=== PATIENT | male | born 1960 | race Caucasian/White ===

== ENCOUNTER → 2017-12-08 09:58 | Outpatient (CLI) | payer OTHER, SELFPAY ==
[2017-08-21 11:26] VITALS: BMI 40.4
[2017-08-22 11:00] VITALS: BP 144/71
[2017-12-07 11:37] VITALS: BP 130/60; BMI 41.5
[2017-12-08 10:17] LABS: Potassium 4.8 mmol/L (3.5-5.1)
== END ==
PROVIDERS: Family Provider Internal Medicine; PCP Internal Medicine; Visit Provider Internal Medicine
DX: E87.5 Hyperkalemia (principal)
CPT/HCPCS: 84132

== ENCOUNTER → 2017-12-25 13:40 | Outpatient (CLI) | payer OTHER, SELFPAY ==
[2017-08-21 11:26] VITALS: BMI 40.4
[2017-08-22 11:00] VITALS: BP 144/71
[2017-12-07 11:37] VITALS: BP 130/60; BMI 41.5
--- NOTE | 2017-12-25 13:41 | ECHOD_ITS ---
Reason For Study: dyspnea/SOB Procedure This was a 2D Doppler, Color Flow transthoracic echocardiogram. The study was technically difficult. Due to body habitus. Exam performed in department. Left Ventricle Normal LV size. Apical false tendon noted. Left ventricular systolic function is normal. The estimated ejection fraction is 53 %. No evidence for diastolic dysfunction. No regional wall motion abnormalities noted. Right Ventricle Normal RV size. Normal systolic function. Atria Normal left atrium. Normal right atrium. Mitral Valve Normal mitral valve. Tricuspid Valve Normal tricuspid valve. Unable to estimate RV systolic pressure/pulmonary artery pressure due to technically difficult study. Aortic Valve The aortic valve is not well visualized. Pulmonic Valve Normal pulmonic valve. Great Vessels Normal aortic root. The pulmonary artery is normal size. Normal inferior vena cava. Pericardium/Pleural No pericardial effusion. MMode/2D Measurements & Calculations LVIDd: 5.3 cm IVSd: 0.93 cm Ao root diam: 2.8 cm LVIDs: 3.7 cm LVPWd: 0.87 cm LA dimension: 4.8 cm FS: 30.2 % LAV(MOD-bp): 62.5 ml LA A4 area: 17.6 cm2 RA A4 area: 14.7 cm2 LAV(MOD-bp) Indexed: 27.2 ml/m2 LAV(MOD-sp2): 63.4 ml LAV(MOD-sp4): 56.4 ml Time Measurements MV dec time: 0.12 sec Doppler Measurements & Calculations MV E max chay: 140.0 cm/sec Lat Peak E' Chay: 8.3 cm/sec Med Peak E' Chay: 7.0 cm/sec MV A max chay: 118.0 cm/sec E/E' lat: 16.9 E/E' med: 19.9 MV E/A: 1.2 Ao V2 max: 137.2 cm/sec LV V1 max: 97.6 cm/sec PA V2 max: 108.6 cm/sec Ao max P.5 mmHg LV V1 max P.8 mmHg Interpretation Summary Normal LV size. Left ventricular systolic function is normal. The estimated ejection fraction is 53 %. No evidence for diastolic dysfunction. Apical false tendon noted. Compared to prior study, there is no significant change. Ordering Physician: Sergey Nelson Referring Physician: Lisa Gates Performed By: Lizette Gómez, MODESTACS, RVT
== END ==
PROVIDERS: Family Provider Internal Medicine; PCP Internal Medicine; Visit Provider Internal Medicine Cardiovascular Disease
DX: I50.9 Heart failure, unspecified (principal)
CPT/HCPCS: 93306

== ENCOUNTER → 2018-01-18 08:02 | Outpatient (CLI) | payer OTHER, SELFPAY ==
[2017-08-21 11:26] VITALS: BMI 40.4
[2018-01-18 08:58] LABS: Hematocrit 39.2 % (40-54); Hemoglobin 12.9 g/dl (13.0-16.5); Mean Corp Hgb Conc 32.9 g/gl (32-36); Mean Corpuscular Hgb 29.9 pg (27.0-32.0); Mean Platelet Vol. 9.6 fl (6.2-12.0); Platelet Count 147 K/mm3 (150-450); RBC Distribution Width CV 14.1 % (11.6-14.6); RBC Distribution Width SD 46.4 fl (35.1-43.9); Red Blood Count 4.31 M/mm3 (4.6-6.2); White Blood Count 6.2 K/mm3 (4.4-11.0)
[2018-01-18 09:08] LABS: Scan Indicated on CBC? Y/N NO
[2018-01-18 09:24] LABS: Hemoglobin A1c 7.6 % (4.2-6.3)
[2018-01-18 09:28] LABS: Albumin, Serum 3.7 g/dL (3.2-5.0); BUN 46 mg/dL (7-18); BUN/Creat Ratio 21.7 RATIO (10-20); Calcium,Total 8.4 mg/dL (8.5-10.1); Chloride 110 mmol/L (98-107); Creatinine, Serum 2.12 mg/dL (0.70-1.30); EST Glomerular Filtration Rate 34 mL/min (>60); Est Glom Filt Rate - Afr Amer 42 mL/min (>60); Glucose 154 mg/dL (74-106); Magnesium 2.5 mg/dL (1.6-2.6); Phosphorus 4.5 mg/dL (2.5-4.9); Potassium 4.7 mmol/L (3.5-5.1); Sodium Level 143 mmol/L (136-145); Thyroid Stim Hormone (TSH) 4.26 uIU/mL (0.358-3.74)
[2018-01-19 09:42] LABS: Vitamin D,25 Hydroxy 26.1 ng/mL (29.95-100.01)
[2018-01-19 09:48] LABS: PTHIN 92.1 pg/mL (18.4-80.1)
== END ==
PROVIDERS: Internal Medicine Nephrology; Family Provider Internal Medicine; PCP Internal Medicine; Visit Provider Internal Medicine Endocrinology, Diabetes & Metabolism
DX: E11.65 Type 2 diabetes mellitus with hyperglycemia (principal); I10 Essential (primary) hypertension; E78.2 Mixed hyperlipidemia; E03.9 Hypothyroidism, unspecified; Z79.899 Other long term (current) drug therapy; N25.81 Secondary hyperparathyroidism of renal origin; N18.3 Chronic kidney disease, stage 3 (moderate); D63.1 Anemia in chronic kidney disease
CPT/HCPCS: 36415; 80069; 82043; 82306; 83036; 83735; 83970; 84443; 85027

== ENCOUNTER → 2018-04-27 07:23 | Outpatient (CLI) | payer OTHER, SELFPAY ==
[2017-08-21 11:26] VITALS: BMI 40.4
[2018-04-27 07:53] LABS: Hematocrit 37.9 % (40-54); Hemoglobin 12.9 g/dl (13.0-16.5); Mean Corpuscular Hgb 31.3 pg (27.0-32.0); Mean Platelet Vol. 9.4 fl (6.2-12.0); Platelet Count 167 K/mm3 (150-450); RBC Distribution Width CV 14.7 % (11.6-14.6); RBC Distribution Width SD 49.4 fl (35.1-43.9); Red Blood Count 4.12 M/mm3 (4.6-6.2); White Blood Count 7.8 K/mm3 (4.4-11.0)
[2018-04-27 07:55] LABS: Scan Indicated on CBC? Y/N NO
[2018-04-27 08:28] LABS: ALB/GLOB Ratio 0.9 RATIO (0.9-2.4); AST(SGOT) 21 U/L (15-37); Alanine Aminotransfer ALT/SGPT 21 U/L (16-61); Albumin, Serum 3.4 g/dL (3.2-5.0); Alkaline Phosphatase 98 U/L (45-117); Anion Gap 7 (5-15); BUN 36 mg/dL (7-18); BUN/Creat Ratio 17.5 RATIO (10-20); Calcium,Total 8.7 mg/dL (8.5-10.1); Chloride 103 mmol/L (98-107); Creatinine, Serum 2.06 mg/dL (0.70-1.30); EST Glomerular Filtration Rate 35 mL/min (>60); Est Glom Filt Rate - Afr Amer 43 mL/min (>60); Globulin 3.7 g/dL (2.2-4.2); Glucose 140 mg/dL (74-106); Magnesium 2.5 mg/dL (1.6-2.6); Potassium 4.2 mmol/L (3.5-5.1); Protein, Total 7.1 g/dL (6.4-8.2); Sodium Level 139 mmol/L (136-145); Thyroid Stim Hormone (TSH) 4.73 uIU/mL (0.358-3.74)
[2018-04-27 08:32] LABS: Hemoglobin A1c 7.4 % (4.2-6.3)
[2018-04-27 09:51] LABS: PTHIN 147.7 pg/mL (18.4-80.1)
[2018-04-27 10:03] LABS: Vitamin D,25 Hydroxy 19.1 ng/mL (29.95-100.01)
== END ==
PROVIDERS: Family Provider Internal Medicine; PCP Internal Medicine; Visit Provider Internal Medicine Nephrology
DX: I12.9 Hypertensive chronic kidney disease with stage 1 through stage 4 chronic kidney disease, or unspecified chronic kidney disease (principal); E11.22 Type 2 diabetes mellitus with diabetic chronic kidney disease; N18.3 Chronic kidney disease, stage 3 (moderate); N25.81 Secondary hyperparathyroidism of renal origin; D63.1 Anemia in chronic kidney disease; E78.2 Mixed hyperlipidemia; Z79.899 Other long term (current) drug therapy
CPT/HCPCS: 80053; 82043; 82306; 82570; 83036; 83735; 83970; 84443; 85027

== ENCOUNTER → 2018-05-04 08:33 | Outpatient (CLI) | payer OTHER, SELFPAY ==
[2017-08-21 11:26] VITALS: BMI 40.4
--- NOTE | 2018-05-04 08:36 | RAD_ITS ---
STUDY: X-RAY - LUMBAR SPINE REASON FOR EXAM: Male, 57 years old. Low back pain. TECHNIQUE: 5 view(s) of the lumbar spine were obtained including oblique views. COMPARISON: None FINDINGS: Normal lumbar lordosis. There is no substantial scoliosis. There is a normal alignment of the vertebrae. There is multilevel endplate spondylosis of the lumbar vertebrae. There is multi-level degenerative disc disease with multi-level disc space narrowing. There is atherosclerotic calcification of the abdominal aorta without a demonstrated aneurysm. Calcified phleboliths are seen in the pelvis. There is calcification of the vas deferens. RAD/L/S Spine Min 4 Views IMPRESSION: Degenerative changes of the spine, as detailed above. Electronically Signed: Oj Michael MD at 12:39 EDT Tel [phone], Service support ,
== END ==
PROVIDERS: Family Provider Internal Medicine; PCP Internal Medicine; Visit Provider Internal Medicine
DX: M54.40 Lumbago with sciatica, unspecified side (principal)
CPT/HCPCS: 72110

== ENCOUNTER 2018-06-04 08:30 | Outpatient (RCR) | payer OTHER, SELFPAY ==
[2017-08-21 11:26] VITALS: BMI 40.4
--- NOTE | 2018-05-07 07:47 | HP.PTEVAL_ITS ---
Patient's Visit Information KATHERINE NAVA is a 58 year old M referred to Physical Therapy by Lisa Gates with a diagnosis of Low Back Pain. Date of Evaluation: 05/07/18 Physical Therapist: Shaila Guajardo, PT - Visit Plan Frequency: 2x /Week Duration: 4 Weeks Plan: Therapeutic exercises and activities to target BLE, core and back strength , ROM and flexibility. Manual and Modalities to decrease pain and increase ROM. Per physician preferred modalities of ultrasound and electrical stim. Incorporate HEP to promote maintainence and independence. - Subjective Subjective: NEIL Patient presents in therapy today with low back pain that started 6 weeks ago with no known injury. States it just started. He reports that he takes prescription advil and muscle relaxor that helps decrease the pain and not alleviate it. He reports pain is consistent with activities. He reports that he does prone push ups, pelvic tilts and alternating knee lifts in supine to help decrease pain but not alleviate it. He has been using biofreeze to help with pain as well. States pain is worse after the shower. He has numbness and tingling down both legs that are secondary to neuropathy and not worsen since back pain. He has had xray showing normal age-related degeneration. Lives with his to help with activities. - Pain low back Pain Intensity (Out of 10): 4 Pain Intensity Range: 3, 8 Comment: worsen when in the shower - Objective Posture: Standing upright equal WB through BLE; slouching with increased posterior pelvic tilt while sitting. ROM: Mild limitations with lumbar extension and rotation right/left; moderate limitation with lumbar side bending and flexion (increased pain with flexion); BLE WFL. Sensation: Intact to light touch. Palpation: No tenderness or pain to palpation to low back and hip area; moderate tightness along bilateral paraspinals; Anterior rotation of L pelvis in resting compared to R resulting in higher R ASIS compared to L and slight leg length difference. Flexibility: Moderate tightness of bilateral hamstrings -25* knee extension on right and -20* on the left. Strength: BLE grossly 4/5 strength except bilateral hip flexors 4-/5, hip abduction right/left 4-/5, core strength 3+/5, low back 4-/5. Balance: Patient displays fair balance static and dynamic standing; frequent swaying and reaching for objects to maintain balance. - Goals Goal 1:: Patient will increase BLE and core strength grossly by 1 muscle grade for improved performance with functional activities Goal Time Frame: 4-6 Weeks Goal 2:: Patient will increase lumbar ROM in all planes for improved mobility Goal Time Frame: 4-6 Weeks Goal 3:: Patient will increase hamstring flexibility by 5 degrees bilaterally for improved mobility. Goal Time Frame: 4-6 Weeks Goal 4:: Patient will perform 10 minutes of therapeutic exercises and activities without increasing back pain Goal Time Frame: 4-6 Weeks Goal 5:: Patient will demonstrate increased low back strength grossly 4/5 for improved posture and performance with functional activities Goal Time Frame: 4-6 Weeks Goal 6:: Patient will demonstrate independence with HEP Goal Time Frame: 2-4 Weeks - Rehabilitation Potential Physical Therapy Diagnosis: Muscle Weakness, Limited Range of Motion Rehabilitation Potential: Good - Anticipated Interventions Patient/Client Instruction: Educate patient on: Condition, Plan of Care For the Purpose of:: To decrease pain, To increase ROM, To improve muscle performance and motor function, To improve ability to perform ADL's, To improve ability of physical actions for home/community/work/leisure, To increase flexibility/ROM, To improve endurance, To improve safety with gait Therapeutic Exercise to Include: Strength training, Endurance training, Balance training, Body mechanics, Postural training, Flexibilty training, Samuel Exercises For the Purpose of:: To increase ROM, To improve muscle performance and motor function, To improve ability to perform ADL's, To improve ability of physical actions for home/community/work/leisure Functional Training to Include: ADL Training For the Purpose of:: To improve muscle performance and motor function, To improve ability of physical actions for home/community/work/leisure Comment: massage not covered For the Purpose of:: To decrease pain, To increase ROM, To increase flexibility/ ROM Iontophoresis (with Dexamethozone, with Acetic acid): No Functional electric stimulation: Yes TENS: Yes Ultrasound (thermal/non thermal): Yes For the Purpose of:: To decrease pain, To increase ROM, To increase flexibility/ ROM Thank you for the opportunity to evaluate your patient. For Medicare and Medicare HMO plans, please review the plan of care and approve it. It will need to be FAXED BACK to us at [phone] for Medicare purposes. Please let me know if there are questions or concerns regarding this plan of care. Physician Signature: Date:
--- NOTE | 2018-06-04 12:21 | HP.PTDCSUM_ITS ---
HP - PT D/C Summary It has been my pleasure to treat KATHERINE NAVA under orders from Lisa Gates, for the diagnosis of Low Back Pain for a total of 9 visit(s). Discharge Date: Please see the following information for a summary of their discharge status. - Subjective Subjective: PATIENT REPORTS HE HASN'T HAD THE PAIN THAT HE CAME HERE FOR FOR ABOUT ONE WEEK. HE HAS HAD TWO CORTISONE SHOTS IN THE LEFT HIP BY DR. GATES. PATIENT REPORTS THE HOME EX'S SOMETIMES DECREASE THE PAIN. RIGHT NOW, PATIENT REPORTS HIS TAILBONE FEELS BRUISED AND HIS HIPS (LEFT > RIGHT) FEEL STIFF AND SORE. HE REPORTS IT HURTS TO LIE DOWN AND GET UP FROM BED. PATIENTS IS PRESENT AND HELPFUL. PATIENT REPORTS HE WOULD LIKE TO STOP PT AT THIS POINT AND TRY TO CONTINUE ON HIS OWN WITH THE HOME EX'S. PATIENTS IS AGREEABLE. - Pain low back Pain Intensity (Out of 10): 0 - Overall Improvement % Improvement: 30 - Objective Objective/Function: PATIENT, HIS AND THIS PT REALIZED DURING THE SUBJECTIVE INTERVIEW THAT PATIENT HAS BEEN DENYING PAIN BECAUSE HE ISN'T HAVING SHARP SEVERE PAIN BUT HE IS STILL HAVING PAIN IN [place] HIPS LEFT > RIGHT AND HIS LOW BACK. UPON EXAM, HE HAS VERY LIMITED BACK AND HIP ROM ALL PLANES AND TESTING RIGHT LUMBAR SIDE BEND IN STANDING PROVOKED QUITE A BIT OF PAIN BUT PATIENT RECOVERED QUICKLY. HE IS UNABLE TO SLS ON THE LEFT LE WITHOUT UE ASSIST AND ONLY ABLE TO SLS RIGHT LE FOR A FEW SECONDS WITHOUT UE ASSIST. HE HANGS ON TO HIS WALKING IN. HE REPORTS HE HAS A CANE BUT HAS NEVER BEEN SHOWN HOW TO USE IT. PATIENT IS UNSAFE GETTING ON AND OFF EX EQUIPMENT ON HIS OWN WITHOUT SUPERVISION BUT LIKES THE MACHINES. PATIENTS IS INQUIRING ABOUT MEMBERSHIP AND AGREES PATINET NEEDS SUPERVISION WELL PATIENT AGREEING. THIS PATIENT AMBULATED INTO PT WITH DECREASED CADANCE AND HOLDING ON TO HIS THE ENTIRE TIME WHILE EXTENDING HIS OTHER ARM OUT FOR BALANCE. HE AMBULATED UNSAFELY INDEP'LY IN THE TREATMENT ROOM AND EVEN WHEN HE HAD THE TREATMENT TABLE TO HOLD ON TO LOST HIS BALANCE SEVERAL TIMES. HE DID NOT FALL. HE LEARNED PROPER SEQUENCING WITH A CANE QUICKLY BUT THE CANE ALONE REALLY DOES NOT GIVE HIM ENOUGH SUPPORT. RECOMMENDED ROLLATOR. PATIENT IS ABLE TO TRANSFER FROM SIT TO STAND WITHOUT UE ASSIST NOW BUT ONCE HE GETS INTO STANDING HE IS UNSTEADY. THERE IS NO SIGNIFICANT CHANGE IN LUMBAR OSWESTRY AT THIS POINT. PATIENT IS INDEP WITH A HEP BUT IS NOT CONTINUING TO PROGRESS IN TERMS OF ROM, STRENGTH AND BALANCE. - Goals Goal 1:: Patient will increase BLE and core strength grossly by 1 muscle grade for improved performance with functional activities Goal Progress: Not Progressing Goal 2:: Patient will increase lumbar ROM in all planes for improved mobility Goal Progress: Not Progressing Goal 3:: Patient will increase hamstring flexibility by 5 degrees bilaterally for improved mobility. Goal Progress: Not Progressing Goal 4:: Patient will perform 10 minutes of therapeutic exercises and activities without increasing back pain Goal Progress: Progressing Goal 5:: Patient will demonstrate increased low back strength grossly 4/5 for improved posture and performance with functional activities Goal Progress: Not Progressing Goal 6:: Patient will demonstrate independence with HEP Goal Progress: Progressing - Plan Plan: D/C AT PATIENTS REQUEST. AGREEABLE. PATIENT PLANS TO CONTINUE WITH [facility] AT THIS TIME BUT HE AND HIS ARE GOING TO DISCUSS THE LOGISTICS OF MEMBERSHIP WITH [facility] FOR THE FUTURE. THEY ARE ALSO OPEN TO USE OF ASSISTIVE DEVICE AND ARE GOING TO LOOK INTO PURCHASING A ROLLATOR. RECOMMEND FOLLOW UP WITH DR. GATES NEEDED FOR HIS BACK PAIN IF IT DOES NOT CONTINUE TO IMPROVE BECAUSE IT HAS NOT GONE AWAY YET LIKE EPISODES IN THE PAST. - D/C Information If there are questions or concerns regarding this patient's physical therapy, please feel free to call me at [phone]. Thank you for the referral of this patient. Sincerely, Cori Rene
== END 2018-06-04 19:00 | disposition home or self-care (01) ==
LOC: PT 08:30
PROVIDERS: Family Provider Internal Medicine; PCP Internal Medicine; Visit Provider Internal Medicine
DX: M54.5 Low back pain (principal)
CPT/HCPCS: 97014; 97110; 97116; 97162; 97164; G0283

== ENCOUNTER → 2018-08-11 07:35 | Outpatient (CLI) | payer OTHER, SELFPAY ==
[2017-08-21 11:26] VITALS: BMI 40.4
[2018-08-11 08:53] LABS: BUN 37 mg/dL (7-18); Creatinine, Serum 2.04 mg/dL (0.70-1.30); Glucose 231 mg/dL (74-106)
[2018-08-11 08:54] LABS: Anion Gap 11 (5-15); BUN/Creat Ratio 18.1 RATIO (10-20); Calcium,Total 8.6 mg/dL (8.5-10.1); Chloride 104 mmol/L (98-107); EST Glomerular Filtration Rate 36 mL/min (>60); Est Glom Filt Rate - Afr Amer 43 mL/min (>60); Potassium 3.9 mmol/L (3.5-5.1); Sodium Level 142 mmol/L (136-145)
[2018-08-11 09:57] LABS: Hemoglobin A1c 7.5 % (4.2-6.3)
== END ==
PROVIDERS: Family Provider Internal Medicine; PCP Internal Medicine; Referring Provider Internal Medicine Endocrinology, Diabetes & Metabolism; Visit Provider Internal Medicine Endocrinology, Diabetes & Metabolism
DX: E11.65 Type 2 diabetes mellitus with hyperglycemia (principal); E78.2 Mixed hyperlipidemia; I10 Essential (primary) hypertension; Z79.899 Other long term (current) drug therapy
CPT/HCPCS: 36415; 80048; 83036

== ENCOUNTER → 2018-09-12 08:36 | Outpatient (CLI) | payer OTHER, SELFPAY ==
[2017-08-21 11:26] VITALS: BMI 40.4
[2018-09-12 09:52] LABS: Specific Gravity, Urine 1.015 (1.002-1.030)
[2018-09-12 09:53] LABS: Leukocyte Esterase-Dipstick Negative /ul (Negative); Nitrite-Dipstick Negative (Negative)
[2018-09-12 09:54] LABS: Glucose, Dipstick 1000 mg/dl (Normal); Ketone-Dipstick Negative (Negative); Protein-Dipstick 500 mg/dl (Negative); Urine Bilirubin Dipstick Negative (Negative); Urine Urobilinogen Normal (Normal)
[2018-09-12 09:55] LABS: Color, Urine Yellow (Yellow); Hematocrit 36.9 % (40-54); Hemoglobin 12.2 g/dl (13.0-16.5); Mean Corp Hgb Conc 33.1 g/gl (32-36); Mean Corpuscular Volume 93.9 fL (80-94); Occult Blood-Urine 250 /ul (Negative); Platelet Count 151 K/mm3 (150-450); RBC Distribution Width CV 13.9 % (11.6-14.6); RBC Distribution Width SD 47.7 fl (35.1-43.9); Red Blood Count 3.93 M/mm3 (4.6-6.2); Urine Clarity Sl Cldy (Clear)
[2018-09-12 09:58] LABS: Scan Indicated on CBC? Y/N NO
[2018-09-12 10:04] LABS: Protein:Creat Ratio 3315 mg/g CRE (0-200)
[2018-09-12 10:19] LABS: Albumin, Serum 3.4 g/dL (3.2-5.0); BUN 44 mg/dL (7-18); BUN/Creat Ratio 19.1 RATIO (10-20); Calcium,Total 8.7 mg/dL (8.5-10.1); Chloride 102 mmol/L (98-107); EST Glomerular Filtration Rate 31 mL/min (>60); Est Glom Filt Rate - Afr Amer 38 mL/min (>60); Glucose 184 mg/dL (74-106); Phosphorus 4.3 mg/dL (2.5-4.9); Potassium 3.9 mmol/L (3.5-5.1); Sodium Level 141 mmol/L (136-145)
[2018-09-12 10:27] LABS: PTHIN 172.1 pg/mL (18.4-80.1); Vitamin D,25 Hydroxy 28.7 ng/mL (29.95-100.01)
== END ==
PROVIDERS: Family Provider Internal Medicine; PCP Internal Medicine; Referring Provider Internal Medicine Nephrology; Visit Provider Internal Medicine Nephrology
DX: N18.3 Chronic kidney disease, stage 3 (moderate) (principal); N25.81 Secondary hyperparathyroidism of renal origin; D63.1 Anemia in chronic kidney disease
CPT/HCPCS: 80069; 81002; 82306; 82570; 83970; 84156; 85027

== ENCOUNTER → 2018-12-24 10:59 | Outpatient (CLI) | payer OTHER, SELFPAY ==
[2017-08-21 11:26] VITALS: BMI 40.4
[2018-12-11 10:10] VITALS: BMI 41.3
[2018-12-24 12:12] LABS: Anion Gap 9 (5-15); BUN 63 mg/dL (7-18); BUN/Creat Ratio 25.3 RATIO (10-20); Calcium,Total 8.8 mg/dL (8.5-10.1); Chloride 105 mmol/L (98-107); Creatinine, Serum 2.49 mg/dL (0.70-1.30); EST Glomerular Filtration Rate 28 mL/min (>60); Est Glom Filt Rate - Afr Amer 34 mL/min (>60); Glucose 145 mg/dL (74-106); Potassium 4.1 mmol/L (3.5-5.1); Sodium Level 138 mmol/L (136-145)
== END ==
PROVIDERS: Family Provider Internal Medicine; PCP Internal Medicine; Referring Provider Internal Medicine Nephrology; Visit Provider Internal Medicine Nephrology
DX: E11.21 Type 2 diabetes mellitus with diabetic nephropathy (principal)
CPT/HCPCS: 36415; 80048

== ENCOUNTER → 2019-01-28 07:30 | Outpatient (CLI) | payer OTHER, SELFPAY ==
[2017-08-21 11:26] VITALS: BMI 40.4
[2018-12-11 10:10] VITALS: BMI 41.3
[2019-01-28 10:07] LABS: Anion Gap 6 (5-15); BUN 50 mg/dL (7-18); BUN/Creat Ratio 21.5 RATIO (10-20); Calcium,Total 8.9 mg/dL (8.5-10.1); Chloride 104 mmol/L (98-107); Creatinine, Serum 2.33 mg/dL (0.70-1.30); EST Glomerular Filtration Rate 31 mL/min (>60); Est Glom Filt Rate - Afr Amer 37 mL/min (>60); Glucose 229 mg/dL (74-106); Potassium 4.2 mmol/L (3.5-5.1); Sodium Level 135 mmol/L (136-145); Thyroid Stim Hormone (TSH) 3.06 uIU/mL (0.358-3.74)
== END ==
PROVIDERS: Family Provider Internal Medicine; PCP Internal Medicine; Referring Provider Internal Medicine Endocrinology, Diabetes & Metabolism; Visit Provider Internal Medicine Endocrinology, Diabetes & Metabolism
DX: E03.9 Hypothyroidism, unspecified (principal); E11.65 Type 2 diabetes mellitus with hyperglycemia; I10 Essential (primary) hypertension; E78.2 Mixed hyperlipidemia; Z79.899 Other long term (current) drug therapy
CPT/HCPCS: 36415; 80048; 83036; 84443

== ENCOUNTER → 2019-04-25 07:40 | Outpatient (CLI) | payer OTHER, SELFPAY ==
[2017-08-21 11:26] VITALS: BMI 40.4
[2018-12-11 10:10] VITALS: BMI 41.3
--- NOTE | 2019-04-25 07:55 | CDU_ITS ---
Reason For Study: Dizziness Rt. Velocities/BP Lt. Velocities/BP Prox CCA 90.5/14.6 cm/sec. Prox CCA 90/15.1 cm/sec. Mid CCA 94.6/17.9 cm/sec. Mid CCA 96.1/21.2 cm/sec. Dist CCA 91.6/21.2 cm/sec. Dist CCA 80.2/17.6 cm/sec. Prox ICA 79/22.5 cm/sec. Prox ICA 164/52.6 cm/sec. Mid ICA 63/20 cm/sec. Mid ICA 75.4/20.6 cm/sec. Dist ICA 71.6/23.7 cm/sec. Dist ICA 77.3/17 cm/sec. Rt. ICA/CCA = 0.9. Lt. ICA/CCA = 1.8. Prox ECA 112.1/12.6 cm/sec. Prox ECA 227.2/17.1 cm/sec. Rt. Vert. 56.9/18.8 cm/sec. Lt. Vert. 52.2/13.5 cm/sec. Right Extracranial There is heterogeneous, irregular atherosclerotic plaque noted in the right common carotid artery. There is heterogeneous, irregular atherosclerotic plaque noted in the right internal carotid artery. There is homogeneous, smooth atherosclerotic plaque noted in the right external carotid artery. Antegrade flow is noted in the right vertebral artery. Left Extracranial There is heterogeneous, smooth atherosclerotic plaque noted in the left common carotid artery. There is heterogeneous, irregular atherosclerotic plaque noted in the left internal carotid artery. There is heterogeneous, irregular atherosclerotic plaque noted in the left external carotid artery. Antegrade flow is noted in the left vertebral artery. Procedure Carotid Duplex 02013. Exam performed in department. Interpretation Summary Mild (<50%) stenosis right extracranial internal carotid. The degree of stenosis in the left internal carotid artery appears to be 50-69% based upon velocity criteria. However, maharaj-scale imaging suggests that the degree of stenosis may exceed 70%. In this regard, clinical correlation is advised, and an alternative imaging modality may be helpful. Flow within the vertebral arteries is antegrade bilaterally. The degree of stenosis in the left external carotid artery appears to be >50%. Ordering Physician: Trinity Jacinto Referring Physician: Lisa Gates M.D. Performed By: Ann Cintron RVT
== END ==
PROVIDERS: Family Provider Internal Medicine; PCP Internal Medicine; Referring Provider Internal Medicine; Visit Provider Internal Medicine
DX: R42 Dizziness and giddiness (principal)
CPT/HCPCS: 93880

== ENCOUNTER → 2019-05-11 07:40 | Outpatient (CLI) | payer OTHER, MEDICARE, SELFPAY ==
[2017-08-21 11:26] VITALS: BMI 40.4
[2018-12-11 10:10] VITALS: BMI 41.3
[2019-05-11 08:20] LABS: Hemoglobin 12.3 g/dl (13.0-16.5); Mean Corp Hgb Conc 34.2 g/gl (32-36); Mean Corpuscular Hgb 30.5 pg (27.0-32.0); Mean Corpuscular Volume 89.3 fL (80-94); Mean Platelet Vol. 10.2 fl (6.2-12.0); Platelet Count 157 K/mm3 (150-450); RBC Distribution Width CV 14.2 % (11.6-14.6); RBC Distribution Width SD 46.6 fl (35.1-43.9); Red Blood Count 4.03 M/mm3 (4.6-6.2); Scan Indicated on CBC? Y/N NO; White Blood Count 5.9 K/mm3 (4.4-11.0)
[2019-05-11 08:44] LABS: Hemoglobin A1c 8.6 % (4.2-6.3)
[2019-05-11 08:50] LABS: AST(SGOT) 19 U/L (15-37); Alanine Aminotransfer ALT/SGPT 22 U/L (16-61); Albumin, Serum 3.8 g/dL (3.2-5.0); Alkaline Phosphatase 105 U/L (45-117); Anion Gap 6 (5-15); BUN 74 mg/dL (7-18); BUN/Creat Ratio 24.3 RATIO (10-20); Calcium,Total 8.8 mg/dL (8.5-10.1); Chloride 104 mmol/L (98-107); Creatinine, Serum 3.04 mg/dL (0.70-1.30); EST Glomerular Filtration Rate 23 mL/min (>60); Est Glom Filt Rate - Afr Amer 27 mL/min (>60); Glucose 342 mg/dL (74-106); Phosphorus 4.5 mg/dL (2.5-4.9); Potassium 4.7 mmol/L (3.5-5.1); Protein, Total 7.8 g/dL (6.4-8.2); Sodium Level 136 mmol/L (136-145)
[2019-05-11 09:37] LABS: Microalbumin:Creatinine Ratio 1560.7 mg/g CRE (<30 mg/g CRE); Protein, Urine (Random) 152.9 mg/dL (<11.9); Protein:Creat Ratio 2210 mg/g CRE (0-200)
[2019-05-11 10:46] LABS: Color, Urine Yellow (Yellow); Glucose, Dipstick 250 mg/dl (Normal); Ketone-Dipstick Negative (Negative); Leukocyte Esterase-Dipstick Negative /ul (Negative); Nitrite-Dipstick Negative (Negative); Occult Blood-Urine 10 /ul (Negative); Protein-Dipstick 100 mg/dl (Negative); Specific Gravity, Urine 1.015 (1.002-1.030); Urine Bilirubin Dipstick Negative (Negative); Urine Clarity Clear (Clear); Urine Urobilinogen Normal (Normal)
[2019-05-13 09:52] LABS: Vitamin D,25 Hydroxy 36.9 ng/mL (29.95-100.01)
== END ==
PROVIDERS: Family Provider Internal Medicine; PCP Internal Medicine; Referring Provider Internal Medicine Nephrology; Visit Provider Internal Medicine Nephrology
DX: I12.9 Hypertensive chronic kidney disease with stage 1 through stage 4 chronic kidney disease, or unspecified chronic kidney disease (principal); N18.3 Chronic kidney disease, stage 3 (moderate); E11.21 Type 2 diabetes mellitus with diabetic nephropathy; D63.1 Anemia in chronic kidney disease; N25.81 Secondary hyperparathyroidism of renal origin; E11.65 Type 2 diabetes mellitus with hyperglycemia; E78.2 Mixed hyperlipidemia; Z79.899 Other long term (current) drug therapy
CPT/HCPCS: 36415; 80053; 81002; 82043; 82306; 82570; 83036; 83970; 84100; 84156; 85027

== ENCOUNTER → 2019-05-23 07:43 | Outpatient (CLI) | payer OTHER, SELFPAY ==
[2017-08-21 11:26] VITALS: BMI 40.4
[2018-12-11 10:10] VITALS: BMI 41.3
[2019-05-23 09:00] LABS: T4 Free Direct 0.64 ng/dL (0.76-1.46); Thyroid Stim Hormone (TSH) 2.96 uIU/mL (0.358-3.74)
== END ==
PROVIDERS: Family Provider Internal Medicine; PCP Internal Medicine; Referring Provider Internal Medicine Endocrinology, Diabetes & Metabolism; Visit Provider Internal Medicine Endocrinology, Diabetes & Metabolism
DX: E03.9 Hypothyroidism, unspecified (principal); E04.2 Nontoxic multinodular goiter
CPT/HCPCS: 36415; 84439; 84443

== ENCOUNTER → 2019-05-31 13:35 | Outpatient (CLI) | payer OTHER, SELFPAY ==
[2017-08-21 11:26] VITALS: BMI 40.4
[2018-12-11 10:10] VITALS: BMI 41.3
--- NOTE | 2019-05-31 13:38 | US_ITS ---
STUDY: THYROID ULTRASOUND REASON FOR EXAM: Male, 59 years old. Enlarged thyroid on physical exam. TECHNIQUE: Ultrasound evaluation of the thyroid was performed with real-time and static maharaj-scale imaging. COMPARISON: None. FINDINGS: RIGHT LOBE: The right lobe of the thyroid gland measures 5.3 x 1.7 x 1.7 cm. There is a homogeneous echotexture. There are no demonstrated solid, cystic or complex lesions. LEFT LOBE: The left lobe of the thyroid gland measures 4.7 x 2.0 x 2.4 cm. There is a homogeneous echotexture. There are no demonstrated solid, cystic or complex lesions. ISTHMUS: The isthmus measures 0.3 cm . US/Thyroid IMPRESSION: Normal ultrasound examination of the thyroid. Electronically Signed: Romi Alonso MD at 15:50 EDT , Service support ,
== END ==
PROVIDERS: Family Provider Internal Medicine; PCP Internal Medicine; Referring Provider Internal Medicine Endocrinology, Diabetes & Metabolism; Visit Provider Internal Medicine Endocrinology, Diabetes & Metabolism
DX: E04.2 Nontoxic multinodular goiter (principal); E03.9 Hypothyroidism, unspecified
CPT/HCPCS: 76536

== ENCOUNTER → 2019-07-09 15:39 | Outpatient (CLI) | payer OTHER, SELFPAY ==
[2017-08-21 11:26] VITALS: BMI 40.4
[2018-12-11 10:10] VITALS: BMI 41.3
[2019-07-09 16:23] LABS: Color, Urine Yellow (Yellow); Glucose, Dipstick 100 mg/dl (Normal); Hematocrit 41.5 % (40-54); Ketone-Dipstick Negative (Negative); Leukocyte Esterase-Dipstick Negative /ul (Negative); Mean Corp Hgb Conc 33.7 g/dL (32-36); Mean Corpuscular Hgb 30.8 pg (27.0-32.0); Mean Corpuscular Volume 91.4 fL (80-94); Mean Platelet Vol. 10.3 fl (6.2-12.0); Nitrite-Dipstick Negative (Negative); Occult Blood-Urine 25 /ul (Negative); Platelet Count 197 K/mm3 (150-450); Protein-Dipstick 500 mg/dl (Negative); RBC Distribution Width CV 14.2 % (11.6-14.6); RBC Distribution Width SD 47.3 fl (35.1-43.9); Red Blood Count 4.54 M/mm3 (4.6-6.2); Specific Gravity, Urine 1.015 (1.002-1.030); Urine Bilirubin Dipstick Negative (Negative); Urine Clarity Clear (Clear); Urine Urobilinogen Normal (Normal); White Blood Count 8.6 K/mm3 (4.4-11.0)
[2019-07-09 16:47] LABS: Albumin, Serum 3.9 g/dL (3.2-5.0); BUN 50 mg/dL (7-18); BUN/Creat Ratio 19.6 RATIO (10-20); Calcium,Total 9.6 mg/dL (8.5-10.1); Chloride 107 mmol/L (98-107); Creatinine, Serum 2.55 mg/dL (0.70-1.30); EST Glomerular Filtration Rate 28 mL/min (>60); Est Glom Filt Rate - Afr Amer 33 mL/min (>60); Glucose 148 mg/dL (74-106); Phosphorus 3.8 mg/dL (2.5-4.9); Potassium 4.2 mmol/L (3.5-5.1); Sodium Level 139 mmol/L (136-145)
[2019-07-09 16:54] LABS: PTHIN 94.6 pg/mL (18.4-80.1); Vitamin D,25 Hydroxy 31.7 ng/mL (29.95-100.01)
[2019-07-09 17:03] LABS: Microalbumin:Creatinine Ratio 3249.3 mg/g CRE (<30 mg/g CRE); Protein, Urine (Random) 284.1 mg/dL (<11.9); Protein:Creat Ratio 3768 mg/g CRE (0-200)
== END ==
PROVIDERS: Family Provider Internal Medicine; PCP Internal Medicine; Referring Provider Internal Medicine Nephrology; Visit Provider Internal Medicine Nephrology
DX: N18.3 Chronic kidney disease, stage 3 (moderate) (principal); N25.81 Secondary hyperparathyroidism of renal origin; D63.1 Anemia in chronic kidney disease
CPT/HCPCS: 36415; 80069; 81002; 82043; 82306; 82570; 83970; 84156; 85027

== ENCOUNTER → 2019-08-05 06:11 | Outpatient (CLI) | payer OTHER, SELFPAY ==
[2017-08-21 11:26] VITALS: BMI 40.4
[2019-07-23 15:21] VITALS: BMI 40.5
--- NOTE | 2019-08-05 17:35 | STRESSREP ---
Stress Test Report Oncologic myocardial perfusion stress test. 59-year-old man with a history of coronary artery disease status post coronary artery bypass surgery. Medications: Humulin, metoprolol, Altace, furosemide, metolazone, Procardia, isosorbide. Stress protocol: Resting EKG demonstrates normal sinus rhythm with a rate of 73 bpm normal intervals are noted poor R wave progression is noted suggestive of a previous anterior infarct. Resting blood pressures 158/90 mmHg. 0.4 mg of regadenoson was infused per usual protocol followed by rapid intravenous saline flush injection. The maximum heart rate attained was 80 bpm which was 49% of maximum predicted heart rate the maximum workload was 1 metabolic equivalent. At rest there were no ST or T wave changes noted suggest ischemia at peak infusion nonspecific ST-T wave changes were noted. No clinical angina was noted. The resting blood pressures 158/90 with a final blood pressure 140/80 mmHg. Myocardial perfusion protocol. 15.0 mCi of technetium 99m sestamibi was injected at rest. 0.4 mg of regadenoson was infused per usual protocol. Peak infusion 45.0 mCi of technetium 99m sestamibi was injected stress images were obtained stress and rest images are reconstructed and compared in the short axis vertical long horizontal long axis. Gated images were also obtained Perfusion SPECT analysis: Review of the stress images demonstrate a normal cardiac silhouette size. There is a medium-sized defect noted in the lateral wall on the stress images which appears to be totally reversible on the resting images suggestive of lateral ischemia and a medium size zone. The rest of the ma appear to be fairly well perfused. Gated SPECT analysis: The gated ejection fraction is noted to be 41%. Conclusion: Abnormal pharmacologic myocardial perfusion stress test with evidence of lateral ischemia. Borderline ejection fraction.
== END ==
PROVIDERS: Family Provider Internal Medicine; PCP Internal Medicine; Referring Provider Nurse Practitioner Family; Visit Provider Nurse Practitioner Family
DX: R06.02 Shortness of breath (principal); R53.83 Other fatigue; I10 Essential (primary) hypertension; Z95.1 Presence of aortocoronary bypass graft; Z95.5 Presence of coronary angioplasty implant and graft
CPT/HCPCS: 78452; 93017; A9500; A4216; J2785

== ENCOUNTER → 2019-08-14 06:45 | Outpatient (CLI) | payer OTHER, SELFPAY ==
[2017-08-21 11:26] VITALS: BMI 40.4
[2019-07-23 15:21] VITALS: BMI 40.5
--- NOTE | 2019-08-14 07:02 | RAD_ITS ---
EXAM DESCRIPTION: PA and lateral chest CHEST CLINICAL HISTORY: 59 years Male, preop heart catheter COMPARISON: Previous chest obtained on 08/16/2017 FINDINGS: Sternotomy sutures are noted in place. The rest of the thorax is intact. The heart and mediastinum appear to be within normal limits. The lungs appear to be well areated without evidence of pneumonic consolidation or pleural effusion. RAD/Chest PA and Lateral IMPRESSION: Status post CABG otherwise the chest shows no acute pathology. Electronically Signed: Grabiel Woods, at 17:11 EDT Tel , Service support ,
[2019-08-14 08:20] LABS: Absolute Lymphocyte Count 1.61 X10^3/uL (0.83-4.51); Absolute Neutrophil Count 4.6 X10^3/uL (2.0-7.7); Basophil# 0.04 X10^3/uL; Basophil% 0.5 % (0-1); Eosinophil# 0.31 X10^3/uL; Eosinophils% 4.2 % (0-5); Hematocrit 41.4 % (40-54); Hemoglobin 13.4 g/dL (13.0-16.5); Lymphocyte # 1.61 X10^3/ul (4.0); Lymphocyte % 21.8 % (19-41); Mean Corp Hgb Conc 32.4 g/dL (32-36); Mean Corpuscular Hgb 29.9 pg (27.0-32.0); Mean Corpuscular Volume 92.4 fL (80-94); Mean Platelet Vol. 10.8 fl (6.2-12.0); Monocyte# 0.82 X10^3/uL; Monocyte% 11.1 % (0-10); NRBC Flagged by Analyzer 0 % (0-5); Neutrophil # 4.57 X10^3/uL (2.7-7.7); Neutrophil % 62.1 % (47-70); Platelet Count 199 K/mm3 (150-450); RBC Distribution Width CV 13.9 % (11.6-14.6); RBC Distribution Width SD 46.6 fl (35.1-43.9); Red Blood Count 4.48 M/mm3 (4.6-6.2); White Blood Count 7.4 K/mm3 (4.4-11.0)
[2019-08-14 08:55] LABS: Hemoglobin A1c 8.3 % (4.2-6.3)
[2019-08-14 08:58] LABS: Anion Gap 13 (5-15); BUN 68 mg/dL (7-18); BUN/Creat Ratio 18.1 RATIO (10-20); Calcium,Total 9.1 mg/dL (8.5-10.1); Chloride 98 mmol/L (98-107); Cholesterol 256 mg/dL (200); Creatinine, Serum 3.75 mg/dL (0.70-1.30); EST Glomerular Filtration Rate 18 mL/min (>60); Est Glom Filt Rate - Afr Amer 21 mL/min (>60); Glucose 305 mg/dL (74-106); High Density Lipoprotein 29 mg/dL; Potassium 4.2 mmol/L (3.5-5.1); Sodium Level 137 mmol/L (136-145); Triglycerides 357 mg/dL; Uric Acid 7.5 mg/dL (3.5-7.2); Very Low Density Lipoprotein 71 mg/dL (5-40)
[2019-08-14 09:42] LABS: Vitamin B12 1293 pg/mL (211-911)
== END ==
PROVIDERS: Family Provider Internal Medicine; PCP Internal Medicine; Referring Provider Nurse Practitioner Family; Visit Provider Nurse Practitioner Family
DX: E11.42 Type 2 diabetes mellitus with diabetic polyneuropathy (principal); E11.65 Type 2 diabetes mellitus with hyperglycemia; E78.2 Mixed hyperlipidemia; E03.9 Hypothyroidism, unspecified; I10 Essential (primary) hypertension; E79.0 Hyperuricemia without signs of inflammatory arthritis and tophaceous disease; Z79.899 Other long term (current) drug therapy
CPT/HCPCS: 36415; 71046; 80048; 80061; 82607; 83036; 84443; 84550; 85025

== ENCOUNTER → 2019-10-02 06:55 | Outpatient (CLI) | payer OTHER, SELFPAY ==
[2017-08-21 11:26] VITALS: BMI 40.4
[2019-07-23 15:21] VITALS: BMI 40.5
[2019-10-02 07:41] LABS: Hematocrit 38.3 % (40-54); Mean Corp Hgb Conc 33.9 g/dL (32-36); Mean Corpuscular Hgb 30.8 pg (27.0-32.0); Mean Corpuscular Volume 90.8 fL (80-94); Mean Platelet Vol. 10.7 fl (6.2-12.0); Platelet Count 212 K/mm3 (150-450); RBC Distribution Width CV 14.2 % (11.6-14.6); RBC Distribution Width SD 46.3 fl (35.1-43.9); Red Blood Count 4.22 M/mm3 (4.6-6.2)
[2019-10-02 07:47] LABS: Color, Urine Yellow (Yellow); Glucose, Dipstick 1000 mg/dl (Normal); Ketone-Dipstick Negative (Negative); Leukocyte Esterase-Dipstick Negative /ul (Negative); Nitrite-Dipstick Negative (Negative); Occult Blood-Urine 25 /ul (Negative); Protein-Dipstick 100 mg/dl (Negative); Specific Gravity, Urine 1.015 (1.002-1.030); Urine Bilirubin Dipstick Negative (Negative); Urine Clarity Clear (Clear); Urine Urobilinogen Normal (Normal)
[2019-10-02 07:59] LABS: Albumin, Serum 3.9 g/dL (3.2-5.0); BUN 97 mg/dL (7-18); Calcium,Total 9.5 mg/dL (8.5-10.1); Chloride 101 mmol/L (98-107); Creatinine, Serum 4.04 mg/dL (0.70-1.30); EST Glomerular Filtration Rate 16 mL/min (>60); Est Glom Filt Rate - Afr Amer 20 mL/min (>60); Glucose 258 mg/dL (74-106); Sodium Level 138 mmol/L (136-145)
[2019-10-02 10:25] LABS: Microalbumin:Creatinine Ratio 2850.5 mg/g CRE (<30 mg/g CRE); Protein:Creat Ratio 3816 mg/g CRE (0-200)
[2019-10-02 10:44] LABS: PTHIN 108.6 pg/mL (18.4-80.1)
[2019-10-02 10:46] LABS: Vitamin D,25 Hydroxy 35.1 ng/mL (29.95-100.01)
== END ==
PROVIDERS: Family Provider Internal Medicine; PCP Internal Medicine; Referring Provider Internal Medicine Nephrology; Visit Provider Internal Medicine Nephrology
DX: N18.3 Chronic kidney disease, stage 3 (moderate) (principal); D63.1 Anemia in chronic kidney disease
CPT/HCPCS: 36415; 80069; 81002; 82043; 82306; 82570; 83970; 84156; 85027

== ENCOUNTER 2019-10-20 01:57 | Emergency (ER) | payer OTHER, SELFPAY ==
[2017-08-21 11:26] VITALS: BMI 40.4
[2019-07-23 15:21] VITALS: BMI 40.5
[2019-10-20 01:58] VITALS: BP 220/103; PULSE 75; RESP 17; TEMP 37.2; O2SAT 98; BMI 41.3
--- NOTE | 2019-10-20 02:03 | EKG12_ITS ---
Test Reason : CP Blood Pressure : / mmHG Vent. Rate : 075 BPM Atrial Rate : 075 BPM P-R Int : 276 ms QRS Dur : 130 ms QT Int : 422 ms P-R-T Axes : 000 -71 145 degrees QTc Int : 471 ms Sinus rhythm with 1st degree A-V block Left axis deviation Non-specific intra-ventricular conduction block Cannot rule out Anteroseptal infarct , age undetermined T wave abnormality, consider lateral ischemia vs IVCD effect Abnormal ECG Confirmed by YESSY KATHLEEN, GIANNI ([id number]), editor sound DANNY MCCONNELL ([id number]) on 10/23/2019 1:02:04 PM Referred By: MANOJ Confirmed By:GIANNI KRISHNAMURTHY MD
--- NOTE | 2019-10-20 02:05 | RAD_ITS ---
STUDY: X-RAY CHEST REASON FOR EXAM: Male, 59 years old. Chest pain for 4 days. TECHNIQUE: Single AP portable view of the chest. COMPARISON: 08/14/2019. FINDINGS: The lungs are clear and expanded. There is no demonstrated pleural abnormality. There is mild cardiac enlargement. Midline sternotomy wires noted. Normal mediastinum and gio. There is mild fullness of the central markings, cannot exclude mild congestion. Normal visualized aortic arch and descending thoracic aorta. Normal visualized thoracic spine. Normal visualized ribs, clavicles, and shoulders. There is no demonstrated abnormality of the visualized soft tissue structures of the upper abdomen. RAD/Chest 1 View (Portable) IMPRESSION: Possible mild vascular congestion, otherwise no acute process identified. Electronically Signed: Ekaterina Fischer MD at 2:22 EST , Service support ,
[2019-10-20 02:12] VITALS: O2SAT 100
--- NOTE | 2019-10-20 02:16 | ED.DCSUM_ITS ---
- ER Visit Summary Date of Service: 10/20/19 Chief Complaint: Chest pain /chest wall pain History of Present Illness: The patient is a 59 M history of cardiac disease with prior triple bypass 10 years ago. Also history of cardiac stents, CAD, [place], diabetes and hypertension with renal insufficiency. Patient states he fell about a week or so ago. He has had several falls in the last 3 weeks. He did hit his left chest the last 4 days baseline constant pain with his left chest wall. He denies any nausea, diaphoresis or shortness of breath. Is not associated with exertion. Pain is worse with movement. It sharp in his left lateral chest. He denies any hemoptysis. Physical Examination: Middle-aged male no acute distress vital signs are stable and afebrile. Pulse ox 90% on room air no signs of hypoxia. HEENT exam normal. Neck nontender. No JVD. No lymphadenopathy. Lungs clear to auscultation bilaterally. Heart regular rate and rhythm no murmur. His left lateral chest wall has mild tenderness it is worse if he moves or rotates about his trunk. There is no ecchymosis or bruising. No crepitance or subcu air. No gross bony deformities. Abdomen is soft and nontender. Normal bowel sounds no peritoneal signs. Patient moving all 4 extremities. Calves are nontender without edema or cords. Neurologically is awake and alert with no focal motor deficits. Test Results: EKG shows sinus rhythm first-degree AV block heart rate is 75. Nonspecific interventricular conduction delay. No acute signs of [place] or ischemia. Test x-ray chronic changes prior sternotomy. No acute process. Borderline cardiomegaly. Read both by myself and the radiologist. CBC unremarkable chronic anemia hemoglobin 12. Previously 13. Electrolytes unremarkable chronic renal insufficiency his creatinine is 3 previously it was 3-4. Troponin normal. Emergency Department Course and Treatment: Patient is well known history of cardiac disease. Clinically this sounds more like chest wall pain. It is reproducible. It is made worse with movement. He will undergo a cardiac work- up. Given to [facility] for pain. On repeat exam at 02 40 8 AM. Patient is doing well. Is feeling better after the [place]. He will be discharged home. We went over all his test results. Treatment Plan: Discharged home. Limited [facility] for pain. Disposition: Discharge Impression: Acute chest pain secondary to left chest wall pain History of CAD, [place] with cardiac stents and prior bypass History of diabetes and hypertension History of renal insufficiency This note was generated with Dibsie dictation software. It may contain incorrect words, spelling, and punctuation that were not noted in review of the chart prior to signing ED Disposition - Plan for ED Patient: Referrals: Lisa Gates MD [Primary Care Provider] -
[2019-10-20 02:22] VITALS: BP 198/90; PULSE 68; RESP 19; O2SAT 98
[2019-10-20 02:22] LABS: Absolute Lymphocyte Count 1.13 X10^3/uL (0.83-4.51); Basophil# 0.04 X10^3/uL; Basophil% 0.6 % (0-1); Eosinophil# 0.24 X10^3/uL; Eosinophils% 3.3 % (0-5); Hematocrit 36.3 % (40-54); Hemoglobin 12.5 g/dL (13.0-16.5); Lymphocyte # 1.13 X10^3/ul (4.0); Lymphocyte % 15.7 % (19-41); Mean Corp Hgb Conc 34.4 g/dL (32-36); Mean Corpuscular Hgb 31.2 pg (27.0-32.0); Mean Corpuscular Volume 90.5 fL (80-94); Mean Platelet Vol. 10.5 fl (6.2-12.0); Monocyte# 0.76 X10^3/uL; Monocyte% 10.6 % (0-10); NRBC Flagged by Analyzer 0 % (0-5); Neutrophil # 4.98 X10^3/uL (2.7-7.7); Neutrophil % 69.4 % (47-70); Platelet Count 191 K/mm3 (150-450); RBC Distribution Width CV 14.2 % (11.6-14.6); RBC Distribution Width SD 46.3 fl (35.1-43.9); Red Blood Count 4.01 M/mm3 (4.6-6.2); White Blood Count 7.2 K/mm3 (4.4-11.0)
[2019-10-20] MEDS: HYDROcodone Bitartrate/Apap 5/325 Tablet PO (02:27)
[2019-10-20 02:41] LABS: Anion Gap 9 (5-15); BUN 61 mg/dL (7-18); BUN/Creat Ratio 20.3 RATIO (10-20); Calcium,Total 9.2 mg/dL (8.5-10.1); Chloride 103 mmol/L (98-107); Creatinine, Serum 3.01 mg/dL (0.70-1.30); EST Glomerular Filtration Rate 23 mL/min (>60); Est Glom Filt Rate - Afr Amer 28 mL/min (>60); Estimated Creatinine Clearance 24.71 ml/min; Glucose 291 mg/dL (74-106); Potassium 4.6 mmol/L (3.5-5.1); Sodium Level 138 mmol/L (136-145)
[2019-10-20 02:49] VITALS: BP 185/83; PULSE 68; RESP 12; O2SAT 98
--- NOTE | 2019-10-20 02:49 | DCINST.ED_ITS ---
ED Disposition - Plan for ED Patient: Disposition: Home or Assisted Living Instructions: Chest Wall Strain Prescriptions: Hydrocodone/Acetaminophen [Berwick 5-325 Tablet] 1 ea PO 4X/DAY PRN PRN 7 Days #20 tab PRN Reason: Pain Or Fever Prescription Printed Referrals: Lisa Gates MD [Primary Care Provider] - As Needed Additional Instructions: Ice to chest wall. Use a pillow to support the chest wall which will help with the discomfort. [place] for pain as needed. Follow-up with your doctor as needed.
[2019-10-20 02:57] VITALS: BP 183/90; PULSE 68; RESP 18; O2SAT 99
== END 2019-10-20 02:58 | disposition home or self-care (01) ==
PROVIDERS: Emergency Provider Emergency Medicine; Family Provider Internal Medicine; PCP Internal Medicine
DX: R07.89 Other chest pain (principal); E11.9 Type 2 diabetes mellitus without complications; I10 Essential (primary) hypertension; I25.10 Atherosclerotic heart disease of native coronary artery without angina pectoris; N28.9 Disorder of kidney and ureter, unspecified; Z95.1 Presence of aortocoronary bypass graft; Z95.5 Presence of coronary angioplasty implant and graft; I44.0 Atrioventricular block, first degree
CPT/HCPCS: 71045; 80048; 84484; 85025; 93005; 99285; A4216

== ENCOUNTER → 2019-10-25 10:44 | Outpatient (REF) | payer OTHER, SELFPAY ==
[2017-08-21 11:26] VITALS: BMI 40.4
[2019-10-22 15:23] VITALS: BMI 40.4
== END ==
LOC: CVS 10:44
PROVIDERS: PCP Internal Medicine; Visit Provider Nurse Practitioner Family
DX: I25.10 Atherosclerotic heart disease of native coronary artery without angina pectoris (principal); Z95.5 Presence of coronary angioplasty implant and graft; R55 Syncope and collapse
CPT/HCPCS: 93270

== ENCOUNTER → 2019-11-01 06:41 | Outpatient (CLI) | payer OTHER, SELFPAY ==
[2017-08-21 11:26] VITALS: BMI 40.4
[2019-10-22 15:23] VITALS: BMI 40.4
[2019-11-01 07:40] LABS: Anion Gap 6 (5-15); BUN 39 mg/dL (7-18); BUN/Creat Ratio 15.6 RATIO (10-20); Chloride 104 mmol/L (98-107); EST Glomerular Filtration Rate 28 mL/min (>60); Est Glom Filt Rate - Afr Amer 34 mL/min (>60); Glucose 214 mg/dL (74-106); Sodium Level 137 mmol/L (136-145); T4 Free Direct 0.69 ng/dL (0.76-1.46); Thyroid Stim Hormone (TSH) 2.04 uIU/mL (0.358-3.74)
== END ==
PROVIDERS: Family Provider Internal Medicine; PCP Internal Medicine; Referring Provider Internal Medicine Nephrology; Visit Provider Internal Medicine Nephrology
DX: R94.6 Abnormal results of thyroid function studies (principal); N18.3 Chronic kidney disease, stage 3 (moderate)
CPT/HCPCS: 36415; 80048; 84439; 84443; 84481

== ENCOUNTER → 2019-11-25 14:59 | Outpatient (CLI) | payer OTHER, SELFPAY ==
[2017-08-21 11:26] VITALS: BMI 40.4
[2019-11-22 08:31] VITALS: BMI 41.5
--- NOTE | 2019-11-25 15:05 | RAD_ITS ---
STUDY: X-RAY CHEST REASON FOR EXAM: Male, 59 years old. SOB TECHNIQUE: PA and lateral views of the chest. COMPARISON: 10/20/2019 FINDINGS: Status post median sternotomy. The lungs are clear and expanded. There is no demonstrated pleural abnormality. There is moderate cardiac enlargement. Normal mediastinum and gio. There is prominence of the pulmonary hilar arteries and peripheral pulmonary arteries, consistent with congestive heart failure (CHF). Normal visualized aortic arch and descending thoracic aorta. Normal visualized thoracic spine. Normal visualized ribs, clavicles, and shoulders. There is no demonstrated abnormality of the visualized soft tissue structures of the upper abdomen. RAD/Chest PA and Lateral IMPRESSION: Mild congestive heart failure. Electronically Signed: Venkatesh Uriarte MD at 15:32 EST Tel , Service support ,
[2019-11-25 15:18] LABS: Absolute Lymphocyte Count 0.81 X10^3/uL (0.83-4.51); Absolute Neutrophil Count 6.7 X10^3/uL (2.0-7.7); Basophil# 0.01 X10^3/uL; Basophil% 0.1 % (0-1); Eosinophils% 1.2 % (0-5); Hematocrit 35.2 % (40-54); Hemoglobin 11.9 g/dL (13.0-16.5); Lymphocyte # 0.81 X10^3/ul (4.0); Lymphocyte % 9.7 % (19-41); Mean Corp Hgb Conc 33.8 g/dL (32-36); Mean Corpuscular Hgb 32.3 pg (27.0-32.0); Mean Corpuscular Volume 95.7 fL (80-94); Mean Platelet Vol. 10.3 fl (6.2-12.0); Monocyte# 0.74 X10^3/uL; Monocyte% 8.9 % (0-10); NRBC Flagged by Analyzer 0 % (0-5); Neutrophil # 6.66 X10^3/uL (2.7-7.7); Neutrophil % 79.6 % (47-70); Platelet Count 198 K/mm3 (150-450); RBC Distribution Width CV 15.2 % (11.6-14.6); RBC Distribution Width SD 52.7 fl (35.1-43.9); Red Blood Count 3.68 M/mm3 (4.6-6.2); White Blood Count 8.4 K/mm3 (4.4-11.0)
[2019-11-25 15:47] LABS: ALB/GLOB Ratio 0.8 RATIO (0.9-2.4); AST(SGOT) 21 U/L (15-37); Alanine Aminotransfer ALT/SGPT 16 U/L (16-61); Albumin, Serum 3.2 g/dL (3.2-5.0); Alkaline Phosphatase 88 U/L (45-117); Anion Gap 10 (5-15); BUN 57 mg/dL (7-18); BUN/Creat Ratio 20.9 RATIO (10-20); Calcium,Total 8.9 mg/dL (8.5-10.1); Chloride 100 mmol/L (98-107); Creatinine, Serum 2.73 mg/dL (0.70-1.30); EST Glomerular Filtration Rate 26 mL/min (>60); Est Glom Filt Rate - Afr Amer 31 mL/min (>60); Globulin 4.1 g/dL (2.2-4.2); Glucose 316 mg/dL (74-106); Protein, Total 7.3 g/dL (6.4-8.2); Sodium Level 133 mmol/L (136-145)
[2019-11-25 16:15] LABS: BNP,B-Type NATRIURETIC PEPTIDE 1120.4 pg/mL (0-100)
== END ==
PROVIDERS: PCP Internal Medicine; Referring Provider Internal Medicine; Visit Provider Internal Medicine
DX: R53.83 Other fatigue (principal); R06.02 Shortness of breath; R68.89 Other general symptoms and signs
CPT/HCPCS: 71046; 80053; 82009; 83880; 84484; 85025

== ENCOUNTER 2019-11-25 16:17 | Inpatient (IN) | payer OTHER, MEDICARE, SELFPAY ==
[2017-08-21 11:26] VITALS: BMI 40.4
[2019-11-22 08:31] VITALS: BMI 41.5
[2019-11-25] VITALS (8 sets, daily range): BP systolic 129–182; BP diastolic 73–93; PULSE 82–88; RESP 16–18; TEMP 36.5–36.8; O2SAT 92–97; BMI 41.5; BMI 40.3
--- NOTE | 2019-11-25 16:59 | ED.VIS.GEN ---
History of Present Illness Chief Complaint: Chest Pain Informant: Patient, Family Onset: Days Context: Gradual Onset Timing: Waxes and wanes Narrative: Patient presents to ED with complaint of chest heaviness, cough, nausea, flulike symptoms. He states late last week he became ill with body aches and cough. Monday and Monday evenings he felt like he was being smothered with too much liquid in his lungs. Those symptoms seem to be improving. Patient states because he was feeling so ill and not eating he has not taken his medications in the last several days. Patient was scheduled to have a pacemaker placed today and has been off his Plavix for the past 5 days. He saw his PCP today because he was feeling ill. Patient declined transfer to the ED and outpatient work-up was pursued. Blood work returns with a troponin of 1.8 and patient is sent to the emergency room. BNP is also noted to be 1100. Patient does have known history of cardiac disease. He states that he had an abnormal stress test approximately 6 weeks ago but heart cath was not pursued secondary to chronic renal failure. - Past Medical History (1) Diabetes Status: Chronic (2) Atherosclerotic heart disease of [place] coronary artery without angina pectoris Status: Chronic Comment: CABG x 3 THOMAS-LAD, SCG-D1, SVG-LCx 03/05/2010; UUR-TVH-Nizv LAD 01/24/2002; PCI-PAYAL-Mid RCA 02/01/2005; PCI- PAYAL of mid/distal and proximal RCA 08/21/17 (3) CKD stage 4 due to type 2 diabetes mellitus Status: Chronic (4) Essential (primary) hypertension Status: Chronic (5) HLD (hyperlipidemia) Status: Chronic (6) H/O coronary artery bypass surgery Status: Resolved Comment: CABG x 3 THOMAS-LAD, SCG-D1, SVG-LCx 03/05/2010 (7) History of coronary artery stent placement Status: Resolved Comment: SYR-SWZ-[place] LAD 01/24/2002; PCI-PAYAL-Mid RCA 02/01/2005; PCI- PAYAL of mid/distal and proximal RCA 08/21/17 Past Medical History - Allergies and Home Meds Allergies/Adverse Reactions: Allergies ampicillin Allergy (Verified 11/22/19 08:54) Rash erythromycin base Allergy (Verified 11/22/19 08:54) Other Penicillins Allergy (Verified 11/22/19 08:54) Rash Sulfa (Sulfonamide Antibiotics) Allergy (Verified 11/22/19 08:54) Hives atorvastatin [From Lipitor] Adverse Reaction (Severe, Verified 11/22/19 08:54) Muscle aching pravastatin [From Pravachol] Adverse Reaction (Severe, Verified 11/22/19 08:54) Myalgias simvastatin [From Zocor] Adverse Reaction (Severe, Verified 11/22/19 08:54) Muscle aching amlodipine [From Norvasc] Adverse Reaction (Intermediate, Verified 11/22/19 08:54) Hand swelling ezetimibe [From Zetia] Adverse Reaction (Verified 11/22/19 08:54) MYALGIA Ozuyjhj-Eql-Zvc Reductase Inhibitor Adverse Reaction (Verified 11/22/19 08:54) Other Patient has tried Lipitor, Pravachol, Zocor, Crestor as well as fenofibrates, Zetia, and Repatha (last 3 are non-statin drugs for hyperlipidemia) Primary Care Physician: Lisa Gates MD [Primary Care Provider] - Doctors: Dr. Nelson Surgical History: adenoidectomy, angioplasty, coronary bypass surgery, tonsillectomy Lives: Spouse/ Significant Other Smoking Status: Never smoker - Family History Maternal Family History: Family History (Last Reviewed 11/15/19 @ 13:44 by ISAAC Peraza) Father CAD (coronary artery disease), Onset Age: 61 Stented coronary artery Mother COPD (chronic obstructive pulmonary disease) Sister Diabetes Hypertension Family History: Reports: COPD Paternal Family History: Family History (Last Reviewed 11/15/19 @ 13:44 by ISAAC Peraza) Father CAD (coronary artery disease), Onset Age: 61 Stented coronary artery Mother COPD (chronic obstructive pulmonary disease) Sister Diabetes Hypertension Family History: Reports: Heart Disease Review of Systems General: Reports: Fever, Subjective Eyes: Denies: Visual changes - bilaterally ENT: Denies: Bilateral ear pain Cardiovascular: Reports: Chest pain Respiratory: Reports: Dyspnea, Cough Gastrointestinal: Denies: Abdominal pain, Vomiting, Diarrhea Musculoskeletal: Reports: Myalgias Skin: Denies: Rash Neurological: Denies: Headache Allergy: Denies: Uticaria Physical Exam Vital Signs/Narrative: Vital Signs Temp Pulse Resp BP Pulse Ox 11/25/19 16:18 97.7 F L 82 16 129/73 H 92 Inital Vital Signs reviewed: Yes General: Well nourished, Well developed Head: Normocephalic ENT: Moist mucous membranes Neck: Supple Cardiovascular: Regular rate, Regular rhythm Respiratory: No distress, - - Diminished bilateral bases Abdomen: Soft, Nontender Extremities: Edema Skin: Normal color Neurological: Alert, Oriented x3 Psychological: Normal affect Diagnostic/Tx/Re-eval - EKG Initial EKG Interpretation: Sinus Rhythm - Sinus at 82 with first-degree AV block. He does have lateral ST depression that is new when compared to prior study of October 20, 2019. - Medical Decision Making I discussed with patient his test results that were obtained as an outpatient this afternoon. I spoke Dr. Tran, on-call for cardiology. He requested the patient be started on a heparin drip and admitted. Patient received aspirin and heparin drip was started. Repeat troponin is drawn at this time. ED Disposition - Plan for ED Patient: Disposition: Acute Care Hospital [facility] Diagnosis: NSTEMI (non-ST elevated myocardial infarction) Referrals: Lisa Gates MD [Primary Care Provider] -
[2019-11-25] MEDS: Aspirin 325 MG Tablet PO (17:12)
[2019-11-25] MEDS: 0.9% Normal Saline 1,000 ML 15 ML IV (17:12)
[2019-11-25] MEDS: HEPARIN/D5w 25,000 UNITS 25,000 UNITS/250 ML IV.SOLN. 0.2 UNITS IV (17:53)
[2019-11-25] MEDS: Heparin Injection (Vial) 5,000 UNIT/ML VIAL 9500 UNIT IV (17:54)
--- NOTE | 2019-11-25 18:07 | PCM.HP.STD ---
<Zamzam Tay - Last Filed: 11/25/19 18:50> Problem List (1) Diabetes Status: Chronic (2) NSTEMI (non-ST elevated myocardial infarction) Status: Acute (3) Heart block AV complete Status: Chronic Comment: intermittent CHB (4) Syncope and collapse Status: Resolved (5) Left carotid stenosis Status: Chronic (6) Essential (primary) hypertension Status: Chronic (7) H/O coronary artery bypass surgery Status: Chronic Comment: CABG x 3 THOMAS-LAD, SCG-D1, SVG-LCx 03/05/2010 (8) History of coronary artery stent placement Status: Chronic Comment: ZNH-VNC-Agms LAD 01/24/2002; PCI-PAYAL-Mid RCA 02/01/2005; PCI- PAYAL of mid/distal and proximal RCA 08/21/17 (9) 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 transplanted heart: ambler heart Qualified Code(s): I25.10 - Atherosclerotic heart disease of ambler coronary artery without angina pectoris Comment: CABG x 3 THOMAS-LAD, SCG-D1, SVG-LCx 03/05/2010; UPC-HBX-Lswn LAD 01/24/2002; PCI-PAYAL-Mid RCA 02/01/2005; PCI- PAYAL of mid/distal and proximal RCA 08/21/17 (10) CKD stage 4 due to type 2 diabetes mellitus Status: Chronic (11) HLD (hyperlipidemia) Status: Chronic Qualifiers: Hyperlipidemia type: pure hypercholesterolemia Qualified Code(s): E78.00 - Pure hypercholesterolemia, unspecified History of Present Illness Date of Admission: 11/25/19 Chief Complaint: Chest pressure. The patient is a 59 year old M who presents emergency room due to chest pressure and generalized swelling. Patient reports his was sick with upper respiratory infection recently and over the past few days he has had nasal congestion, sore throat and persistent cough. He also reports chest pressure in which he feels as if he is smothering. He reports this is worsened when he is lying flat. He denies any increase in chest pressure symptoms with exertion. He denies pain radiation, lightheadedness, diaphoresis or nausea. He does report poor oral intake and appetite over the past few days associated with upper respiratory illness. He denies fever, chills. Patient states his legs and arms feel puffy. He denies weight gain. Patient saw his primary care physician today for symptoms, an EKG was taken at that time and he was referred to the emergency room for further evaluation. Patient was scheduled for pacemaker placement today for a previous 3.6-second ventricular pause and third-degree heart block which was noted on his 30-day event monitor. He also reports he had a recent abnormal stress test 6 weeks ago and cardiac catheterization was initially planned and subsequently canceled due to his kidney function. He has a past medical history of CABG and PCI, type 2 diabetes mellitus, ABBI, obesity, chronic kidney disease stage IV, hypertension, hyperlipidemia. Past Medical History Past Medical History (Chronic Problems): Chronic Problems (Last Reviewed 11/15/19 @ 13:44 by ISAAC Peraza) Diabetes (Chronic) Heart block AV complete (Chronic) intermittent CHB Left carotid stenosis (Chronic) Essential (primary) hypertension (Chronic) H/O coronary artery bypass surgery (Chronic 03/05/10) CABG x 3 THOMAS-LAD, SCG-D1, SVG-LCx 03/05/2010 History of coronary artery stent placement (Chronic 08/21/17) SPZ-FMN-Awje LAD 01/24/2002; PCI-PAYAL-Mid RCA 02/01/2005; PCI- PAYAL of mid/distal and proximal RCA 08/21/17 Atherosclerotic heart disease of ambler coronary artery without angina pectoris (Chronic) CABG x 3 THOMAS-LAD, SCG-D1, SVG-LCx 03/05/2010; OYD-XEU-Qmhn LAD 01/24/2002; PCI-PAYAL-Mid RCA 02/01/2005; PCI- PAYAL of mid/distal and proximal RCA 08/21/17 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) HLD (hyperlipidemia) (Chronic) Medical History: Medical History (Last Reviewed 11/15/19 @ 13:44 by ISAAC Peraza) Heart block AV complete (Acute) I44.2 intermittent CHB Syncope and collapse (Acute) R55 Left carotid stenosis (Chronic) I65.22 Essential (primary) hypertension (Chronic) I10 Atherosclerotic heart disease of ambler coronary artery without angina pectoris (Chronic) I25.10 CABG x 3 THOMAS-LAD, SCG-D1, SVG-LCx 03/05/2010; ZPM-KVP-Zcso LAD 01/24/2002; PCI-PAYAL-Mid RCA 02/01/2005; PCI- PAYAL of mid/distal and proximal RCA 08/21/17 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) E11.22, N18.4 HLD (hyperlipidemia) (Chronic) E78.5 Diabetic neuropathy E11.40 Obesity (BMI 30.0-34.9) E66.9 Obstructive sleep apnea G47.33 Syncope R55 Type II diabetes mellitus, uncontrolled E11.65 Orthostatic hypotension (Resolved) I95.1 Allergies ampicillin Allergy (Verified 11/22/19 08:54) Rash erythromycin base Allergy (Verified 11/22/19 08:54) Other Penicillins Allergy (Verified 11/22/19 08:54) Rash Sulfa (Sulfonamide Antibiotics) Allergy (Verified 11/22/19 08:54) Hives atorvastatin [From Lipitor] Adverse Reaction (Severe, Verified 11/22/19 08:54) Muscle aching pravastatin [From Pravachol] Adverse Reaction (Severe, Verified 11/22/19 08:54) Myalgias simvastatin [From Zocor] Adverse Reaction (Severe, Verified 11/22/19 08:54) Muscle aching amlodipine [From Norvasc] Adverse Reaction (Intermediate, Verified 11/22/19 08:54) Hand swelling ezetimibe [From Zetia] Adverse Reaction (Verified 11/22/19 08:54) MYALGIA Qenpgsf-Ipq-Avx Reductase Inhibitor Adverse Reaction (Verified 11/22/19 08:54) Other Patient has tried Lipitor, Pravachol, Zocor, Crestor as well as fenofibrates, Zetia, and Repatha (last 3 are non-statin drugs for hyperlipidemia) Home Medications: Ambulatory Orders Medication Instructions Recorded Albuterol IH (ProAir) [Proair Hfa] 1 - 2 puff INHALATION Q6H PRN PRN 08/16/17 Aspirin [Aspir-Low] 81 mg PO DAILY 08/16/17 Cholecalciferol (Vitamin D3) 5,000 unit PO QODAY 08/16/17 [Vitamin D3] Dulera 100 Mcg/5 Mcg Inhaler 1 puff PO BID 08/16/17 Folic Acid 5 tab PO DAILY 08/16/17 Furosemide [Lasix] 40 mg PO DAILY 08/16/17 Gabapentin [Neurontin] 100 mg PO BIDCM 08/16/17 Humulin N 50 units SC QHS 08/16/17 Humulin R 24 units SC BREAKFAST 08/16/17 Humulin R 27 units SC LUNCH 08/16/17 Humulin R 48 units SC DINNER 08/16/17 Montelukast [Singulair] 10 mg PO DAILY 08/16/17 Quetiapine Fumarate [Seroquel XR] 150 mg PO QHS 08/16/17 sertraline 100 mg tablet 150 mg PO QHS 12/06/17 allopurinol 100 mg tablet 100 mg PO BID 12/11/18 diclofenac epolamine 1.3 % 1 patch TRANSDERMAL BID PRN 07/23/19 transdermal 12 hour patch levothyroxine 50 mcg tablet 75 mcg PO QDAY tab 07/23/19 nitroglycerin 0.4 mg sublingual 0.4 mg PO PRN PRN #25 tab 07/23/19 tablet Calcitriol [Rocaltrol] 1 tab PO QODAY 10/20/19 Cyanocobalamin (Vitamin B-12) 2,500 mcg PO DAILY 10/20/19 [Vitamin B-12] Ubidecarenone [Co Q-10] 200 mg PO DAILY 10/20/19 ramipril 10 mg capsule 10 mg PO BID cap 10/22/19 Brimonidine Tartrate/Timolol 1 drp RIGHT EYE BID 11/25/19 [Combigan Eye Drops] Clopidogrel Bisulfate [Clopidogrel] 75 mg PO DAILY 11/25/19 Gemfibrozil 600 mg PO DAILY 11/25/19 Isosorbide Mononitrate [Isosorbide 30 mg PO BID 11/25/19 Mononitrate ER] Metolazone 2.5 mg PO MOTH 11/25/19 Metoprolol Tartrate 50 mg PO BID 11/25/19 Surgical History: Surgical History (Last Reviewed 11/15/19 @ 13:44 by ISAAC Peraza) H/O coronary artery bypass surgery (Resolved) Onset Date: 03/05/10 Z95.1 CABG x 3 THOMAS-LAD, SCG-D1, SVG-LCx 03/05/2010 History of coronary artery stent placement (Resolved) Onset Date: 08/21/17 Z95.5 OTZ-RRJ-Wptj LAD 01/24/2002; PCI-PAYAL-Mid RCA 02/01/2005; PCI- PAYAL of mid/distal and proximal RCA 08/21/17 H/O eye surgery Z98.890 History of left heart catheterization Onset Date: 08/18/17 Z98.890 1995;01/2002; 02/02/2005; 01/2007; 01/2008; 02/2010; 12/02/2010; 08/18/17 Surgical History: adenoidectomy, angioplasty, coronary bypass surgery, tonsillectomy, - - Septoplasty Psychiatric History: Anxiety, Depression Lives: Spouse/ Significant Other Smoking Status: Never smoker Alcohol: Rare Drugs: None - *Family History Maternal Family History: Family History (Last Reviewed 11/25/19 @ 18:19 by TAVO Diaz) Father CAD (coronary artery disease), Onset Age: 61 Stented coronary artery Mother COPD (chronic obstructive pulmonary disease) Sister Diabetes Hypertension History Items: COPD, Diabetes Paternal Family History: Family History (Last Reviewed 11/25/19 @ 18:19 by TAVO Diaz) Father CAD (coronary artery disease), Onset Age: 61 Stented coronary artery Mother COPD (chronic obstructive pulmonary disease) Sister Diabetes Hypertension History Items: Heart Disease Review of Systems Constitutional: Reports: Malaise. Denies: Chills, Fever HEENT: Reports: Nasal Congestion, Sore Throat. Denies: Head Aches, Sinus Congestion, Sinus Drainage Cardiovascular: Reports: Chest Pressure, Edema. Denies: Light Headedness, Palpitations, Syncope Respiratory: Reports: Cough. Denies: Shortness of Breath, Wheezing Gastrointestinal: Denies: Abdominal Pain, Nausea, Vomiting Genitourinary: Denies: Dysuria Musculoskeletal: Denies: Joint Pain, Joint Tenderness Skin: Denies: Rash, Wounds Neurological: Denies: Numbness, Tingling, Focal weakness Psychiatric: Denies: Anxiety, Depression, Homicidal Ideations, Suicidal Ideations Hematologic/ Lymphatic: Denies: Easy Bruising, Easy Bleeding VTE Information - Inpt Only VTE Present on Admission: No VTE Mechan Device Prophylaxis: None VTE Pharm Prophylaxis ordered?: Yes Patient Problems: Active and Suspected Problems (Last Reviewed 11/15/19 @ 13:44 by ISAAC Peraza) NSTEMI (non-ST elevated myocardial infarction) (Acute) - Physical Exam Vitals/I&O's: Vital Signs Temp Pulse Resp BP Pulse Ox 97.7 F L 82 18 129/73 H 97 11/25/19 16:18 11/25/19 16:18 11/25/19 17:56 11/25/19 16:18 11/25/19 17:56 Oxygen Delivery Method Room Air Weight: 265 lb 6.985 oz Body Mass Index (BMI) 41.5 General: Alert, Oriented x3, Cooperative HEENT: Atraumatic, PERRLA, EOMI, Normocephalic Oral: Dry Mucosa Neck: Supple, No JVD, Negative Carotid Bruits Lungs: Clear to auscultation, Diminished Cardiovascular: Regular rate, Regular Rhythm, Normal S1, Normal S2, No murmurs Abdomen: Bowel Sounds Present, Soft, Non Tender, Non-Distended, Obese Extremities: No clubbing, No cyanosis, Edema - Nonpitting bilateral lower extremity edema Skin: No rashes, No breakdown Musculoskeletal: No Tenderness to Palpation of Joints or Extremities Neurological: Cranial nerves II-XII grossly intact, Neuro grossly intact Psych/Mental Status: Normal Affect, Appropriate Laboratory Results 11/25/19 16:58: Troponin I 1.680 H* Current Medications Sodium Chloride () 1,000 mls @ 75 mls/hr IV .[id number] AMANDA Heparin Sodium/Dextrose () 25,000 units in 250 mls @ 0 mls/hr IV .Q0M AMANDA; Protocol Nitroglycerin (Nitrostat) 0.4 mg SUBLINGUAL Q5M PRN PRN Reason: CARDIAC/CHEST PAIN Ondansetron HCl (Zofran) 4 mg IV Q8H PRN PRN PRN Reason: NAUSEA/VOMITING Assessment/Plan All Active Problems (Last Reviewed 11/15/19 @ 13:44 by ISAAC Peraza) NSTEMI (non-ST elevated myocardial infarction) (Acute) Acute coronary syndrome (Resolved) Angina pectoris (Resolved) Chest pain (Resolved) Orthostatic hypotension (Resolved) Syncope and collapse (Resolved) 1. NSTEMI- Trop 1.6. EKG demonstrated lateral ST depression. Cardiology consulted. Continue heparin drip, aspirin. Continue home beta-lorene and nitrate regimen. Trend enzymes. Patient's Plavix has been on hold due to previously planned pacemaker placement 11/25/2019. Stress test July 2019 with EF 41%, abnormal stress test with evidence of lateral ischemia. Further management per cardiology. 2. Acute CHF with reduced ejection fraction-chest x-ray admission with mild CHF. BNP 1120. Echocardiogram December 2017 demonstrated an EF of 53%. IV Lasix 40 mg twice daily. Continue compression stockings lower extremities. Daily weight. Strict I&O. Fluid restriction. EF per stress test July 2019 41%. 3. Intermittent third-degree heart block- noted on 30-day event monitor. Planned for pacemaker placement with Dr. Nelson, cancelled due to acute presentation. Cardiology consulted as noted above. 4. URI-symptom management. Obtain respiratory panel. 5. History of CABG/PCI-continue aspirin, beta-lorene, nitrate, JUAN inhibitor. 6. Type 2 diabetes mellitus with peripheral neuropathy-hold oral regimen. Continue home scheduled insulin regimen with sliding scale insulin. Continue gabapentin regimen. 7. Chronic kidney disease stage IV-kidney function appears at baseline. Trend BMP. 8. Hypertension-stable, continue isosorbide, metoprolol, ramipril regimen. 9. Hyperlipidemia-continue gemfibrozil regimen. Reported allergy to statins. 10. ABBI- continue home BiPAP regimen. 11. Hypothyroidism-continue home Synthroid regimen. 12. Depression-continue sertraline regimen. 13. Gout-continue allopurinol regimen. 14. Morbid obesity- encouraged diet and lifestyle modifications. DVT prophylaxis-heparin drip This patient was seen by TAVO Diaz under the supervision of Dr. Acosta. <Kyle Acosta F - Last Filed: 11/25/19 19:23> History of Present Illness The patient is a 59 year old M [] Past Medical History Medical History: Medical History (Last Reviewed 11/15/19 @ 13:44 by ISAAC Peraza) Heart block AV complete (Acute) I44.2 intermittent CHB Syncope and collapse (Acute) R55 Left carotid stenosis (Chronic) I65.22 Essential (primary) hypertension (Chronic) I10 Atherosclerotic heart disease of ambler coronary artery without angina pectoris (Chronic) I25.10 CABG x 3 THOMAS-LAD, SCG-D1, SVG-LCx 03/05/2010; PSL-DJV-Rcyd LAD 01/24/2002; PCI-PAYAL-Mid RCA 02/01/2005; PCI- PAYAL of mid/distal and proximal RCA 08/21/17 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) E11.22, N18.4 HLD (hyperlipidemia) (Chronic) E78.5 Diabetic neuropathy E11.40 Obesity (BMI 30.0-34.9) E66.9 Obstructive sleep apnea G47.33 Syncope R55 Type II diabetes mellitus, uncontrolled E11.65 Orthostatic hypotension (Resolved) I95.1 Allergies ampicillin Allergy (Verified 11/22/19 08:54) Rash erythromycin base Allergy (Verified 11/25/19 18:39) tears me up Penicillins Allergy (Verified 11/22/19 08:54) Rash Sulfa (Sulfonamide Antibiotics) Allergy (Verified 11/22/19 08:54) Hives atorvastatin [From Lipitor] Adverse Reaction (Severe, Verified 11/22/19 08:54) Muscle aching pravastatin [From Pravachol] Adverse Reaction (Severe, Verified 11/22/19 08:54) Myalgias simvastatin [From Zocor] Adverse Reaction (Severe, Verified 11/22/19 08:54) Muscle aching amlodipine [From Norvasc] Adverse Reaction (Intermediate, Verified 11/22/19 08:54) Hand swelling ezetimibe [From Zetia] Adverse Reaction (Verified 11/22/19 08:54) MYALGIA Cuehsbr-Nmn-Xsj Reductase Inhibitor Adverse Reaction (Verified 11/25/19 18:39) myalgias Patient has tried Lipitor, Pravachol, Zocor, Crestor as well as fenofibrates, Zetia, and Repatha (last 3 are non-statin drugs for hyperlipidemia) Surgical History: Surgical History (Last Reviewed 11/15/19 @ 13:44 by ISAAC Peraza) H/O coronary artery bypass surgery (Resolved) Onset Date: 03/05/10 Z95.1 CABG x 3 THOMAS-LAD, SCG-D1, SVG-LCx 03/05/2010 History of coronary artery stent placement (Resolved) Onset Date: 08/21/17 Z95.5 IWG-GQX-Azze LAD 01/24/2002; PCI-PAYAL-Mid RCA 02/01/2005; PCI- PAYAL of mid/distal and proximal RCA 08/21/17 H/O eye surgery Z98.890 History of left heart catheterization Onset Date: 08/18/17 Z98.890 1995;01/2002; 02/02/2005; 01/2007; 01/2008; 02/2010; 12/02/2010; 08/18/17 - *Family History Maternal Family History: Family History (Last Reviewed 11/25/19 @ 18:19 by TAVO Diaz) Father CAD (coronary artery disease), Onset Age: 61 Stented coronary artery Mother COPD (chronic obstructive pulmonary disease) Sister Diabetes Hypertension Paternal Family History: Family History (Last Reviewed 11/25/19 @ 18:19 by TAVO Diaz) Father CAD (coronary artery disease), Onset Age: 61 Stented coronary artery Mother COPD (chronic obstructive pulmonary disease) Sister Diabetes Hypertension - Physical Exam Vitals/I&O's: Vital Signs Temp Pulse Resp BP Pulse Ox 97.9 F 82 18 182/93 H 93 11/25/19 18:30 11/25/19 18:50 11/25/19 18:30 11/25/19 18:30 11/25/19 18:38 Oxygen Flow Rate (L/min) 2 Oxygen Delivery Method Nasal Cannula Weight: 257 lb 4.471 oz Body Mass Index (BMI) 40.3 Laboratory Results 11/25/19 16:50: APTT 35.1 11/25/19 16:58: Troponin I 1.680 H* Current Medications Albuterol Sulfate (Ventolin Aerosols) 2.5 mg INHALATION Q2H PRN PRN PRN Reason: SHORTNESS OF BREATH Allopurinol (Zyloprim) 100 mg PO BID [facility] Aspirin (Ecotrin) 81 mg PO DAILY [facility] Brimonidine Tartrate (Brimonidine 0.2% 5ml Bottle) 1 drop RIGHT EYE BID [facility] Calcitriol (Rocaltrol) 0.25 mcg PO QODAY [facility] Furosemide (Lasix) 40 mg IV BID@1000,1800 AMANDA Gabapentin (Neurontin) 100 mg PO BIDCM [facility] Gemfibrozil (Lopid) 600 mg PO DAILY [facility] Heparin Sodium/Dextrose () 25,000 units in 250 mls @ 16 mls/hr IV .[id number] [facility]; Protocol Stop: 11/26/19 08:52 Last Admin: 11/25/19 17:53 Dose: 16 units/hr, 0.2 mls/hr Documented by: Sodium Chloride () 1,000 mls @ 75 mls/hr IV .[id number] AMANDA Last Admin: 11/25/19 19:00 Dose: 75 mls/hr Documented by: Sodium Chloride () 500 mls @ 15 mls/hr IV PRN PRN PRN Reason: Blood Transfusion Sodium Chloride () 250 mls @ 15 mls/hr IV .[id number] PRN PRN Reason: Saline Flush Sodium Chloride () 250 mls @ 15 mls/hr IV .[id number] PRN PRN Reason: Additional IVPB Infusion Heparin Sodium/Dextrose () 25,000 units in 250 mls @ 16 mls/hr IV .[id number] AMANDA; Protocol Insulin Human Lispro (Humalog Kwikpen (Bkc)) 0 unit SC ACHS AMANDA; Protocol Insulin Human Lispro (Humalog Kwikpen (Bkc)) 27 unit SC LUNCH AMANDA Insulin Human Lispro (Humalog Kwikpen (Bkc)) 24 unit SC BREAKFAST AMANDA Insulin Human Lispro (Humalog Kwikpen (Bkc)) 48 unit SC DINNER AMANDA Insulin Human NPH (Humulin N (Bk)) 50 units SC QHS [facility] Isosorbide Mononitrate (Imdur) 30 mg PO BID [facility] Levothyroxine Sodium (Synthroid) 75 mcg PO DAILY@0600 [facility] Metoprolol Tartrate (Lopressor (Beta Lorene)) 50 mg PO BID [facility] Metoprolol Tartrate (Lopressor (Beta Lorene)) 50 mg PO BID [facility] Montelukast Sodium (Singulair) 10 mg PO QHS [facility] Nitroglycerin (Nitrostat) 0.4 mg SUBLINGUAL Q5M PRN PRN Reason: CARDIAC/CHEST PAIN Nutritional Formula (Lactose Free) (Glucerna Shake) 120 ml PO 4X/DAY [facility] Ondansetron HCl (Zofran) 4 mg IV Q8H PRN PRN PRN Reason: NAUSEA/VOMITING Quetiapine Fumarate (Seroquel) 75 mg PO BID [facility] Ramipril (Altace) 10 mg PO BID [facility] Sertraline HCl (Zoloft) 150 mg PO BID [facility] Sodium Chloride () 10 - 40 ml IV UD PRN PRN Reason: SALINE FLUSH Last Admin: 11/25/19 19:01 Dose: 10 ml Documented by: Timolol Maleate (Timoptic) 1 drop RIGHT EYE BID AMANDA Code Visit Addendum: Dr. Acosta I personally examined the patient and reviewed the chart. I agree with the above. 59-year-old male with previous coronary artery disease history with multiple stents with his most recent in 2017 presents with chest pressure which she also describes as a dull ache. He states that is been going on since Monday or Monday and initially they thought that it was due to an upper respiratory infection since has been going around in the family. However he was not getting any better today so they went to the PCP where he was found that he had an elevated troponin to 1.8 and he was transferred into the ER. Did have a slight depression in his lateral leads on his EKG, coupled with his elevated troponin to 1.8 which repeat was down to 1.6, indicates an NSTEMI. Cardiology was consulted and they advised to heparin drip as well as a dose of aspirin. They did not recommend any Plavix or Brilinta at this time. Plan will be for probable cardiac cath in the morning with a stent if necessary. We will continue with IV Lasix as his BNP was elevated as well as his home blood pressure medications. He was supposed to have a pacemaker today for intermittent third-degree block that was found on a 30-day event monitor. Inpatient E&M: 95100 In Hosp L3
--- NOTE | 2019-11-25 18:10 | EKG12_ITS ---
Test Reason : Blood Pressure : / mmHG Vent. Rate : 082 BPM Atrial Rate : 082 BPM P-R Int : 224 ms QRS Dur : 130 ms QT Int : 446 ms P-R-T Axes : 071 -65 151 degrees QTc Int : 521 ms Sinus rhythm with 1st degree A-V block Left axis deviation Non-specific intra-ventricular conduction block Cannot rule out Septal infarct (cited on or before 17-AUG-2017) T wave abnormality, consider inferolateral ischemia Abnormal ECG Confirmed by YESSY KATHLEEN, GIANNI ([id number]), general expeditor JOAQUINA MAYEN ([id number]) on 11/27/2019 9:58:12 AM Referred By: SAKINA Confirmed By:GIANNI KRISHNAMURTHY MD
[2019-11-25 18:35] LABS: Partial Thromboplast Time 35.1 Seconds (24.1-36.2)
[2019-11-25] MEDS: 0.9% Normal Saline 1,000 ML 75 ML IV (19:00)
[2019-11-25] MEDS: 0.9% Saline Lock 10 ML Syringe IV (19:01)
[2019-11-25] MEDS: Furosemide 40 MG/4 ML Vial IV (19:01)
[2019-11-25 21:30] LABS: Bedside Glucose 319 mg/dL (70-110)
[2019-11-25] MEDS: Ramipril 10 MG Capsule PO (21:33)
[2019-11-25] MEDS: Glucerna Shake 120 ML LIQUID PO (21:33)
[2019-11-25] MEDS: Isosorbide Mononitrate 30 MG Tablet PO (21:34)
[2019-11-25] MEDS: QUEtiapine 25 MG Tablet 75 MG PO (21:34)
[2019-11-25] MEDS: Metoprolol Tartrate 50 MG Tablet PO (21:34)
[2019-11-25] MEDS: Sertraline 100 MG Tablet 150 MG PO (21:35)
[2019-11-25] MEDS: BRIMONIDINE 0.2% 5ML BOTTLE 1 DRP RIGHT EYE (21:36)
[2019-11-25] MEDS: Timolol 0.5% 5ML OPTH.BTL 1 DRP RIGHT EYE (21:36)
[2019-11-25] MEDS: Allopurinol 100 MG Tablet PO (21:37)
[2019-11-25] MEDS: Montelukast 10 MG Tablet PO (21:38)
[2019-11-25] MEDS: Insulin Lispro 100 UNIT/ML INSULN.PEN SC (21:38)
[2019-11-25] MEDS: Insulin NPH Human 100 UNITS/ML PEN 50 UNITS SC (21:39)
[2019-11-25 23:31] LABS: Partial Thromboplast Time 122.4 Seconds (24.1-36.2)
[2019-11-26] VITALS (11 sets, daily range): BP systolic 117–178; BP diastolic 56–84; PULSE 61–82; RESP 17–18; TEMP 36.6–36.9; O2SAT 92–95
--- NOTE | 2019-11-26 05:55 | EKG12_ITS ---
Test Reason : AM EKG Blood Pressure : / mmHG Vent. Rate : 072 BPM Atrial Rate : 072 BPM P-R Int : 208 ms QRS Dur : 132 ms QT Int : 470 ms P-R-T Axes : 058 -65 168 degrees QTc Int : 514 ms Normal sinus rhythm Left axis deviation Non-specific intra-ventricular conduction block T wave abnormality, consider inferolateral ischemia Abnormal ECG When compared with ECG of 25-NOV-2019 18:11, MANUAL COMPARISON REQUIRED, DATA IS UNCONFIRMED Confirmed by MARCIN KATHLEEN, DARIUS ([id number]), pictures editor JOAQUINA MAYEN ([id number]) on 11/29/2019 2:55:18 PM Referred By: IVANA Confirmed By:TRUONG BURCH MD
[2019-11-26 06:05] LABS: Absolute Neutrophil Count 6.6 X10^3/uL (2.0-7.7); Basophil# 0.02 X10^3/uL; Basophil% 0.2 % (0-1); Eosinophil# 0.21 X10^3/uL; Eosinophils% 2.5 % (0-5); Hematocrit 35.4 % (40-54); Hemoglobin 11.8 g/dL (13.0-16.5); Lymphocyte % 9.5 % (19-41); Mean Corp Hgb Conc 33.3 g/dL (32-36); Mean Corpuscular Hgb 31.9 pg (27.0-32.0); Mean Corpuscular Volume 95.7 fL (80-94); Mean Platelet Vol. 10.5 fl (6.2-12.0); Monocyte# 0.77 X10^3/uL; Monocyte% 9.2 % (0-10); NRBC Flagged by Analyzer 0 % (0-5); Neutrophil # 6.56 X10^3/uL (2.7-7.7); Neutrophil % 78.1 % (47-70); Platelet Count 220 K/mm3 (150-450); RBC Distribution Width CV 15.2 % (11.6-14.6); RBC Distribution Width SD 52.3 fl (35.1-43.9); White Blood Count 8.4 K/mm3 (4.4-11.0)
[2019-11-26 06:13] LABS: Partial Thromboplast Time 49.8 Seconds (24.1-36.2)
[2019-11-26 06:29] LABS: BUN 64 mg/dL (7-18); Creatinine, Serum 2.61 mg/dL (0.70-1.30); Estimated Creatinine Clearance 28.49 ml/min; Glucose 293 mg/dL (74-106)
[2019-11-26 06:30] LABS: Anion Gap 8 (5-15); BUN/Creat Ratio 24.5 RATIO (10-20); Calcium,Total 8.9 mg/dL (8.5-10.1); Chloride 100 mmol/L (98-107); EST Glomerular Filtration Rate 27 mL/min (>60); Est Glom Filt Rate - Afr Amer 32 mL/min (>60); Potassium 3.7 mmol/L (3.5-5.1); Sodium Level 133 mmol/L (136-145)
[2019-11-26] MEDS: Heparin Injection (Vial) 5,000 UNIT/ML VIAL IV (06:35)
[2019-11-26] MEDS: Levothyroxine 75 MCG Tablet PO (06:37)
[2019-11-26 08:35] LABS: Bedside Glucose 276 mg/dL (70-110)
[2019-11-26] MEDS: 0.9% Normal Saline 1,000 ML 75 ML IV ×3 (09:00→22:18)
[2019-11-26] MEDS: QUEtiapine 25 MG Tablet 75 MG PO ×2 (09:52→21:34)
[2019-11-26] MEDS: Isosorbide Mononitrate 30 MG Tablet PO ×2 (09:52→21:35)
[2019-11-26] MEDS: Ramipril 10 MG Capsule PO ×2 (09:52→21:35)
[2019-11-26] MEDS: Metoprolol Tartrate 50 MG Tablet PO ×2 (09:53→21:35)
[2019-11-26] MEDS: Gemfibrozil 600 MG Tablet PO (09:55)
[2019-11-26] MEDS: Aspirin E.C. 81 MG Tablet PO (09:55)
[2019-11-26] MEDS: Insulin Lispro 100 UNIT/ML INSULN.PEN SC ×2 (09:57→11:42)
[2019-11-26] MEDS: BRIMONIDINE 0.2% 5ML BOTTLE 1 DRP RIGHT EYE ×2 (09:59→21:34)
[2019-11-26] MEDS: HEPARIN/D5w 25,000 UNITS 25,000 UNITS/250 ML IV.SOLN. 14 UNITS IV (11:01)
--- NOTE | 2019-11-26 11:13 | CASEMGMT ---
Patient was notified that his Healthcare Power of Language Pathologist and Healthcare Living Will are not on file at [facility] and he should bring in a copy when able. His Fredo is his Healthcare Power of Language Pathologist. Cinthya CHU
--- NOTE | 2019-11-26 11:35 | CASEMGMT ---
RN CM PROCESSING ASSISTANT CM to room to meet with patient for initial transition planning/care coordination assessment. RN TIEN introduced self and role at [facility]. Pt voices understanding and consents to assessment at this time. Pt sitting up in recliner chair in no distress at this time. @ bedside. Pt is A/O at this time and answers all questions appropriately. Care providers, pharmacy, and demographics verified/updated at this time. PCP: Dr Gates Specialists: Dr Nelson--cardiology, Bebeto--eye doctor, Dr Blackman--screen printing machine operator in [place], Dr Mariscal--nephrology Preferred Pharmacy: [facility] Insurance: MCR A only, UMR Prescription Benefit: [employer] Living Will/HPOA: Has both LW and HCPOA, who is his , Fredo. Made aware copies are not found on file @ [facility] of either. LNOK: Living Arrangements: Lives with his one-story condo w/basement. states he rarely goes down there. Pt mostly independent but assists with Compression socks and with dressing lower extremities. Pt helps some w/laundry and household mgmt tasks. Transportation: . Denies transportation concerns. DME: States has the following DME: Has a shower chair but does not use, grab bar in shower, hand held shower. Has a cane and walker that he uses on occasion, BIPAP, Glucose monitoring system. Pt states feels pt could use Medical alert button. Given list of local [facility] that provide these. HHC/SNF: No history of either. PT/OT evals pending. Pt wishes to return home and states has no concerns with going home at time of discharge. CM to follow for any discharge planning/needs. Pt/ voice no concerns/needs at this time. Advised them to ask for CM if any further questions/concerns/needs arise. They voice understanding. PLAN: Home PT/OT evals pending. Delphine SOUSA RN CM
[2019-11-26] MEDS: Allopurinol 100 MG Tablet PO ×2 (11:46→21:36)
[2019-11-26] MEDS: Sertraline 100 MG Tablet 150 MG PO ×2 (11:46→21:34)
[2019-11-26] MEDS: Gabapentin 100 MG Capsule PO ×2 (11:47→17:31)
[2019-11-26] MEDS: Furosemide 40 MG/4 ML Vial IV ×2 (11:48→17:32)
[2019-11-26] MEDS: Insulin Lispro 100 UNIT/ML INSULN.PEN 27 UNIT SC (11:53)
[2019-11-26 12:16] LABS: Bedside Glucose 255 mg/dL (70-110)
--- NOTE | 2019-11-26 12:34 | PCM.CONS.C ---
Problem List (1) NSTEMI (non-ST elevated myocardial infarction) Status: Acute (2) Atherosclerotic heart disease of [place] coronary artery without angina pectoris Status: Chronic Qualifiers: [place] vs. transplanted heart: [place] heart Qualified Code(s): I25.10 - Atherosclerotic heart disease of [place] coronary artery without angina pectoris Comment: CABG x 3 THOMAS-LAD, SCG-D1, SVG-LCx 03/05/2010; [id number] LAD 01/24/2002; PCI-PAYAL-Mid RCA 02/01/2005; PCI- PAYAL of mid/distal and proximal RCA 08/21/17 Reason for Consult Date of Consultation: 11/26/19 Reason for Consultation: CP, NSTEMI, CHF History of Present Illness: The patient is a 59 year old M who presents emergency room due to chest pressure and generalized swelling. Patient reports his was sick with upper respiratory infection recently and over the past few days he has had nasal congestion, sore throat and persistent cough. He also reports chest pressure in which he feels as if he is smothering. He reports this is worsened when he is lying flat. His symptoms were bad last Monday evening he felt a little better Monday during the day and his symptoms returned Monday evening. Monday he felt better and he decided to see his primary care physician on Monday. His primary care physician then sent him to the ER. In the ER patient was found to have elevated troponin and was admitted to the PCU. It was also felt that he was volume overloaded and patient has been started on IV Lasix. Patient has prior history of coronary artery disease status post CABG and stents including restenosis of his prior RCA stents. He has CKD as well. In July 2019 he was found to have lateral ischemia with moderately decreased EF. Because of his CKD he did not undergo coronary angiography. He was not having any anginal symptoms at the time. Subsequently he started having syncopal episodes and an event monitor was placed. He was found to have episodes of third-degree AV block and over 3-second pause. He was scheduled for permanent pacemaker placement yesterday. His last episode of syncope was in the end of October. He has not had any further episodes recently. He has a past medical history of CABG and PCI, type 2 diabetes mellitus, ABBI, obesity, chronic kidney disease stage IV, hypertension, hyperlipidemia. Review of systems: All systems reviewed. All else is negative except in HPI. Past Medical History Allergies/Adverse Reactions: Allergies ampicillin Allergy (Verified 11/22/19 08:54) Rash erythromycin base Allergy (Verified 11/25/19 18:39) tears me up Penicillins Allergy (Verified 11/22/19 08:54) Rash Sulfa (Sulfonamide Antibiotics) Allergy (Verified 11/22/19 08:54) Hives atorvastatin [From Lipitor] Adverse Reaction (Severe, Verified 11/22/19 08:54) Muscle aching pravastatin [From Pravachol] Adverse Reaction (Severe, Verified 11/22/19 08:54) Myalgias simvastatin [From Zocor] Adverse Reaction (Severe, Verified 11/22/19 08:54) Muscle aching amlodipine [From Norvasc] Adverse Reaction (Intermediate, Verified 11/22/19 08:54) Hand swelling ezetimibe [From Zetia] Adverse Reaction (Verified 11/22/19 08:54) MYALGIA Cnggkik-Ywq-Rtp Reductase Inhibitor Adverse Reaction (Verified 11/25/19 18:39) myalgias Patient has tried Lipitor, Pravachol, Zocor, Crestor as well as fenofibrates, Zetia, and Repatha (last 3 are non-statin drugs for hyperlipidemia) Home Medications: Ambulatory Orders Medication Instructions Recorded Albuterol IH (ProAir) [Proair Hfa] 1 - 2 puff INHALATION Q6H PRN PRN 08/16/17 Aspirin [Aspir-Low] 81 mg PO DAILY 08/16/17 Cholecalciferol (Vitamin D3) 5,000 unit PO QODAY 08/16/17 [Vitamin D3] Dulera 100 Mcg/5 Mcg Inhaler 1 puff PO BID 08/16/17 Folic Acid 5 tab PO DAILY 08/16/17 Furosemide [Lasix] 40 mg PO DAILY 08/16/17 Gabapentin [Neurontin] 100 mg PO BIDCM 08/16/17 Humulin N 50 units SC QHS 08/16/17 Humulin R 24 units SC BREAKFAST 08/16/17 Humulin R 27 units SC LUNCH 08/16/17 Humulin R 48 units SC DINNER 08/16/17 Montelukast [Singulair] 10 mg PO DAILY 08/16/17 Quetiapine Fumarate [Seroquel XR] 150 mg PO QHS 08/16/17 sertraline 100 mg tablet 150 mg PO QHS 12/06/17 allopurinol 100 mg tablet 100 mg PO BID 12/11/18 diclofenac epolamine 1.3 % 1 patch TRANSDERMAL BID PRN 07/23/19 transdermal 12 hour patch levothyroxine 50 mcg tablet 75 mcg PO QDAY tab 07/23/19 nitroglycerin 0.4 mg sublingual 0.4 mg PO PRN PRN #25 tab 07/23/19 tablet Calcitriol [Rocaltrol] 1 tab PO QODAY 10/20/19 Cyanocobalamin (Vitamin B-12) 2,500 mcg PO DAILY 10/20/19 [Vitamin B-12] Ubidecarenone [Co Q-10] 200 mg PO DAILY 10/20/19 ramipril 10 mg capsule 10 mg PO BID cap 10/22/19 Brimonidine Tartrate/Timolol 1 drp RIGHT EYE BID 11/25/19 [Combigan Eye Drops] Clopidogrel Bisulfate [Clopidogrel] 75 mg PO DAILY 11/25/19 Gemfibrozil 600 mg PO DAILY 11/25/19 Isosorbide Mononitrate [Isosorbide 30 mg PO BID 11/25/19 Mononitrate ER] Metolazone 2.5 mg PO MOTH 11/25/19 Metoprolol Tartrate 50 mg PO BID 11/25/19 Past Medical History (Chronic Problems): Chronic Problems (Last Reviewed 11/15/19 @ 13:44 by ISAAC Peraza) Diabetes (Chronic) Heart block AV complete (Chronic) intermittent CHB Left carotid stenosis (Chronic) Essential (primary) hypertension (Chronic) H/O coronary artery bypass surgery (Chronic 03/05/10) CABG x 3 THOMAS-LAD, SCG-D1, SVG-LCx 03/05/2010 History of coronary artery stent placement (Chronic 08/21/17) [id number] LAD 01/24/2002; PCI-PAYAL-Mid RCA 02/01/2005; PCI- PAYAL of mid/distal and proximal RCA 08/21/17 Atherosclerotic heart disease of [place] coronary artery without angina pectoris (Chronic) CABG x 3 THOMAS-LAD, SCG-D1, SVG-LCx 03/05/2010; [id number] LAD 01/24/2002; PCI-PAYAL-Mid RCA 02/01/2005; PCI- PAYAL of mid/distal and proximal RCA 08/21/17 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) HLD (hyperlipidemia) (Chronic) Surgical History: adenoidectomy, angioplasty, coronary bypass surgery, tonsillectomy, - - Septoplasty Psychiatric History: Anxiety, Depression - *Family History Maternal Family History: Family History (Last Reviewed 11/25/19 @ 19:20 by Kyle Acosta MD) Father CAD (coronary artery disease), Onset Age: 61 Stented coronary artery Mother COPD (chronic obstructive pulmonary disease) Sister Diabetes Hypertension History Items: COPD, Diabetes Paternal Family History: Family History (Last Reviewed 11/25/19 @ 19:20 by Kyle Acosta MD) Father CAD (coronary artery disease), Onset Age: 61 Stented coronary artery Mother COPD (chronic obstructive pulmonary disease) Sister Diabetes Hypertension History Items: Heart Disease Lives: Spouse/ Significant Other Smoking Status: Never smoker Alcohol: Rare Drugs: None Objective: Vital Signs Temp Pulse Resp BP Pulse Ox 97.8 F 73 18 129/60 H 129 11/26/19 11:50 11/26/19 11:50 11/26/19 11:50 11/26/19 11:50 11/26/19 11:50 Oxygen Flow Rate (L/min) 2 Oxygen Delivery Method Nasal Cannula Weight: 257 lb 4.471 oz Body Mass Index (BMI) 40.3 Intake and Output for Last 24 Hours 11/24/19 11/25/19 11/26/19 23:59 23:59 23:59 Intake Total 643.97 / 643.97 720.66 / 720.66 Balance 643.97 / 643.97 720.66 / 720.66 General: Awake, Alert, Oriented x 3 HEENT: Atraumatic Oral: Moist Mucosa Neck: Supple Lungs: Rales - Mike Bases Cardiovascular: Normal S1, Normal S2 Abdomen: Soft Extremities: Bilateral Edema +1 Skin: No Rashes Psych/Mental Status: Appropriate 11/25/19 16:50: APTT 35.1 11/25/19 16:58: Troponin I 1.680 H* 11/25/19 20:50: Troponin I 1.550 H* 11/25/19 23:02: Troponin I 1.460 H* 11/25/19 23:02: APTT 122.4 H* 11/26/19 05:27: WBC 8.4, RBC 3.70 L, Hgb 11.8 L, Hct 35.4 L, MCV 95.7 H, MCH 31.9, MCHC 33.3, Plt Count 220, MPV 10.5, Immature Gran % (Auto) 0.500, Neut % (Auto) 78.1 H, Lymph % (Auto) 9.5 L, [place] % (Auto) 9.2, Eos % (Auto) 2.5, Baso % (Auto) 0.2, Absolute Neuts (auto) 6.6, Nucleated RBC % 0 11/26/19 05:27: Sodium 133 L, Potassium 3.7, Chloride 100, Carbon Dioxide 25.0, Anion Gap 8, BUN 64 H, Creatinine 2.61 H, Est GFR (MDRD) Af Amer 32 L, Est GFR (MDRD) Non-Af 27 L, BUN/Creatinine Ratio 24.5 H, Glucose 293 H, Calcium 8.9 11/26/19 05:27: APTT 49.8 H Rhythm: EKG: ECHO: Stress Test: Cardiac Cath: PCI: CT Surgery: Holter monitor: EPS: PPM: CXR: Chest CT Scan: Assessment/Plan 1. Chest pain: Patient had non-ST elevation VA this time. His troponin is trending down. He may have had his VA either on Monday evening or Monday evening. I think that he would benefit from coronary angiography despite his elevated creatinine and high risk of contrast-induced nephropathy. However this does not have to be done emergently and we can optimize his kidney function to the best of her ability and then proceed with coronary angiography. Patient also feels that he is currently unable to lie down flat for prolonged period of time and this could be related to his CHF. We will optimize him from the standpoint as well. It will be reasonable to keep him on heparin at this time. 2. CHF: Continue IV Lasix for another day. Patient's EF by last echo in 2017 was preserved and his stress test in July 2019 showed a decrease in EF. We will check a 2D echo as well. 3. Syncope: Patient had significant pauses and episodes of third-degree AV block on event monitoring and was scheduled for permanent pacemaker placement yesterday. We will continue to monitor the patient on telemetry.
--- NOTE | 2019-11-26 12:54 | ECHOCS_ITS ---
Reason For Study: CHF Procedure This was a 2D Doppler, Color Flow transthoracic echocardiogram. The study was technically difficult. Contrast injection was performed. Exam performed portable in patient room. Left Ventricle Normal LV size. The estimated ejection fraction is 40-45 %. There is evidence of diastolic dysfunction. Hypokinesis of the posterior and inferior wall. Right Ventricle Normal RV size. Normal systolic function. Atria The left atrium is mildly enlarged. Normal right atrium. No doppler evidence for ASD. Mitral Valve There is no mitral valve stenosis. No mitral valve insufficiency. Tricuspid Valve There is no tricuspid stenosis. Trivial tricuspid valve insufficiency. Unable to estimate RV systolic pressure due to insufficient tricuspid regurgitant envelope. Aortic Valve Trisinus/trileaflet aortic valve. Aortic sclerosis, no stenosis. There is no aortic stenosis. No aortic valve insufficiency. Pulmonic Valve There is no pulmonic valvular stenosis. Trivial pulmonic valve insufficiency. Great Vessels Normal aortic root. Pericardium/Pleural No pericardial effusion. Medication Diluted definity 2ml given slow IV push to enhance endocardial definition. MMode/2D Measurements & Calculations LVIDd: 5.4 cm IVSd: 1.4 cm LA dimension: 4.5 cm LVIDs: 4.9 cm LVPWd: 1.3 cm FS: 9.1 % LAV(MOD-bp): 59.8 ml LVAd ap4: 43.5 cm2 SV(MOD-sp4): 53.4 ml LAV(MOD-bp) Indexed: 26.7 ml/m2 EDV(MOD-sp4): 164.1 ml LAV(MOD-sp2): 46.5 ml EDV(sp4-el): 166.0 ml LAV(MOD-sp4): 66.2 ml LVAs ap4: 33.6 cm2 ESV(MOD-sp4): 110.8 ml ESV(sp4-el): 107.4 ml EF(MOD-sp4): 32.5 % EF(sp4-el): 35.3 % SV(sp4-el): 58.5 ml LA A4 area: 21.0 cm2 Time Measurements MV dec time: 0.25 sec Doppler Measurements & Calculations MV E max chay: 116.9 cm/sec Lat Peak E' Chay: 3.0 cm/sec Med Peak E' Chay: 4.4 cm/sec MV A max chay: 78.8 cm/sec E/E' lat: 38.5 E/E' med: 26.8 MV E/A: 1.5 MV V2 max: 126.2 cm/sec MV P1/2t max chay: 128.1 cm/sec Ao V2 max: 107.0 cm/sec MV max P.4 mmHg MV P1/2t: 75.4 msec Ao max P.6 mmHg MV V2 mean: 67.6 cm/sec MV mean P.2 mmHg MV dec slope: 497.7 cm/sec2 MV V2 VTI: 38.5 cm MVA(P1/2t): 2.9 cm2 LV V1 max: 98.5 cm/sec PA V2 max: 101.1 cm/sec LV V1 max P.9 mmHg Interpretation Summary The estimated ejection fraction is 40-45 %. There is evidence of diastolic dysfunction. Trivial tricuspid valve insufficiency. Hypokinesis of the posterior and inferior wall Ordering Physician: Chuck Tran Referring Physician: Lisa Gates M.D. Performed By: Jad Bergeron RCS
--- NOTE | 2019-11-26 14:23 | PCM.PROGNOTE ---
<Zamzam Tay - Last Filed: 11/26/19 14:32> Patient Problems: Active and Suspected Problems (Last Reviewed 11/15/19 @ 13:44 by ISAAC Peraza) NSTEMI (non-ST elevated myocardial infarction) (Acute) Subjective: Patient seen and examined. Continues to report cough. Denies shortness of breath. Denies chest pain, palpitations. Plan for heart cath when kidney function improved. - Physical Exam Vitals/I&O's: Vital Signs Temp Pulse Resp BP Pulse Ox 97.8 F 73 18 129/60 H 129 11/26/19 11:50 11/26/19 11:50 11/26/19 11:50 11/26/19 11:50 11/26/19 11:50 Oxygen Flow Rate (L/min) 2 Oxygen Delivery Method Nasal Cannula Weight: 257 lb 4.471 oz Body Mass Index (BMI) 40.3 Intake and Output for Last 24 Hours 11/24/19 11/25/19 11/26/19 23:59 23:59 23:59 Intake Total 643.97 / 643.97 720.66 / 720.66 Balance 643.97 / 643.97 720.66 / 720.66 General: Alert, Oriented x3, Cooperative HEENT: Atraumatic, PERRLA, EOMI, Normocephalic Neck: Supple, No JVD, Negative Carotid Bruits Lungs: Clear to auscultation, Diminished Cardiovascular: Regular rate, Regular Rhythm, Normal S1, Normal S2, No murmurs Abdomen: Bowel Sounds Present, Soft, Non Tender, Non-Distended, Obese Extremities: No clubbing, No cyanosis, Edema - Nonpitting lower extremities Skin: No rashes, No breakdown Musculoskeletal: No Tenderness to Palpation of Joints or Extremities Neurological: Cranial nerves II-XII grossly intact, Neuro grossly intact Psych/Mental Status: Normal Affect, Appropriate Microbiology Past 72 Hours 11/25/19 20:00 Mucosa - Nose Respiratory Panel (PCR) - Final Rhinovirus Laboratory Results 11/25/19 16:50: APTT 35.1 11/25/19 16:58: Troponin I 1.680 H* 11/25/19 20:50: Troponin I 1.550 H* 11/25/19 21:27: POC Glucose 319 H 11/25/19 23:02: Troponin I 1.460 H* 11/25/19 23:02: APTT 122.4 H* 11/26/19 05:27: WBC 8.4, RBC 3.70 L, Hgb 11.8 L, Hct 35.4 L, MCV 95.7 H, MCH 31.9, MCHC 33.3, RDW Std Deviation 52.3 H, RDW Coeff of Margaret 15.2 H, Plt Count 220, MPV 10.5, Immature Gran % (Auto) 0.500, Neut % (Auto) 78.1 H, Lymph % (Auto) 9.5 L, [place] % (Auto) 9.2, Eos % (Auto) 2.5, Baso % (Auto) 0.2, Absolute Neuts (auto) 6.6, Absolute Lymphs (auto) 0.80 L, Nucleated RBC % 0 11/26/19 05:27: Sodium 133 L, Potassium 3.7, Chloride 100, Carbon Dioxide 25.0, Anion Gap 8, BUN 64 H, Creatinine 2.61 H, Estim Creat Clear Calc 28.49, Est GFR (MDRD) Af Amer 32 L, Est GFR (MDRD) Non-Af 27 L, BUN/Creatinine Ratio 24.5 H, Glucose 293 H, Calcium 8.9 11/26/19 05:27: APTT 49.8 H 11/26/19 08:13: POC Glucose 276 H 11/26/19 11:39: POC Glucose 255 H Current Medications Albuterol Sulfate (Ventolin Aerosols) 2.5 mg INHALATION Q2H PRN PRN PRN Reason: SHORTNESS OF BREATH Allopurinol (Zyloprim) 100 mg PO BID REPLACED BY [facility] Last Admin: 11/26/19 11:46 Dose: 100 mg Documented by: Aspirin (Ecotrin) 81 mg PO DAILY REPLACED BY [facility] Last Admin: 11/26/19 09:55 Dose: 81 mg Documented by: Brimonidine Tartrate (Brimonidine 0.2% 5ml Bottle) 1 drop RIGHT EYE BID REPLACED BY [facility] Last Admin: 11/26/19 09:59 Dose: 1 drop Documented by: Calcitriol (Rocaltrol) 0.25 mcg PO QODAY REPLACED BY [facility] Furosemide (Lasix) 40 mg IV BID@1000,1800 REPLACED BY [facility] Last Admin: 11/26/19 11:48 Dose: 40 mg Documented by: Gabapentin (Neurontin) 100 mg PO BIDCM REPLACED BY [facility] Last Admin: 11/26/19 11:47 Dose: 100 mg Documented by: Gemfibrozil (Lopid) 600 mg PO DAILY REPLACED BY [facility] Last Admin: 11/26/19 09:55 Dose: 600 mg Documented by: Heparin Sodium (Porcine) (Heparin Na) 0 unit IV UD PRN; Protocol Last Admin: 11/26/19 06:35 Dose: 1,000 unit Documented by: Sodium Chloride () 1,000 mls @ 75 mls/hr IV .[id number] REPLACED BY [facility] Last Admin: 11/26/19 10:03 Dose: 75 mls/hr Documented by: Sodium Chloride () 500 mls @ 15 mls/hr IV PRN PRN PRN Reason: Blood Transfusion Sodium Chloride () 250 mls @ 15 mls/hr IV .[id number] PRN PRN Reason: Saline Flush Sodium Chloride () 250 mls @ 15 mls/hr IV .[id number] PRN PRN Reason: Additional IVPB Infusion Heparin Sodium/Dextrose () 25,000 units in 250 mls @ 16 mls/hr IV .[id number] REPLACED BY [facility]; Protocol Last Admin: 11/26/19 11:01 Dose: 1,400 units/hr, 14 mls/hr Documented by: Insulin Human Lispro (Humalog Kwikpen (Bkc)) 0 unit SC ACHS REPLACED BY [facility]; Protocol Last Admin: 11/26/19 11:42 Dose: 2 u Documented by: Insulin Human Lispro (Humalog Kwikpen (Bkc)) 27 unit SC LUNCH REPLACED BY [facility] Last Admin: 11/26/19 11:53 Dose: 27 units Documented by: Insulin Human Lispro (Humalog Kwikpen (Bkc)) 24 unit SC BREAKFAST REPLACED BY [facility] Last Admin: 11/26/19 09:50 Dose: Not Given Documented by: Insulin Human Lispro (Humalog Kwikpen (Bkc)) 48 unit SC DINNER REPLACED BY [facility] Insulin Human NPH (Humulin N (Bk)) 50 units SC QHS REPLACED BY [facility] Last Admin: 11/25/19 21:39 Dose: 50 u Documented by: Isosorbide Mononitrate (Imdur) 30 mg PO BID REPLACED BY [facility] Last Admin: 11/26/19 09:52 Dose: 30 mg Documented by: Levothyroxine Sodium (Synthroid) 75 mcg PO DAILY@0600 REPLACED BY [facility] Last Admin: 11/26/19 06:37 Dose: 75 mcg Documented by: Metoprolol Tartrate (Lopressor (Beta Lorene)) 50 mg PO BID REPLACED BY [facility] Last Admin: 11/26/19 09:53 Dose: 50 mg Documented by: Montelukast Sodium (Singulair) 10 mg PO QHS REPLACED BY [facility] Last Admin: 11/25/19 21:38 Dose: 10 mg Documented by: Nitroglycerin (Nitrostat) 0.4 mg SUBLINGUAL Q5M PRN PRN Reason: CARDIAC/CHEST PAIN Ondansetron HCl (Zofran) 4 mg IV Q8H PRN PRN PRN Reason: NAUSEA/VOMITING Quetiapine Fumarate (Seroquel) 75 mg PO BID REPLACED BY [facility] Last Admin: 11/26/19 09:52 Dose: 75 mg Documented by: Ramipril (Altace) 10 mg PO BID REPLACED BY [facility] Last Admin: 11/26/19 09:52 Dose: 10 mg Documented by: Sertraline HCl (Zoloft) 150 mg PO BID REPLACED BY [facility] Last Admin: 11/26/19 11:46 Dose: 150 mg Documented by: Sodium Chloride () 10 - 40 ml IV UD PRN PRN Reason: SALINE FLUSH Last Admin: 11/25/19 19:01 Dose: 10 ml Documented by: Timolol Maleate (Timoptic) 1 drop RIGHT EYE BID REPLACED BY [facility] Last Admin: 11/26/19 10:01 Dose: Not Given Documented by: Medical Necessity - Tobacco Use Smoking Status: Never smoker Assessment/Plan All Active Problems (Last Reviewed 11/15/19 @ 13:44 by ISAAC Peraza) NSTEMI (non-ST elevated myocardial infarction) (Acute) Acute coronary syndrome (Resolved) Angina pectoris (Resolved) Chest pain (Resolved) Orthostatic hypotension (Resolved) Syncope and collapse (Resolved) 1. NSTEMI- EKG demonstrated lateral ST depression. Cardiology consulted. Continue heparin drip, aspirin. Continue home beta-lorene and nitrate regimen. Patient's Plavix has been on hold due to previously planned pacemaker placement 11/25/2019. Stress test July 2019 with EF 41%, abnormal stress test with evidence of lateral ischemia. Plan for heart cath pending repeat assessment of renal function. Echocardiogram pending. 2. Acute CHF with reduced ejection fraction-chest x-ray admission with mild CHF. BNP 1120. Echocardiogram December 2017 demonstrated an EF of 53%. IV Lasix 40 mg twice daily. Continue compression stockings lower extremities. Daily weight. Strict I&O. Fluid restriction. EF per stress test July 2019 41%. Repeat echo pending. 3. Intermittent third-degree heart block- noted on 30-day event monitor. Planned for pacemaker placement with Dr. Nelson, cancelled due to acute presentation. Cardiology consulted as noted above. 4. Acute rhinovirus-symptom management. Albuterol aerosol as needed. 5. History of CABG/PCI-continue aspirin, beta-lorene, nitrate, JUAN inhibitor. 6. Type 2 diabetes mellitus with peripheral neuropathy-hold oral regimen. Continue home scheduled insulin regimen with sliding scale insulin. Continue gabapentin regimen. 7. Chronic kidney disease stage IV-kidney function appears at baseline. Trend BMP. 8. Hypertension-stable, continue isosorbide, metoprolol, ramipril regimen. 9. Hyperlipidemia-continue gemfibrozil regimen. Reported allergy to statins. 10. ABBI- continue home BiPAP regimen. 11. Hypothyroidism-continue home Synthroid regimen. 12. Depression-continue sertraline regimen. 13. Gout-continue allopurinol regimen. 14. Morbid obesity- encouraged diet and lifestyle modifications. DVT prophylaxis-heparin drip This patient was seen by TAVO Diaz under the supervision of Dr. Pope. <Adriana Pope - Last Filed: 11/26/19 15:58> - Physical Exam Vitals/I&O's: Vital Signs Temp Pulse Resp BP Pulse Ox 97.8 F 67 18 129/60 H 93 11/26/19 11:50 11/26/19 14:59 11/26/19 11:50 11/26/19 11:50 11/26/19 11:50 Oxygen Flow Rate (L/min) 2 Oxygen Delivery Method Room Air Weight: 116.7 kg Body Mass Index (BMI) 40.3 Intake and Output for Last 24 Hours 11/24/19 11/25/19 11/26/19 23:59 23:59 23:59 Intake Total 643.97 / 643.97 720.66 / 720.66 Balance 643.97 / 643.97 720.66 / 720.66 Microbiology Past 72 Hours 11/25/19 20:00 Mucosa - Nose Respiratory Panel (PCR) - Final Rhinovirus Laboratory Results 11/25/19 16:50: APTT 35.1 11/25/19 16:58: Troponin I 1.680 H* 11/25/19 20:50: Troponin I 1.550 H* 11/25/19 21:27: POC Glucose 319 H 11/25/19 23:02: Troponin I 1.460 H* 11/25/19 23:02: APTT 122.4 H* 11/26/19 05:27: WBC 8.4, RBC 3.70 L, Hgb 11.8 L, Hct 35.4 L, MCV 95.7 H, MCH 31.9, MCHC 33.3, RDW Std Deviation 52.3 H, RDW Coeff of Margaret 15.2 H, Plt Count 220, MPV 10.5, Immature Gran % (Auto) 0.500, Neut % (Auto) 78.1 H, Lymph % (Auto) 9.5 L, [place] % (Auto) 9.2, Eos % (Auto) 2.5, Baso % (Auto) 0.2, Absolute Neuts (auto) 6.6, Absolute Lymphs (auto) 0.80 L, Nucleated RBC % 0 11/26/19 05:27: Sodium 133 L, Potassium 3.7, Chloride 100, Carbon Dioxide 25.0, Anion Gap 8, BUN 64 H, Creatinine 2.61 H, Estim Creat Clear Calc 28.49, Est GFR (MDRD) Af Amer 32 L, Est GFR (MDRD) Non-Af 27 L, BUN/Creatinine Ratio 24.5 H, Glucose 293 H, Calcium 8.9 11/26/19 05:27: APTT 49.8 H 11/26/19 08:13: POC Glucose 276 H 11/26/19 11:39: POC Glucose 255 H Current Medications Albuterol Sulfate (Ventolin Aerosols) 2.5 mg INHALATION Q2H PRN PRN PRN Reason: SHORTNESS OF BREATH Allopurinol (Zyloprim) 100 mg PO BID REPLACED BY [facility] Last Admin: 11/26/19 11:46 Dose: 100 mg Documented by: Aspirin (Ecotrin) 81 mg PO DAILY REPLACED BY [facility] Last Admin: 11/26/19 09:55 Dose: 81 mg Documented by: Brimonidine Tartrate (Brimonidine 0.2% 5ml Bottle) 1 drop RIGHT EYE BID REPLACED BY [facility] Last Admin: 11/26/19 09:59 Dose: 1 drop Documented by: Calcitriol (Rocaltrol) 0.25 mcg PO QODAY REPLACED BY [facility] Furosemide (Lasix) 40 mg IV BID@1000,1800 REPLACED BY [facility] Last Admin: 11/26/19 11:48 Dose: 40 mg Documented by: Gabapentin (Neurontin) 100 mg PO BIDCM REPLACED BY [facility] Last Admin: 11/26/19 11:47 Dose: 100 mg Documented by: Gemfibrozil (Lopid) 600 mg PO DAILY REPLACED BY [facility] Last Admin: 11/26/19 09:55 Dose: 600 mg Documented by: Heparin Sodium (Porcine) (Heparin Na) 0 unit IV UD PRN; Protocol Last Admin: 11/26/19 06:35 Dose: 1,000 unit Documented by: Sodium Chloride () 1,000 mls @ 75 mls/hr IV .[id number] REPLACED BY [facility] Last Admin: 11/26/19 10:03 Dose: 75 mls/hr Documented by: Sodium Chloride () 500 mls @ 15 mls/hr IV PRN PRN PRN Reason: Blood Transfusion Sodium Chloride () 250 mls @ 15 mls/hr IV .[id number] PRN PRN Reason: Saline Flush Sodium Chloride () 250 mls @ 15 mls/hr IV .[id number] PRN PRN Reason: Additional IVPB Infusion Heparin Sodium/Dextrose () 25,000 units in 250 mls @ 16 mls/hr IV .[id number] REPLACED BY [facility]; Protocol Last Admin: 11/26/19 11:01 Dose: 1,400 units/hr, 14 mls/hr Documented by: Insulin Human Lispro (Humalog Kwikpen (Bkc)) 0 unit SC ACHS REPLACED BY [facility]; Protocol Last Admin: 11/26/19 11:42 Dose: 2 u Documented by: Insulin Human Lispro (Humalog Kwikpen (Bkc)) 27 unit SC LUNCH REPLACED BY [facility] Last Admin: 11/26/19 11:53 Dose: 27 units Documented by: Insulin Human Lispro (Humalog Kwikpen (Bkc)) 24 unit SC BREAKFAST REPLACED BY [facility] Last Admin: 11/26/19 09:50 Dose: Not Given Documented by: Insulin Human Lispro (Humalog Kwikpen (Bkc)) 48 unit SC DINNER REPLACED BY [facility] Insulin Human NPH (Humulin N (Bkc)) 50 units SC QHS REPLACED BY [facility] Last Admin: 11/25/19 21:39 Dose: 50 u Documented by: Isosorbide Mononitrate (Imdur) 30 mg PO BID REPLACED BY [facility] Last Admin: 11/26/19 09:52 Dose: 30 mg Documented by: Levothyroxine Sodium (Synthroid) 75 mcg PO DAILY@0600 REPLACED BY [facility] Last Admin: 11/26/19 06:37 Dose: 75 mcg Documented by: Metoprolol Tartrate (Lopressor (Beta Lorene)) 50 mg PO BID REPLACED BY [facility] Last Admin: 11/26/19 09:53 Dose: 50 mg Documented by: Montelukast Sodium (Singulair) 10 mg PO QHS REPLACED BY [facility] Last Admin: 11/25/19 21:38 Dose: 10 mg Documented by: Nitroglycerin (Nitrostat) 0.4 mg SUBLINGUAL Q5M PRN PRN Reason: CARDIAC/CHEST PAIN Ondansetron HCl (Zofran) 4 mg IV Q8H PRN PRN PRN Reason: NAUSEA/VOMITING Quetiapine Fumarate (Seroquel) 75 mg PO BID REPLACED BY [facility] Last Admin: 11/26/19 09:52 Dose: 75 mg Documented by: Ramipril (Altace) 10 mg PO BID REPLACED BY [facility] Last Admin: 11/26/19 09:52 Dose: 10 mg Documented by: Sertraline HCl (Zoloft) 150 mg PO BID REPLACED BY [facility] Last Admin: 11/26/19 11:46 Dose: 150 mg Documented by: Sodium Chloride () 10 - 40 ml IV UD PRN PRN Reason: SALINE FLUSH Last Admin: 11/25/19 19:01 Dose: 10 ml Documented by: Timolol Maleate (Timoptic) 1 drop RIGHT EYE BID REPLACED BY [facility] Last Admin: 11/26/19 10:01 Dose: Not Given Documented by: Assessment/Plan This patient was seen in conjunction with Zamzam Tay NP. I have independently interviewed and examined the patient and reviewed pertinent historical, laboratory, and other data. Please refer to her note for patient's presentation, findings, and recommendations. Patient was seen and examined. Denied any chest pain or dizziness or palpitation. He remains on heparin drip. No acute events overnight. Vitals were reviewed -stable Physical Exam: Gen: Comfortable, not pale, not jaundiced, alert oriented x3 CVS:HS I +II, regular, no murmurs RESP: Diminished at lung bases GI: BS present and normal, nontender, no palpable organs EXT:No edema Labs reviewed: ASSESSMENT: 1. Acute non-STEMI 2. Acute on chronic systolic CHF, previous EF of 53% 3. Recent third-degree AV block 4. Acute rhino virus bronchitis 5. CAD status post CABG 6. Type II DM 7. Hypertension 8. Hyperlipidemia 9. Hypothyroidism Meds reviewed Plan: Appreciate cardiology consult; will follow up on recommendations Continue on aspirin, heparin drip, Lasix, metoprolol, isosorbide, Repeat blood work in a.m. Code Visit Inpatient E&M: 84521 Subs Hosp L2
[2019-11-26 16:06] LABS: Bedside Glucose 123 mg/dL (70-110)
[2019-11-26] MEDS: Insulin Lispro 100 UNIT/ML INSULN.PEN 48 UNIT SC (17:32)
[2019-11-26 17:42] LABS: Partial Thromboplast Time 46.1 Seconds (24.1-36.2)
--- NOTE | 2019-11-26 18:36 | NURSING ---
Reviewed and agreed on all charting with Precious Warner RN
[2019-11-26] MEDS: Timolol 0.5% 5ML OPTH.BTL 1 DRP RIGHT EYE (21:34)
[2019-11-26] MEDS: Montelukast 10 MG Tablet PO (21:35)
[2019-11-26 21:45] LABS: Bedside Glucose 70 mg/dL (70-110)
[2019-11-27] VITALS (13 sets, daily range): BP systolic 133–166; BP diastolic 68–87; PULSE 63–81; RESP 16–18; TEMP 36.7–37.1; O2SAT 92–97
[2019-11-27 00:27] LABS: Partial Thromboplast Time 47.8 Seconds (24.1-36.2)
[2019-11-27] MEDS: HEPARIN/D5w 25,000 UNITS 25,000 UNITS/250 ML IV.SOLN. 16 UNITS IV (04:25)
[2019-11-27] MEDS: Levothyroxine 75 MCG Tablet PO (05:56)
[2019-11-27 06:53] LABS: Anion Gap 10 (5-15); BUN 60 mg/dL (7-18); BUN/Creat Ratio 23.7 RATIO (10-20); Calcium,Total 8.5 mg/dL (8.5-10.1); Chloride 105 mmol/L (98-107); Creatinine, Serum 2.53 mg/dL (0.70-1.30); EST Glomerular Filtration Rate 28 mL/min (>60); Est Glom Filt Rate - Afr Amer 34 mL/min (>60); Estimated Creatinine Clearance 29.39 ml/min; Glucose 162 mg/dL (74-106); Potassium 3.3 mmol/L (3.5-5.1); Sodium Level 139 mmol/L (136-145)
[2019-11-27] MEDS: Insulin Lispro 100 UNIT/ML INSULN.PEN SC ×4 (07:48→21:25)
[2019-11-27] MEDS: Metoprolol Tartrate 50 MG Tablet PO ×2 (07:52→21:31)
[2019-11-27] MEDS: Ramipril 10 MG Capsule PO ×2 (07:53→21:25)
[2019-11-27] MEDS: Gemfibrozil 600 MG Tablet PO (07:53)
[2019-11-27] MEDS: Isosorbide Mononitrate 30 MG Tablet PO ×2 (07:53→21:26)
[2019-11-27] MEDS: Aspirin E.C. 81 MG Tablet PO (07:53)
[2019-11-27] MEDS: Calcitriol 0.25 MCG Capsule PO (07:55)
[2019-11-27] MEDS: BRIMONIDINE 0.2% 5ML BOTTLE 1 DRP RIGHT EYE ×2 (09:57→21:25)
[2019-11-27] MEDS: Allopurinol 100 MG Tablet PO ×2 (09:57→21:29)
[2019-11-27] MEDS: Furosemide 40 MG/4 ML Vial IV (09:57)
[2019-11-27] MEDS: Gabapentin 100 MG Capsule PO ×2 (09:58→16:33)
[2019-11-27] MEDS: Sertraline 100 MG Tablet 150 MG PO ×2 (09:58→21:29)
[2019-11-27] MEDS: Insulin Lispro 100 UNIT/ML INSULN.PEN 24 UNIT SC (09:58)
[2019-11-27] MEDS: QUEtiapine 25 MG Tablet 75 MG PO ×2 (10:05→21:29)
[2019-11-27 10:26] LABS: Bedside Glucose 159 mg/dL (70-110)
[2019-11-27 11:41] LABS: Bedside Glucose 237 mg/dL (70-110)
[2019-11-27] MEDS: 0.9% Normal Saline 1,000 ML 75 ML IV (11:42)
--- NOTE | 2019-11-27 12:48 | PN_ITS ---
<Zamzam Tay - Last Filed: 11/27/19 12:53> Patient Problems: Active and Suspected Problems (Last Updated 11/26/19 @ 18:00 by Lisa Díaz) Acute diastolic (congestive) heart failure (Acute) NSTEMI (non-ST elevated myocardial infarction) (Acute 11/25/19) Subjective: Patient seen and examined. Cough improved. Denies chest pain, shortness of breath. Plan for pacemaker placement/cath, potentially tomorrow. - Physical Exam Vitals/I&O's: Vital Signs Temp Pulse Resp BP Pulse Ox 98.6 F 70 18 133/69 H 97 11/27/19 11:46 11/27/19 11:46 11/27/19 11:46 11/27/19 11:46 11/27/19 11:46 Oxygen Flow Rate (L/min) 2 Oxygen Delivery Method Room Air Weight: 257 lb 0.944 oz Body Mass Index (BMI) 40.3 Intake and Output for Last 24 Hours 11/25/19 11/26/19 11/27/19 23:59 23:59 23:59 Intake Total 643.97 / 643.97 2923.18 / 2923.18 1008.76 / 1008.76 Balance 643.97 / 643.97 2923.18 / 2923.18 1008.76 / 1008.76 General: Alert, Oriented x3, Cooperative HEENT: Atraumatic, PERRLA, EOMI, Normocephalic Neck: Supple, No JVD, Negative Carotid Bruits Lungs: Clear to auscultation, Normal air movement Cardiovascular: Regular rate, Regular Rhythm, Normal S1, Normal S2, No murmurs Abdomen: Bowel Sounds Present, Soft, Non Tender, Non-Distended Extremities: No clubbing, No cyanosis, No edema, Capillary Refill Less than 3 Seconds Skin: No rashes, No breakdown Musculoskeletal: No Tenderness to Palpation of Joints or Extremities Neurological: Cranial nerves II-XII grossly intact, Neuro grossly intact Psych/Mental Status: Normal Affect, Appropriate Microbiology Past 72 Hours 11/25/19 20:00 Mucosa - Nose Respiratory Panel (PCR) - Final Rhinovirus Laboratory Results 11/26/19 15:58: POC Glucose 123 H 11/26/19 17:15: APTT 46.1 H 11/26/19 21:27: POC Glucose 70 11/27/19 00:03: APTT 47.8 H 11/27/19 06:32: Sodium 139, Potassium 3.3 L, Chloride 105, Carbon Dioxide 24.0, Anion Gap 10, BUN 60 H, Creatinine 2.53 H, Estim Creat Clear Calc 29.39, Est GFR (MDRD) Af Amer 34 L, Est GFR (MDRD) Non-Af 28 L, BUN/Creatinine Ratio 23.7 H, Glucose 162 H, Calcium 8.5 11/27/19 06:32: APTT 64.0 H 11/27/19 07:45: POC Glucose 159 H 11/27/19 11:30: POC Glucose 237 H Current Medications Albuterol Sulfate (Ventolin Aerosols) 2.5 mg INHALATION Q2H PRN PRN PRN Reason: SHORTNESS OF BREATH Allopurinol (Zyloprim) 100 mg PO BID [facility] Last Admin: 11/27/19 09:57 Dose: 100 mg Documented by: Aspirin (Ecotrin) 81 mg PO DAILY [facility] Last Admin: 11/27/19 07:53 Dose: 81 mg Documented by: Brimonidine Tartrate (Brimonidine 0.2% 5ml Bottle) 1 drop RIGHT EYE BID [facility] Last Admin: 11/27/19 09:57 Dose: 1 drop Documented by: Calcitriol (Rocaltrol) 0.25 mcg PO QODAY [facility] Last Admin: 11/27/19 07:55 Dose: 0.25 mcg Documented by: Furosemide (Lasix) 40 mg IV BID@1000,1800 [facility] Last Admin: 11/27/19 09:57 Dose: 40 mg Documented by: Gabapentin (Neurontin) 100 mg PO BIDCM [facility] Last Admin: 11/27/19 09:58 Dose: 100 mg Documented by: Gemfibrozil (Lopid) 600 mg PO DAILY [facility] Last Admin: 11/27/19 07:53 Dose: 600 mg Documented by: Heparin Sodium (Porcine) (Heparin Na) 0 unit IV UD PRN; Protocol Last Admin: 11/26/19 06:35 Dose: 1,000 unit Documented by: Sodium Chloride () 1,000 mls @ 75 mls/hr IV .[id number] [facility] Last Admin: 11/27/19 11:42 Dose: 75 mls/hr Documented by: Sodium Chloride () 500 mls @ 15 mls/hr IV PRN PRN PRN Reason: Blood Transfusion Sodium Chloride () 250 mls @ 15 mls/hr IV .[id number] PRN PRN Reason: Saline Flush Sodium Chloride () 250 mls @ 15 mls/hr IV .[id number] PRN PRN Reason: Additional IVPB Infusion Insulin Human Lispro (Humalog Kwikpen (Bkc)) 0 unit SC ACHS [facility]; Protocol Last Admin: 11/27/19 11:31 Dose: 2 u Documented by: Insulin Human Lispro (Humalog Kwikpen (Bkc)) 27 unit SC LUNCH [facility] Last Admin: 11/26/19 11:53 Dose: 27 units Documented by: Insulin Human Lispro (Humalog Kwikpen (Bk)) 24 unit SC BREAKFAST [facility] Last Admin: 11/27/19 09:58 Dose: 24 units Documented by: Insulin Human Lispro (Humalog Kwikpen (Bkc)) 48 unit SC DINNER [facility] Last Admin: 11/26/19 17:32 Dose: 48 units Documented by: Insulin Human NPH (Humulin N (Bk)) 50 units SC QHS [facility] Last Admin: 11/26/19 22:33 Dose: Not Given Documented by: Isosorbide Mononitrate (Imdur) 30 mg PO BID [facility] Last Admin: 11/27/19 07:53 Dose: 30 mg Documented by: Levothyroxine Sodium (Synthroid) 75 mcg PO DAILY@0600 [facility] Last Admin: 11/27/19 05:56 Dose: 75 mcg Documented by: Metoprolol Tartrate (Lopressor (Beta Lorene)) 50 mg PO BID [facility] Last Admin: 11/27/19 07:52 Dose: 50 mg Documented by: Montelukast Sodium (Singulair) 10 mg PO QHS [facility] Last Admin: 11/26/19 21:35 Dose: 10 mg Documented by: Nitroglycerin (Nitrostat) 0.4 mg SUBLINGUAL Q5M PRN PRN Reason: CARDIAC/CHEST PAIN Ondansetron HCl (Zofran) 4 mg IV Q8H PRN PRN PRN Reason: NAUSEA/VOMITING Quetiapine Fumarate (Seroquel) 75 mg PO BID [facility] Last Admin: 11/27/19 10:05 Dose: 75 mg Documented by: Ramipril (Altace) 10 mg PO BID [facility] Last Admin: 11/27/19 07:53 Dose: 10 mg Documented by: Sertraline HCl (Zoloft) 150 mg PO BID [facility] Last Admin: 11/27/19 09:58 Dose: 150 mg Documented by: Sodium Chloride () 10 - 40 ml IV UD PRN PRN Reason: SALINE FLUSH Last Admin: 11/25/19 19:01 Dose: 10 ml Documented by: Timolol Maleate (Timoptic) 1 drop RIGHT EYE BID [facility] Last Admin: 11/27/19 09:56 Dose: Not Given Documented by: Medical Necessity - Tobacco Use Smoking Status: Never smoker Assessment/Plan All Active Problems (Last Updated 11/26/19 @ 18:00 by Lisa Daíz) Acute diastolic (congestive) heart failure (Acute) NSTEMI (non-ST elevated myocardial infarction) (Acute 11/25/19) Acute coronary syndrome (Resolved) Angina pectoris (Resolved) Chest pain (Resolved) Orthostatic hypotension (Resolved) Syncope and collapse (Resolved) 1. NSTEMI- EKG demonstrated lateral ST depression. Cardiology consulted. Continue aspirin. Heparin drip discontinued. Continue home beta-lorene and nitrate regimen. Patient's Plavix has been on hold due to previously planned pacemaker placement 11/25/2019. Stress test July 2019 with EF 41%, abnormal stress test with evidence of lateral ischemia. Plan for heart cath, possibly tomorrow. Echo report pending. 2. Acute CHF with reduced ejection fraction-chest x-ray admission with mild CHF. BNP 1120. Echocardiogram December 2017 demonstrated an EF of 53%. DC IV Lasix, transition to p.o. Lasix 40 mg twice daily. Continue compression stockings lower extremities. Daily weight. Strict I&O. Fluid restriction. EF per stress test July 2019 41%. Repeat echo pending. 3. Intermittent third-degree heart block- noted on 30-day event monitor. Planned for pacemaker placement with Dr. Nelson, cancelled due to acute presentation. Cardiology consulted as noted above. Possible pacemaker placement tomorrow. 4. Acute rhinovirus-symptom management. Albuterol aerosol as needed. Cough improved. 5. History of CABG/PCI-continue aspirin, beta-lorene, nitrate, JUAN inhibitor. 6. Type 2 diabetes mellitus with peripheral neuropathy-hold oral regimen. Continue home scheduled insulin regimen with sliding scale insulin. Continue gabapentin regimen. 7. Chronic kidney disease stage IV-kidney function appears at baseline. Trend BMP. 8. Hypertension-stable, continue isosorbide, metoprolol, ramipril regimen. 9. Hyperlipidemia-continue gemfibrozil regimen. Reported allergy to statins. 10. ABBI- continue home BiPAP regimen. 11. Hypothyroidism-continue home Synthroid regimen. 12. Depression-continue sertraline regimen. 13. Gout-continue allopurinol regimen. 14. Morbid obesity- encouraged diet and lifestyle modifications. DVT prophylaxis-heparin sc This patient was seen by TAVO Diaz under the supervision of Dr. Pope. <Adriana Pope - Last Filed: 11/27/19 13:57> - Physical Exam Vitals/I&O's: Vital Signs Temp Pulse Resp BP Pulse Ox 98.6 F 70 18 133/69 H 97 11/27/19 11:46 11/27/19 11:46 11/27/19 11:46 11/27/19 11:46 11/27/19 11:46 Oxygen Flow Rate (L/min) 2 Oxygen Delivery Method Room Air Weight: 116.6 kg Body Mass Index (BMI) 40.3 Intake and Output for Last 24 Hours 11/25/19 11/26/19 11/27/19 23:59 23:59 23:59 Intake Total 643.97 / 643.97 2923.18 / 2923.18 1668.76 / 1668.76 Balance 643.97 / 643.97 2923.18 / 2923.18 1668.76 / 1668.76 Microbiology Past 72 Hours 11/25/19 20:00 Mucosa - Nose Respiratory Panel (PCR) - Final Rhinovirus Laboratory Results 11/26/19 15:58: POC Glucose 123 H 11/26/19 17:15: APTT 46.1 H 11/26/19 21:27: POC Glucose 70 11/27/19 00:03: APTT 47.8 H 11/27/19 06:32: Sodium 139, Potassium 3.3 L, Chloride 105, Carbon Dioxide 24.0, Anion Gap 10, BUN 60 H, Creatinine 2.53 H, Estim Creat Clear Calc 29.39, Est GFR (MDRD) Af Amer 34 L, Est GFR (MDRD) Non-Af 28 L, BUN/Creatinine Ratio 23.7 H, Gl ucose 162 H, Calcium 8.5 11/27/19 06:32: APTT 64.0 H 11/27/19 07:45: POC Glucose 159 H 11/27/19 11:30: POC Glucose 237 H Current Medications Albuterol Sulfate (Ventolin Aerosols) 2.5 mg INHALATION Q2H PRN PRN PRN Reason: SHORTNESS OF BREATH Allopurinol (Zyloprim) 100 mg PO BID [facility] Last Admin: 11/27/19 09:57 Dose: 100 mg Documented by: Aspirin (Ecotrin) 81 mg PO DAILY [facility] Last Admin: 11/27/19 07:53 Dose: 81 mg Documented by: Brimonidine Tartrate (Brimonidine 0.2% 5ml Bottle) 1 drop RIGHT EYE BID [facility] Last Admin: 11/27/19 09:57 Dose: 1 drop Documented by: Calcitriol (Rocaltrol) 0.25 mcg PO QODAY [facility] Last Admin: 11/27/19 07:55 Dose: 0.25 mcg Documented by: Furosemide (Lasix) 40 mg PO BID@1000,1800 [facility] Gabapentin (Neurontin) 100 mg PO BIDCM [facility] Last Admin: 11/27/19 09:58 Dose: 100 mg Documented by: Gemfibrozil (Lopid) 600 mg PO DAILY [facility] Last Admin: 11/27/19 07:53 Dose: 600 mg Documented by: Heparin Sodium (Porcine) (Heparin Na) 5,000 unit SC Q8 [facility] Sodium Chloride () 1,000 mls @ 75 mls/hr IV .[id number] [facility] Last Admin: 11/27/19 11:42 Dose: 75 mls/hr Documented by: Sodium Chloride () 500 mls @ 15 mls/hr IV PRN PRN PRN Reason: Blood Transfusion Sodium Chloride () 250 mls @ 15 mls/hr IV .[id number] PRN PRN Reason: Saline Flush Sodium Chloride () 250 mls @ 15 mls/hr IV .[id number] PRN PRN Reason: Additional IVPB Infusion Insulin Human Lispro (Humalog Kwikpen (Bkc)) 0 unit SC ACHS [facility]; Protocol Last Admin: 11/27/19 11:31 Dose: 2 u Documented by: Insulin Human Lispro (Humalog Kwikpen ([facility])) 27 unit SC LUNCH [facility] Last Admin: 11/27/19 13:06 Dose: Not Given Documented by: Insulin Human Lispro (Humalog Kwikpen ([facility])) 24 unit SC BREAKFAST [facility] Last Admin: 11/27/19 09:58 Dose: 24 units Documented by: Insulin Human Lispro (Humalog Kwikpen ([facility])) 48 unit SC DINNER [facility] Last Admin: 11/26/19 17:32 Dose: 48 units Documented by: Insulin Human NPH (Humulin N ([facility])) 50 units SC QHS [facility] Last Admin: 11/26/19 22:33 Dose: Not Given Documented by: Isosorbide Mononitrate (Imdur) 30 mg PO BID [facility] Last Admin: 11/27/19 07:53 Dose: 30 mg Documented by: Levothyroxine Sodium (Synthroid) 75 mcg PO DAILY@0600 [facility] Last Admin: 11/27/19 05:56 Dose: 75 mcg Documented by: Metoprolol Tartrate (Lopressor (Beta Lorene)) 50 mg PO BID [facility] Last Admin: 11/27/19 07:52 Dose: 50 mg Documented by: Montelukast Sodium (Singulair) 10 mg PO QHS [facility] Last Admin: 11/26/19 21:35 Dose: 10 mg Documented by: Nitroglycerin (Nitrostat) 0.4 mg SUBLINGUAL Q5M PRN PRN Reason: CARDIAC/CHEST PAIN Ondansetron HCl (Zofran) 4 mg IV Q8H PRN PRN PRN Reason: NAUSEA/VOMITING Quetiapine Fumarate (Seroquel) 75 mg PO BID [facility] Last Admin: 11/27/19 10:05 Dose: 75 mg Documented by: Ramipril (Altace) 10 mg PO BID [facility] Last Admin: 11/27/19 07:53 Dose: 10 mg Documented by: Sertraline HCl (Zoloft) 150 mg PO BID [facility] Last Admin: 11/27/19 09:58 Dose: 150 mg Documented by: Sodium Chloride () 10 - 40 ml IV UD PRN PRN Reason: SALINE FLUSH Last Admin: 11/25/19 19:01 Dose: 10 ml Documented by: Timolol Maleate (Timoptic) 1 drop RIGHT EYE BID [facility] Last Admin: 01/22/20 09:56 Dose: Not Given Documented by: Assessment/Plan This patient was seen in conjunction with Zamzam Tay NP. I have independently interviewed and examined the patient and reviewed pertinent historical, laboratory, and other data. Please refer to her note for patient's presentation, findings, and recommendations. Patient was seen and examined. Denied any chest pain or dizziness or palpitation. Heparin drip. Plan for pacemaker placement tomorrow Vitals were reviewed -stable Physical Exam: Gen: Comfortable, not pale, not jaundiced, alert oriented x3 CVS:HS I +II, regular, no murmurs RESP: Diminished at lung bases GI: BS present and normal, nontender, no palpable organs EXT:No edema Labs reviewed: ASSESSMENT: 1. Acute non-STEMI 2. Acute on chronic systolic CHF, previous EF of 53% 3. Recent third-degree AV block 4. Acute rhino virus bronchitis 5. CAD status post CABG 6. Type II DM 7. Hypertension 8. Hyperlipidemia 9. Hypothyroidism Meds reviewed Plan: Continue on aspirin, Lasix, metoprolol, isosorbide, Pacemaker placement in a.m. as scheduled Code Visit Inpatient E&M: 40605 Subs Hosp L2
[2019-11-27] MEDS: Heparin Injection (Vial) 5,000 UNIT/ML VIAL 5000 UNIT SC ×2 (15:25→21:29)
[2019-11-27 16:25] LABS: Bedside Glucose 178 mg/dL (70-110)
[2019-11-27] MEDS: Furosemide 40 MG Tablet PO (16:33)
--- NOTE | 2019-11-27 16:55 | PN.CARD_ITS ---
Subjectve: Patient seen and evaluated. Appears to be doing much better today. Objective: Vital Signs Temp Pulse Resp BP Pulse Ox 98.6 F 66 18 133/69 H 97 11/27/19 11:46 11/27/19 15:00 11/27/19 11:46 11/27/19 11:46 11/27/19 11:46 Oxygen Flow Rate (L/min) 2 Oxygen Delivery Method Room Air Weight: 257 lb 0.944 oz Body Mass Index (BMI) 40.3 Intake and Output for Last 24 Hours 11/25/19 11/26/19 11/27/19 23:59 23:59 23:59 Intake Total 643.97 / 643.97 2923.18 / 2923.18 1668.76 / 1668.76 Balance 643.97 / 643.97 2923.18 / 2923.18 1668.76 / 1668.76 General: Awake, Alert, Oriented x 3 HEENT: PERRL, EOMI, Sclera Non Icteric Neck: Supple, Good ROM, No Lymph Node Enlargement Lungs: Clear to auscultation Cardiovascular: Regular Rhythm, Normal S1, Normal S2, No Murmurs, No Rubs, No Gallops Vascular: No Carotid Bruits, Normal Femoral Pulses, Normal Radial Pulses, Normal Dorsalis Pedal Pulse, Normal Posterior Tibial Pulses Abdomen: Bowel Sounds Present, Soft, Non Tender, No HSM, No Organomegaly Extremities: No Cyanosis, No Clubbing, No edema Musculoskeletal: No Erythema Lymphatic: No Lymph Node Enlargement Neurological: No Focal Motor or Sensory Deficit Psych/Mental Status: Appropriate 11/26/19 17:15: APTT 46.1 H 11/27/19 00:03: APTT 47.8 H 11/27/19 06:32: Sodium 139, Potassium 3.3 L, Chloride 105, Carbon Dioxide 24.0, Anion Gap 10, BUN 60 H, Creatinine 2.53 H, Est GFR (MDRD) Af Amer 34 L, Est GFR (MDRD) Non-Af 28 L, BUN/Creatinine Ratio 23.7 H, Glucose 162 H, Calcium 8.5 11/27/19 06:32: APTT 64.0 H Rhythm: EKG: ECHO: Stress Test: Cardiac Cath: PCI: CT Surgery: Holter monitor: EPS: PPM: CXR: Chest CT Scan: Medical Necessity - Tobacco Use Smoking Status: Never smoker Assessment/Plan 1. Non-ST elevation myocardial infarction * He does have a history of known coronary artery disease with abnormal cardiac enzymes. He is status post coronary bypass surgery. He does have precarious renal dysfunction and he has been hydrated with some improvement in his kidney function. He may eventually need a left heart catheterization to assess his coronary anatomy. The risk benefits alternatives of been agreed and he understands and agrees to proceed. The timing of the above however will need to be reassessed * 2. Intermittent complete heart block with syncope * He has had a previous history of intermittent heart block with syncope. He was already scheduled to have permanent pacemaker implantation earlier in the week. My recommendation be for us to proceed with the above in a.m. After that then we may consider performing a left heart catheterization. This will prevent us from having to interrupt his clopidogrel or ticagrelor dosage * 3. Left ventricular systolic dysfunction * He does have mild low ventricular systolic dysfunction. We will continue to monitor the above. No other major changes will be made. * * Thank you for allowing me to participate in the care of your patient. Please don't hesitate to call if any issues arise
--- NOTE | 2019-11-27 18:21 | NURSING ---
Reviewed and agreed on all charting with Precious Warner RN
[2019-11-27 20:33] LABS: M R Staph aureus DNA By PCR Negative (Negative); Probe Check PASS; Specimen Processing Control PASS
[2019-11-27 21:25] LABS: Bedside Glucose 298 mg/dL (70-110)
[2019-11-27] MEDS: Insulin NPH Human 100 UNITS/ML PEN 50 UNITS SC (21:25)
[2019-11-27] MEDS: Timolol 0.5% 5ML OPTH.BTL 1 DRP RIGHT EYE (21:25)
[2019-11-27] MEDS: Montelukast 10 MG Tablet PO (21:26)
[2019-11-28] VITALS (22 sets, daily range): BP systolic 134–198; BP diastolic 61–98; PULSE 58–81; RESP 13–18; TEMP 36.3–36.9; O2SAT 92–98
[2019-11-28] MEDS: 0.9% Normal Saline 1,000 ML 75 ML IV (01:04)
[2019-11-28] MEDS: Levothyroxine 75 MCG Tablet PO (05:41)
[2019-11-28 06:30] LABS: Hematocrit 32.4 % (40-54); Hemoglobin 10.7 g/dL (13.0-16.5); Mean Corpuscular Hgb 31.8 pg (27.0-32.0); Mean Corpuscular Volume 96.1 fL (80-94); Mean Platelet Vol. 10.1 fl (6.2-12.0); Platelet Count 220 K/mm3 (150-450); RBC Distribution Width CV 15.2 % (11.6-14.6); Red Blood Count 3.37 M/mm3 (4.6-6.2); White Blood Count 4.7 K/mm3 (4.4-11.0)
[2019-11-28 06:55] LABS: Anion Gap 6 (5-15); BUN 54 mg/dL (7-18); BUN/Creat Ratio 21.2 RATIO (10-20); Calcium,Total 8.8 mg/dL (8.5-10.1); Chloride 105 mmol/L (98-107); Creatinine, Serum 2.55 mg/dL (0.70-1.30); EST Glomerular Filtration Rate 28 mL/min (>60); Est Glom Filt Rate - Afr Amer 33 mL/min (>60); Estimated Creatinine Clearance 29.16 ml/min; Glucose 273 mg/dL (74-106); Potassium 3.6 mmol/L (3.5-5.1); Sodium Level 137 mmol/L (136-145)
[2019-11-28 07:56] LABS: Bedside Glucose 267 mg/dL (70-110)
[2019-11-28] MEDS: Insulin Lispro 100 UNIT/ML INSULN.PEN SC ×3 (08:40→17:26)
[2019-11-28] MEDS: Timolol 0.5% 5ML OPTH.BTL 1 DRP RIGHT EYE ×2 (08:42→22:25)
[2019-11-28] MEDS: Gemfibrozil 600 MG Tablet PO (08:49)
[2019-11-28] MEDS: Allopurinol 100 MG Tablet PO ×2 (08:49→22:16)
[2019-11-28] MEDS: QUEtiapine 25 MG Tablet 75 MG PO ×2 (08:50→22:16)
[2019-11-28] MEDS: Sertraline 100 MG Tablet 150 MG PO ×2 (08:50→22:16)
[2019-11-28] MEDS: Aspirin E.C. 81 MG Tablet PO (08:51)
[2019-11-28] MEDS: Ramipril 10 MG Capsule PO ×2 (08:51→22:16)
[2019-11-28] MEDS: Furosemide 40 MG Tablet PO ×2 (08:51→17:29)
[2019-11-28] MEDS: Isosorbide Mononitrate 30 MG Tablet PO ×2 (08:51→22:16)
[2019-11-28] MEDS: Metoprolol Tartrate 50 MG Tablet PO ×2 (08:52→22:16)
[2019-11-28] MEDS: Gabapentin 100 MG Capsule PO ×2 (08:52→17:29)
[2019-11-28] MEDS: BRIMONIDINE 0.2% 5ML BOTTLE 1 DRP RIGHT EYE ×2 (08:53→22:25)
[2019-11-28 11:11] LABS: Bedside Glucose 248 mg/dL (70-110)
--- NOTE | 2019-11-28 12:42 | CL.IE_ITS ---
Patient: KATHERINE NAVA Study Date: 11/28/2019 Performing: Sergey Nelson MD : 1960 Age: 59 Gender: male PROCEDURES PERFORMED [id number] PACER INSERT+DUAL LEADS INDICATIONS Syncope Atrioventricular (AV) block PROCEDURE DETAILS The patient was brought to the Catheterization Lab in the postabsorptive nonsedated state. [facility] the procedure. Local anesthetic was given subcutaneously to the le ft upper chest area with Lidocaine 2%. Incision was made to the left upper chest. PPM ventricular elan d was inserted / positioned to right ventricular. PPM ventricular lead testing performed. PPM ventric ular lead testing performed. PPM atrial lead was inserted / positioned to the right atrial appendage. PPM atrial lead testing performed. The Ventricular PM lead sutured in place with 2-0 Silk. The Atria l lead sutured in place with 2-0 Silk. Device pocket was irrigated with antibiotic. PPM generator was attached to the lead(s) and inserted into the pocket. Subcutaneous closure was completed with 3-0 Vi cryl. Skin closure was completed with 4-0 Vicryl. The patient tolerated the procedure well. Estimated Blood Loss: < 10 mls IMPLANTED / EX-PLANTED DEVICES IMPLANTED DEVICE(S): PPM Ventricular lead - Staff Engineer: [employer], Model # 7742 59cm , Serial # [id number] PPM Atrial lead - Staff Engineer: [employer], Model # 7741 52cn , Serial # [id number] PPM Generator - Staff Engineer: [employer], Model # L111 , Serial # [id number] DEVICE PARAMETERS ATRIAL LEAD PARAMETERS: P wave (mV) - 5.2 Current (mA) - 1.7 threshold (V) - .09 impedence (OHMS) - 562 VENTRICULAR LEAD PARAMETERS: R wave (mV) - 25.0 current (mA) - 0.9 threshold (V) - 0.7 impedence (OHMS) - 782 10V test; no diaphragmatic capture DEVICE PARAMETERS: Mode - DDD lower rate - 60 upper rate - 140 CONCLUSIONS / RECOMMENDATIONS Device Conclusions: Successful implantation of a dual chamber pacemaker Device Recommendations: Follow up with Primary Care Physician PROCEDURE MEDICATIONS Versed 1 mg IV Fentanyl 50 mcg IV Fentanyl 25 mcg IV Versed 1 mg IV Oxygen: 4 L/min via nasal cannula Signed By Sergey Nelson MD On 11/28/2019 13:29:43 Signed By Sergey Nelson MD On 11/28/2019 12:41:47 Sergey Nelson MD
--- NOTE | 2019-11-28 12:47 | PN.CARD_ITS ---
Subjectve: Patient seen and evaluated. Appears to be doing well. Objective: Vital Signs Temp Pulse Resp BP Pulse Ox 98.3 F 68 17 147/71 H 94 11/28/19 08:37 11/28/19 08:52 11/28/19 08:37 11/28/19 08:37 11/28/19 08:37 Oxygen Flow Rate (L/min) 2 Oxygen Delivery Method Room Air Weight: 256 lb 2.834 oz Body Mass Index (BMI) 40.3 Intake and Output for Last 24 Hours 11/26/19 11/27/19 11/28/19 23:59 23:59 23:59 Intake Total 2923.18 / 2923.18 3410.01 / 3410.01 548.75 / 548.75 Output Total 825 / 825 Balance 2923.18 / 2923.18 3410.01 / 3410.01 -276.25 / -276.25 General: Awake, Alert, Oriented x 3 HEENT: PERRL, EOMI, Sclera Non Icteric Neck: Supple, Good ROM, No Lymph Node Enlargement Lungs: Clear to auscultation Cardiovascular: Regular Rhythm, Normal S1, Normal S2, No Murmurs, No Rubs, No Gallops Vascular: No Carotid Bruits, Normal Femoral Pulses, Normal Radial Pulses, Normal Dorsalis Pedal Pulse, Normal Posterior Tibial Pulses Abdomen: Bowel Sounds Present, Soft, Non Tender, No HSM, No Organomegaly Extremities: No Cyanosis, No Clubbing, No edema Musculoskeletal: No Erythema Skin: No Rashes Lymphatic: No Lymph Node Enlargement Neurological: No Focal Motor or Sensory Deficit Psych/Mental Status: Appropriate 11/28/19 06:08: WBC 4.7, RBC 3.37 L, Hgb 10.7 L, Hct 32.4 L, MCV 96.1 H, MCH 31.8, MCHC 33.0, Plt Count 220, MPV 10.1 11/28/19 06:08: Sodium 137, Potassium 3.6, Chloride 105, Carbon Dioxide 26.0, Anion Gap 6, BUN 54 H, Creatinine 2.55 H, Est GFR (MDRD) Af Amer 33 L, Est GFR (MDRD) Non-Af 28 L, BUN/Creatinine Ratio 21.2 H, Glucose 273 H, Calcium 8.8 Rhythm: EKG: ECHO: Stress Test: Cardiac Cath: PCI: CT Surgery: Holter monitor: EPS: PPM: CXR: Chest CT Scan: Medical Necessity - Tobacco Use Smoking Status: Never smoker Assessment/Plan 1. Non-ST elevation myocardial infarction * He does have a history of known coronary artery disease with abnormal cardiac enzymes. He is status post coronary bypass surgery. He does have precarious renal dysfunction and he has been hydrated with some improvement in his kidney function. He may eventually need a left heart catheterization to assess his coronary anatomy. The risk benefits alternatives of been agreed and he understands and agrees to proceed. The timing of the above however will need to be reassessed * The tentative plan would be to undergo cardiac catheterization in a.m. 2. Intermittent complete heart block with syncope * He has had a previous history of intermittent heart block with syncope. He was already scheduled to have permanent pacemaker implantation earlier in the week. * He underwent placement of a dual-chamber permanent pacemaker today. * This will be reevaluated in a.m. 3. Left ventricular systolic dysfunction * He does have mild low ventricular systolic dysfunction. We will continue to monitor the above. No other major changes will be made. * * Thank you for allowing me to participate in the care of your patient. Please don't hesitate to call if any issues arise
--- NOTE | 2019-11-28 13:40 | PCM.PN.HOSP ---
<Luca Gregory - Last Filed: 11/28/19 13:40> Patient Problems: Active and Suspected Problems (Last Updated 11/26/19 @ 18:00 by Lisa Díaz) Acute diastolic (congestive) heart failure (Acute) NSTEMI (non-ST elevated myocardial infarction) (Acute 11/25/19) Reason for Visit: fatigue Subjective: Patient resting comfortably in chair bedside. Complains of generalized fatigue. No chest pain, pressure, tightness, heaviness, palpitations, lightheaded or dizziness, lower extremity edema. Patient is agreeable to pacemaker today, heart cath tomorrow. No cough/fever/chills/SOB. Some nasal congestion. Vitals/I&O's: Vital Signs Temp Pulse Resp BP Pulse Ox 97.3 F L 62 14 150/78 H 98 11/28/19 13:30 11/28/19 13:30 11/28/19 13:30 11/28/19 13:30 11/28/19 13:30 Oxygen Flow Rate (L/min) 2 Oxygen Delivery Method Nasal Cannula Weight: 256 lb 2.834 oz Body Mass Index (BMI) 40.3 Intake and Output for Last 24 Hours 11/26/19 11/27/19 11/28/19 23:59 23:59 23:59 Intake Total 2923.18 / 2923.18 3410.01 / 3410.01 1398.75 / 1398.75 Output Total 825 / 825 Balance 2923.18 / 2923.18 3410.01 / 3410.01 573.75 / 573.75 General: Alert, Oriented x3, Cooperative HEENT: Atraumatic, PERRLA, EOMI, Normocephalic Neck: Supple, No JVD, Negative Carotid Bruits Lungs: Clear to auscultation, Normal air movement Cardiovascular: Regular rate, No murmurs Abdomen: Bowel Sounds Present, Soft, Non Tender, Obese Extremities: No edema, Capillary Refill Less than 3 Seconds Skin: No rashes, No breakdown Musculoskeletal: No Tenderness to Palpation of Joints or Extremities Neurological: Cranial nerves II-XII grossly intact Psych/Mental Status: Normal Affect, Appropriate, Alert and oriented to time, place, person, mood and affect Microbiology Past 72 Hours 11/25/19 20:00 Mucosa - Nose Respiratory Panel (PCR) - Final Rhinovirus Laboratory Results 11/27/19 16:17: POC Glucose 178 H 11/27/19 17:25: MRSA (PCR) Negative 11/27/19 21:21: POC Glucose 298 H 11/28/19 06:08: WBC 4.7, RBC 3.37 L, Hgb 10.7 L, Hct 32.4 L, MCV 96.1 H, MCH 31.8, MCHC 33.0, RDW Std Deviation 53.0 H, RDW Coeff of Margaret 15.2 H, Plt Count 220, MPV 10.1 11/28/19 06:08: Sodium 137, Potassium 3.6, Chloride 105, Carbon Dioxide 26.0, Anion Gap 6, BUN 54 H, Creatinine 2.55 H, Estim Creat Clear Calc 29.16, Est GFR (MDRD) Af Amer 33 L, Est GFR (MDRD) Non-Af 28 L, BUN/Creatinine Ratio 21.2 H, Glucose 273 H, Calcium 8.8 11/28/19 07:48: POC Glucose 267 H 11/28/19 10:59: POC Glucose 248 H Current Medications Albuterol Sulfate (Ventolin Aerosols) 2.5 mg INHALATION Q2H PRN PRN PRN Reason: SHORTNESS OF BREATH Allopurinol (Zyloprim) 100 mg PO BID [facility] Last Admin: 11/28/19 08:49 Dose: 100 mg Documented by: Aspirin (Ecotrin) 81 mg PO DAILY [facility] Last Admin: 11/28/19 08:51 Dose: 81 mg Documented by: Brimonidine Tartrate (Brimonidine 0.2% 5ml Bottle) 1 drop RIGHT EYE BID [facility] Last Admin: 11/28/19 08:53 Dose: 1 drop Documented by: Calcitriol (Rocaltrol) 0.25 mcg PO QODAY [facility] Last Admin: 11/27/19 07:55 Dose: 0.25 mcg Documented by: Furosemide (Lasix) 40 mg PO BID@1000,1800 [facility] Last Admin: 11/28/19 08:51 Dose: 40 mg Documented by: Gabapentin (Neurontin) 100 mg PO BIDCM [facility] Last Admin: 11/28/19 08:52 Dose: 100 mg Documented by: Gemfibrozil (Lopid) 600 mg PO DAILY [facility] Last Admin: 11/28/19 08:49 Dose: 600 mg Documented by: Heparin Sodium (Porcine) (Heparin Na) 5,000 unit SC Q8 [facility] Last Admin: 11/28/19 05:42 Dose: Not Given Documented by: Sodium Chloride () 1,000 mls @ 75 mls/hr IV .[id number] [facility] Last Infusion: 11/28/19 06:00 Dose: 75 mls/hr Documented by: Sodium Chloride () 500 mls @ 15 mls/hr IV PRN PRN PRN Reason: Blood Transfusion Sodium Chloride () 250 mls @ 15 mls/hr IV .[id number] PRN PRN Reason: Saline Flush Sodium Chloride () 250 mls @ 15 mls/hr IV .[id number] PRN PRN Reason: Additional IVPB Infusion Sodium Chloride () 1,000 mls @ 15 mls/hr IV .Q48H [facility] Last Admin: 11/28/19 11:04 Dose: Not Given Documented by: Insulin Human Lispro (Humalog Kwikpen (Bkc)) 0 unit SC ACHS [facility]; Protocol Last Admin: 11/28/19 08:40 Dose: 2 u Documented by: Insulin Human Lispro (Humalog Kwikpen (Bkc)) 27 unit SC LUNCH [facility] Last Admin: 11/27/19 13:06 Dose: Not Given Documented by: Insulin Human Lispro (Humalog Kwikpen (Bkc)) 24 unit SC BREAKFAST [facility] Last Admin: 11/28/19 08:39 Dose: Not Given Documented by: Insulin Human Lispro (Humalog Kwikpen (Bkc)) 48 unit SC DINNER [facility] Last Admin: 11/27/19 16:49 Dose: Not Given Documented by: Insulin Human NPH (Humulin N (Bkc)) 50 units SC QHS [facility] Last Admin: 11/27/19 21:25 Dose: 50 u Documented by: Isosorbide Mononitrate (Imdur) 30 mg PO BID [facility] Last Admin: 11/28/19 08:51 Dose: 30 mg Documented by: Levothyroxine Sodium (Synthroid) 75 mcg PO DAILY@0600 [facility] Last Admin: 11/28/19 05:41 Dose: 75 mcg Documented by: Metoprolol Tartrate (Lopressor (Beta Lorene)) 50 mg PO BID [facility] Last Admin: 11/28/19 08:52 Dose: 50 mg Documented by: Montelukast Sodium (Singulair) 10 mg PO QHS [facility] Last Admin: 11/27/19 21:26 Dose: 10 mg Documented by: Nitroglycerin (Nitrostat) 0.4 mg SUBLINGUAL Q5M PRN PRN Reason: CARDIAC/CHEST PAIN Ondansetron HCl (Zofran) 4 mg IV Q8H PRN PRN PRN Reason: NAUSEA/VOMITING Quetiapine Fumarate (Seroquel) 75 mg PO BID [facility] Last Admin: 11/28/19 08:50 Dose: 75 mg Documented by: Ramipril (Altace) 10 mg PO BID [facility] Last Admin: 11/28/19 08:51 Dose: 10 mg Documented by: Sertraline HCl (Zoloft) 150 mg PO BID [facility] Last Admin: 11/28/19 08:50 Dose: 150 mg Documented by: Sodium Chloride () 10 - 40 ml IV UD PRN PRN Reason: SALINE FLUSH Last Admin: 11/25/19 19:01 Dose: 10 ml Documented by: Timolol Maleate (Timoptic) 1 drop RIGHT EYE BID [facility] Last Admin: 11/28/19 08:42 Dose: 1 drop Documented by: STROKE Vital Signs/Narrative: Vital Signs Temp Pulse Resp BP Pulse Ox 11/28/19 13:30 97.3 F L 62 14 150/78 H 98 11/28/19 13:15 98.3 F 58 L 15 146/75 H 97 11/28/19 13:00 98.3 F 61 14 143/70 H 92 Medical Necessity - Tobacco Use Smoking Status: Never smoker Assessment/Plan All Active Problems (Last Updated 11/26/19 @ 18:00 by Lisa Díaz) Acute diastolic (congestive) heart failure (Acute) NSTEMI (non-ST elevated myocardial infarction) (Acute 11/25/19) Acute coronary syndrome (Resolved) Angina pectoris (Resolved) Chest pain (Resolved) Orthostatic hypotension (Resolved) Syncope and collapse (Resolved) 1. [id number] with lateral ST depression. No CP. Cardiology following. Plan for heart cath tomorrow. He is statin allergic. Continue aspirin, Imdur, ramipril, Lopressor 2. Third-degree heart block-pacemaker per Dr. Nelson today. 3. Chronic CHF, systolic-prior EF 41%. No shortness of breath, or severe edema. Continue oral Lasix. 4. Acute rhinovirus-complained of some sinus congestion, no cough, no shortness of breath. Relatively resolved at this point. 5. CAD with prior CABG 6. Type 2 diabetes with morbid obesity-orals held. Continue sliding scale insulin, home insulin. He has peripheral neuropathy associated with this, continue gabapentin. Dietitian eval 7. CKD stage IV-nephrology consulted given his need for cardiac catheterization. 8. Hypertension-stable 9. Hyperlipidemia-again allergic to statin, continue gemfibrozil 10. ABBI-continue home BiPAP nightly 11. Hypothyroidism-Synthroid 12. Depression-sertraline, Seroquel 13. Gout-on allopurinol DVT prophylaxis: Heparin DC planning: Heart cath tomorrow. This patient was seen by Luca Gregory PA-C under the supervision of Doctor Niko. <Adriana Pope - Last Filed: 11/28/19 14:11> Vitals/I&O's: Vital Signs Temp Pulse Resp BP Pulse Ox 97.7 F L 61 14 163/82 H 98 11/28/19 14:00 11/28/19 14:00 11/28/19 14:00 11/28/19 14:00 11/28/19 14:00 Oxygen Flow Rate (L/min) 2 Oxygen Delivery Method Nasal Cannula Weight: 116.2 kg Body Mass Index (BMI) 40.3 Intake and Output for Last 24 Hours 11/26/19 11/27/19 11/28/19 23:59 23:59 23:59 Intake Total 2923.18 / 2923.18 3410.01 / 3410.01 1398.75 / 1398.75 Output Total 825 / 825 Balance 2923.18 / 2923.18 3410.01 / 3410.01 573.75 / 573.75 Microbiology Past 72 Hours 11/25/19 20:00 Mucosa - Nose Respiratory Panel (PCR) - Final Rhinovirus Laboratory Results 11/27/19 16:17: POC Glucose 178 H 11/27/19 17:25: MRSA (PCR) Negative 11/27/19 21:21: POC Glucose 298 H 11/28/19 06:08: WBC 4.7, RBC 3.37 L, Hgb 10.7 L, Hct 32.4 L, MCV 96.1 H, MCH 31.8, MCHC 33.0, RDW Std Deviation 53.0 H, RDW Coeff of Margaret 15.2 H, Plt Count 220, MPV 10.1 11/28/19 06:08: Sodium 137, Potassium 3.6, Chloride 105, Carbon Dioxide 26.0, Anion Gap 6, BUN 54 H, Creatinine 2.55 H, Estim Creat Clear Calc 29.16, Est GFR (MDRD) Af Amer 33 L, Est GFR (MDRD) Non-Af 28 L, BUN/Creatinine Ratio 21.2 H, Glucose 273 H, Calcium 8.8 11/28/19 07:48: POC Glucose 267 H 11/28/19 10:59: POC Glucose 248 H 11/28/19 13:50: POC Glucose 269 H Current Medications Albuterol Sulfate (Ventolin Aerosols) 2.5 mg INHALATION Q2H PRN PRN PRN Reason: SHORTNESS OF BREATH Allopurinol (Zyloprim) 100 mg PO BID [facility] Last Admin: 11/28/19 08:49 Dose: 100 mg Documented by: Aspirin (Ecotrin) 81 mg PO DAILY [facility] Last Admin: 11/28/19 08:51 Dose: 81 mg Documented by: Brimonidine Tartrate (Brimonidine 0.2% 5ml Bottle) 1 drop RIGHT EYE BID [facility] Last Admin: 11/28/19 08:53 Dose: 1 drop Documented by: Calcitriol (Rocaltrol) 0.25 mcg PO QODAY [facility] Last Admin: 11/27/19 07:55 Dose: 0.25 mcg Documented by: Furosemide (Lasix) 40 mg PO BID@1000,1800 [facility] Last Admin: 11/28/19 08:51 Dose: 40 mg Documented by: Gabapentin (Neurontin) 100 mg PO BIDCM [facility] Last Admin: 11/28/19 08:52 Dose: 100 mg Documented by: Gemfibrozil (Lopid) 600 mg PO DAILY [facility] Last Admin: 11/28/19 08:49 Dose: 600 mg Documented by: Heparin Sodium (Porcine) (Heparin Na) 5,000 unit SC Q8 [facility] Last Admin: 11/28/19 14:05 Dose: Not Given Documented by: Sodium Chloride () 1,000 mls @ 75 mls/hr IV .[id number] [facility] Last Infusion: 11/28/19 06:00 Dose: 75 mls/hr Documented by: Sodium Chloride () 500 mls @ 15 mls/hr IV PRN PRN PRN Reason: Blood Transfusion Sodium Chloride () 250 mls @ 15 mls/hr IV .[id number] PRN PRN Reason: Saline Flush Sodium Chloride () 250 mls @ 15 mls/hr IV .[id number] PRN PRN Reason: Additional IVPB Infusion Sodium Chloride () 1,000 mls @ 15 mls/hr IV .Q48H [facility] Last Admin: 11/28/19 11:04 Dose: Not Given Documented by: Insulin Human Lispro (Humalog Kwikpen (Bkc)) 0 unit SC ACHS [facility]; Protocol Last Admin: 11/28/19 14:03 Dose: 2 u Documented by: Insulin Human Lispro (Humalog Kwikpen (Bkc)) 27 unit SC LUNCH [facility] Last Admin: 11/28/19 14:03 Dose: 27 units Documented by: Insulin Human Lispro (Humalog Kwikpen (Bkc)) 24 unit SC BREAKFAST [facility] Last Admin: 11/28/19 08:39 Dose: Not Given Documented by: Insulin Human Lispro (Humalog Kwikpen (Bkc)) 48 unit SC DINNER [facility] Last Admin: 11/27/19 16:49 Dose: Not Given Documented by: Insulin Human NPH (Humulin N (Bkc)) 50 units SC QHS [facility] Last Admin: 11/27/19 21:25 Dose: 50 u Documented by: Isosorbide Mononitrate (Imdur) 30 mg PO BID [facility] Last Admin: 11/28/19 08:51 Dose: 30 mg Documented by: Levothyroxine Sodium (Synthroid) 75 mcg PO DAILY@0600 [facility] Last Admin: 11/28/19 05:41 Dose: 75 mcg Documented by: Metoprolol Tartrate (Lopressor (Beta Lorene)) 50 mg PO BID [facility] Last Admin: 11/28/19 08:52 Dose: 50 mg Documented by: Montelukast Sodium (Singulair) 10 mg PO QHS [facility] Last Admin: 11/27/19 21:26 Dose: 10 mg Documented by: Nitroglycerin (Nitrostat) 0.4 mg SUBLINGUAL Q5M PRN PRN Reason: CARDIAC/CHEST PAIN Ondansetron HCl (Zofran) 4 mg IV Q8H PRN PRN PRN Reason: NAUSEA/VOMITING Quetiapine Fumarate (Seroquel) 75 mg PO BID [facility] Last Admin: 11/28/19 08:50 Dose: 75 mg Documented by: Ramipril (Altace) 10 mg PO BID [facility] Last Admin: 11/28/19 08:51 Dose: 10 mg Documented by: Sertraline HCl (Zoloft) 150 mg PO BID [facility] Last Admin: 11/28/19 08:50 Dose: 150 mg Documented by: Sodium Chloride () 10 - 40 ml IV UD PRN PRN Reason: SALINE FLUSH Last Admin: 11/28/19 14:05 Dose: 10 ml Documented by: Timolol Maleate (Timoptic) 1 drop RIGHT EYE BID [facility] Last Admin: 11/28/19 08:42 Dose: 1 drop Documented by: STROKE Vital Signs/Narrative: Vital Signs Temp Pulse Resp BP Pulse Ox 11/28/19 14:00 97.7 F L 61 14 163/82 H 98 11/28/19 13:45 97.4 F L 61 13 152/75 H 96 11/28/19 13:30 97.3 F L 62 14 150/78 H 98 11/28/19 13:15 98.3 F 58 L 15 146/75 H 97 11/28/19 13:00 98.3 F 61 14 143/70 H 92 Assessment/Plan This patient was seen in conjunction with ISAAC Moralez. I have independently interviewed and examined the patient and reviewed pertinent historical, laboratory, and other data. Please refer to ISAAC Moralez note for his patient's presentation, findings, and recommendations. I have reviewed and his note and concur with his documentation Patient was seen and examined. Denies any new complaint. Waiting on his pacemaker to be placed today. Denied any chest pain or dizziness. Telemetry shows no third-degree block. Physical Exam: Gen: Comfortable, not pale, not jaundiced, alert oriented x3 CVS:HS I +II, regular, no murmurs RESP: Diminished at lung bases GI: BS present and normal, nontender, no palpable organs EXT:No edema ASSESSMENT: 1. Acute non-STEMI 2. Acute on chronic systolic CHF, previous EF of 53% 3. Recent third-degree AV block 4. Acute rhino virus bronchitis 5. CAD status post CABG 6. Type II DM 7. Hypertension 8. Hyperlipidemia 9. Hypothyroidism Plan: Pacemaker placement as scheduled Continue on aspirin, Lasix, metoprolol, isosorbide, Code Visit Inpatient E&M: [id number] Subs Hosp L2
[2019-11-28 13:55] LABS: Bedside Glucose 269 mg/dL (70-110)
[2019-11-28] MEDS: Insulin Lispro 100 UNIT/ML INSULN.PEN 27 UNIT SC (14:03)
[2019-11-28] MEDS: 0.9% Saline Lock 10 ML Syringe IV ×2 (14:05→17:17)
--- NOTE | 2019-11-28 15:52 | PCM.CONS.R ---
Consultation - Renal PCP/ Referring MD: Requesting physician: [] Primary care physician: Lisa Gates MD - History of Present Illness History of Present Illness: The patient is a 59 year old M with past medical history of CKD baseline creatinine two-point 5?3 who presented with a chief complaint of nasal congestion sore throat and cough which are improved now and also chest pain. There is no syncope lightheadedness diaphoresis nausea vomiting diarrhea abdominal pain. No fever no chills but he feels puffy. The patient underwent pacemaker placement for third-degree AV block noted on a 30-day event monitor. He has no other complaints currently. - Allergies Allergies: Allergies ampicillin Allergy (Verified 11/22/19 08:54) Rash erythromycin base Allergy (Verified 11/25/19 18:39) tears me up Penicillins Allergy (Verified 11/22/19 08:54) Rash Sulfa (Sulfonamide Antibiotics) Allergy (Verified 11/22/19 08:54) Hives atorvastatin [From Lipitor] Adverse Reaction (Severe, Verified 11/22/19 08:54) Muscle aching pravastatin [From Pravachol] Adverse Reaction (Severe, Verified 11/22/19 08:54) Myalgias simvastatin [From Zocor] Adverse Reaction (Severe, Verified 11/22/19 08:54) Muscle aching amlodipine [From Norvasc] Adverse Reaction (Intermediate, Verified 11/22/19 08:54) Hand swelling ezetimibe [From Zetia] Adverse Reaction (Verified 11/22/19 08:54) MYALGIA Dozpwgf-Usq-Rgo Reductase Inhibitor Adverse Reaction (Verified 11/25/19 18:39) myalgias Patient has tried Lipitor, Pravachol, Zocor, Crestor as well as fenofibrates, Zetia, and Repatha (last 3 are non-statin drugs for hyperlipidemia) - Current Medications Current Medications: Current Medications Albuterol Sulfate (Ventolin Aerosols) 2.5 mg INHALATION Q2H PRN PRN PRN Reason: SHORTNESS OF BREATH Allopurinol (Zyloprim) 100 mg PO BID [facility] Last Admin: 11/28/19 08:49 Dose: 100 mg Documented by: Aspirin (Ecotrin) 81 mg PO DAILY [facility] Last Admin: 11/28/19 08:51 Dose: 81 mg Documented by: Brimonidine Tartrate (Brimonidine 0.2% 5ml Bottle) 1 drop RIGHT EYE BID [facility] Last Admin: 11/28/19 08:53 Dose: 1 drop Documented by: Calcitriol (Rocaltrol) 0.25 mcg PO QODAY [facility] Last Admin: 11/27/19 07:55 Dose: 0.25 mcg Documented by: Furosemide (Lasix) 40 mg PO BID@1000,1800 [facility] Last Admin: 11/28/19 08:51 Dose: 40 mg Documented by: Gabapentin (Neurontin) 100 mg PO BIDCM [facility] Last Admin: 11/28/19 08:52 Dose: 100 mg Documented by: Gemfibrozil (Lopid) 600 mg PO DAILY [facility] Last Admin: 11/28/19 08:49 Dose: 600 mg Documented by: Heparin Sodium (Porcine) (Heparin Na) 5,000 unit SC Q8 [facility] Last Admin: 11/28/19 14:05 Dose: Not Given Documented by: Sodium Chloride () 500 mls @ 15 mls/hr IV PRN PRN PRN Reason: Blood Transfusion Sodium Chloride () 250 mls @ 15 mls/hr IV .[id number] PRN PRN Reason: Saline Flush Sodium Chloride () 250 mls @ 15 mls/hr IV .[id number] PRN PRN Reason: Additional IVPB Infusion Sodium Chloride () 1,000 mls @ 15 mls/hr IV .Q48H [facility] Last Admin: 11/28/19 11:04 Dose: Not Given Documented by: Insulin Human Lispro (Humalog Kwikpen (Bkc)) 0 unit SC ACHS [facility]; Protocol Last Admin: 11/28/19 14:03 Dose: 2 u Documented by: Insulin Human Lispro (Humalog Kwikpen (Bkc)) 27 unit SC LUNCH [facility] Last Admin: 11/28/19 14:03 Dose: 27 units Documented by: Insulin Human Lispro (Humalog Kwikpen (Bkc)) 24 unit SC BREAKFAST [facility] Last Admin: 11/28/19 08:39 Dose: Not Given Documented by: Insulin Human Lispro (Humalog Kwikpen (Bkc)) 48 unit SC DINNER [facility] Last Admin: 11/27/19 16:49 Dose: Not Given Documented by: Insulin Human NPH (Humulin N (Bkc)) 50 units SC QHS [facility] Last Admin: 11/27/19 21:25 Dose: 50 u Documented by: Isosorbide Mononitrate (Imdur) 30 mg PO BID [facility] Last Admin: 11/28/19 08:51 Dose: 30 mg Documented by: Levothyroxine Sodium (Synthroid) 75 mcg PO DAILY@0600 [facility] Last Admin: 11/28/19 05:41 Dose: 75 mcg Documented by: Metoprolol Tartrate (Lopressor (Beta Lorene)) 50 mg PO BID [facility] Last Admin: 11/28/19 08:52 Dose: 50 mg Documented by: Montelukast Sodium (Singulair) 10 mg PO QHS [facility] Last Admin: 11/27/19 21:26 Dose: 10 mg Documented by: Nitroglycerin (Nitrostat) 0.4 mg SUBLINGUAL Q5M PRN PRN Reason: CARDIAC/CHEST PAIN Ondansetron HCl (Zofran) 4 mg IV Q8H PRN PRN PRN Reason: NAUSEA/VOMITING Quetiapine Fumarate (Seroquel) 75 mg PO BID [facility] Last Admin: 11/28/19 08:50 Dose: 75 mg Documented by: Ramipril (Altace) 10 mg PO BID [facility] Last Admin: 11/28/19 08:51 Dose: 10 mg Documented by: Sertraline HCl (Zoloft) 150 mg PO BID [facility] Last Admin: 11/28/19 08:50 Dose: 150 mg Documented by: Sodium Chloride () 10 - 40 ml IV UD PRN PRN Reason: SALINE FLUSH Last Admin: 11/28/19 14:05 Dose: 10 ml Documented by: Timolol Maleate (Timoptic) 1 drop RIGHT EYE BID [facility] Last Admin: 11/28/19 08:42 Dose: 1 drop Documented by: - Past Medical History Past Medical History (Chronic Problems): Chronic Problems (Last Updated 11/26/19 @ 18:00 by Lisa Díaz) Diabetes (Chronic) Heart block AV complete (Chronic) intermittent CHB Left carotid stenosis (Chronic) Essential (primary) hypertension (Chronic) H/O coronary artery bypass surgery (Chronic 03/05/10) CABG x 3 THOMAS-LAD, SCG-D1, SVG-LCx 03/05/2010 History of coronary artery stent placement (Chronic 08/21/17) [id number]-[id number] LAD 01/24/2002; PCI-PAYAL-Mid RCA 02/01/2005; PCI- PAYAL of mid/distal and proximal RCA 08/21/17 Atherosclerotic heart disease of [place] coronary artery without angina pectoris (Chronic) CABG x 3 THOMAS-LAD, SCG-D1, SVG-LCx 03/05/2010; IUR-IDH-Hzgi LAD 01/24/2002; PCI-PAYAL-Mid RCA 02/01/2005; PCI- PAAYL of mid/distal and proximal RCA 08/21/17 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) HLD (hyperlipidemia) (Chronic) - Past Surgical History Surgical History: adenoidectomy, angioplasty, coronary bypass surgery, tonsillectomy, - - Septoplasty - Social History Smoking Status: Never smoker Alcohol: Rare Drugs: None - Family History Maternal Family History: Family History (Last Reviewed 11/25/19 @ 19:20 by Kyle Acosta MD) Father CAD (coronary artery disease), Onset Age: 61 Stented coronary artery Mother COPD (chronic obstructive pulmonary disease) Sister Diabetes Hypertension History Items: COPD, Diabetes Paternal Family History: Family History (Last Reviewed 11/25/19 @ 19:20 by Kyle Acosta MD) Father CAD (coronary artery disease), Onset Age: 61 Stented coronary artery Mother COPD (chronic obstructive pulmonary disease) Sister Diabetes Hypertension History Items: Heart Disease Patient Problems: Active and Suspected Problems (Last Updated 11/26/19 @ 18:00 by Lisa Díaz) Acute diastolic (congestive) heart failure (Acute) NSTEMI (non-ST elevated myocardial infarction) (Acute 11/25/19) - Physical Exam Vitals/I&O's: Vital Signs Temp Pulse Resp BP Pulse Ox 97.7 F L 67 16 158/76 H 96 11/28/19 15:00 11/28/19 15:00 11/28/19 15:00 11/28/19 15:00 11/28/19 15:00 Oxygen Flow Rate (L/min) 2 Oxygen Delivery Method Room Air Weight: 116.2 kg Body Mass Index (BMI) 40.3 Intake and Output for Last 24 Hours 11/26/19 11/27/19 11/28/19 23:59 23:59 23:59 Intake Total 2923.18 / 2923.18 3410.01 / 3410.01 2028.75 / Output Total 825 / 825 Balance 2923.18 / 2923.18 3410. / 3409. 1203.75 / 1203.75 General: Alert, Oriented x3, Cooperative HEENT: Atraumatic, PERRLA, EOMI, Normocephalic Neck: Supple, No JVD, Negative Carotid Bruits Lungs: Clear to auscultation, Normal air movement Cardiovascular: Regular rate, No murmurs Abdomen: Bowel Sounds Present, Soft, Non Tender Extremities: No edema, Capillary Refill Less than 3 Seconds Skin: No rashes, No breakdown Musculoskeletal: No Tenderness to Palpation of Joints or Extremities Neurological: Cranial nerves II-XII grossly intact Psych/Mental Status: Normal Affect, Appropriate Microbiology Past 72 Hours 11/25/19 20:00 Mucosa - Nose Respiratory Panel (PCR) - Final Rhinovirus Laboratory Results 11/27/19 16:17: POC Glucose 178 H 11/27/19 17:25: MRSA (PCR) Negative 11/27/19 21:21: POC Glucose 298 H 11/28/19 06:08: WBC 4.7, RBC 3.37 L, Hgb 10.7 L, Hct 32.4 L, MCV 96.1 H, MCH 31.8, MCHC 33.0, RDW Std Deviation 53.0 H, RDW Coeff of Margaret 15.2 H, Plt Count 220, MPV 10.1 11/28/19 06:08: Sodium 137, Potassium 3.6, Chloride 105, Carbon Dioxide 26.0, Anion Gap 6, BUN 54 H, Creatinine 2.55 H, Estim Creat Clear Calc 29.16, Est GFR (MDRD) Af Amer 33 L, Est GFR (MDRD) Non-Af 28 L, BUN/Creatinine Ratio 21.2 H, Glucose 273 H, Calcium 8.8 11/28/19 07:48: POC Glucose 267 H 11/28/19 10:59: POC Glucose 248 H 11/28/19 13:50: POC Glucose 269 H Current Medications Albuterol Sulfate (Ventolin Aerosols) 2.5 mg INHALATION Q2H PRN PRN PRN Reason: SHORTNESS OF BREATH Allopurinol (Zyloprim) 100 mg PO BID [facility] Last Admin: 11/28/19 08:49 Dose: 100 mg Documented by: Aspirin (Ecotrin) 81 mg PO DAILY [facility] Last Admin: 11/28/19 08:51 Dose: 81 mg Documented by: Brimonidine Tartrate (Brimonidine 0.2% 5ml Bottle) 1 drop RIGHT EYE BID [facility] Last Admin: 11/28/19 08:53 Dose: 1 drop Documented by: Calcitriol (Rocaltrol) 0.25 mcg PO QODAY [facility] Last Admin: 11/27/19 07:55 Dose: 0.25 mcg Documented by: Furosemide (Lasix) 40 mg PO BID@1000,1800 [facility] Last Admin: 11/28/19 08:51 Dose: 40 mg Documented by: Gabapentin (Neurontin) 100 mg PO BIDCM [facility] Last Admin: 11/28/19 08:52 Dose: 100 mg Documented by: Gemfibrozil (Lopid) 600 mg PO DAILY [facility] Last Admin: 11/28/19 08:49 Dose: 600 mg Documented by: Heparin Sodium (Porcine) (Heparin Na) 5,000 unit SC Q8 [facility] Last Admin: 11/28/19 14:05 Dose: Not Given Documented by: Sodium Chloride () 500 mls @ 15 mls/hr IV PRN PRN PRN Reason: Blood Transfusion Sodium Chloride () 250 mls @ 15 mls/hr IV .[id number] PRN PRN Reason: Saline Flush Sodium Chloride () 250 mls @ 15 mls/hr IV .[id number] PRN PRN Reason: Additional IVPB Infusion Sodium Chloride () 1,000 mls @ 15 mls/hr IV .Q48H [facility] Last Admin: 11/28/19 11:04 Dose: Not Given Documented by: Insulin Human Lispro (Humalog Kwikpen (Bkc)) 0 unit SC ACHS [facility]; Protocol Last Admin: 11/28/19 14:03 Dose: 2 u Documented by: Insulin Human Lispro (Humalog Kwikpen (Bkc)) 27 unit SC LUNCH [facility] Last Admin: 11/28/19 14:03 Dose: 27 units Documented by: Insulin Human Lispro (Humalog Kwikpen (Bkc)) 24 unit SC BREAKFAST [facility] Last Admin: 11/28/19 08:39 Dose: Not Given Documented by: Insulin Human Lispro (Humalog Kwikpen (Bkc)) 48 unit SC DINNER [facility] Last Admin: 11/27/19 16:49 Dose: Not Given Documented by: Insulin Human NPH (Humulin N (Bkc)) 50 units SC QHS [facility] Last Admin: 11/27/19 21:25 Dose: 50 u Documented by: Isosorbide Mononitrate (Imdur) 30 mg PO BID [facility] Last Admin: 11/28/19 08:51 Dose: 30 mg Documented by: Levothyroxine Sodium (Synthroid) 75 mcg PO DAILY@0600 [facility] Last Admin: 11/28/19 05:41 Dose: 75 mcg Documented by: Metoprolol Tartrate (Lopressor (Beta Lorene)) 50 mg PO BID [facility] Last Admin: 11/28/19 08:52 Dose: 50 mg Documented by: Montelukast Sodium (Singulair) 10 mg PO QHS [facility] Last Admin: 11/27/19 21:26 Dose: 10 mg Documented by: Nitroglycerin (Nitrostat) 0.4 mg SUBLINGUAL Q5M PRN PRN Reason: CARDIAC/CHEST PAIN Ondansetron HCl (Zofran) 4 mg IV Q8H PRN PRN PRN Reason: NAUSEA/VOMITING Quetiapine Fumarate (Seroquel) 75 mg PO BID [facility] Last Admin: 11/28/19 08:50 Dose: 75 mg Documented by: Ramipril (Altace) 10 mg PO BID [facility] Last Admin: 11/28/19 08:51 Dose: 10 mg Documented by: Sertraline HCl (Zoloft) 150 mg PO BID [facility] Last Admin: 11/28/19 08:50 Dose: 150 mg Documented by: Sodium Chloride () 10 - 40 ml IV UD PRN PRN Reason: SALINE FLUSH Last Admin: 11/28/19 14:05 Dose: 10 ml Documented by: Timolol Maleate (Timoptic) 1 drop RIGHT EYE BID [facility] Last Admin: 11/28/19 08:42 Dose: 1 drop Documented by: Assessment/Plan All Active Problems (Last Updated 11/26/19 @ 18:00 by Lisa Díaz) Acute diastolic (congestive) heart failure (Acute) NSTEMI (non-ST elevated myocardial infarction) (Acute 11/25/19) Acute coronary syndrome (Resolved) Angina pectoris (Resolved) Chest pain (Resolved) Orthostatic hypotension (Resolved) Syncope and collapse (Resolved) CKD 4 baseline 2.5-3 HF Hypertension CHB s/p pacemaker CAD s/p CABG Risk of contrast-induced nephropathy was discussed with the patient voiced understanding. Risk of possible need for dialysis was also discussed with the patient voiced understanding. Recommend to use the minimum amount of iso-osmolar or hypoosmolar contrast possible. Recommend to use normal saline 115 mL/h for 6 hours prior 6-hour post cardiac cath for prevention of contrast-induced nephropathy. Can stop the fluid if the patient develops dyspnea and use as needed diuretics. Creatinine is 2.55 within baseline range Avoid nephrotoxins The above assessment and plan was discussed at length with the patient who voiced understanding and agrees to proceed with the plan as outlined above. He was given the opportunity to ask questions and stated that those were answered to his satisfaction.
[2019-11-28] MEDS: Ondansetron 4 MG/2 ML Vial IV (17:17)
[2019-11-28] MEDS: Insulin Lispro 100 UNIT/ML INSULN.PEN 48 UNIT SC (17:26)
[2019-11-28 17:35] LABS: Bedside Glucose 213 mg/dL (70-110)
[2019-11-28 21:36] LABS: Bedside Glucose 57 mg/dL (70-110)
--- NOTE | 2019-11-28 21:50 | NURSING ---
2130 Patients accu check 57. Patient states he feels like it is low. He feels like he is sweating. Alert and oriented x 3. Ennis juice 240cc given. Made his primary nurse RONI Serrano aware of this.
[2019-11-28] MEDS: Montelukast 10 MG Tablet PO (22:16)
[2019-11-28] MEDS: Senna/Docusate Sodium 1 Tablet 2 TABLET PO (22:16)
[2019-11-28 22:56] LABS: Bedside Glucose 59 mg/dL (70-110)
[2019-11-28 23:00] LABS: Bedside Glucose 88 mg/dL (70-110)
[2019-11-29] VITALS (38 sets, daily range): BP systolic 126–187; BP diastolic 43–100; PULSE 71–84; RESP 8–23; TEMP 36.2–37; O2SAT 92–98; BMI 40.8
[2019-11-29] MEDS: hydrALAZINE 20 MG/ML Vial 10 MG IV ×3 (00:25→14:24)
[2019-11-29] MEDS: 0.9% Saline Lock 10 ML Syringe IV ×3 (00:26→09:09)
[2019-11-29 02:40] LABS: Bedside Glucose 107 mg/dL (70-110)
--- NOTE | 2019-11-29 05:00 | RAD_ITS ---
STUDY: X-RAY CHEST REASON FOR EXAM: Male, 59 years old. S/P PACEMAKER INSERTION -- TO EXCLUDE PNEUMOTHORAX TECHNIQUE: AP COMPARISON: Earlier today FINDINGS: Two lead cardiac conduction device is seen via the left subclavian vein with lead tips projecting over the right atrium and right ventricle, respectively. Central pulmonary vascular congestion and interstitial/groundglass opacities predominantly in the central lungs new since the prior study. No pleural effusion. Normal size heart. Sternal wires and mediastinal surgical clips compatible with prior CABG. Normal visualized aortic arch and descending thoracic aorta. No acute bony process. There is no demonstrated abnormality of the visualized soft tissue structures of the upper abdomen. RAD/Chest 1 View IMPRESSION: Unfavorable change. Interval development of interstitial, likely cardiogenic edema. No sizable effusion or pneumothorax. Electronically Signed: Lukas Aviles MD ([place]) at 5:56 EST , Service support ,
[2019-11-29] MEDS: Levothyroxine 75 MCG Tablet PO (05:26)
[2019-11-29] MEDS: Aspirin E.C. 81 MG Tablet PO (05:26)
[2019-11-29] MEDS: Isosorbide Mononitrate 30 MG Tablet PO ×2 (05:27→21:57)
[2019-11-29] MEDS: Metoprolol Tartrate 50 MG Tablet PO ×2 (05:27→21:57)
--- NOTE | 2019-11-29 05:55 | EKG12_ITS ---
Test Reason : CP ADMISSION Blood Pressure : / mmHG Vent. Rate : 086 BPM Atrial Rate : 086 BPM P-R Int : 224 ms QRS Dur : 128 ms QT Int : 436 ms P-R-T Axes : 069 -63 138 degrees QTc Int : 521 ms Sinus rhythm with 1st degree A-V block Left axis deviation Non-specific intra-ventricular conduction block T wave abnormality, consider lateral ischemia Abnormal ECG When compared with ECG of 25-NOV-2019 16:26, MANUAL COMPARISON REQUIRED, DATA IS UNCONFIRMED Confirmed by MARCIN KATHLEEN, DARIUS ([id number]), film or videotape editor JOAQUINA MAYEN ([id number]) on 11/29/2019 2:43:33 PM Referred By: MIGUEL A Confirmed By:TRUONG BURCH MD
--- NOTE | 2019-11-29 05:55 | RAD_ITS ---
STUDY: X-RAY CHEST REASON FOR EXAM: Male, 59 years old. S/P PACEMAKER INSERTION -- TO EXCLUDE PNEUMOTHORAX TECHNIQUE: PA and lateral views of the chest. COMPARISON: 11/25/2019 FINDINGS: At virtually The lungs are clear and expanded. There is no demonstrated pleural abnormality. Normal size heart. Sternal wires and mediastinal surgical clips compatible with prior CABG. Normal visualized pulmonary arteries. Normal visualized aortic arch and descending thoracic aorta. There is demineralization of the osseous structures. Normal visualized ribs, clavicles, and shoulders. There is no demonstrated abnormality of the visualized soft tissue structures of the upper abdomen. RAD/Chest PA and Lateral IMPRESSION: 1. No airspace consolidation or pleural effusion. No pneumothorax. 2. Two lead cardiac conduction device is seen via the left subclavian vein with lead tips projecting over the right atrium and right ventricle, respectively. Electronically Signed: Lukas Aviles MD ([place]) at 5:57 EST , Service support ,
[2019-11-29 06:35] LABS: Bedside Glucose 159 mg/dL (70-110)
--- NOTE | 2019-11-29 08:45 | CASEMGMT ---
According to the [facility] choice plus website, the following are in-network tertiary facilities: [facility], [facility], [facility], [facility], [facility], [facility], [facility], [place], [facility], and . Miri TAMAYO CM
[2019-11-29] MEDS: Ramipril 10 MG Capsule PO (09:08)
--- NOTE | 2019-11-29 09:09 | NURSING ---
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
--- NOTE | 2019-11-29 10:25 | PN.CARD_ITS ---
Subjectve: Patient seen and evaluated. Underwent pacemaker placement yesterday. Objective: Vital Signs Temp Pulse Resp BP Pulse Ox 98.5 F 82 16 158/74 H 94 11/29/19 08:10 11/29/19 08:10 11/29/19 08:10 11/29/19 08:10 11/29/19 08:10 Oxygen Flow Rate (L/min) 2 Oxygen Delivery Method Nasal Cannula Weight: 260 lb 9.382 oz Body Mass Index (BMI) 40.3 Intake and Output for Last 24 Hours 11/27/19 11/28/19 11/29/19 23:59 23:59 23:59 Intake Total 3410.01 / 3410.01 3273.75 / 3273.75 0 / 0 Output Total 1475 / 1475 500 / 500 Balance 3410.01 / 3410.01 1798.75 / 1798.75 -500 / -500 General: Awake, Alert, Oriented x 3 HEENT: PERRL, EOMI, Sclera Non Icteric Neck: Supple, Good ROM, No Lymph Node Enlargement Lungs: Clear to auscultation Cardiovascular: Regular Rhythm, Normal S1, Normal S2, No Murmurs, No Rubs, No Gallops Vascular: No Carotid Bruits, Normal Femoral Pulses, Normal Radial Pulses, Normal Dorsalis Pedal Pulse, Normal Posterior Tibial Pulses Abdomen: Bowel Sounds Present, Soft, Non Tender, No HSM, No Organomegaly Extremities: No Cyanosis, No Clubbing, No edema Musculoskeletal: No Erythema Skin: No Rashes Lymphatic: No Lymph Node Enlargement Neurological: No Focal Motor or Sensory Deficit Rhythm: EKG: ECHO: Stress Test: Cardiac Cath: PCI: CT Surgery: Holter monitor: EPS: PPM: CXR: Chest CT Scan: Medical Necessity - Tobacco Use Smoking Status: Never smoker Assessment/Plan 1. Non-ST elevation myocardial infarction * He does have a history of known coronary artery disease with abnormal cardiac enzymes. He is status post coronary bypass surgery. He does have precarious renal dysfunction and he has been hydrated with some improvement in his kidney function. He may eventually need a left heart catheterization to assess his coronary anatomy. * Is limited cardiac catheterization today demonstrated disease left main coronary artery, * Totally occluded left anterior descending artery * Totally occluded circumflex artery * Previously stented right coronary artery with high-grade mid to distal stenosis * Based on the above angiographic findings the patient to be referred for angioplasty and stenting of this vessel. The left internal mammary artery to the left anterior descending artery is presumed to be patent based on the pre served ventricular function in the anterior wall. Due to the significant renal dysfunction dye administration is been limited and therefore was not imaged. 2. Intermittent complete heart block with syncope * He has had a previous history of intermittent heart block with syncope. He was already scheduled to have permanent pacemaker implantation earlier in the week. * He underwent placement of a dual-chamber permanent pacemaker yesterday. * His pacemaker interrogation demonstrated normal functioning. Chest x-ray demonstrates normal positioning. 3. Left ventricular systolic dysfunction * He does have mild ventricular systolic dysfunction. His estimated ejection fraction is 40 to 45% with inferior posterior hypokinesis. We will continue to monitor the above. No other major changes will be made. * * Thank you for allowing me to participate in the care of your patient. Please don't hesitate to call if any issues arise
--- NOTE | 2019-11-29 10:40 | CL.D_ITS ---
Patient Name: KATHERINE NAVA Study Date: 11/29/2019 Performing: Sergey Nelson MD Ht: 66.92 inches 170 cm : 1960 Wt: 260.15 lbs 118 kg Age: 59 Gender: male BSA: 2.26 PROCEDURE(S) PERFORMED [id number], SINGLE CORONARY ARTERY CLINICAL PROFILE AND INDICATIONS Indications: Suspected CAD Heart Failure: None Stress/Imaging Stress/Image Study Performed: No CONCLUSIONS Patient with known severe renal dysfunction and non-ST elevation myocardial infarction. Present card iac catheterization demonstrates restenosis in the right coronary artery. The previous saphenous vei n grafts were noted to be occluded and therefore not reimaged and the THOMAS was not reimaged for dye c onservation RECOMMENDATIONS Referred for immediate PCI DESCRIPTION OF PROCEDURE The patient arrived to the procedure lab. The risks and benefits of the procedure as well as a full d escription of our services here and current unavailability of surgical backup were fully explained to the patient and/or their significant other prior to the catheterization. The Timeout was completed, verifying the correct patient and procedure. The patient's procedural site was prepped and draped in the usual fashion. Local anesthetic was given subcutaneously to right radial region with Lidocaine 2% . Using a modified Seldinger technique, arterial access was obtained via the right radial artery, a 6 Fr sheath was inserted. Right Coronary Artery selective angiography was then performed in multiple v iews using a 5 Fr. 4.0 Esko catheter. Left Coronary Artery selective angiography was performed in mu ltiple views using a 5 Fr. 4.0 Esko catheter. CORONARY ANGIOGRAPHY DOMINANCE: Right Dominant LEFT HEART ASSESSMENT Left Ventricular Ejection Fraction: by Echo 45 % Inferior Mid Hypokinesis - Moderate LEFT MAIN: 70 % Stenosis LEFT ANTERIOR DESCENDING ARTERY: PROX LAD: Subtotal occlusion with patent diagonal CIRCUMFLEX ARTERY: OSTIAL CIRC: is occluded RIGHT CORONARY ARTERY: Previously placed stent has an instent 80 % restenosis Patient has proximal mid and distal stents placed previously. The proximal and mid right coronary ar brina appears to have mild to moderate in-stent stenosis but the mid to distal area has a high-grade 8 0% stenosis noted prior to the bifurcation of the posterior lateral vessel and posterior descending a rtery. The distal vessels have mild luminal irregularities GRAFTS: Saphenous Vein graft to the CIRC is totally occluded THOMAS graft to the Mid LAD previously known patent in 2017 COMPLICATIONS PROCEDURE MEDICATIONS Versed 1 mg IV Fentanyl 50 mcg IV Oxygen: 2 L/min via nasal cannula Oxygen: 4 L/min via nasal cannula SUMMARY OF HEMODYNAMIC DATA Time AIR REST ECG 09:42:29 ECG 10:07:42 AO 137/79 (100) SA 10:09:25 LV 160/10, 18 10:29:21 LV 160/11, 18 10:29:27 LVp 159/7, 18 10:29:39 AOp 161/78 (114) 10:29:44 Signed By Sergey Nelson MD On 11/29/2019 10:39:20 Sergey Nelson MD
--- NOTE | 2019-11-29 11:38 | NURSING ---
Report called to RONI Diaz in ICU.
[2019-11-29] MEDS: 0.9% Normal Saline 1,000 ML 60 ML IV (11:45)
--- NOTE | 2019-11-29 11:45 | PCM.PN.HOSP ---
<Luca Gregory - Last Filed: 11/29/19 11:45> Patient Problems: Active and Suspected Problems (Last Updated 11/29/19 @ 11:57 by Lisa Díaz) Acute diastolic (congestive) heart failure (Acute) NSTEMI (non-ST elevated myocardial infarction) (Acute 11/25/19) Subjective: Pt underwent heart cath and balloon angioplasty today. Tolerated the procedure well. Recovering well NAD in CVICU. No CP, SOB, pressure, tightness, heaviness, LE edema, no nausea/vomiting. Vitals/I&O's: Vital Signs Temp Pulse Resp BP Pulse Ox 98.5 F 79 15 170/81 H 96 11/29/19 08:10 11/29/19 11:15 11/29/19 11:15 11/29/19 11:15 11/29/19 11:15 Oxygen Flow Rate (L/min) 2 Oxygen Delivery Method Nasal Cannula Weight: 260 lb 9.382 oz Body Mass Index (BMI) 40.3 Intake and Output for Last 24 Hours 11/27/19 11/28/19 11/29/19 23:59 23:59 23:59 Intake Total 3410.01 / 3410.01 3273.75 / 3273.75 0 / 0 Output Total 1475 / 1475 500 / 500 Balance 3410.01 / 3410.01 1798.75 / 1798.75 -500 / -500 General: Alert, Oriented x3, Cooperative HEENT: Atraumatic, PERRLA, EOMI, Normocephalic Neck: Supple, No JVD, Negative Carotid Bruits Lungs: Clear to auscultation, Normal air movement Cardiovascular: Regular rate, No murmurs Abdomen: Bowel Sounds Present, Soft, Non Tender Extremities: No edema, Capillary Refill Less than 3 Seconds Skin: No rashes, No breakdown Musculoskeletal: No Tenderness to Palpation of Joints or Extremities Neurological: Cranial nerves II-XII grossly intact Psych/Mental Status: Normal Affect, Appropriate, Alert and oriented to time, place, person, mood and affect Microbiology Past 72 Hours 11/25/19 20:00 Mucosa - Nose Respiratory Panel (PCR) - Final Rhinovirus Laboratory Results 11/28/19 13:50: POC Glucose 269 H 11/28/19 17:25: POC Glucose 213 H 11/28/19 21:25: POC Glucose 57 L 11/28/19 22:20: POC Glucose 59 L 11/28/19 22:53: POC Glucose 88 11/29/19 02:33: POC Glucose 107 11/29/19 06:29: POC Glucose 159 H Current Medications Albuterol Sulfate (Ventolin Aerosols) 2.5 mg INHALATION Q2H PRN PRN PRN Reason: SHORTNESS OF BREATH Allopurinol (Zyloprim) 100 mg PO BID [facility] Last Admin: 11/28/19 22:16 Dose: 100 mg Documented by: Aspirin (Ecotrin) 81 mg PO DAILY [facility] Last Admin: 11/29/19 05:26 Dose: 81 mg Documented by: Brimonidine Tartrate (Brimonidine 0.2% 5ml Bottle) 1 drop RIGHT EYE BID [facility] Last Admin: 11/28/19 22:25 Dose: 1 drop Documented by: Calcitriol (Rocaltrol) 0.25 mcg PO QODAY [facility] Last Admin: 11/27/19 07:55 Dose: 0.25 mcg Documented by: [facility] Last Admin: 11/28/19 17:29 Dose: 100 mg Documented by: Gemfibrozil (Lopid) 600 mg PO DAILY [facility] Last Admin: 11/28/19 08:49 Dose: 600 mg Documented by: Heparin Sodium (Porcine) (Heparin Na) 5,000 unit SC Q8 [facility] Last Admin: 11/29/19 05:18 Dose: Not Given Documented by: Hydralazine HCl (Apresoline Iv) 10 mg IV Q4H PRN PRN PRN Reason: for sbp>160 or dbp>120 Last Admin: 11/29/19 06:35 Dose: 10 mg Documented by: Sodium Chloride () 500 mls @ 15 mls/hr IV PRN PRN PRN Reason: Blood Transfusion Sodium Chloride () 250 mls @ 15 mls/hr IV .[id number] PRN PRN Reason: Saline Flush Sodium Chloride () 250 mls @ 15 mls/hr IV .[id number] PRN PRN Reason: Additional IVPB Infusion Sodium Chloride () 1,000 mls @ 15 mls/hr IV .Q48H [facility] Last Admin: 11/28/19 11:04 Dose: Not Given Documented by: Sodium Chloride () 1,000 mls @ 115 mls/hr IV .[id number] [facility] Sodium Chloride () 1,000 mls @ 0 mls/hr IV .Q0M [facility] Isosorbide Mononitrate (Imdur) 30 mg PO BID [facility] Last Admin: 11/29/19 05:27 Dose: 30 mg Documented by: Levothyroxine Sodium (Synthroid) 75 mcg PO DAILY@0600 [facility] Last Admin: 11/29/19 05:26 Dose: 75 mcg Documented by: Metoprolol Tartrate (Lopressor (Beta Lorene)) 50 mg PO BID [facility] Last Admin: 11/29/19 05:27 Dose: 50 mg Documented by: Montelukast Sodium (Singulair) 10 mg PO QHS [facility] Last Admin: 11/28/19 22:16 Dose: 10 mg Documented by: Nitroglycerin (Nitrostat) 0.4 mg SUBLINGUAL Q5M PRN PRN Reason: CARDIAC/CHEST PAIN Ondansetron HCl (Zofran) 4 mg IV Q8H PRN PRN PRN Reason: NAUSEA/VOMITING Last Admin: 11/28/19 17:17 Dose: 4 mg Documented by: Quetiapine Fumarate (Seroquel) 75 mg PO BID [facility] Last Admin: 11/28/19 22:16 Dose: 75 mg Documented by: Senna/Docusate Sodium (Senokot-S, Emily-Colace) 2 tablet PO DAILY PRN PRN PRN Reason: CONSTIPATION Last Admin: 11/28/19 22:16 Dose: 2 tablet Documented by: Sertraline HCl (Zoloft) 150 mg PO BID [facility] Last Admin: 11/28/19 22:16 Dose: 150 mg Documented by: Sodium Chloride () 10 - 40 ml IV UD PRN PRN Reason: SALINE FLUSH Last Admin: 11/29/19 09:09 Dose: 10 ml Documented by: Timolol Maleate (Timoptic) 1 drop RIGHT EYE BID [facility] Last Admin: 11/28/19 22:25 Dose: 1 drop Documented by: STROKE Vital Signs/Narrative: Vital Signs Temp Pulse Resp BP Pulse Ox 11/29/19 11:15 79 15 170/81 H 96 11/29/19 08:10 98.5 F 82 16 158/74 H 94 Medical Necessity - Tobacco Use Smoking Status: Never smoker Assessment/Plan All Active Problems (Last Updated 11/29/19 @ 11:57 by Lisa Díaz) Acute diastolic (congestive) heart failure (Acute) NSTEMI (non-ST elevated myocardial infarction) (Acute 11/25/19) Acute coronary syndrome (Resolved) Angina pectoris (Resolved) Chest pain (Resolved) Orthostatic hypotension (Resolved) Syncope and collapse (Resolved) 1. Non-STEMI- s/p balloon angioplasty today. continue imdur, metoprolol, aspirin. Plan to resume yung if renal function stable in AM. 2. Third-degree heart block-pacemaker per Dr. Nelson today. 3. Chronic CHF, systolic-prior EF 41%. No shortness of breath, or severe edema. 4. Acute rhinovirus-resolved. 5. CAD with prior CABG - as per #1. 6. Type 2 diabetes with morbid obesity-orals held. Continue sliding scale insulin 7. CKD stage IV-nephrology consulted given his need for cardiac catheterization. Linsinopril and lasix hold overnight. post cath 115 cc/hr NaCl. Recheck BMP in AM. 8. Hypertension-stable 9. Hyperlipidemia-again allergic to statin, continue gemfibrozil 10. ABBI-continue home BiPAP nightly 11. Hypothyroidism-Synthroid 12. Depression-sertraline, Seroquel 13. Gout-on allopurinol DVT prophylaxis: Heparin DC planning: plan for home in AM. Assess renal function in AM. This patient was seen by Luca Gregory PA-C under the supervision of Doctor Niko. <Niko,Taberg - Last Filed: 11/29/19 14:44> Vitals/I&O's: Vital Signs Temp Pulse Resp BP Pulse Ox 98.5 F 78 14 163/74 H 98 11/29/19 08:10 11/29/19 12:00 11/29/19 12:00 11/29/19 12:00 11/29/19 12:00 Oxygen Flow Rate (L/min) 2 Oxygen Delivery Method Nasal Cannula Weight: 118.2 kg Body Mass Index (BMI) 40.3 Intake and Output for Last 24 Hours 11/27/19 11/28/19 11/29/19 23:59 23:59 23:59 Intake Total 3410.01 / 3410.01 3273.75 / 3273.75 0 / 0 Output Total 1475 / 1475 500 / 500 Balance 3410. / 3410.01 1798.75 / 1798.75 -500 / -500 Laboratory Results 11/28/19 13:50: POC Glucose 269 H 11/28/19 17:25: POC Glucose 213 H 11/28/19 21:25: POC Glucose 57 L 11/28/19 22:20: POC Glucose 59 L 11/28/19 22:53: POC Glucose 88 11/29/19 02:33: POC Glucose 107 11/29/19 06:29: POC Glucose 159 H Current Medications Albuterol Sulfate (Ventolin Aerosols) 2.5 mg INHALATION Q2H PRN PRN PRN Reason: SHORTNESS OF BREATH Allopurinol (Zyloprim) 100 mg PO BID [facility] Last Admin: 11/28/19 22:16 Dose: 100 mg Documented by: Aspirin (Ecotrin) 81 mg PO DAILY [facility] Last Admin: 11/29/19 05:26 Dose: 81 mg Documented by: Atropine Sulfate () 0.5 mg IV UD PRN PRN Reason: HR <50 bpm Brimonidine Tartrate (Brimonidine 0.2% 5ml Bottle) 1 drop RIGHT EYE BID [facility] Last Admin: 11/28/19 22:25 Dose: 1 drop Documented by: Calcitriol (Rocaltrol) 0.25 mcg PO QODAY [facility] Last Admin: 11/27/19 07:55 Dose: 0.25 mcg Documented by: Gabapentin (Neurontin) 100 mg PO BIDCM [facility] Last Admin: 11/28/19 17:29 Dose: 100 mg Documented by: Gemfibrozil (Lopid) 600 mg PO DAILY [facility] Last Admin: 11/28/19 08:49 Dose: 600 mg Documented by: Heparin Sodium (Porcine) (Heparin Na) 5,000 unit SC Q8 [facility] Last Admin: 11/29/19 05:18 Dose: Not Given Documented by: Hydralazine HCl (Apresoline Iv) 10 mg IV Q4H PRN PRN PRN Reason: for sbp>160 or dbp>120 Last Admin: 11/29/19 06:35 Dose: 10 mg Documented by: Sodium Chloride () 500 mls @ 15 mls/hr IV PRN PRN PRN Reason: Blood Transfusion Sodium Chloride () 250 mls @ 15 mls/hr IV .[id number] PRN PRN Reason: Saline Flush Sodium Chloride () 250 mls @ 15 mls/hr IV .[id number] PRN PRN Reason: Additional IVPB Infusion Sodium Chloride () 1,000 mls @ 15 mls/hr IV .Q48H [facility] Last Admin: 11/28/19 11:04 Dose: Not Given Documented by: Sodium Chloride () 1,000 mls @ 115 mls/hr IV .Q8H42M [facility] Sodium Chloride () 1,000 mls @ 0 mls/hr IV .Q0M [facility] Sodium Chloride () 1,000 mls @ 60 mls/hr IV .[id number] [facility] Eptifibatide (Integrilin) 75 mg in 100 mls @ 9.456 mls/hr CONT INF .[id number] [facility] Stop: 11/29/19 13:00 Insulin Human Lispro (Humalog Kwikpen (Bkc)) 0 unit SC [facility]; Protocol Isosorbide Mononitrate (Imdur) 30 mg PO BID [facility] Last Admin: 11/29/19 05:27 Dose: 30 mg Documented by: Labetalol HCl (Trandate) 5 mg IV X1 PRN PRN Reason: SBP > 160 when pulling sheath Stop: 12/01/19 12:02 Levothyroxine Sodium (Synthroid) 75 mcg PO DAILY@0600 [facility] Last Admin: 11/29/19 05:26 Dose: 75 mcg Documented by: Metoprolol Tartrate (Lopressor (Beta Lorene)) 50 mg PO BID [facility] Last Admin: 11/29/19 05:27 Dose: 50 mg Documented by: Montelukast Sodium (Singulair) 10 mg PO QHS [facility] Last Admin: 11/28/19 22:16 Dose: 10 mg Documented by: Nitroglycerin (Nitrostat) 0.4 mg SUBLINGUAL Q5M PRN PRN Reason: CARDIAC/CHEST PAIN Ondansetron HCl (Zofran) 4 mg IV Q8H PRN PRN PRN Reason: NAUSEA/VOMITING Last Admin: 11/28/19 17:17 Dose: 4 mg Documented by: Quetiapine Fumarate (Seroquel) 75 mg PO BID [facility] Last Admin: 11/28/19 22:16 Dose: 75 mg Documented by: Senna/Docusate Sodium (Senokot-S, Emily-Colace) 2 tablet PO DAILY PRN PRN PRN Reason: CONSTIPATION Last Admin: 11/28/19 22:16 Dose: 2 tablet Documented by: Sertraline HCl (Zoloft) 150 mg PO BID [facility] Last Admin: 11/28/19 22:16 Dose: 150 mg Documented by: Sodium Chloride () 10 - 40 ml IV UD PRN PRN Reason: SALINE FLUSH Last Admin: 11/29/19 09:09 Dose: 10 ml Documented by: Sodium Chloride () 500 ml IV BOLUS PRN PRN Reason: VASO-VAGAL PROTOCOL Ticagrelor (Brilinta) 90 mg PO BID [facility] Timolol Maleate (Timoptic) 1 drop RIGHT EYE BID [facility] Last Admin: 11/28/19 22:25 Dose: 1 drop Documented by: STROKE Vital Signs/Narrative: Vital Signs Pulse Resp BP Pulse Ox 11/29/19 12:00 78 14 163/74 H 98 11/29/19 11:45 76 8 L 157/78 H 94 11/29/19 11:30 78 11 L 157/78 H 94 11/29/19 11:15 79 15 170/81 H 96 Assessment/Plan This patient was seen in conjunction with ISAAC Moralez. I have independently interviewed and examined the patient and reviewed pertinent historical, laboratory, and other data. Please refer to ISAAC Moralez note for his patient's presentation, findings, and recommendations. I have reviewed and his note and concur with his documentation Patient was seen and examined. Underwent pacemaker placement yesterday. Today, he underwent a left heart cath and found to have 80% restenosis of his RCA. Physical Exam: Gen: Comfortable, not pale, not jaundiced, alert oriented x3, on 2L oxygen, obese CVS:HS I +II, regular, no murmurs RESP: Diminished at lung bases GI: BS present and normal, nontender, no palpable organs EXT:Bilateral lower leg edema +1 ASSESSMENT: 1. Acute non-STEMI, CAD, RCA instenosis, s/p cardiac cath, s/p balloon angioplasty 2. Acute on chronic systolic CHF, previous EF of 53% 3. s/p pacemaker for recent third-degree AV block 4. Acute rhino virus bronchitis 5. CAD status post CABG 6. Type II DM 7. Hypertension 8. Hyperlipidemia 9. Hypothyroidism Plan: Continue post-cath care On IVF to prevent contrast induced nephropathy Lasix on hold to prevent contrast-induced nephropathy Continue on aspirin,metoprolol, isosorbide, Code Visit Inpatient E&M: 28269 Subs Hosp L2
--- NOTE | 2019-11-29 12:15 | EKG12_ITS ---
Test Reason : POST STENT Blood Pressure : / mmHG Vent. Rate : 080 BPM Atrial Rate : 080 BPM P-R Int : 216 ms QRS Dur : 148 ms QT Int : 482 ms P-R-T Axes : 070 -73 121 degrees QTc Int : 555 ms Sinus rhythm with 1st degree A-V block Left axis deviation Left bundle branch block Abnormal ECG When compared with ECG of 29-NOV-2019 05:12, MANUAL COMPARISON REQUIRED, DATA IS UNCONFIRMED Confirmed by SINCERE KATHLEEN, PETRONA ([id number]), pictures editor JOAQUINA MAYEN ([id number]) on 12/03/2019 12:25:23 PM Referred By: SINCERE Confirmed By:PETRONA POST MD
[2019-11-29 12:52] LABS: Hematocrit 35.7 % (40-54); Hemoglobin 11.9 g/dL (13.0-16.5); Mean Corp Hgb Conc 33.3 g/dL (32-36); Mean Corpuscular Hgb 31.8 pg (27.0-32.0); Mean Corpuscular Volume 95.5 fL (80-94); Mean Platelet Vol. 9.7 fl (6.2-12.0); Platelet Count 239 K/mm3 (150-450); RBC Distribution Width CV 15.3 % (11.6-14.6); RBC Distribution Width SD 53.9 fl (35.1-43.9); Red Blood Count 3.74 M/mm3 (4.6-6.2); White Blood Count 8.4 K/mm3 (4.4-11.0)
--- NOTE | 2019-11-29 12:54 | NURSING ---
pt was started on lasix tid , jackson left in so accurate I& o could be done to evaluate fluid balance
--- NOTE | 2019-11-29 13:13 | CRPHASE1_ITS ---
Patient Communication Former Patient:: Phase I PHII Cardiac Rehab Discussed with Patient:: Yes Guide to Cardiac Rehab Given to Patient:: Yes Cardiac Rehab Facility Choice List Given to Patient:: Yes - chooses [facility] Choice Program [facility] CR PHII:: Communication Given to CR, Refer to [facility] Labor Relations Consultant:: Chuck Tran Phase II Cardiac Rehab:: Yes Sessions:: 36 sessions - 3 days/wk, 12 weeks Risk Factors/Lifestyle Hx Hypertension: Yes Hx Diabetes Mellitus Type 2: Yes Hx Dyslipidemia: Yes Hx Obesity: Yes Height: 1.7 m Weight:: 118.2 kg BMI: 40.8 Family History: Family History (Last Reviewed 11/25/19 @ 19:20 by Kyle Acosta MD) Father CAD (coronary artery disease), Onset Age: 61 Stented coronary artery Mother COPD (chronic obstructive pulmonary disease) Sister Diabetes Hypertension Past Cardiac Illness: Coronary Artery Bypass Graft Phase I Education Given On:: [place], Nutrition, Antiplatelet medication, CHF, Smoking cessation, Diabetes - Type I, Diabetes - Type II Issues Affecting Care:: None Knowledge of Condition:: Yes Hospital Course Cardiac Cath Date:: 11/29/19 Medical/Surgical History CAD:: Yes Diabetes Type II:: Yes Hypertension:: Yes Dyslipidemia:: Yes CABG: Yes PTCA:: Yes Cardiac Rehabilitation Info Cardiac Rehabilitation Program Information: Cardiac Rehabilitation is important for patients like you who are recovering from a heart problem. Cardiac rehabilitation programs are recognized as integral to the continued care of the patient with coronary heart disease. The cardiac rehabilitation program is designed to optimize a patient's physical, psychological, and social functioning. Health respiratory care faculty work in cardiac rehabilitation programs and assist you with getting the treatments you need to get stronger and healthier - like exercise, healthy eating habits, and medications. Cardiac rehabilitation has been show to help people with heart problems live longer and have better life enjoyment than people who do not go to cardiac rehabilitation. Please contact the Cardiac Rehabilitation Program at [facility] at in two weeks if you have not heard from them.
--- NOTE | 2019-11-29 13:16 | CRPH1.INSTRU ---
General Education CAD and cardiac anatomy and function:: Patient communicates acknowledgment Explanation of diagnoses and procedures:: Patient communicates acknowledgment Sign/Symptoms of PR:: Patient communicates acknowledgment Antiplatelet therapy: Patient communicates acknowledgment Proper use of NTG-SL: Not instructed Emergency procedures and activation of EMS: Patient communicates acknowledgment Compliance of all prescribed medications: Patient communicates acknowledgment Smoking Nicotine/Smoking Response Code:: Patient communicates acknowledgment Dyslipidemia Dyslipidemia Response Code:: Patient communicates acknowledgment Overweight/Obesity Patient Overweight/Obesity Risk Factors Are:: Obesity - > or = 30 Recommendations Include:: Weight loss of 5-10%, Reduced calorie diet, Exercise 5-7 times/week Overweight/Obesity:: Patient communicates acknowledgment Hypertension Recommendations Include:: Maintain BP <130/85, BP <130/80 if diabetic, DASH dietary guidelines, Decrease/maintain normal body weight, Moderation of ETOH Hypertension:: Patient communicates acknowledgment Heart Disease Heart Disease Response Code:: Patient communicates acknowledgment Diabetes Patient Diabetes Risk Factors Are:: Elevated blood sugars Recommendations Include:: Maintain fasting blood sugars 70-110 md/dL, Maintain HgbA1c of 6% or less, Monitor blood sugar as prescribed, Diabetic dietary guidelines, Decrease/maintain body weight Diabetes:: Patient communicates acknowledgment Metabolic Syndrome Metabolic Syndrome Response Code:: Patient communicates acknowledgment Sedentary Sedentary Response Code:: Patient communicates acknowledgment Stress Stress Response Code:: Patient communicates acknowledgment
[2019-11-29] MEDS: Timolol 0.5% 5ML OPTH.BTL 1 DRP RIGHT EYE ×2 (14:01→21:15)
[2019-11-29] MEDS: BRIMONIDINE 0.2% 5ML BOTTLE 1 DRP RIGHT EYE ×2 (14:01→21:15)
[2019-11-29] MEDS: Sertraline 100 MG Tablet 150 MG PO ×2 (14:02→21:14)
[2019-11-29] MEDS: Gemfibrozil 600 MG Tablet PO (14:04)
[2019-11-29] MEDS: Calcitriol 0.25 MCG Capsule PO (14:04)
[2019-11-29] MEDS: Allopurinol 100 MG Tablet PO ×2 (14:05→21:58)
[2019-11-29] MEDS: QUEtiapine 25 MG Tablet 75 MG PO ×2 (14:05→21:57)
--- NOTE | 2019-11-29 15:45 | PCM.PN.REN ---
Patient Problems: Active and Suspected Problems (Last Updated 11/29/19 @ 11:57 by Lisa Díaz) Acute diastolic (congestive) heart failure (Acute) NSTEMI (non-ST elevated myocardial infarction) (Acute 11/25/19) Subjective: no sob/cp - Physical Exam Vitals/I&O's: Vital Signs Temp Pulse Resp BP Pulse Ox 98.5 F 76 19 H 132/73 H 95 11/29/19 08:10 11/29/19 15:00 11/29/19 15:00 11/29/19 15:00 11/29/19 15:00 Oxygen Flow Rate (L/min) 2 Oxygen Delivery Method Nasal Cannula Weight: 118.2 kg Body Mass Index (BMI) 40.3 Intake and Output for Last 24 Hours 11/27/19 11/28/19 11/29/19 23:59 23:59 23:59 Intake Total 3410.01 / 3410.01 3273.75 / 3273.75 12.35 / 12.35 Output Total 1475 / 1475 500 / 500 Balance 3410.01 / 3410.01 1798.75 / 1798.75 -487.65 / -487.65 General: Alert, Oriented x3, Cooperative HEENT: Atraumatic, PERRLA, EOMI, Normocephalic Neck: Supple, No JVD, Negative Carotid Bruits Lungs: Clear to auscultation, Normal air movement Cardiovascular: Regular rate, No murmurs Abdomen: Bowel Sounds Present, Soft, Non Tender Extremities: Capillary Refill Less than 3 Seconds, Edema Skin: No rashes, No breakdown Musculoskeletal: No Tenderness to Palpation of Joints or Extremities Neurological: Cranial nerves II-XII grossly intact Psych/Mental Status: Normal Affect, Appropriate Laboratory Results 11/28/19 17:25: POC Glucose 213 H 11/28/19 21:25: POC Glucose 57 L 11/28/19 22:20: POC Glucose 59 L 11/28/19 22:53: POC Glucose 88 11/29/19 02:33: POC Glucose 107 11/29/19 06:29: POC Glucose 159 H 11/29/19 12:45: WBC 8.4, RBC 3.74 L, Hgb 11.9 L, Hct 35.7 L, MCV 95.5 H, MCH 31.8, MCHC 33.3, RDW Std Deviation 53.9 H, RDW Coeff of Margaret 15.3 H, Plt Count 239, MPV 9.7 Current Medications Albuterol Sulfate (Ventolin Aerosols) 2.5 mg INHALATION Q2H PRN PRN PRN Reason: SHORTNESS OF BREATH Allopurinol (Zyloprim) 100 mg PO BID [facility] Last Admin: 11/29/19 14:05 Dose: 100 mg Documented by: Aspirin (Ecotrin) 81 mg PO DAILY [facility] Last Admin: 11/29/19 05:26 Dose: 81 mg Documented by: Atropine Sulfate () 0.5 mg IV UD PRN PRN Reason: HR <50 bpm Brimonidine Tartrate (Brimonidine 0.2% 5ml Bottle) 1 drop RIGHT EYE BID [facility] Last Admin: 11/29/19 14:01 Dose: 1 drop Documented by: Calcitriol (Rocaltrol) 0.25 mcg PO QODAY [facility] Last Admin: 11/29/19 14:04 Dose: 0.25 mcg Documented by: [facility] Admin: 11/28/19 17:29 Dose: 100 mg Documented by: Gemfibrozil (Lopid) 600 mg PO DAILY [facility] Last Admin: 11/29/19 14:04 Dose: 600 mg Documented by: Heparin Sodium (Porcine) (Heparin Na) 5,000 unit SC Q8 [facility] Last Admin: 11/29/19 14:06 Dose: Not Given Documented by: Hydralazine HCl (Apresoline Iv) 10 mg IV Q4H PRN PRN PRN Reason: for sbp>160 or dbp>120 Last Admin: 11/29/19 14:24 Dose: 10 mg Documented by: Sodium Chloride () 500 mls @ 15 mls/hr IV PRN PRN PRN Reason: Blood Transfusion Sodium Chloride () 250 mls @ 15 mls/hr IV .[id number] PRN PRN Reason: Saline Flush Sodium Chloride () 250 mls @ 15 mls/hr IV .[id number] PRN PRN Reason: Additional IVPB Infusion Sodium Chloride () 1,000 mls @ 15 mls/hr IV .Q48H [facility] Last Admin: 11/28/19 11:04 Dose: Not Given Documented by: Sodium Chloride () 1,000 mls @ 115 mls/hr IV .[id number] [facility] Sodium Chloride () 1,000 mls @ 0 mls/hr IV .Q0M [facility] Sodium Chloride () 1,000 mls @ 60 mls/hr IV .[id number] [facility] Last Admin: 11/29/19 11:45 Dose: 60 mls/hr Documented by: Insulin Human Lispro (Humalog Kwikpen (Bkc)) 0 unit SC ACHS [facility]; Protocol Isosorbide Mononitrate (Imdur) 30 mg PO BID [facility] Last Admin: 11/29/19 05:27 Dose: 30 mg Documented by: Labetalol HCl (Trandate) 5 mg IV X1 PRN PRN Reason: SBP > 160 when pulling sheath Stop: 12/01/19 12:02 Levothyroxine Sodium (Synthroid) 75 mcg PO DAILY@0600 [facility] Last Admin: 11/29/19 05:26 Dose: 75 mcg Documented by: Metoprolol Tartrate (Lopressor (Beta Lorene)) 50 mg PO BID [facility] Last Admin: 11/29/19 05:27 Dose: 50 mg Documented by: Montelukast Sodium (Singulair) 10 mg PO QHS [facility] Last Admin: 11/28/19 22:16 Dose: 10 mg Documented by: Nitroglycerin (Nitrostat) 0.4 mg SUBLINGUAL Q5M PRN PRN Reason: CARDIAC/CHEST PAIN Ondansetron HCl (Zofran) 4 mg IV Q8H PRN PRN PRN Reason: NAUSEA/VOMITING Last Admin: 11/28/19 17:17 Dose: 4 mg Documented by: Quetiapine Fumarate (Seroquel) 75 mg PO BID [facility] Last Admin: 11/29/19 14:05 Dose: 75 mg Documented by: Senna/Docusate Sodium (Senokot-S, Emily-Colace) 2 tablet PO DAILY PRN PRN PRN Reason: CONSTIPATION Last Admin: 11/28/19 22:16 Dose: 2 tablet Documented by: Sertraline HCl (Zoloft) 150 mg PO BID [facility] Last Admin: 11/29/19 14:02 Dose: 150 mg Documented by: Sodium Chloride () 10 - 40 ml IV UD PRN PRN Reason: SALINE FLUSH Last Admin: 11/29/19 09:09 Dose: 10 ml Documented by: Sodium Chloride () 500 ml IV BOLUS PRN PRN Reason: VASO-VAGAL PROTOCOL Ticagrelor (Brilinta) 90 mg PO BID [facility] Timolol Maleate (Timoptic) 1 drop RIGHT EYE BID [facility] Last Admin: 11/29/19 14:01 Dose: 1 drop Documented by: Medical Necessity - Tobacco Use Smoking Status: Never smoker Assessment/Plan All Active Problems (Last Updated 11/29/19 @ 11:57 by Lisa Díaz) Acute diastolic (congestive) heart failure (Acute) NSTEMI (non-ST elevated myocardial infarction) (Acute 11/25/19) Acute coronary syndrome (Resolved) Angina pectoris (Resolved) Chest pain (Resolved) Orthostatic hypotension (Resolved) Syncope and collapse (Resolved) CKD 4 baseline 2.5-3 HF Hypertension CHB s/p pacemaker CAD s/p CABG check bmp in am had cardiac cath today Avoid nephrotoxins overdiuresis ivf emily cardiac cath for prevention of CAMILO bp ok monitor
[2019-11-29 16:06] LABS: Bedside Glucose 405 mg/dL (70-110)
--- NOTE | 2019-11-29 16:14 | CL.I_ITS ---
Patient Name: KATHERINE NAVA Study Date: 11/29/2019 Performing: Celina Tran MD Ht: 66.93 inches 170 cm : 1960 Wt: 260.15 lbs 118 kg Age: 59 Gender: male BSA: 2.26 PROCEDURE(S) PERFORMED [id number], SINGLE CORONARY ARTERY CLINICAL PROFILE AND CO-MORBIDITIES Indications: Suspected CAD Heart Failure: None Stress/Imaging Stress/Image Study Performed: No CONCLUSIONS Successful PTCA to the ISR of dRCA stent. RECOMMENDATIONS ASA Indefinitley Brilinta for at least 1 month and preferably 1 year. Follow up with Dr. Nelson DESCRIPTION OF PROCEDURE The patient arrived to the procedure lab. The risks and benefits of the procedure as well as a full d escription of our services here and current unavailability of surgical backup were fully explained to the patient and/or their significant other prior to the catheterization. The Timeout was completed, verifying the correct patient and procedure. The patient's procedural site was prepped and draped in the usual fashion. Local anesthetic was given subcutaneously to right radial region with Lidocaine 2% Using a modified Seldinger technique,arterial access was obtained via the right radial artery, a 6Fr sheath was inserted. Right Coronary Artery selective angiography was then performed in multiple view s using a 5 Fr. 4.0 [place] catheter. Left Coronary Artery selective angiography was performed in multi ple views using a 5 Fr. 4.0 [place] catheter.The images were reviewed and options discussed. A decision was then made to proceed with an Intervention, IVUS or other adjunct procedure. JR 4 Guide catheter was inserted and engaged into the RCA. BMW Guide wire was advanced to the RCA . 2.5 x 15 Emerge Balloon catheter was inserted. Balloon catheter was advanced across lesion in the r ight coronary, distal. PTCA balloon inflated at 12 atms for 45 secs. 2.5 x 10 Angiosculpt Balloon cat heter was advanced across lesion in the right coronary, distal. JR 4 Guide catheter was inserted and engaged into the RCA. BMW Guide wire was advanced to the RCA. Angiogram performed post balloon dilata tion. The arterial sheath was pulled and a TR Band was applied for hemostasis 14cc air INTERVENTION INFORMATION LESION SITE: RCA (Distal) Lesion Complexity: High/C, chronic total occlusion: No, lesion at bifurcation: No, thrombus present: No, lesion length: 12 mm, culprit lesion: Yes, Previously treated lesion: Yes, Timeframe of previous treatment: >2 years, Previously treated with a stent: Yes Stent Type: with PAYAL, In-stent Thrombosis: No, In-stent restenosis: Yes Pre Stenosis: 90 % Pre intervention CIARA flow: 3 PROCEDURE: Balloon Angioplasty, Cutting Balloon Angioplasty Pt. already has 2 layers of stents at this location. We felt that it will be better to do PTCA alone with angiosculpt balloon angioplasty at this time. Post Stenosis: 40 % Post intervention CIARA flow: 3 Lesion Devices: Suarez .014 BMW Max Straight 190cm Cardinal 6 Fr JR4 100cm Guide Catheter Michael Sci EMERGE MR 2.50x15 BALLOON iHELP [employer] Angiosculpt RX 2.5x10 Scoring Balloon COMPLICATIONS No Complications PROCEDURE MEDICATIONS Versed 1 mg IV Fentanyl 50 mcg IV Oxygen: 2 L/min via nasal cannula Oxygen: 4 L/min via nasal cannula Brilinta 180 mg PO @ 11/29/2019 10:49:53 Heparin 6000 unit(s) IV 11/29/2019 10:43:49 IV Fluids: .9 NaCl increased to 100 ml/hr 11/29/2019 10:55:21 SUMMARY OF HEMODYNAMIC DATA Time AIR REST ECG 09:42:29 ECG 10:07:42 AO 137/79 (100) SA 10:09:25 LV 160/10, 18 10:29:21 LV 160/11, 18 10:29:27 LVp 159/7, 18 10:29:39 AOp 161/78 (114) 10:29:44 Signed By Celina Tran MD On 11/29/2019 16:12:45 Celina Tran MD
[2019-11-29] MEDS: Insulin Lispro 100 UNIT/ML INSULN.PEN SC ×2 (16:59→21:16)
[2019-11-29] MEDS: Gabapentin 100 MG Capsule PO (16:59)
[2019-11-29] MEDS: TITRATION PARAMETER CHANGE 1 EACH IV ×2 (21:06→21:13)
[2019-11-29] MEDS: Heparin Injection (Vial) 5,000 UNIT/ML VIAL 5000 UNIT SC (21:16)
[2019-11-29] MEDS: TICAGRELOR 90 MG TABLET PO (21:56)
[2019-11-29] MEDS: Montelukast 10 MG Tablet PO (21:58)
[2019-11-29 22:06] LABS: Bedside Glucose 497 mg/dL (70-110)
[2019-11-30] VITALS (21 sets, daily range): BP systolic 128–174; BP diastolic 63–98; PULSE 60–82; RESP 10–23; TEMP 35.6–36.7; O2SAT 95–99
[2019-11-30] MEDS: 0.9% Normal Saline 1,000 ML 75 ML IV ×2 (03:55→16:49)
[2019-11-30 04:16] LABS: Hematocrit 32.3 % (40-54); Hemoglobin 10.8 g/dL (13.0-16.5); Mean Corp Hgb Conc 33.4 g/dL (32-36); Mean Corpuscular Volume 95.8 fL (80-94); Mean Platelet Vol. 10.2 fl (6.2-12.0); Platelet Count 216 K/mm3 (150-450); RBC Distribution Width SD 52.7 fl (35.1-43.9); Red Blood Count 3.37 M/mm3 (4.6-6.2); White Blood Count 6.6 K/mm3 (4.4-11.0)
[2019-11-30 04:37] LABS: ALB/GLOB Ratio 0.7 RATIO (0.9-2.4); AST(SGOT) 17 U/L (15-37); Alanine Aminotransfer ALT/SGPT 16 U/L (16-61); Albumin, Serum 2.8 g/dL (3.2-5.0); Alkaline Phosphatase 87 U/L (45-117); Anion Gap 9 (5-15); BUN 60 mg/dL (7-18); BUN/Creat Ratio 20.3 RATIO (10-20); Calcium,Total 8.3 mg/dL (8.5-10.1); Chloride 99 mmol/L (98-107); Creatinine, Serum 2.96 mg/dL (0.70-1.30); EST Glomerular Filtration Rate 23 mL/min (>60); Est Glom Filt Rate - Afr Amer 28 mL/min (>60); Estimated Creatinine Clearance 25.12 ml/min; Globulin 3.9 g/dL (2.2-4.2); Glucose 404 mg/dL (74-106); Potassium 3.8 mmol/L (3.5-5.1); Protein, Total 6.7 g/dL (6.4-8.2); Sodium Level 132 mmol/L (136-145)
[2019-11-30] MEDS: Levothyroxine 75 MCG Tablet PO (05:41)
[2019-11-30] MEDS: Heparin Injection (Vial) 5,000 UNIT/ML VIAL 5000 UNIT SC ×3 (05:41→22:46)
--- NOTE | 2019-11-30 05:51 | EKG12_ITS ---
Test Reason : AM Blood Pressure : / mmHG Vent. Rate : 071 BPM Atrial Rate : 071 BPM P-R Int : 224 ms QRS Dur : 128 ms QT Int : 488 ms P-R-T Axes : 060 -65 149 degrees QTc Int : 530 ms Sinus rhythm with 1st degree A-V block Left axis deviation Non-specific intra-ventricular conduction block T wave abnormality, consider lateral ischemia Abnormal ECG No previous ECGs available Confirmed by SINCERE KATHLEEN, PETRONA ([id number]), rewrite editor CELESTE DELACRUZ ([id number]) on 12/04/2019 2:12:29 PM Referred By: MARICRUZ Confirmed By:PETRONA POST MD
[2019-11-30] MEDS: Insulin Lispro 100 UNIT/ML INSULN.PEN SC ×4 (08:23→22:48)
[2019-11-30] MEDS: Aspirin E.C. 81 MG Tablet PO (08:24)
[2019-11-30] MEDS: Gabapentin 100 MG Capsule PO ×2 (08:24→16:17)
[2019-11-30] MEDS: Gemfibrozil 600 MG Tablet PO (08:25)
[2019-11-30] MEDS: Timolol 0.5% 5ML OPTH.BTL 1 DRP RIGHT EYE ×2 (08:25→22:50)
[2019-11-30] MEDS: Metoprolol Tartrate 50 MG Tablet PO ×2 (08:25→22:47)
[2019-11-30] MEDS: Isosorbide Mononitrate 30 MG Tablet PO ×2 (08:25→22:47)
[2019-11-30] MEDS: Allopurinol 100 MG Tablet PO ×2 (08:26→22:47)
[2019-11-30] MEDS: BRIMONIDINE 0.2% 5ML BOTTLE 1 DRP RIGHT EYE ×2 (08:26→22:49)
[2019-11-30] MEDS: Sertraline 100 MG Tablet 150 MG PO ×2 (08:26→22:46)
[2019-11-30] MEDS: QUEtiapine 25 MG Tablet 75 MG PO ×2 (08:28→22:47)
[2019-11-30] MEDS: TICAGRELOR 90 MG TABLET PO ×2 (08:28→22:46)
--- NOTE | 2019-11-30 09:56 | PN.CARD_ITS ---
Subjectve: Patient seen and evaluated Objective: Vital Signs Temp Pulse Resp BP Pulse Ox 97.8 F 78 19 H 162/89 H 99 11/30/19 07:29 11/30/19 08:25 11/30/19 07:29 11/30/19 08:25 11/30/19 07:29 Oxygen Flow Rate (L/min) 3 Oxygen Delivery Method Room Air Weight: 266 lb 5.094 oz Body Mass Index (BMI) 40.3 Intake and Output for Last 24 Hours 11/28/19 11/29/19 11/30/19 23:59 23:59 23:59 Intake Total 3273.75 / 3273.75 747.35 / 2622.35 2385.00 / 2385.00 Output Total 1475 / 1475 1300 / 2870 1570 / 1570 Balance 1798.75 / 1798.75 -552.65 / -247.65 815.00 / 815.00 General: Awake, Alert, Oriented x 3 HEENT: PERRL, EOMI, Sclera Non Icteric Neck: Supple, Good ROM, No Lymph Node Enlargement Lungs: Clear to auscultation Cardiovascular: Regular Rhythm, Normal S1, Normal S2, No Murmurs, No Rubs, No Gallops Vascular: No Carotid Bruits, Normal Femoral Pulses, Normal Radial Pulses, Normal Dorsalis Pedal Pulse, Normal Posterior Tibial Pulses Abdomen: Bowel Sounds Present, Soft, Non Tender, No HSM, No Organomegaly Extremities: No Cyanosis, No Clubbing, No edema Musculoskeletal: No Erythema Lymphatic: No Lymph Node Enlargement Neurological: No Focal Motor or Sensory Deficit Psych/Mental Status: Appropriate 11/29/19 12:45: WBC 8.4, RBC 3.74 L, Hgb 11.9 L, Hct 35.7 L, MCV 95.5 H, MCH 31.8, MCHC 33.3, Plt Count 239, MPV 9.7 11/30/19 04:00: Sodium 132 L, Potassium 3.8, Chloride 99, Carbon Dioxide 24.0, Anion Gap 9, BUN 60 H, Creatinine 2.96 H, Est GFR (MDRD) Af Amer 28 L, Est GFR (MDRD) Non-Af 23 L, BUN/Creatinine Ratio 20.3 H, Glucose 404 H, Calcium 8.3 L, Total Bilirubin 0.60 11/30/19 04:00: WBC 6.6, RBC 3.37 L, Hgb 10.8 L, Hct 32.3 L, MCV 95.8 H, MCH 32.0, MCHC 33.4, Plt Count 216, MPV 10.2 Rhythm: EKG: ECHO: Stress Test: Cardiac Cath: PCI: CT Surgery: Holter monitor: EPS: PPM: CXR: Chest CT Scan: Medical Necessity - Tobacco Use Smoking Status: Never smoker Assessment/Plan 1. Non-ST elevation myocardial infarction * He does have a history of known coronary artery disease with abnormal cardiac enzymes. He is status post coronary bypass surgery. He does have precarious renal dysfunction and he has been hydrated with some improvement in his kidney function. He may eventually need a left heart catheterization to assess his coronary anatomy. * Is limited cardiac catheterization today demonstrated disease left main coronary artery, * Totally occluded left anterior descending artery * Totally occluded circumflex artery * Previously stented right coronary artery with high-grade mid to distal stenosis * Based on the above angiographic findings the patient was referred for and underwent angioplasty of the pala right coronary artery with limited dye load. The left internal mammary artery to the left anterior descending artery is presumed to be patent based on the preserved ventricular function in the anterior wall. Due to the significant renal dysfunction dye administration is been limited and therefore was not imaged. * He still does have some renal compromise this morning and we will continue with IV hydration for another 24 hours. * 2. Intermittent complete heart block with syncope * He has had a previous history of intermittent heart block with syncope. He was already scheduled to have permanent pacemaker implantation earlier in the week. * He underwent placement of a dual-chamber permanent pacemaker yesterday. * His pacemaker interrogation demonstrated normal functioning. Chest x-ray demonstrates normal positioning. 3. Left ventricular systolic dysfunction * He does have mild ventricular systolic dysfunction. His estimated ejection fraction is 40 to 45% with inferior posterior hypokinesis. We will continue to monitor the above. No other major changes will be made. * * Thank you for allowing me to participate in the care of your patient. Please don't hesitate to call if any issues arise
--- NOTE | 2019-11-30 10:00 | EKG12_ITS ---
Test Reason : CP Blood Pressure : / mmHG Vent. Rate : 077 BPM Atrial Rate : 077 BPM P-R Int : 248 ms QRS Dur : 140 ms QT Int : 454 ms P-R-T Axes : 065 -59 128 degrees QTc Int : 513 ms Sinus rhythm with 1st degree A-V block Left axis deviation Non-specific intra-ventricular conduction block T wave abnormality, consider lateral ischemia Abnormal ECG When compared with ECG of 29-NOV-2019 11:17, MANUAL COMPARISON REQUIRED, DATA IS UNCONFIRMED Confirmed by SINCERE KATHLEEN, PETRONA ([id number]), editor continuity and script JOAQUINA MAYEN ([id number]) on 12/03/2019 12:32:02 PM Referred By: DR LAYTON Confirmed By:PETRONA POST MD
[2019-11-30] MEDS: NIFEdipine 60 MG Tablet PO (11:09)
[2019-11-30 11:11] LABS: Bedside Glucose 378 mg/dL (70-110)
--- NOTE | 2019-11-30 12:29 | PN_ITS ---
<Luca Gregory - Last Filed: 11/30/19 12:29> Patient Problems: Active and Suspected Problems (Last Updated 11/29/19 @ 18:39 by Lisa Díaz) NSTEMI (non-ST elevated myocardial infarction) (Acute 11/25/19) Reason for Visit: s/p L heart cath Subjective: Pt resting comfortably in chair at bedside. No CP, No SOB, no LE edema, no abdominal pain /nausea/vomiting. No bleeding at cath sight. Vitals/I&O's: Vital Signs Temp Pulse Resp BP Pulse Ox 97.8 F 78 19 H 162/89 H 99 11/30/19 07:29 11/30/19 08:25 11/30/19 07:29 11/30/19 08:25 11/30/19 07:29 Oxygen Flow Rate (L/min) 3 Oxygen Delivery Method Room Air Weight: 266 lb 5.094 oz Body Mass Index (BMI) 40.3 Intake and Output for Last 24 Hours 11/28/19 11/29/19 11/30/19 23:59 23:59 23:59 Intake Total 3273.75 / 3273.75 747.35 / 2622.35 2385.00 / 2385.00 Output Total 1475 / 1475 1300 / 2870 1570 / 1570 Balance 1798.75 / 1798.75 -552.65 / -247.65 815.00 / 815.00 General: Alert, Oriented x3, Cooperative HEENT: Atraumatic, PERRLA, EOMI, Normocephalic Neck: Supple, No JVD, Negative Carotid Bruits Lungs: Clear to auscultation, Normal air movement Cardiovascular: Regular rate, No murmurs Abdomen: Bowel Sounds Present, Soft, Non Tender Extremities: No edema, Capillary Refill Less than 3 Seconds Skin: No rashes, No breakdown Musculoskeletal: No Tenderness to Palpation of Joints or Extremities Neurological: Cranial nerves II-XII grossly intact Psych/Mental Status: Normal Affect, Appropriate, Alert and oriented to time, place, person, mood and affect Laboratory Results 11/29/19 12:45: WBC 8.4, RBC 3.74 L, Hgb 11.9 L, Hct 35.7 L, MCV 95.5 H, MCH 31.8, MCHC 33.3, RDW Std Deviation 53.9 H, RDW Coeff of Margaret 15.3 H, Plt Count 239, MPV 9.7 11/29/19 15:56: POC Glucose 405 H 11/29/19 21:11: POC Glucose 497 H* 11/30/19 04:00: Sodium 132 L, Potassium 3.8, Chloride 99, Carbon Dioxide 24.0, Anion Gap 9, BUN 60 H, Creatinine 2.96 H, Estim Creat Clear Calc 25.12, Est GFR (MDRD) Af Amer 28 L, Est GFR (MDRD) Non-Af 23 L, BUN/Creatinine Ratio 20.3 H, Glucose 404 H, Calcium 8.3 L, Total Bilirubin 0.60, AST 17, ALT 16, Alkaline Phosphatase 87, Total Protein 6.7, Albumin 2.8 L, Globulin 3.9, Albumin/Globulin Ratio 0.7 L 11/30/19 04:00: WBC 6.6, RBC 3.37 L, Hgb 10.8 L, Hct 32.3 L, MCV 95.8 H, MCH 32.0, MCHC 33.4, RDW Std Deviation 52.7 H, RDW Coeff of Margaret 15.0 H, Plt Count 216, MPV 10.2 11/30/19 11:02: POC Glucose 378 H Current Medications Albuterol Sulfate (Ventolin Aerosols) 2.5 mg INHALATION Q2H PRN PRN PRN Reason: SHORTNESS OF BREATH Allopurinol (Zyloprim) 100 mg PO BID [facility] Last Admin: 11/30/19 08:26 Dose: 100 mg Documented by: [facility]) [facility] Last Admin: 11/30/19 08:24 Dose: 81 mg Documented by: Atropine Sulfate () 0.5 mg IV UD PRN PRN Reason: HR <50 bpm Brimonidine Tartrate (Brimonidine 0.2% 5ml Bottle) 1 drop RIGHT EYE BID [facility] Last Admin: 11/30/19 08:26 Dose: 1 drop Documented by: Calcitriol (Rocaltrol) 0.25 mcg PO QODAY [facility] Last Admin: 11/29/19 14:04 Dose: 0.25 mcg Documented by: Gabap[facility]ontin) [facility] Last Admin: 11/30/19 08:24 Dose: 100 mg Documented by: Gemfibrozil (Lopid) 600 mg PO DAILY [facility] Last Admin: 11/30/19 08:25 Dose: 600 mg Documented by: Heparin Sodium (Porcine) (Heparin Na) 5,000 unit SC Q8 [facility] Last Admin: 11/30/19 05:41 Dose: 5,000 unit Documented by: Hydralazine HCl (Apresoline Iv) 10 mg IV Q4H PRN PRN PRN Reason: for sbp>160 or dbp>120 Last Admin: 11/29/19 14:24 Dose: 10 mg Documented by: Sodium Chloride () 500 mls @ 15 mls/hr IV PRN PRN PRN Reason: Blood Transfusion Sodium Chloride () 1,000 mls @ 0 mls/hr IV .Q0M AMANDA Sodium Chloride () 1,000 mls @ 75 mls/hr IV .[id number] [facility] Last Infusion: 11/30/19 06:00 Dose: 75 mls/hr Documented by: Insulin Human Lispro (Humalog Kwikpen (Bkc)) 0 unit SC ACHS [facility]; Protocol Last Admin: 11/30/19 11:09 Dose: 4 u Documented by: Isosorbide Mononitrate (Imdur) 30 mg PO BID [facility] Last Admin: 11/30/19 08:25 Dose: 30 mg Documented by: Labetalol HCl (Trandate) 5 mg IV X1 PRN PRN Reason: SBP > 160 when pulling sheath Stop: 12/01/19 12:02 Levothyroxine Sodium (Synthroid) 75 mcg PO DAILY@0600 [facility] Last Admin: 11/30/19 05:41 Dose: 75 mcg Documented by: Metoprolol Tartrate (Lopressor (Beta Lorene)) 50 mg PO BID [facility] Last Admin: 11/30/19 08:25 Dose: 50 mg Documented by: Montelukast Sodium (Singulair) 10 mg PO QHS [facility] Last Admin: 11/29/19 21:58 Dose: 10 mg Documented by: Nifedipine (Procardia Xl) 60 mg PO DAILY [facility] Last Admin: 11/30/19 11:09 Dose: 60 mg Documented by: Nitroglycerin (Nitrostat) 0.4 mg SUBLINGUAL Q5M PRN PRN Reason: CARDIAC/CHEST PAIN Ondansetron HCl (Zofran) 4 mg IV Q8H PRN PRN PRN Reason: NAUSEA/VOMITING Last Admin: 11/28/19 17:17 Dose: 4 mg Documented by: Quetiapine Fumarate (Seroquel) 75 mg PO BID [facility] Last Admin: 11/30/19 08:28 Dose: 75 mg Documented by: Senna/Docusate Sodium (Senokot-S, Emily-Colace) 2 tablet PO DAILY PRN PRN PRN Reason: CONSTIPATION Last Admin: 11/28/19 22:16 Dose: 2 tablet Documented by: Sertraline HCl (Zoloft) 150 mg PO BID [facility] Last Admin: 11/30/19 08:26 Dose: 150 mg Documented by: Sodium Chloride () 10 - 40 ml IV UD PRN PRN Reason: SALINE FLUSH Last Admin: 11/29/19 09:09 Dose: 10 ml Documented by: Sodium Chloride () 500 ml IV BOLUS PRN PRN Reason: VASO-VAGAL PROTOCOL Ticagrelor (Brilinta) 90 mg PO BID [facility] Last Admin: 11/30/19 08:28 Dose: 90 mg Documented by: Timolol Maleate (Timoptic) 1 drop RIGHT EYE BID [facility] Last Admin: 11/30/19 08:25 Dose: 1 drop Documented by: Medical Necessity - Tobacco Use Smoking Status: Never smoker Assessment/Plan All Active Problems (Last Updated 11/29/19 @ 18:39 by Lisa Díaz) NSTEMI (non-ST elevated myocardial infarction) (Acute 11/25/19) Acute coronary syndrome (Resolved) Angina pectoris (Resolved) Chest pain (Resolved) Orthostatic hypotension (Resolved) Syncope and collapse (Resolved) 1. Non-STEMI- s/p balloon angioplasty yesterday. continue imdur, metoprolol, aspirin. 2. Third-degree heart block-pacemaker per Dr. Nelson this admission 3. Chronic CHF, systolic-prior EF 41%. No shortness of breath, or severe edema. Lasix held for worsening renal function 4. Acute rhinovirus-resolved. 5. CAD with prior CABG - as per #1. 6. Type 2 diabetes with morbid obesity-orals held. Continue sliding scale insulin 7. CKD stage IV-nephrology following. JUAN and lasix hold. Worsening creatinine after cath. Minimal was used. Recheck BMP in AM. Avoid nephrotoxins. 8. Hypertension-stable 9. Hyperlipidemia-again allergic to statin, continue gemfibrozil 10. ABBI-continue home BiPAP nightly 11. Hypothyroidism-Synthroid 12. Depression-sertraline, Seroquel 13. Gout-on allopurinol DVT prophylaxis: Heparin DC planning: trend renal function, pt to PCU today. This patient was seen by Luca Gregory PA-C under the supervision of Doctor Niko. <Niko,Moran - Last Filed: 11/30/19 13:14> Vitals/I&O's: Vital Signs Temp Pulse Resp BP Pulse Ox 97.8 F 78 19 H 162/89 H 99 11/30/19 07:29 11/30/19 08:25 11/30/19 07:29 11/30/19 08:25 11/30/19 07:29 Oxygen Flow Rate (L/min) 3 Oxygen Delivery Method Room Air Weight: 120.8 kg Body Mass Index (BMI) 40.3 Intake and Output for Last 24 Hours 11/28/19 11/29/19 11/30/19 23:59 23:59 23:59 Intake Total 3273.75 / 3273.75 747.35 / 2622.35 2385.00 / 2385.00 Output Total 1475 / 1475 1300 / 2870 1570 / 1570 Balance 1798.75 / 1798.75 -552.65 / -247.65 815.00 / 815.00 Laboratory Results 11/29/19 15:56: POC Glucose 405 H 11/29/19 21:11: POC Glucose 497 H* 11/30/19 04:00: Sodium 132 L, Potassium 3.8, Chloride 99, Carbon Dioxide 24.0, Anion Gap 9, BUN 60 H, Creatinine 2.96 H, Estim Creat Clear Calc 25.12, Est GFR (MDRD) Af Amer 28 L, Est GFR (MDRD) Non-Af 23 L, BUN/Creatinine Ratio 20.3 H, Glucose 404 H, Calcium 8.3 L, Total Bilirubin 0.60, AST 17, ALT 16, Alkaline Phosphatase 87, Total Protein 6.7, Albumin 2.8 L, Globulin 3.9, Albumin/Globulin Ratio 0.7 L 11/30/19 04:00: WBC 6.6, RBC 3.37 L, Hgb 10.8 L, Hct 32.3 L, MCV 95.8 H, MCH 32.0, MCHC 33.4, RDW Std Deviation 52.7 H, RDW Coeff of Margaret 15.0 H, Plt Count 216, MPV 10.2 11/30/19 11:02: POC Glucose 378 H Current Medications Albuterol Sulfate (Ventolin Aerosols) 2.5 mg INHALATION Q2H PRN PRN PRN Reason: SHORTNESS OF BREATH Allopurinol (Zyloprim) 100 mg PO BID [facility] Last Admin: 11/30/19 08:26 Dose: 100 mg Documented by: Aspirin (Ecotrin) [facility] Last Admin: 11/30/19 08:24 Dose: 81 mg Documented by: Atropine Sulfate () 0.5 mg IV UD PRN PRN Reason: HR <50 bpm Brimonidine Tartrate (Brimonidine 0.2% 5ml Bottle) 1 drop RIGHT EYE BID [facility] Last Admin: 11/30/19 08:26 Dose: 1 drop Documented by: Calcitriol (Rocaltrol) 0.25 mcg PO QODAY [facility] Last Admin: 11/29/19 14:04 Dose: 0.25 mcg Documented by: Gabapentin (Neurontin) [facility] Last Admin: 11/30/19 08:24 Dose: 100 mg Documented by: Gemfibrozil (Lopid) 600 mg PO DAILY [facility] Last Admin: 11/30/19 08:25 Dose: 600 mg Documented by: Heparin Sodium (Porcine) (Heparin Na) 5,000 unit SC Q8 [facility] Last Admin: 11/30/19 05:41 Dose: 5,000 unit Documented by: Hydralazine HCl (Apresoline Iv) 10 mg IV Q4H PRN PRN PRN Reason: for sbp>160 or dbp>120 Last Admin: 11/29/19 14:24 Dose: 10 mg Documented by: Sodium Chloride () 500 mls @ 15 mls/hr IV PRN PRN PRN Reason: Blood Transfusion Sodium Chloride () 1,000 mls @ 0 mls/hr IV .Q0M [facility] Sodium Chloride () 1,000 mls @ 75 mls/hr IV .[id number] [facility] Last Infusion: 11/30/19 06:00 Dose: 75 mls/hr Documented by: Insulin Human Lispro (Humalog Kwlulipen (Bkc)) 0 unit SC ACHS [facility]; Protocol Last Admin: 11/30/19 11:09 Dose: 4 u Documented by: Isosorbide Mononitrate (Imdur) 30 mg PO BID [facility] Last Admin: 11/30/19 08:25 Dose: 30 mg Documented by: Labetalol HCl (Trandate) 5 mg IV X1 PRN PRN Reason: SBP > 160 when pulling sheath Stop: 12/01/19 12:02 Levothyroxine Sodium (Synthroid) 75 mcg PO DAILY@0600 [facility] Last Admin: 11/30/19 05:41 Dose: 75 mcg Documented by: Metoprolol Tartrate (Lopressor (Beta Lorene)) 50 mg PO BID [facility] Last Admin: 11/30/19 08:25 Dose: 50 mg Documented by: Montelukast Sodium (Singulair) 10 mg PO QHS [facility] Last Admin: 11/29/19 21:58 Dose: 10 mg Documented by: Nifedipine (Procardia Xl) 60 mg PO DAILY [facility] Last Admin: 11/30/19 11:09 Dose: 60 mg Documented by: Nitroglycerin (Nitrostat) 0.4 mg SUBLINGUAL Q5M PRN PRN Reason: CARDIAC/CHEST PAIN Ondansetron HCl (Zofran) 4 mg IV Q8H PRN PRN PRN Reason: NAUSEA/VOMITING Last Admin: 11/28/19 17:17 Dose: 4 mg Documented by: Quetiapine Fumarate (Seroquel) 75 mg PO BID [facility] Last Admin: 11/30/19 08:28 Dose: 75 mg Documented by: Senna/Docusate Sodium (Senokot-S, Emily-Colace) 2 tablet PO DAILY PRN PRN PRN Reason: CONSTIPATION Last Admin: 11/28/19 22:16 Dose: 2 tablet Documented by: Sertraline HCl (Zoloft) 150 mg PO BID [facility] Last Admin: 11/30/19 08:26 Dose: 150 mg Documented by: Sodium Chloride () 10 - 40 ml IV UD PRN PRN Reason: SALINE FLUSH Last Admin: 11/29/19 09:09 Dose: 10 ml Documented by: Sodium Chloride () 500 ml IV BOLUS PRN PRN Reason: VASO-VAGAL PROTOCOL Ticagrelor (Brilinta) 90 mg PO BID [facility] Last Admin: 11/30/19 08:28 Dose: 90 mg Documented by: Timolol Maleate (Timoptic) 1 drop RIGHT EYE BID [facility] Last Admin: 11/30/19 08:25 Dose: 1 drop Documented by: Assessment/Plan This patient was seen in conjunction with ISAAC Moralez. I have independently interviewed and examined the patient and reviewed pertinent historical, laboratory, and other data. Please refer to ISAAC Moralez note for his patient's presentation, findings, and recommendations. I have reviewed and his note and concur with his documentation Patient was seen and examined. He feels well. Denied any new complaints. Physical Exam: Gen: Comfortable, not pale, not jaundiced, alert oriented x3, on 2L oxygen, obese CVS:HS I +II, regular, no murmurs RESP: Diminished at lung bases GI: BS present and normal, nontender, no palpable organs EXT:Bilateral lower leg edema +1 LAB: Slight increase in creatinine ASSESSMENT: 1. Acute non-STEMI, CAD, RCA instenosis, s/p cardiac cath, s/p balloon angioplasty 2. Acute on chronic systolic CHF, previous EF of 53% 3. s/p pacemaker for recent third-degree AV block 4. Acute rhino virus bronchitis 5. CAD status post CABG 6. Type II DM 7. Hypertension, uncontrolled 8. Hyperlipidemia 9. Hypothyroidism Plan: On IVF, repeat BMP Continue to hold Lasix Continue on aspirin,metoprolol, isosorbide, nifedipine, hydralazine prn Code Visit Inpatient E&M: 16983 Subs Hosp L2
--- NOTE | 2019-11-30 14:12 | NURSING ---
report called to [facility] for transfer to room [id number] with belongings per chair, family present
[2019-11-30] MEDS: 0.9% Saline Lock 10 ML Syringe IV (14:56)
--- NOTE | 2019-11-30 16:06 | PCM.PN.REN ---
Patient Problems: Active and Suspected Problems (Last Updated 11/29/19 @ 18:39 by Lisa Díaz) NSTEMI (non-ST elevated myocardial infarction) (Acute 11/25/19) Subjective: Patient denies shortness of breath or chest pain or any other complaints - Physical Exam Vitals/I&O's: Vital Signs Temp Pulse Resp BP Pulse Ox 96.1 F L 64 16 151/70 H 95 11/30/19 14:40 11/30/19 14:40 11/30/19 14:40 11/30/19 14:40 11/30/19 14:40 Oxygen Flow Rate (L/min) 2 Oxygen Delivery Method Room Air Weight: 120.8 kg Body Mass Index (BMI) 40.3 Intake and Output for Last 24 Hours 11/28/19 11/29/19 11/30/19 23:59 23:59 23:59 Intake Total 3273.75 / 3273.75 747.35 / 2622.35 2785.00 / 2785.00 Output Total 1475 / 1475 1300 / 2870 2470 / 2470 Balance 1798.75 / 1798.75 -552.65 / -247.65 315.00 / 315.00 General: Alert, Oriented x3, Cooperative HEENT: Atraumatic, PERRLA, EOMI, Normocephalic Neck: Supple, No JVD, Negative Carotid Bruits Lungs: Clear to auscultation, Normal air movement Cardiovascular: Regular rate, No murmurs Abdomen: Bowel Sounds Present, Soft, Non Tender Extremities: Capillary Refill Less than 3 Seconds, Edema Skin: No rashes, No breakdown Musculoskeletal: No Tenderness to Palpation of Joints or Extremities Neurological: Cranial nerves II-XII grossly intact Psych/Mental Status: Normal Affect, Appropriate Laboratory Results 11/29/19 15:56: POC Glucose 405 H 11/29/19 21:11: POC Glucose 497 H* 11/30/19 04:00: Sodium 132 L, Potassium 3.8, Chloride 99, Carbon Dioxide 24.0, Anion Gap 9, BUN 60 H, Creatinine 2.96 H, Estim Creat Clear Calc 25.12, Est GFR (MDRD) Af Amer 28 L, Est GFR (MDRD) Non-Af 23 L, BUN/Creatinine Ratio 20.3 H, Glucose 404 H, Calcium 8.3 L, Total Bilirubin 0.60, AST 17, ALT 16, Alkaline Phosphatase 87, Total Protein 6.7, Albumin 2.8 L, Globulin 3.9, Albumin/Globulin Ratio 0.7 L 11/30/19 04:00: WBC 6.6, RBC 3.37 L, Hgb 10.8 L, Hct 32.3 L, MCV 95.8 H, MCH 32.0, MCHC 33.4, RDW Std Deviation 52.7 H, RDW Coeff of Margaret 15.0 H, Plt Count 216, MPV 10.2 11/30/19 11:02: POC Glucose 378 H Current Medications Albuterol Sulfate (Ventolin Aerosols) 2.5 mg INHALATION Q2H PRN PRN PRN Reason: SHORTNESS OF BREATH Allopurinol (Zyloprim) 100 mg PO BID [facility] Last Admin: 11/30/19 08:26 Dose: 100 mg Documented by: [facility] Admin: 11/30/19 08:24 Dose: 81 mg Documented by: Atropine Sulfate () 0.5 mg IV UD PRN PRN Reason: HR <50 bpm Brimonidine Tartrate (Brimonidine 0.2% 5ml Bottle) 1 drop RIGHT EYE BID [facility] Last Admin: 11/30/19 08:26 Dose: 1 drop Documented by: Calcitriol (Rocaltrol) 0.25 mcg PO QODAY [facility] Last Admin: 11/29/19 14:04 Dose: 0.25 mcg Documented by: [facility]in) [facility] Last Admin: 11/30/19 08:24 Dose: 100 mg Documented by: Gemfibrozil (Lopid) 600 mg PO DAILY [facility] Last Admin: 11/30/19 08:25 Dose: 600 mg Documented by: Heparin Sodium (Porcine) (Heparin Na) 5,000 unit SC Q8 [facility] Last Admin: 11/30/19 14:55 Dose: 5,000 unit Documented by: Hydralazine HCl (Apresoline Iv) 10 mg IV Q4H PRN PRN PRN Reason: for sbp>160 or dbp>120 Last Admin: 11/29/19 14:24 Dose: 10 mg Documented by: Sodium Chloride () 500 mls @ 15 mls/hr IV PRN PRN PRN Reason: Blood Transfusion Sodium Chloride () 1,000 mls @ 0 mls/hr IV .Q0M [facility] Sodium Chloride () 1,000 mls @ 75 mls/hr IV .[id number] [facility] Last Infusion: 11/30/19 06:00 Dose: 75 mls/hr Documented by: Insulin Human Lispro (Humalog Kwikpen (Bkc)) 0 unit SC ACHS [facility]; Protocol Last Admin: 11/30/19 11:09 Dose: 4 u Documented by: Isosorbide Mononitrate (Imdur) 30 mg PO BID [facility] Last Admin: 11/30/19 08:25 Dose: 30 mg Documented by: Labetalol HCl (Trandate) 5 mg IV X1 PRN PRN Reason: SBP > 160 when pulling sheath Stop: 12/01/19 12:02 Levothyroxine Sodium (Synthroid) 75 mcg PO DAILY@0600 [facility] Last Admin: 11/30/19 05:41 Dose: 75 mcg Documented by: Metoprolol Tartrate (Lopressor (Beta Lorene)) 50 mg PO BID [facility] Last Admin: 11/30/19 08:25 Dose: 50 mg Documented by: Montelukast Sodium (Singulair) 10 mg PO QHS [facility] Last Admin: 11/29/19 21:58 Dose: 10 mg Documented by: Nifedipine (Procardia Xl) 60 mg PO DAILY [facility] Last Admin: 11/30/19 11:09 Dose: 60 mg Documented by: Nitroglycerin (Nitrostat) 0.4 mg SUBLINGUAL Q5M PRN PRN Reason: CARDIAC/CHEST PAIN Ondansetron HCl (Zofran) 4 mg IV Q8H PRN PRN PRN Reason: NAUSEA/VOMITING Last Admin: 11/28/19 17:17 Dose: 4 mg Documented by: Quetiapine Fumarate (Seroquel) 75 mg PO BID [facility] Last Admin: 11/30/19 08:28 Dose: 75 mg Documented by: Senna/Docusate Sodium (Senokot-S, Emily-Colace) 2 tablet PO DAILY PRN PRN PRN Reason: CONSTIPATION Last Admin: 11/28/19 22:16 Dose: 2 tablet Documented by: Sertraline HCl (Zoloft) 150 mg PO BID [facility] Last Admin: 11/30/19 08:26 Dose: 150 mg Documented by: Sodium Chloride () 10 - 40 ml IV UD PRN PRN Reason: SALINE FLUSH Last Admin: 11/30/19 14:56 Dose: 10 ml Documented by: Sodium Chloride () 500 ml IV BOLUS PRN PRN Reason: VASO-VAGAL PROTOCOL Ticagrelor (Brilinta) 90 mg PO BID [facility] Last Admin: 11/30/19 08:28 Dose: 90 mg Documented by: Timolol Maleate (Timoptic) 1 drop RIGHT EYE BID [facility] Last Admin: 11/30/19 08:25 Dose: 1 drop Documented by: Medical Necessity - Tobacco Use Smoking Status: Never smoker Assessment/Plan All Active Problems (Last Updated 11/29/19 @ 18:39 by Lisa Díaz) NSTEMI (non-ST elevated myocardial infarction) (Acute 11/25/19) Acute coronary syndrome (Resolved) Angina pectoris (Resolved) Chest pain (Resolved) Orthostatic hypotension (Resolved) Syncope and collapse (Resolved) CKD 4 baseline 2.5-3 HF Hypertension CHB s/p pacemaker CAD s/p CABG Scr 2.9 still c/w baseline range and has significant lower extremity edema. He stable renal function tomorrow consider resuming JUAN inhibitor and diuretics close monitoring of his potassium and renal function. check bmp in am can use diuretics prn Avoid nephrotoxins overdiuresis bp better monitor
[2019-11-30 16:26] LABS: Bedside Glucose 388 mg/dL (70-110)
--- NOTE | 2019-11-30 18:16 | NURSING ---
Reviewed and agreed on all charting with Precious Warner RN
--- NOTE | 2019-11-30 21:14 | EKG12_ITS ---
Test Reason : AM EKG Blood Pressure : / mmHG Vent. Rate : 075 BPM Atrial Rate : 075 BPM P-R Int : 220 ms QRS Dur : 140 ms QT Int : 470 ms P-R-T Axes : 056 -60 131 degrees QTc Int : 524 ms Sinus rhythm with 1st degree A-V block Left axis deviation Non-specific intra-ventricular conduction block T wave abnormality, consider lateral ischemia Abnormal ECG When compared with ECG of 26-NOV-2019 05:39, MANUAL COMPARISON REQUIRED, DATA IS UNCONFIRMED Confirmed by SINCERE KATHLEEN, PETRONA ([id number]), avid editor JOAQUINA MAYEN ([id number]) on 12/03/2019 12:32:59 PM Referred By: MARICRUZ Confirmed By:PETRONA POST MD
[2019-11-30] MEDS: Montelukast 10 MG Tablet PO (22:47)
[2019-11-30 23:01] LABS: Bedside Glucose 423 mg/dL (70-110)
[2019-12-01 02:45] VITALS: BP 140/74; PULSE 76; RESP 13; TEMP 36.4; O2SAT 97
[2019-12-01 03:04] VITALS: PULSE 71
[2019-12-01] MEDS: 0.9% Normal Saline 1,000 ML 75 ML IV (06:18)
[2019-12-01] MEDS: Levothyroxine 75 MCG Tablet PO (06:19)
[2019-12-01] MEDS: Heparin Injection (Vial) 5,000 UNIT/ML VIAL 5000 UNIT SC (06:19)
[2019-12-01] MEDS: Insulin Lispro 100 UNIT/ML INSULN.PEN SC ×2 (06:43→11:11)
[2019-12-01 06:44] LABS: Hematocrit 31.3 % (40-54); Hemoglobin 10.3 g/dL (13.0-16.5); Mean Corp Hgb Conc 32.9 g/dL (32-36); Mean Corpuscular Hgb 31.2 pg (27.0-32.0); Mean Corpuscular Volume 94.8 fL (80-94); Mean Platelet Vol. 9.9 fl (6.2-12.0); Platelet Count 209 K/mm3 (150-450); RBC Distribution Width CV 14.8 % (11.6-14.6); RBC Distribution Width SD 51.8 fl (35.1-43.9); White Blood Count 6.4 K/mm3 (4.4-11.0)
[2019-12-01 06:56] VITALS: PULSE 65
[2019-12-01 06:59] LABS: Albumin, Serum 2.9 g/dL (3.2-5.0); Anion Gap 7 (5-15); BUN 60 mg/dL (7-18); BUN/Creat Ratio 21.9 RATIO (10-20); Calcium,Total 8.8 mg/dL (8.5-10.1); Chloride 104 mmol/L (98-107); Creatinine, Serum 2.74 mg/dL (0.70-1.30); EST Glomerular Filtration Rate 25 mL/min (>60); Est Glom Filt Rate - Afr Amer 31 mL/min (>60); Estimated Creatinine Clearance 27.14 ml/min; Glucose 298 mg/dL (74-106); Phosphorus 4.4 mg/dL (2.5-4.9); Sodium Level 134 mmol/L (136-145)
[2019-12-01 07:06] LABS: Bedside Glucose 303 mg/dL (70-110)
[2019-12-01 07:47] VITALS: BP 154/72; PULSE 69; RESP 16; TEMP 36.3; O2SAT 93
[2019-12-01] MEDS: Gabapentin 100 MG Capsule PO (07:49)
[2019-12-01] MEDS: Aspirin E.C. 81 MG Tablet PO (07:50)
[2019-12-01] MEDS: 0.9% Saline Lock 10 ML Syringe IV (07:50)
--- NOTE | 2019-12-01 09:05 | PN.CARD_ITS ---
Subjectve: Patient seen and evaluated. Appears to be doing better this morning. Objective: Vital Signs Temp Pulse Resp BP Pulse Ox 97.3 F L 69 16 154/72 H 93 12/01/19 07:47 12/01/19 07:47 12/01/19 07:47 12/01/19 07:47 12/01/19 07:47 Oxygen Flow Rate (L/min) 95 Oxygen Delivery Method Room Air Weight: 266 lb 5.094 oz Body Mass Index (BMI) 40.3 Intake and Output for Last 24 Hours 11/29/19 11/30/19 12/01/19 23:59 23:59 23:59 Intake Total 747.35 / 2622.35 4086.25 / 4086.25 1010 / 1010 Output Total 1300 / 2870 2470 / 2470 Balance -552.65 / -247.65 1616.25 / 1616.25 1010 / 1010 General: Awake, Alert, Oriented x 3 HEENT: PERRL, EOMI, Sclera Non Icteric Neck: Supple, Good ROM, No Lymph Node Enlargement Lungs: Clear to auscultation Cardiovascular: Regular Rhythm, Normal S1, Normal S2, No Murmurs, No Rubs, No Gallops Vascular: No Carotid Bruits, Normal Femoral Pulses, Normal Radial Pulses, Normal Dorsalis Pedal Pulse, Normal Posterior Tibial Pulses Abdomen: Bowel Sounds Present, Soft, Non Tender, No HSM, No Organomegaly Extremities: No Cyanosis, No Clubbing, No edema Neurological: No Focal Motor or Sensory Deficit 12/01/19 06:16: WBC 6.4, RBC 3.30 L, Hgb 10.3 L, Hct 31.3 L, MCV 94.8 H, MCH 31.2, MCHC 32.9, Plt Count 209, MPV 9.9 12/01/19 06:16: Sodium 134 L, Potassium 4.0, Chloride 104, Carbon Dioxide 23.0, Anion Gap 7, BUN 60 H, Creatinine 2.74 H, Est GFR (MDRD) Af Amer 31 L, Est GFR (MDRD) Non-Af 25 L, BUN/Creatinine Ratio 21.9 H, Glucose 298 H, Calcium 8.8, Phosphorus 4.4 Rhythm: EKG: ECHO: Stress Test: Cardiac Cath: PCI: CT Surgery: Holter monitor: EPS: PPM: CXR: Chest CT Scan: Medical Necessity - Tobacco Use Smoking Status: Never smoker Assessment/Plan 1. Non-ST elevation myocardial infarction * He does have a history of known coronary artery disease with abnormal cardiac enzymes. He is status post coronary bypass surgery. He does have precarious renal dysfunction and he has been hydrated with some improvement in his kidney function. He may eventually need a left heart catheterization to assess his coronary anatomy. * Is limited cardiac catheterization today demonstrated disease left main coronary artery, * Totally occluded left anterior descending artery * Totally occluded circumflex artery * Previously stented right coronary artery with high-grade mid to distal stenosis * Based on the above angiographic findings the patient was referred for and underwent angioplasty of the [place] right coronary artery with limited dye load. The left internal mammary artery to the left anterior descending artery is presumed to be patent based on the preserved ventricular function in the anterior wall. Due to the significant renal dysfunction dye administration is been limited and therefore was not imaged. * He still does have some renal compromise this morning and his renal function is improving, and he will continue to force oral hydration. * Chemistry profile will need to be rechecked within a week * 2. Intermittent complete heart block with syncope * He has had a previous history of intermittent heart block with syncope. He was already scheduled to have permanent pacemaker implantation earlier in the week. * He underwent placement of a dual-chamber permanent pacemaker yesterday. * His pacemaker interrogation demonstrated normal functioning. Chest x-ray demonstrates normal positioning. 3. Left ventricular systolic dysfunction * He does have mild ventricular systolic dysfunction. His estimated ejection fraction is 40 to 45% with inferior posterior hypokinesis. We will continue to monitor the above. No other major changes will be made. * * Thank you for allowing me to participate in the care of your patient. Please don't hesitate to call if any issues arise
[2019-12-01] MEDS: Isosorbide Mononitrate 30 MG Tablet PO (09:36)
[2019-12-01] MEDS: QUEtiapine 25 MG Tablet 75 MG PO (09:36)
[2019-12-01] MEDS: NIFEdipine 60 MG Tablet PO (09:36)
[2019-12-01] MEDS: BRIMONIDINE 0.2% 5ML BOTTLE 1 DRP RIGHT EYE (09:36)
[2019-12-01] MEDS: Gemfibrozil 600 MG Tablet PO (09:36)
[2019-12-01] MEDS: TICAGRELOR 90 MG TABLET PO (09:36)
[2019-12-01] MEDS: Sertraline 100 MG Tablet 150 MG PO (09:37)
[2019-12-01] MEDS: Allopurinol 100 MG Tablet PO (09:37)
[2019-12-01 09:38] VITALS: PULSE 80
[2019-12-01] MEDS: Calcitriol 0.25 MCG Capsule PO (09:38)
[2019-12-01] MEDS: Metoprolol Tartrate 50 MG Tablet PO (09:38)
--- NOTE | 2019-12-01 10:00 | EKG12_ITS ---
Test Reason : AM EKG Blood Pressure : / mmHG Vent. Rate : 064 BPM Atrial Rate : 064 BPM P-R Int : 230 ms QRS Dur : 134 ms QT Int : 490 ms P-R-T Axes : 063 -59 162 degrees QTc Int : 505 ms Sinus rhythm with 1st degree A-V block Left axis deviation Non-specific intra-ventricular conduction block T wave abnormality, consider lateral ischemia Abnormal ECG Confirmed by PETRONA POST MD ([id number]), purchasing expeditor JOAQUINA MAYEN ([id number]) on 12/03/2019 12:17:36 PM Referred By: Confirmed By:PETRONA POST MD
--- NOTE | 2019-12-01 11:16 | DCINST_ITS ---
- Discharge Diagnoses Current Active Problems: Current Active and Chronic Problems (Last Updated 11/29/19 @ 18:39 by Lisa Díaz) NSTEMI (non-ST elevated myocardial infarction) (Acute 11/25/19) History of coronary angioplasty (Chronic 11/29/19) PCI-Angiosculpt Balloon [id number] Thrombosis-Distal RCA 11/29/2019 Acute diastolic (congestive) heart failure (Chronic) You will use the following diet at home:: Calorie/Carbohydrate Controlled (specify 1200, 1400, etc) - 1800 alba / day, Cardiac Your food should be the consistency of: Regular Your liquids should be the consistency of: Regular/Thin Discharge Activity: Return to Normal Activity Additional Instructions: You will need your kidney function checked (BMP) at follow up in 1-2 weeks. Allergies/Adverse Reactions: Allergies ampicillin Allergy (Verified 11/22/19 08:54) Rash erythromycin base Allergy (Verified 11/25/19 18:39) tears me up Penicillins Allergy (Verified 11/22/19 08:54) Rash Sulfa (Sulfonamide Antibiotics) Allergy (Verified 11/22/19 08:54) Hives atorvastatin [From Lipitor] Adverse Reaction (Severe, Verified 11/22/19 08:54) Muscle aching pravastatin [From Pravachol] Adverse Reaction (Severe, Verified 11/22/19 08:54) Myalgias simvastatin [From Zocor] Adverse Reaction (Severe, Verified 11/22/19 08:54) Muscle aching amlodipine [From Norvasc] Adverse Reaction (Intermediate, Verified 11/22/19 08: 54) Hand swelling ezetimibe [From Zetia] Adverse Reaction (Verified 11/22/19 08:54) MYALGIA Bfljjcm-Doq-Lpo Reductase Inhibitor Adverse Reaction (Verified 11/25/19 18:39) myalgias Patient has tried Lipitor, Pravachol, Zocor, Crestor as well as fenofibrates, Zetia, and Repatha (last 3 are non-statin drugs for hyperlipidemia) Medications to take at Discharge Albuterol IH (ProAir) [Proair Hfa] 1 - 2 puff INHALATION Q6H PRN PRN 08/16/17 Aspirin [Aspir-Low] 81 mg PO DAILY 08/16/17 Cholecalciferol (Vitamin D3) [Vitamin D3] 5,000 unit PO QODAY 08/16/17 Folic Acid 5 tab PO DAILY 08/16/17 Gabapentin [Neurontin] 100 mg PO BIDCM 08/16/17 Humulin N 50 units SC QHS 08/16/17 Humulin R 24 units SC BREAKFAST 08/16/17 Humulin R 27 units SC LUNCH 08/16/17 Humulin R 48 units SC DINNER 08/16/17 Montelukast [Singulair] 10 mg PO DAILY 08/16/17 Quetiapine Fumarate [Seroquel XR] 150 mg PO QHS 08/16/17 sertraline 100 mg tablet 150 mg PO QHS 12/06/17 allopurinol 100 mg tablet 100 mg PO BID 12/11/18 levothyroxine 50 mcg tablet 75 mcg PO QDAY tab 07/23/19 nitroglycerin 0.4 mg sublingual tablet 0.4 mg PO PRN PRN #25 tab 07/23/19 Calcitriol [Rocaltrol] 1 tab PO QODAY 10/20/19 Cyanocobalamin (Vitamin B-12) [Vitamin B-12] 2,500 mcg PO DAILY 10/20/19 Ubidecarenone [Co Q-10] 200 mg PO DAILY 10/20/19 Brimonidine Tartrate/Timolol [Combigan Eye Drops] 1 drp RIGHT EYE BID 11/25/19 Gemfibrozil 600 mg PO DAILY 11/25/19 Isosorbide Mononitrate [Isosorbide Mononitrate ER] 30 mg PO BID 11/25/19 Metoprolol Tartrate 50 mg PO BID 11/25/19 NIFEdipine [Procardia Xl] 60 mg PO DAILY #30 tab 12/01/19 Ticagrelor [Brilinta] 90 mg PO BID #60 tab 12/01/19 The following prescriptions were given: Ticagrelor [Brilinta] 90 mg PO BID #60 tab Transmission Status: Pending to [id number] NIFEdipine [Procardia Xl] 60 mg PO DAILY #30 tab Transmission Status: Pending to [id number] Primary Care Physician: Lisa Gates MD [Primary Care Provider] - Please follow up with your Primary Care Physician in: 1-2 weeks Test Results: Test results from this visit will be discussed in further detail at your follow- up appointment, if applicable. Please Follow Up With: Petra Mariscal MD When: 2 weeks Please Follow Up With: Sergey Nelson MD When: as directed Proposed Discharge Date: 12/01/19
[2019-12-01 11:26] LABS: Bedside Glucose 358 mg/dL (70-110)
[2019-12-01 12:29] VITALS: BP 139/64; PULSE 67; RESP 16; TEMP 36.1; O2SAT 92
--- NOTE | 2019-12-01 14:47 | PCM.DC.SUM ---
<Luca Gregory - Last Filed: 12/01/19 14:47> Discharge Date and Diagnosis Date of Admission: 11/25/19 Date of Discharge: 12/01/19 - Primary Discharge Diagnosis Unstable Angina NSTEMI, CAD s/p angioplasty, prior CABG 3rd degree heart block s/p pacemaker Chronic systolic CHF Acute rhinovirus rhinitis T2DM CKDIV HTN HLD ABBI Hypothyroidism Depression Gout - Secondary Discharge Diagnosis Chronic Problems (Last Updated 11/29/19 @ 18:39 by Lisa Díaz) Atherosclerotic heart disease of [place] coronary artery without angina pectoris (Chronic) CABG x 3 THOMAS-LAD, SCG-D1, SVG-LCx 03/05/2010; XVE-GQU-Rxww LAD 01/24/2002; PCI-PAYAL-Mid RCA 02/01/2005; PCI- PAYAL of mid/distal and proximal RCA 08/21/17 H/O coronary artery bypass surgery (Chronic 03/05/10) CABG x 3 THOMAS-LAD, SCG-D1, SVG-LCx 03/05/2010 History of coronary artery stent placement (Chronic 08/21/17) CBC-BUF-Tmwa LAD 01/24/2002; PCI-PAYAL-Mid RCA 02/01/2005; PCI- PAYAL of mid/distal and proximal RCA 08/21/17 History of coronary angioplasty (Chronic 11/29/19) PCI-Angiosculpt Balloon Hugablrtcqz-Ra-frvxu Thrombosis-Distal RCA 11/29/2019 Heart block AV complete (Chronic) intermittent CHB Presence of cardiac pacemaker (Chronic 11/28/19) Acute diastolic (congestive) heart failure (Chronic) Essential (primary) hypertension (Chronic) HLD (hyperlipidemia) (Chronic) 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 There is evidence of diastolic dysfunction. Trivial tricuspid valve insufficiency. Hypokinesis of the posterior and inferior wall RAD/Chest 1 View IMPRESSION: Unfavorable change. Interval development of interstitial, likely cardiogenic edema. No sizable effusion or pneumothorax. RAD/Chest PA and Lateral IMPRESSION: 1. No airspace consolidation or pleural effusion. No pneumothorax. 2. Two lead cardiac conduction device is seen via the left subclavian vein with lead tips projecting over the right atrium and right ventricle, respectively. Left heart Cath: CONCLUSIONS Successful PTCA to the ISR of dRCA stent. RECOMMENDATIONS ASA Indefinitley Brilinta for at least 1 month and preferably 1 year. Follow up with Dr. Nelson Consults: Cardiology - [facility] - [place] Operations: None Procedures: 2-D Echocardiogram, Cardiac catheterization, - - Pacemaker Summary of Care Provided: Hospital Course: The patient is a 59 year old M with pmhx of CAD prior CABG, CKDIV, systolic CHF, T2DM with morbid obesity, ABBI, HLD, HTN, who presented to the ER with chest pressure who reviewed worse lying flat and he felt like he was being smothered. He was supposed to have an outpatient pacemaker placement the day of presentation as he had a 3.6-second ventricular pause and third-degree heart block on a 30-day event monitor. He had an abnormal stress test 6 weeks prior and he was also planning to have a cardiac cath however at the time his renal function had been an issue. He had ST depression on his EKG. He was started on heparin and aspirin his home meds were continued and he was admitted for non-STEMI with a troponin of 1.6. He was taken for pacemaker placement which was successful. Following that he underwent a heart catheterization and a successful angioplasty of the previously stented right coronary artery. He was noted to have a totally occluded LAD and totally occluded circumflex. He had an increase in his renal function following the heart catheterization and his JUAN inhibitor and Lasix were held and he was given IV fluids. His renal function was improving the following day so he was discharged home in stable condition. He will need follow-up with cardiology as directed, follow-up with nephrology in 1 to 2 weeks, follow-up with PCP in 1 to 2 weeks. He will need a BMP checked closely at follow-up. He was discharged on aspirin, Imdur, metoprolol, Procardia, and Brilinta. This patient was seen by Luca Gregory PA-C under the supervision of Doctor Pope. [] - Physical Exam Vitals/I&O's: Vital Signs Temp Pulse Resp BP Pulse Ox 97 F L 67 16 139/64 H 92 12/01/19 12:29 12/01/19 12:29 12/01/19 12:29 12/01/19 12:29 12/01/19 12:29 Oxygen Flow Rate (L/min) 95 Oxygen Delivery Method Room Air Weight: 266 lb 5.094 oz Body Mass Index (BMI) 40.3 Intake and Output for Last 24 Hours 11/29/19 11/30/19 12/01/19 23:59 23:59 23:59 Intake Total 747.35 / 2622.35 4086.25 / 4086.25 1491.25 / 1491.25 Output Total 1300 / 2870 2470 / 2470 Balance -552.65 / -247.65 1616.25 / 1616.25 1491.25 / 1491.25 General: Alert, Oriented x3, Cooperative HEENT: Atraumatic, PERRLA, EOMI, Normocephalic Neck: Supple, No JVD, Negative Carotid Bruits Lungs: Clear to auscultation, Normal air movement Cardiovascular: Regular rate, No murmurs Abdomen: Bowel Sounds Present, Soft, Non Tender Extremities: No edema, Capillary Refill Less than 3 Seconds Skin: No rashes, No breakdown Musculoskeletal: No Tenderness to Palpation of Joints or Extremities Neurological: Cranial nerves II-XII grossly intact Psych/Mental Status: Normal Affect, Appropriate, Alert and oriented to time, place, person, mood and affect Laboratory Results 11/30/19 16:15: POC Glucose 388 H 11/30/19 22:42: POC Glucose 423 H 12/01/19 06:16: WBC 6.4, RBC 3.30 L, Hgb 10.3 L, Hct 31.3 L, MCV 94.8 H, MCH 31.2, MCHC 32.9, RDW Std Deviation 51.8 H, RDW Coeff of Margaret 14.8 H, Plt Count 209, MPV 9.9 12/01/19 06:16: Sodium 134 L, Potassium 4.0, Chloride 104, Carbon Dioxide 23.0, Anion Gap 7, BUN 60 H, Creatinine 2.74 H, Estim Creat Clear Calc 27.14, Est GFR (MDRD) Af Amer 31 L, Est GFR (MDRD) Non-Af 25 L, BUN/Creatinine Ratio 21.9 H, Glucose 298 H, Calcium 8.8, Phosphorus 4.4, Albumin 2.9 L 12/01/19 06:39: POC Glucose 303 H 12/01/19 11:08: POC Glucose 358 H Discharge Diet: Low fat/ Low Cholesterol, 1800 Calorie Control Diet, 2000 mg Sodium Diet Discharge Activity: Return to Normal Activity Home Medications: Medications to take at Discharge Albuterol IH (ProAir) [Proair Hfa] 1 - 2 puff INHALATION Q6H PRN PRN 08/16/17 Aspirin [Aspir-Low] 81 mg PO DAILY 08/16/17 Cholecalciferol (Vitamin D3) [Vitamin D3] 5,000 unit PO QODAY 08/16/17 Folic Acid 5 tab PO DAILY 08/16/17 Gabapentin [Neurontin] 100 mg PO BIDCM 08/16/17 Humulin N 50 units SC QHS 08/16/17 Humulin R 24 units SC BREAKFAST 08/16/17 Humulin R 27 units SC LUNCH 08/16/17 Humulin R 48 units SC DINNER 08/16/17 Montelukast [Singulair] 10 mg PO DAILY 08/16/17 Quetiapine Fumarate [Seroquel XR] 150 mg PO QHS 08/16/17 sertraline 100 mg tablet 150 mg PO QHS 12/06/17 allopurinol 100 mg tablet 100 mg PO BID 12/11/18 levothyroxine 50 mcg tablet 75 mcg PO QDAY tab 07/23/19 nitroglycerin 0.4 mg sublingual tablet 0.4 mg PO PRN PRN #25 tab 07/23/19 Calcitriol [Rocaltrol] 1 tab PO QODAY 10/20/19 Cyanocobalamin (Vitamin B-12) [Vitamin B-12] 2,500 mcg PO DAILY 10/20/19 Ubidecarenone [Co Q-10] 200 mg PO DAILY 10/20/19 Brimonidine Tartrate/Timolol [Combigan Eye Drops] 1 drp RIGHT EYE BID 11/25/19 Gemfibrozil 600 mg PO DAILY 11/25/19 Isosorbide Mononitrate [Isosorbide Mononitrate ER] 30 mg PO BID 11/25/19 Metoprolol Tartrate 50 mg PO BID 11/25/19 NIFEdipine [Procardia Xl] 60 mg PO DAILY #30 tab 12/01/19 Ticagrelor [Brilinta] 90 mg PO BID #60 tab 12/01/19 Following Prescrptions Were Given to Patient: Ticagrelor [Brilinta] 90 mg PO BID #60 tab Transmission Status: Received by [id number] NIFEdipine [Procardia Xl] 60 mg PO DAILY #30 tab Transmission Status: Received by [id number] Primary Care Physician: Lisa Gates MD [Primary Care Provider] - Please follow up with your Primary Care Physician in: 1-2 weeks Please Follow Up With: Petra Mariscal MD When: 2 weeks Please Follow Up With: Sergey Nelson MD When: as directed Please Follow Up With: Lisa Gates MD Disposition: Home Minutes spent on discharge:: 35 Patient Condition:: Stable Medical Necessity - Tobacco Use Smoking Status: Never smoker Meaningful Use Info Meaningful Use Diagnoses (Choose all that apply): None applicable <Adriana Pope - Last Filed: 12/01/19 15:46> Discharge Date and Diagnosis - Secondary Discharge Diagnosis Chronic Problems (Last Updated 11/29/19 @ 18:39 by Lisa Díaz) Atherosclerotic heart disease of [place] coronary artery without angina pectoris (Chronic) CABG x 3 THOMAS-LAD, SCG-D1, SVG-LCx 03/05/2010; BDS-VHI-Wrtq LAD 01/24/2002; PCI-PAYAL-Mid RCA 02/01/2005; PCI- PAYAL of mid/distal and proximal RCA 08/21/17 H/O coronary artery bypass surgery (Chronic 03/05/10) CABG x 3 THOMAS-LAD, SCG-D1, SVG-LCx 03/05/2010 History of coronary artery stent placement (Chronic 08/21/17) MGA-BCQ-Fzjr LAD 01/24/2002; PCI-PAYAL-Mid RCA 02/01/2005; PCI- PAYAL of mid/distal and proximal RCA 08/21/17 History of coronary angioplasty (Chronic 11/29/19) PCI-Angiosculpt Balloon Sjolpugsgxj-Va-nyjwn Thrombosis-Distal RCA 11/29/2019 Heart block AV complete (Chronic) intermittent CHB Presence of cardiac pacemaker (Chronic 11/28/19) Acute diastolic (congestive) heart failure (Chronic) Essential (primary) hypertension (Chronic) HLD (hyperlipidemia) (Chronic) 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 I have independently interviewed and examined the patient and reviewed pertinent historical, laboratory, and other data. Please refer to ISAAC Moralez note for his patient's presentation, findings, and recommendations. I have reviewed and his note and concur with his documentation Old male past medical history of CAD status post CABG, CKD stage IV, chronic systolic CHF, type II DM who presented with chest pain. Patient had recently been diagnosed with intermittent third-degree heart block and was due to have pacemaker placed on the day of admission. He also had a recent stress test and cardiac cath was being planned. His admitting EKG showed ST segment depressions. He was started on heparin drip and his aspirin continued. He was managed conservatively for acute non-STEMI. Patient eventually had his pacemaker placed and then he underwent cardiac catheterization the next day with successful angioplasty of RCA in-stent restenosis. Patient was seen by nephrology and started on IV fluids to prevent contrast-induced nephropathy. He was kept 1 more day as his creatinine has slightly crept up. Repeat renal function test the next day showed improvement back to baseline. Patient to follow-up with cardiology and would also repeat blood work within a week to check on his kidney function. On the day of discharge, patient had no new complaints. No acute events overnight. No acute events on telemetry. Physical Exam: Gen: Comfortable, not pale, not jaundiced, alert oriented x3, off oxygen, obese CVS:HS I +II, regular, no murmurs RESP: Diminished at lung bases GI: BS present and normal, nontender, no palpable organs EXT:Bilateral lower leg edema +1 - Physical Exam Vitals/I&O's: Vital Signs Temp Pulse Resp BP Pulse Ox 97 F L 67 16 139/64 H 92 12/01/19 12:29 12/01/19 12:29 12/01/19 12:29 12/01/19 12:29 12/01/19 12:29 Oxygen Flow Rate (L/min) 95 Oxygen Delivery Method Room Air Weight: 120.8 kg Body Mass Index (BMI) 40.3 Intake and Output for Last 24 Hours 11/29/19 11/30/19 12/01/19 23:59 23:59 23:59 Intake Total 747.35 / 2622.35 4086.25 / 4086.25 1491.25 / 1491.25 Output Total 1300 / 2870 2470 / 2470 Balance -552.65 / -247.65 1616.25 / 1616.25 1491.25 / 1491.25 Laboratory Results 11/30/19 16:15: POC Glucose 388 H 11/30/19 22:42: POC Glucose 423 H 12/01/19 06:16: WBC 6.4, RBC 3.30 L, Hgb 10.3 L, Hct 31.3 L, MCV 94.8 H, MCH 31.2, MCHC 32.9, RDW Std Deviation 51.8 H, RDW Coeff of Margaret 14.8 H, Plt Count 209, MPV 9.9 12/01/19 06:16: Sodium 134 L, Potassium 4.0, Chloride 104, Carbon Dioxide 23.0, Anion Gap 7, BUN 60 H, Creatinine 2.74 H, Estim Creat Clear Calc 27.14, Est GFR (MDRD) Af Amer 31 L, Est GFR (MDRD) Non-Af 25 L, BUN/Creatinine Ratio 21.9 H, Glucose 298 H, Calcium 8.8, Phosphorus 4.4, Albumin 2.9 L 12/01/19 06:39: POC Glucose 303 H 12/01/19 11:08: POC Glucose 358 H Code Visit Inpatient E&M: [id number] Disch Hosp
--- NOTE | 2019-12-02 14:19 | CASEMGMT ---
Case Management DC F/u Call: DC Date: 12/01/2019 DC Diagnosis: Unstable Angina, NSTEMI, CAD s/p angioplasty, prior CABG, 3rd degree heart block s/p pacemaker, Chronic systolic CHF, Acute rhinovirus rhinitis, T2DM, CKDIV, HTN, HLD, ABBI, Hypothyroidism, Depression, Gout DC Disposition: Home Lace/Strata: 16/02 Called patient home phone listed on demographics, no answer, multiple rings and prompted to enter remote access code- therefore unable and no VM left. Rich Liu RNCM
== END 2019-12-01 12:39 | disposition home or self-care (01) | DRG 242 ==
LOC: ED 17:18 → PCU 17:47 → ICU 11-29 10:34 → PCU 11-30 14:27
PROVIDERS: Internal Medicine Cardiovascular Disease; Nurse Practitioner Family; Physician Assistant; Specialist; Admitting Provider Family Medicine; Emergency Provider Emergency Medicine; PCP Internal Medicine; Visit Provider Internal Medicine
DX: I21.4 Non-ST elevation (NSTEMI) myocardial infarction (principal); I50.23 Acute on chronic systolic (congestive) heart failure; Z68.41 Body mass index [BMI] 40.0-44.9, adult; N18.4 Chronic kidney disease, stage 4 (severe); I13.0 Hypertensive heart and chronic kidney disease with heart failure and stage 1 through stage 4 chronic kidney disease, or unspecified chronic kidney disease; I44.2 Atrioventricular block, complete; T82.855A Stenosis of coronary artery stent, initial encounter; I25.810 Atherosclerosis of coronary artery bypass graft(s) without angina pectoris; E11.42 Type 2 diabetes mellitus with diabetic polyneuropathy; E78.5 Hyperlipidemia, unspecified; F32.9 Major depressive disorder, single episode, unspecified; E03.9 Hypothyroidism, unspecified; E11.22 Type 2 diabetes mellitus with diabetic chronic kidney disease; E66.01 Morbid (severe) obesity due to excess calories; M10.9 Gout, unspecified; G47.33 Obstructive sleep apnea (adult) (pediatric); J00 Acute nasopharyngitis [common cold]; B97.89 Other viral agents as the cause of diseases classified elsewhere; Z95.1 Presence of aortocoronary bypass graft; Z79.82 Long term (current) use of aspirin; Z95.5 Presence of coronary angioplasty implant and graft; Z79.4 Long term (current) use of insulin; I25.110 Atherosclerotic heart disease of native coronary artery with unstable angina pectoris
CPT/HCPCS: 33208; 36415; 71045; 71046; 80048; 80053; 80069; 81001; 82962; 84484; 85025; 85027; 85610; 85730; 87633; 87641; 92920; 93005; 93306; 93454; 97110; 97162; 97166; 97530; 97802; 99152; 99153; 99285; J7030; J7050; Q9957; Q9967; A4216; C1725; C1769; C1887; C1894; C8929; J1327; J1940; J2405

== ENCOUNTER → 2019-11-28 11:10 | Outpatient (CLI) | payer OTHER, SELFPAY ==
[2017-08-21 11:26] VITALS: BMI 40.4
[2019-10-22 15:23] VITALS: BMI 40.4
--- NOTE | 2019-11-15 01:39 | HP_ITS ---
HPI HPI History of Present Illness Surgical H&P: Yes Details: KATHERINE NAVA, is a 59 M who presents to the office today for a an updated history and physical. He is scheduled to have a pacemaker placed on November 25, [address] Nelson. This was for a 3.6-second ventricular pause and third degree heart block noted on his 30-day event monitor. His 30-day event monitor was placed due to episodes of passing out. He has a history of atherosclerotic cardiovascular disease status post bypass surgery in 2009 with an THOMAS to LAD, SVG to first diagonal vessel, and SVG to obtuse marginal branch, and angioplasty and drug-eluting stent to proximal, mid, and distal RCA in August 2017. He also has a history of hypertension, hyperlipidemia, diabetes mellitus, ABBI with Bipap therapy, and renal insufficiency. He has not had any further episodes of syncope. He does have some sensations of near syncope but they have not correlated with monitor. He had not had any chest pain. He has had some SOB. He feels that this is with exertion. He does not feel that this is not new, just sometimes worse than others. He does not have any orthopnea. He does not have any palpitations. He does have some edema, but feels that this is with his wrists and not in his legs. He does wear compression stockings. He feels that he has gained a few pounds since he was here last. His diuretics have been adjusted over the last few months by nephrology, he feels that this may be contributing to it. Intake Vital Signs 11/15/19 Height 5 ft 7 in 11/15/19 Weight: 265 lb 11/15/19 BMI 41.5 11/15/19 BP 152/81 H 11/15/19 Blood Pressure Location Lt brachial 11/15/19 Position Sitting 11/15/19 Respiration 18 11/15/19 Pulse 63 11/15/19 Pulse Source Monitor 11/15/19 Pulse Oximetry (%) 96 Intake Visit Reasons: PER MMM / PACER 11:00 Vat Skimmer Required: No Is patient in pain?: No Allergies ampicillin Allergy (Verified 11/15/19 11:09) Rash erythromycin base Allergy (Verified 11/15/19 11:09) Other Penicillins Allergy (Verified 11/15/19 11:09) Rash Sulfa (Sulfonamide Antibiotics) Allergy (Verified 11/15/19 11:09) Hives atorvastatin [From Lipitor] Adverse Reaction (Severe, Verified 11/15/19 11:09) Muscle aching pravastatin [From Pravachol] Adverse Reaction (Severe, Verified 11/15/19 11:09) Myalgias simvastatin [From Zocor] Adverse Reaction (Severe, Verified 11/15/19 11:09) Muscle aching amlodipine [From Norvasc] Adverse Reaction (Intermediate, Verified 11/15/19 11:09) Hand swelling ezetimibe [From Zetia] Adverse Reaction (Verified 11/15/19 11:09) MYALGIA Bfwwbjq-Nup-Vyf Reductase Inhibitor Adverse Reaction (Verified 11/15/19 11:09) Other Medications Albuterol IH (ProAir) [Proair Hfa] 1 - 2 puff INHALATION Q6H PRN PRN 08/16/17 [History Confirmed 11/15/19] Aspirin [Aspir-Low] 81 mg PO DAILY 08/16/17 [History Confirmed 11/15/19] Cholecalciferol (Vitamin D3) [Vitamin D3] 5,000 unit PO DAILY 08/16/17 [History Confirmed 11/15/19] Clopidogrel Bisulfate [Clopidogrel] 75 mg PO DAILY 08/16/17 [History Confirmed 11/15/19] Dulera 100 Mcg/5 Mcg Inhaler 1 puff PO BID 08/16/17 [History Confirmed 11/15/19] Folic Acid 5 tab PO DAILY 08/16/17 [History Confirmed 11/15/19] Furosemide [Lasix] 40 mg PO DAILY 08/16/17 [History Confirmed 11/15/19] Gabapentin [Neurontin] 100 mg PO TIDCM 08/16/17 [History Confirmed 11/15/19] Humulin N 50 units SC QHS 08/16/17 [History Confirmed 11/15/19] Humulin R 24 units SC BREAKFAST 08/16/17 [History Confirmed 11/15/19] Humulin R 27 units SC LUNCH 08/16/17 [History Confirmed 11/15/19] Humulin R 48 units SC DINNER 08/16/17 [History Confirmed 11/15/19] Montelukast [Singulair] 10 mg PO DAILY 08/16/17 [History Confirmed 11/15/19] Quetiapine Fumarate [Seroquel XR] 150 mg PO QHS 08/16/17 [History Confirmed 11/15/19] sertraline 100 mg tablet 100 mg PO .COMPLEX 12/06/17 [History Confirmed 11/15/19] metoprolol tartrate 50 mg tablet 50 mg PO BID 12/07/17 [History Confirmed 11/15/19] allopurinol 100 mg tablet 100 mg PO BID 12/11/18 [History Confirmed 11/15/19] budesonide-formoterol HFA 80 mcg-4.5 mcg/actuation aerosol inhaler 2 puff INHALATION BID 12/11/18 [History Confirmed 11/15/19] diclofenac epolamine 1.3 % transdermal 12 hour patch 1 patch TRANSDERMAL BID PRN 07/23/19 [History Confirmed 11/15/19] levothyroxine 50 mcg tablet 75 mcg PO QDAY tab 07/23/19 [History Confirmed 11/15/19] nitroglycerin 0.4 mg sublingual tablet 0.4 mg PO PRN PRN #25 tab 07/23/19 [Rx Confirmed 11/15/19] Calcitriol [Rocaltrol] 1 tab PO QODAY 10/20/19 [History Confirmed 11/15/19] Cyanocobalamin (Vitamin B-12) [Vitamin B-12] 2,500 mcg PO DAILY 10/20/19 [History Confirmed 11/15/19] Flaxseed Oil 1,200 mg PO BID 10/20/19 [History Confirmed 11/15/19] Ubidecarenone [Co Q-10] 200 mg PO DAILY 10/20/19 [History Confirmed 11/15/19] gemfibrozil 600 mg tablet 600 mg PO DAILY #180 tab 10/22/19 [Rx Confirmed 11/15/19] isosorbide mononitrate 30 mg tablet,extended release 24 hr 30 mg PO BID #60 tab 10/22/19 [Rx Confirmed 11/15/19] ramipril 10 mg capsule 10 mg PO BID cap 10/22/19 [History Confirmed 11/15/19] [facility] Medical History Heart block AV complete (Acute) Syncope and collapse (Acute) Left carotid stenosis (Chronic) Essential (primary) hypertension (Chronic) Atherosclerotic heart disease of [place] coronary artery without angina pectoris (Chronic) 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) HLD (hyperlipidemia) (Chronic) Diabetic neuropathy (Chronic) Obesity (BMI 30.0-34.9) (Chronic) Obstructive sleep apnea (Chronic) Syncope (Chronic) Type II diabetes mellitus, uncontrolled (Chronic) Orthostatic hypotension (Resolved) Surgical History H/O coronary artery bypass surgery (Resolved 03/05/10) History of coronary artery stent placement (Resolved 08/21/17) H/O eye surgery (Resolved) History of left heart catheterization (Resolved 08/18/17) Family History Father CAD (coronary artery disease), Onset Age: 61 Stented coronary artery Mother , age 61 COPD (chronic obstructive pulmonary disease) Sister Diabetes Hypertension Social History (Updated 11/15/19 @ 13:47 by ISAAC Peraza) Smoking Status: Never smoker alcohol intake: current alcohol intake frequency: holidays/special occasions only caffeine: Yes Type: tea ROS Const Const: Negative for fatigue, weakness, fever(s) or headache(s) Eyes Eyes: Negative for blind spots, loss of peripheral vision or transient loss of vision ENT ENT: Negative for headache(s), dizziness, tinnitus or Nosebleed/epistaxis Cardio Chest Pain: No Palpitations: No Edema: Bilateral Muscle aches with walking: None Resp Respiratory: Positive for SOB with activity; negative for SOB at rest, SOB orthopnea\SOB lying down or Cough GI GI: Negative nausea, vomiting, heartburn or vomiting blood/hematemesis : Negative for hematuria Musc Musc: Negative for muscle aches/ myalgia Neuro Neuro: Negative for dizziness, lightheadedness, near syncope, syncope, orthostatic symptoms, headache(s) or weakness [place] Hematologic/Lymphatic: Negative for easy bleeding Endo Endo: Negative for fatigue Cardiology Exam Const Appearance: cooperative, healthy appearing, comfortable and no acute distress Nutritional Appearance: well nourished and obese Orientation: alert, awake and oriented x3 Head Head: normal to inspection Ears: hearing grossly normal bilaterally Nose: external nose normal Face and Sinus: face symmetric Mouth: oral mucosae normal Eyes General: appearance normal, both eyes and all related structures Eyelids: eyelids normal EOM: EOM intact bilaterally Neck Neck: normal visual inspection and no JVD Carotids: normal carotid upstroke Chest Chest inspection: normal inspection of the chest, symmetric chest movement and normal respiratory effort; negative cough Auscultation: Bilateral: Clear to Auscultation Cardio Rate: regular rate Rhythm: regular rhythm Heart sounds: S1 normal and S2 normal; negative rub, gallop or murmur GI GI: obese Neuro General: alert, awake, oriented x3 and CN's II-XI intact bilaterally Skin Skin: no rashes or lesions noted Extremities Pulses: Normal: Right Posterior Tibial Pulse, Left Posterior Tibial Pulse, Right Radial Pulse, Left Radial Pulse Lower Extremity Edema: None: Bilateral Psych Psychological: normal affect Assessment & Plan 1. Heart block AV complete I44.2 intermittent CHB Plan With patient's intermittent third-degree AV block that was noted on his 30-day event monitor he will proceed with a pacemaker placement. Instructions were given to him. This is scheduled for November 25, [address] Nelson. We are hesitant to decrease his metoprolol as he does have significant coronary artery disease and feel that this would lead to anginal symptoms. He will follow-up accordingly in the office for pacemaker interrogations. Patient Instructions Increase your lasix to 40 mg twice a day for 3 days only 2. Atherosclerosis of [place] coronary artery of [place] heart without angina pectoris I25.10 CABG x 3 THOMAS-LAD, SCG-D1, SVG-LCx 03/05/2010; RYG-BAR-Fsql LAD 01/24/2002; PCI-PAYAL-Mid RCA 02/01/2005; PCI- PAYAL of mid/distal and proximal RCA 08/21/17 Plan Patient does not necessarily have any symptoms of angina. He does have fatigue. This could be related to his chronic kidney disease or his intermittent third- degree heart block. We will continue with aggressive medical management and risk factor modification. For now we will continue with aggressive medical management as we are hesitant to proceed with a diagnostic heart catheterization for his abnormal stress test that was done in June 2019 due to his renal insufficiency. Orders Orders: 12 Lead EKG performed by [facility] Today 3. Essential hypertension I10 Plan For now we will continue to monitor. These have been adjusted also by his kettle coordinator. 4. Pure hypercholesterolemia E78.00 Plan Patient has been intolerant to statins. Encourage dietary modifications. He will continue with his gemfibrozil 5. CKD stage 4 due to type 2 diabetes mellitus E11.22; N18.4 Plan Patient will continue to follow with nephrology. Plan Detail Other Orders Orders: 12 Lead EKG performed by [facility] Today Z95.1, Z95.5 Follow Up 11/15/19 (Keep as is) Coding Level of Care Code Off vis,est,level 4 Diagnoses Heart block AV complete I44.2 Atherosclerosis of [place] coronary artery of [place] heart without angina pectoris I25.10 ??[place] vs. transplanted heart: [place] heart Essential hypertension I10 Pure hypercholesterolemia E78.00 ??Hyperlipidemia type: pure hypercholesterolemia CKD stage 4 due to type 2 diabetes mellitus E11.22; N18.4 Coding Level of Care Code Off vis,est,level 4 Diagnoses Heart block AV complete I44.2 Atherosclerosis of [place] coronary artery of [place] heart without angina pectoris I25.10 ??[place] vs. transplanted heart: [place] heart Essential hypertension I10 Pure hypercholesterolemia E78.00 ??Hyperlipidemia type: pure hypercholesterolemia CKD stage 4 due to type 2 diabetes mellitus E11.22; N18.4 Supplemental Info Supplemental Information Echocardiogram from 12/25/2017: Interpretation Summary Normal LV size. Left ventricular systolic function is normal. The estimated ejection fraction is 53 %. No evidence for diastolic dysfunction. Apical false tendon noted. Compared to prior study, there is no significant change. Heart catheterization from 08/18/2017: Conclusions Elevated left ventricular end-diastolic pressure LV: Not assessed [place] multivessel coronary artery disease THOMAS to LAD: Patent SVG to DX: Occluded SVG to LCx/OM: Occluded Recommendations 1. Risk factor modification 2. Medical therapy 3. Staged percutaneous intervention Coronary angiography Dominance: Right dominant Left heart assessment LV: Not assessed Elevated left ventricular end-diastolic pressure LVEDP: 17 mmHg Left main: Mild luminal irregularities Left anterior descending artery: Proximal LAD: Diffuse: Eccentric: 85% stenosis Mid LAD: Status post and DX: Is subtotally occluded with mid/distal vessel filling predominantly from the THOMAS graft with no angiographically significant appearing disease distal to the graft attachment Diagonal 1: Ostial?is subtotally occluded with subsequent mild luminal irregularities Circumflex flex artery: Proximal circumflex: Small caliber vessel: Is subtotally occluded OM1: Small-caliber vessel: Proximal?is subtotally occluded Right coronary artery: Proximal RCA: Eccentric: 75% stenosis, in-stent restenosis 85% Mid RCA: In-stent restenosis eccentric: 50% Distal RCA: A center: 85% stenosis Right PDA: Mild?center: 85% stenosis Right AV segment: Eccentric: 50% stenosis Grafts: THOMAS graft to mid LAD is patent Saphenous vein graft to first diagonal is totally occluded Saphenous vein graft to first OM is totally occluded Interventional cardiac catheterization from 08/21/2017: Conclusions Successful PTCA/PAYAL of the mid and distal RCA using resolute integrity 2.5 x 14 mm and 2.25 x 30 mm PAYAL, both stents postdilated using 2.5 mm balloon Successful PAYAL proximal RCA using resolute integrity 2.75 x 18 mm, postdilated using 3.0 mm balloon Carotid duplex ultrasound from 04/25/2019: Interpretation Summary Mild (<50%) stenosis right extracranial internal carotid. The degree of stenosis in the left internal carotid artery appears to be 50-69% based upon velocity criteria. However, maharaj-scale imaging suggests that the degree of stenosis may exceed 70%. In this regard, clinical correlation is advised, and an alternative imaging modality may be helpful. Flow within the vertebral arteries is antegrade bilaterally. The degree of stenosis in the left external carotid artery appears to be >50%. Nuclear stress test from 08/05/2019: Conclusion: Abnormal pharmacologic myocardial perfusion stress test with evidence of lateral ischemia. Borderline ejection fraction. Labs LDL Cholesterol 156 mg/dL (0-130) H 08/14/19 HDL Cholesterol 29 mg/dL (40-) L 08/14/19 Triglycerides 357 mg/dL (-199) H 08/14/19 VLDL Cholesterol 71 mg/dL (5-40) H 08/14/19 Diagnostics Electrocardiogram 10/20/19 Stress Test Nuclear Medicine 08/05/19 Stress Test 08/05/19 Chest X-Ray 10/20/19 11/15/19 1348 <Electronically signed by Johnna Gonsalves> Date _ Johnna GRAY
[2019-11-15 13:06] LABS: Hematocrit 33.8 % (40-54); Hemoglobin 11.3 g/dL (13.0-16.5); Mean Corp Hgb Conc 33.4 g/dL (32-36); Mean Corpuscular Volume 95.8 fL (80-94); Platelet Count 163 K/mm3 (150-450); RBC Distribution Width CV 16.3 % (11.6-14.6); RBC Distribution Width SD 56.5 fl (35.1-43.9); Red Blood Count 3.53 M/mm3 (4.6-6.2); White Blood Count 6.3 K/mm3 (4.4-11.0)
[2019-11-15 13:10] LABS: White Blood Cells 0 SEEN /hpf (0-5)
[2019-11-15 13:18] LABS: Color, Urine Yellow (Yellow); Glucose, Dipstick 250 mg/dl (Normal); Ketone-Dipstick Negative (Negative); Leukocyte Esterase-Dipstick Negative /ul (Negative); Nitrite-Dipstick Negative (Negative); Occult Blood-Urine 25 /ul (Negative); Protein-Dipstick 500 mg/dl (Negative); Specific Gravity, Urine 1.015 (1.002-1.030); Urine Bilirubin Dipstick Negative (Negative); Urine Clarity Sl. Cloudy (Clear); Urine Urobilinogen Normal (Normal)
[2019-11-15 13:21] LABS: International Normalized Ratio 1.2
[2019-11-15 13:22] LABS: Bacteria RARE /hpf (None Seen); Mucous, Urine RARE /hpf (<or=2+); Red Blood Cells-Urine 0-5 SEEN /hpf (0-5); Squamous Epithelial Cells - UA 0-5 SEEN /hpf (0-5)
[2019-11-15 13:36] LABS: Anion Gap 4 (5-15); BUN 33 mg/dL (7-18); Calcium,Total 8.9 mg/dL (8.5-10.1); Chloride 106 mmol/L (98-107); Creatinine, Serum 2.53 mg/dL (0.70-1.30); EST Glomerular Filtration Rate 28 mL/min (>60); Est Glom Filt Rate - Afr Amer 34 mL/min (>60); Glucose 124 mg/dL (74-106); Potassium 4.3 mmol/L (3.5-5.1); Sodium Level 138 mmol/L (136-145)
[2019-11-22 08:31] VITALS: BMI 41.5
== END ==
PROVIDERS: Family Provider Internal Medicine; PCP Internal Medicine; Referring Provider Internal Medicine Cardiovascular Disease; Visit Provider Internal Medicine Cardiovascular Disease
DX: I44.2 Atrioventricular block, complete (principal); I25.10 Atherosclerotic heart disease of native coronary artery without angina pectoris; I12.9 Hypertensive chronic kidney disease with stage 1 through stage 4 chronic kidney disease, or unspecified chronic kidney disease; N18.4 Chronic kidney disease, stage 4 (severe); E78.00 Pure hypercholesterolemia, unspecified; E11.22 Type 2 diabetes mellitus with diabetic chronic kidney disease; Z95.1 Presence of aortocoronary bypass graft; Z95.5 Presence of coronary angioplasty implant and graft; Z79.82 Long term (current) use of aspirin; Z88.0 Allergy status to penicillin; Z88.1 Allergy status to other antibiotic agents; Z88.2 Allergy status to sulfonamides; Z88.8 Allergy status to other drugs, medicaments and biological substances; Z95.0 Presence of cardiac pacemaker; R94.39 Abnormal result of other cardiovascular function study; G47.33 Obstructive sleep apnea (adult) (pediatric); E78.5 Hyperlipidemia, unspecified; R55 Syncope and collapse; R06.02 Shortness of breath; E66.9 Obesity, unspecified; Z68.41 Body mass index [BMI] 40.0-44.9, adult
CPT/HCPCS: 36415; 80048; 81001; 85027; 85610

== ENCOUNTER → 2019-12-06 08:09 | Outpatient (CLI) | payer OTHER, SELFPAY ==
[2019-11-25 18:25] VITALS: BMI 40.3
[2019-11-29 13:16] VITALS: BMI 40.8
[2019-12-06 09:34] LABS: Albumin, Serum 2.9 g/dL (3.2-5.0); BUN 36 mg/dL (7-18); BUN/Creat Ratio 17.5 RATIO (10-20); Calcium,Total 9.3 mg/dL (8.5-10.1); Chloride 112 mmol/L (98-107); Creatinine, Serum 2.06 mg/dL (0.70-1.30); EST Glomerular Filtration Rate 35 mL/min (>60); Est Glom Filt Rate - Afr Amer 43 mL/min (>60); Glucose 103 mg/dL (74-106); Phosphorus 3.3 mg/dL (2.5-4.9); Potassium 3.6 mmol/L (3.5-5.1); Sodium Level 142 mmol/L (136-145)
[2019-12-06 09:38] LABS: Hematocrit 33.4 % (40-54); Hemoglobin 10.8 g/dL (13.0-16.5); Mean Corp Hgb Conc 32.3 g/dL (32-36); Mean Corpuscular Hgb 31.2 pg (27.0-32.0); Mean Corpuscular Volume 96.5 fL (80-94); Mean Platelet Vol. 10.2 fl (6.2-12.0); Platelet Count 320 K/mm3 (150-450); RBC Distribution Width CV 14.6 % (11.6-14.6); RBC Distribution Width SD 51.4 fl (35.1-43.9); Red Blood Count 3.46 M/mm3 (4.6-6.2); White Blood Count 7.5 K/mm3 (4.4-11.0)
[2019-12-06 09:52] LABS: PTHIN 103.7 pg/mL (18.4-80.1); Vitamin D,25 Hydroxy 37.6 ng/mL (29.95-100.01)
[2019-12-06 09:59] LABS: Protein, Urine (Random) 717.7 mg/dL (<11.9); Protein:Creat Ratio 6835 mg/g CRE (0-200)
== END ==
PROVIDERS: PCP Internal Medicine; Referring Provider Internal Medicine Nephrology; Visit Provider Internal Medicine Nephrology
DX: N18.3 Chronic kidney disease, stage 3 (moderate) (principal); D63.1 Anemia in chronic kidney disease; N25.81 Secondary hyperparathyroidism of renal origin
CPT/HCPCS: 36415; 80069; 82306; 82570; 83970; 84156; 85027

== ENCOUNTER → 2020-01-03 15:46 | Outpatient (CLI) | payer OTHER, SELFPAY ==
[2019-11-25 18:25] VITALS: BMI 40.3
[2019-11-29 13:16] VITALS: BMI 40.8
[2020-01-03 17:19] LABS: Anion Gap 7 (5-15); BUN 46 mg/dL (7-18); BUN/Creat Ratio 21.5 RATIO (10-20); Calcium,Total 9.5 mg/dL (8.5-10.1); Chloride 109 mmol/L (98-107); Creatinine, Serum 2.14 mg/dL (0.70-1.30); EST Glomerular Filtration Rate 34 mL/min (>60); Est Glom Filt Rate - Afr Amer 41 mL/min (>60); Glucose 193 mg/dL (74-106); Sodium Level 140 mmol/L (136-145)
== END ==
PROVIDERS: PCP Internal Medicine; Referring Provider Internal Medicine; Visit Provider Internal Medicine
DX: I10 Essential (primary) hypertension (principal)
CPT/HCPCS: 36415; 80048

== ENCOUNTER → 2020-04-17 11:48 | Outpatient (CLI) | payer OTHER, SELFPAY ==
[2019-11-29 13:16] VITALS: BMI 40.8
[2020-02-19 15:17] VITALS: BMI 38.7
[2020-04-17 12:27] LABS: Hematocrit 38.7 % (40-54); Hemoglobin 13.2 g/dL (13.0-16.5); Mean Corp Hgb Conc 34.1 g/dL (32-36); Mean Corpuscular Hgb 31.4 pg (27.0-32.0); Mean Corpuscular Volume 92.1 fL (80-94); Mean Platelet Vol. 10.6 fl (6.2-12.0); Platelet Count 184 K/mm3 (150-450); RBC Distribution Width CV 14.1 % (11.6-14.6); RBC Distribution Width SD 47.1 fl (35.1-43.9); White Blood Count 9.5 K/mm3 (4.4-11.0)
[2020-04-17 12:43] LABS: Hemoglobin A1c 8.3 % (3.8-5.6)
[2020-04-17 12:53] LABS: Protein, Urine (Random) 607.8 mg/dL (<11.9); Protein:Creat Ratio 4862 mg/g CRE (0-200)
[2020-04-17 13:02] LABS: ALB/GLOB Ratio 0.9 RATIO (0.9-2.4); AST(SGOT) 14 U/L (15-37); Alanine Aminotransfer ALT/SGPT 18 U/L (16-61); Albumin, Serum 3.4 g/dL (3.2-5.0); Alkaline Phosphatase 108 U/L (45-117); Anion Gap 6 (5-15); BUN 50 mg/dL (7-18); BUN/Creat Ratio 20.9 RATIO (10-20); Calcium,Total 8.7 mg/dL (8.5-10.1); Chloride 106 mmol/L (98-107); Creatinine, Serum 2.39 mg/dL (0.70-1.30); EST Glomerular Filtration Rate 30 mL/min (>60); Est Glom Filt Rate - Afr Amer 36 mL/min (>60); Globulin 3.6 g/dL (2.2-4.2); Glucose 283 mg/dL (74-106); Phosphorus 3.6 mg/dL (2.5-4.9); Potassium 4.7 mmol/L (3.5-5.1); Sodium Level 139 mmol/L (136-145)
[2020-04-17 13:05] LABS: Vitamin D,25 Hydroxy 31.4 ng/mL
== END ==
PROVIDERS: PCP Internal Medicine; Referring Provider Internal Medicine Nephrology; Visit Provider Internal Medicine Nephrology
DX: N18.4 Chronic kidney disease, stage 4 (severe) (principal); N25.81 Secondary hyperparathyroidism of renal origin; D63.1 Anemia in chronic kidney disease; E11.65 Type 2 diabetes mellitus with hyperglycemia
CPT/HCPCS: 36415; 80053; 82306; 82570; 83036; 84100; 84156; 85027

== ENCOUNTER → 2020-06-12 10:16 | Outpatient (CLI) | payer OTHER, SELFPAY ==
[2019-11-29 13:16] VITALS: BMI 40.8
[2020-02-19 15:17] VITALS: BMI 38.7
--- NOTE | 2020-06-12 10:20 | CDU_ITS ---
Reason For Study: Carotid stenosis Rt. Velocities/BP Lt. Velocities/BP Prox CCA 73.4/16 cm/sec. Prox CCA 90/11.4 cm/sec. Mid CCA 83.8/14.7 cm/sec. Mid CCA 88.2/15.2 cm/sec. Dist CCA 77.3/20 cm/sec. Dist CCA 79.1/15.2 cm/sec. Prox ICA 80.9/17 cm/sec. Prox ICA 322.6/91.3 cm/sec. Mid ICA 76.5/26.2 cm/sec. Mid ICA 139/24.8 cm/sec. Dist ICA 69.2/24.9 cm/sec. Dist ICA 75.4/11.5 cm/sec. Rt. ICA/CCA = 1.05. Lt. ICA/CCA = 3.66. Prox ECA 121.1/13.3 cm/sec. Prox ECA 279/10.7 cm/sec. Rt. Vert. 59.3/18.8 cm/sec. Lt. Vert. 38.8/13.5 cm/sec. Right Extracranial There is heterogeneous, irregular atherosclerotic plaque noted in the right common carotid artery. There is heterogeneous, irregular atherosclerotic plaque noted in the right internal carotid artery. There is heterogeneous, irregular atherosclerotic plaque noted in the right external carotid artery. Antegrade flow is noted in the right vertebral artery. Left Extracranial There is heterogeneous, irregular atherosclerotic plaque noted in the left common carotid artery. There is heterogeneous, irregular atherosclerotic plaque noted in the left internal carotid artery. The atherosclerotic plaque causes acoustic shadowing. There is heterogeneous, irregular atherosclerotic plaque noted in the left external carotid artery. Antegrade flow is noted in the left vertebral artery. Procedure Carotid Duplex [id number]. Exam performed in department. Interpretation Summary Irregular calcific plaque at the proximal right internal and external carotid arteries with less than 50% stenosis of the internal carotid <50% stenosis right external carotid Extensive irregular calcific heterogenous plaque at the proximal left internal carotid artery with greater than 70% stenosis. (Findings are consistent with a severe level of disease) >50% stenosis left external carotid Patent and antegrade vertebrals bilaterally There is significant advancement of disease involving the left internal carotid artery from the previous carotid duplex exam of April 25, 2019 Ordering Physician: Lisa Gates Referring Physician: Lisa Gates Performed By: Ann Cintron RVT and Student
== END ==
PROVIDERS: PCP Internal Medicine; Referring Provider Internal Medicine; Visit Provider Internal Medicine
DX: I65.23 Occlusion and stenosis of bilateral carotid arteries (principal)
CPT/HCPCS: 93880

== ENCOUNTER → 2020-07-17 14:51 | Outpatient (CLI) | payer OTHER, SELFPAY ==
[2019-11-29 13:16] VITALS: BMI 40.8
[2020-02-19 15:17] VITALS: BMI 38.7
[2020-07-17 15:12] LABS: Hematocrit 38.2 % (40-54); Mean Corpuscular Hgb 31.4 pg (27.0-32.0); Mean Corpuscular Volume 92.3 fL (80-94); Mean Platelet Vol. 10.3 fl (6.2-12.0); Platelet Count 164 K/mm3 (150-450); RBC Distribution Width CV 13.4 % (11.6-14.6); RBC Distribution Width SD 45.1 fl (35.1-43.9); Red Blood Count 4.14 M/mm3 (4.6-6.2); White Blood Count 6.6 K/mm3 (4.4-11.0)
[2020-07-17 15:57] LABS: BNP,B-Type NATRIURETIC PEPTIDE 178.6 pg/mL (0-100)
[2020-07-17 18:35] LABS: Vitamin B12 > 2000 pg/mL (211-911)
== END ==
PROVIDERS: PCP Internal Medicine; Referring Provider Internal Medicine; Visit Provider Internal Medicine
DX: R20.0 Anesthesia of skin (principal); I42.8 Other cardiomyopathies
CPT/HCPCS: 82607; 83880; 83921; 84484; 85027

== ENCOUNTER → 2020-07-22 15:45 | Outpatient (CLI) | payer OTHER, SELFPAY ==
[2019-11-29 13:16] VITALS: BMI 40.8
[2020-02-19 15:17] VITALS: BMI 38.7
[2020-07-22 16:54] LABS: Homocysteine 13.9 umol/L (3.2-10.7)
[2020-07-22 17:34] LABS: ALB/GLOB Ratio 0.9 RATIO (0.9-2.4); AST(SGOT) 21 U/L (15-37); Alanine Aminotransfer ALT/SGPT 21 U/L (16-61); Albumin, Serum 3.6 g/dL (3.2-5.0); Alkaline Phosphatase 118 U/L (45-117); Anion Gap 6 (5-15); BUN 41 mg/dL (7-18); BUN/Creat Ratio 15.8 RATIO (10-20); Calcium,Total 8.7 mg/dL (8.5-10.1); Chloride 104 mmol/L (98-107); EST Glomerular Filtration Rate 27 mL/min (>60); Est Glom Filt Rate - Afr Amer 33 mL/min (>60); Globulin 3.9 g/dL (2.2-4.2); Glucose 226 mg/dL (74-106); Potassium 5.1 mmol/L (3.5-5.1); Protein, Total 7.5 g/dL (6.4-8.2); Sodium Level 133 mmol/L (136-145)
[2020-07-22 17:38] LABS: Folates, (Folic Acid) > 100.00 ng/mL (3.1-55.4)
[2020-07-22 18:24] LABS: Hemoglobin A1c 8.6 % (3.8-5.6)
[2020-07-22 18:48] LABS: Vitamin B12 > 2000 pg/mL (211-911)
[2020-07-22 18:57] LABS: Protein, Urine (Random) 451.3 mg/dL (<11.9); Protein:Creat Ratio 4827 mg/g CRE (0-200)
== END ==
PROVIDERS: PCP Internal Medicine; Referring Provider Internal Medicine; Visit Provider Internal Medicine
DX: E11.65 Type 2 diabetes mellitus with hyperglycemia (principal); E78.2 Mixed hyperlipidemia; Z79.899 Other long term (current) drug therapy; N18.4 Chronic kidney disease, stage 4 (severe); E72.12 Methylenetetrahydrofolate reductase deficiency
CPT/HCPCS: 36415; 80053; 82570; 82607; 82746; 83036; 83090; 84156

== ENCOUNTER → 2020-09-04 14:35 | Outpatient (CLI) | payer OTHER, SELFPAY ==
[2019-11-29 13:16] VITALS: BMI 40.8
[2020-08-20 12:55] VITALS: BMI 39.7
[2020-09-04 15:29] LABS: Creatinine, Serum 2.46 mg/dL (0.70-1.30); EST Glomerular Filtration Rate 29 mL/min (>60); Est Glom Filt Rate - Afr Amer 35 mL/min (>60)
== END ==
PROVIDERS: PCP Internal Medicine; Referring Provider Surgery Vascular Surgery; Visit Provider Surgery Vascular Surgery
DX: I65.23 Occlusion and stenosis of bilateral carotid arteries (principal)
CPT/HCPCS: 36415; 82565

== ENCOUNTER → 2020-10-23 16:32 | Outpatient (CLI) | payer OTHER, SELFPAY ==
[2019-11-29 13:16] VITALS: BMI 40.8
[2020-08-20 12:55] VITALS: BMI 39.7
[2020-10-23 17:24] LABS: AST(SGOT) 17 U/L (15-37); Alanine Aminotransfer ALT/SGPT 20 U/L (16-61); Albumin, Serum 3.5 g/dL (3.2-5.0); Alkaline Phosphatase 105 U/L (45-117); Anion Gap 6 (5-15); BUN 35 mg/dL (7-18); BUN/Creat Ratio 14.2 RATIO (10-20); Calcium,Total 8.3 mg/dL (8.5-10.1); Chloride 102 mmol/L (98-107); Creatinine, Serum 2.47 mg/dL (0.70-1.30); EST Glomerular Filtration Rate 29 mL/min (>60); Est Glom Filt Rate - Afr Amer 35 mL/min (>60); Globulin 3.5 g/dL (2.2-4.2); Glucose 339 mg/dL (74-106); Potassium 4.7 mmol/L (3.5-5.1); Sodium Level 133 mmol/L (136-145); T4 Free Direct 0.86 ng/dL (0.76-1.46); Thyroid Stim Hormone (TSH) 2.41 uIU/mL (0.358-3.74)
== END ==
PROVIDERS: PCP Internal Medicine; Referring Provider Internal Medicine Endocrinology, Diabetes & Metabolism; Visit Provider Internal Medicine Endocrinology, Diabetes & Metabolism
DX: E11.65 Type 2 diabetes mellitus with hyperglycemia (principal); I10 Essential (primary) hypertension; E78.2 Mixed hyperlipidemia; E03.9 Hypothyroidism, unspecified
CPT/HCPCS: 36415; 80053; 83036; 84439; 84443

== ENCOUNTER → 2021-01-11 10:35 | Outpatient (CLI) | payer OTHER, SELFPAY ==
[2019-11-29 13:16] VITALS: BMI 40.8
[2020-08-20 12:55] VITALS: BMI 39.7
[2021-01-11 11:08] LABS: Absolute Lymphocyte Count 1.73 X10^3/uL (0.83-4.51); Absolute Neutrophil Count 5.6 X10^3/uL (2.0-7.7); Basophil# 0.04 X10^3/uL; Basophil% 0.5 % (0-1); Eosinophil# 0.23 X10^3/uL; Eosinophils% 2.7 % (0-5); Hematocrit 36.7 % (40-54); Hemoglobin 12.5 g/dL (13.0-16.5); Lymphocyte # 1.73 X10^3/ul (4.0); Lymphocyte % 20.3 % (19-41); Mean Corp Hgb Conc 34.1 g/dL (32-36); Mean Corpuscular Hgb 31.3 pg (27.0-32.0); Mean Platelet Vol. 10.4 fl (6.2-12.0); Monocyte# 0.89 X10^3/uL; Monocyte% 10.4 % (0-10); NRBC Flagged by Analyzer 0 % (0-5); Neutrophil # 5.62 X10^3/uL (2.7-7.7); Neutrophil % 65.7 % (47-70); Platelet Count 170 K/mm3 (150-450); RBC Distribution Width CV 13.7 % (11.6-14.6); RBC Distribution Width SD 45.5 fl (35.1-43.9); Red Blood Count 3.99 M/mm3 (4.6-6.2); White Blood Count 8.5 K/mm3 (4.4-11.0)
[2021-01-11 11:19] LABS: Protein, Urine (Random) 365.4 mg/dL (<11.9); Protein:Creat Ratio 5648 mg/g CRE (0-200)
[2021-01-11 11:24] LABS: Hemoglobin A1c 7.3 % (3.8-5.6)
[2021-01-11 11:35] LABS: PTHIN 102.6 pg/mL (18.4-80.1)
[2021-01-11 11:39] LABS: Vitamin B12 1243 pg/mL (211-911); Vitamin D,25 Hydroxy 27.2 ng/mL
[2021-01-11 11:41] LABS: AST(SGOT) 22 U/L (15-37); Alanine Aminotransfer ALT/SGPT 20 U/L (16-61); Albumin, Serum 3.5 g/dL (3.2-5.0); Alkaline Phosphatase 104 U/L (45-117); Anion Gap 8 (5-15); BUN 45 mg/dL (7-18); BUN/Creat Ratio 16.7 RATIO (10-20); Calcium,Total 9.5 mg/dL (8.5-10.1); Chloride 102 mmol/L (98-107); EST Glomerular Filtration Rate 26 mL/min (>60); Est Glom Filt Rate - Afr Amer 31 mL/min (>60); Globulin 3.4 g/dL (2.2-4.2); Glucose 255 mg/dL (74-106); Potassium 4.3 mmol/L (3.5-5.1); Protein, Total 6.9 g/dL (6.4-8.2); Sodium Level 136 mmol/L (136-145)
== END ==
PROVIDERS: PCP Internal Medicine; Referring Provider Internal Medicine Nephrology; Visit Provider Internal Medicine Nephrology
DX: E55.9 Vitamin D deficiency, unspecified (principal); I12.9 Hypertensive chronic kidney disease with stage 1 through stage 4 chronic kidney disease, or unspecified chronic kidney disease; E11.22 Type 2 diabetes mellitus with diabetic chronic kidney disease; N18.4 Chronic kidney disease, stage 4 (severe); E11.65 Type 2 diabetes mellitus with hyperglycemia; E78.2 Mixed hyperlipidemia; Z79.899 Other long term (current) drug therapy
CPT/HCPCS: 36415; 80053; 82306; 82570; 82607; 83036; 83970; 84156; 85025

== ENCOUNTER 2021-02-13 05:23 | Inpatient (IN) | payer OTHER, MEDICARE, SELFPAY ==
[2019-11-29 13:16] VITALS: BMI 40.8
[2020-08-20 12:55] VITALS: BMI 39.7
[2021-02-13] VITALS (16 sets, daily range): BP systolic 114–157; BP diastolic 72–118; PULSE 75–96; RESP 12–32; TEMP 36.6–36.9; O2SAT 64–97; BMI 44.9; BMI 39.5
--- NOTE | 2021-02-13 05:28 | RAD_ITS ---
STUDY: X-RAY CHEST REASON FOR EXAM: Male, 60 years old. sob TECHNIQUE: Single AP portable view of the chest. COMPARISON: 11/29/2019 FINDINGS: Diffuse patchy airspace disease compatible with CHF/pulmonary edema. No consolidation or effusion. There is mild cardiac enlargement. Stable left chest wall pacer device Normal mediastinum and gio. Normal visualized pulmonary arteries. Normal visualized aortic arch and descending thoracic aorta. Normal visualized thoracic spine. Normal visualized ribs, clavicles, and shoulders. There is no demonstrated abnormality of the visualized soft tissue structures of the upper abdomen. RAD/Chest 1 View (Portable) IMPRESSION: Moderate CHF Electronically Signed: Junior Perez DO at 6:09 EDT Tel , Service support ,
--- NOTE | 2021-02-13 05:28 | EKG12_ITS ---
Test Reason : RESP DISTRESS Blood Pressure : / mmHG Vent. Rate : 081 BPM Atrial Rate : 082 BPM P-R Int : 000 ms QRS Dur : 180 ms QT Int : 472 ms P-R-T Axes : 000 240 094 degrees QTc Int : 548 ms Atrial fibrillation Right superior axis deviation Non-specific intra-ventricular conduction block Abnormal ECG Confirmed by SINCERE KATHLEEN, PETRONA ([id number]), communications editor DANNY MCCONNELL ([id number]) on 02/17/2021 10:49:32 AM Referred By: RONDA Confirmed By:PETRONA POST MD
[2021-02-13 05:40] LABS: Absolute Lymphocyte Count 1.04 X10^3/uL (0.83-4.51); Absolute Neutrophil Count 12.6 X10^3/uL (2.0-7.7); Basophil# 0.04 X10^3/uL; Basophil% 0.3 % (0-1); Eosinophil# 0.01 X10^3/uL; Eosinophils% 0.1 % (0-5); Hematocrit 38.3 % (40-54); Hemoglobin 12.4 g/dL (13.0-16.5); Lymphocyte # 1.04 X10^3/ul (4.0); Lymphocyte % 7.1 % (19-41); Mean Corp Hgb Conc 32.4 g/dL (32-36); Mean Corpuscular Hgb 31.2 pg (27.0-32.0); Mean Corpuscular Volume 96.2 fL (80-94); Mean Platelet Vol. 10.4 fl (6.2-12.0); Monocyte# 0.87 X10^3/uL; NRBC Flagged by Analyzer 0 % (0-5); Neutrophil # 12.55 X10^3/uL (2.7-7.7); Neutrophil % 86.1 % (47-70); Platelet Count 207 K/mm3 (150-450); RBC Distribution Width CV 13.8 % (11.6-14.6); RBC Distribution Width SD 48.9 fl (35.1-43.9); Red Blood Count 3.98 M/mm3 (4.6-6.2); White Blood Count 14.6 K/mm3 (4.4-11.0)
[2021-02-13] MEDS: 0.9% Normal Saline 1,000 ML 150 ML IV (05:40)
[2021-02-13 05:46] LABS: Allen Test Positive; Base Excess -10 mmol/L (-2 to +2); Bicarbonate 16.7 mmol/L (22-26); Blood Gas Specimen Type ART; Comment 18/9; FI02 100; O2 Delivery Device BiPAP; PO2 77 mmHG (75-100); SITE L Radial; SO2 94 % (95-99); Total Carbon Dioxide 18 mmol/L; pCO2 34.4 mmHg (35-45)
[2021-02-13 05:50] LABS: International Normalized Ratio 1.3; Prothrombin Time (Protime)PT. 15.1 SECONDS (11.7-14.9)
[2021-02-13 05:51] LABS: Partial Thromboplast Time 26.9 Seconds (24.1-36.2)
[2021-02-13 06:23] LABS: ALB/GLOB Ratio 0.9 RATIO (0.9-2.4); AST(SGOT) 45 U/L (15-37); Alanine Aminotransfer ALT/SGPT 25 U/L (16-61); Albumin, Serum 3.3 g/dL (3.2-5.0); Alkaline Phosphatase 115 U/L (45-117); Anion Gap 12 (5-15); BUN 49 mg/dL (7-18); BUN/Creat Ratio 13.9 RATIO (10-20); Calcium,Total 8.3 mg/dL (8.5-10.1); Chloride 100 mmol/L (98-107); Creatinine, Serum 3.52 mg/dL (0.70-1.30); EST Glomerular Filtration Rate 19 mL/min (>60); Est Glom Filt Rate - Afr Amer 23 mL/min (>60); Estimated Creatinine Clearance 20.14 ml/min; Globulin 3.8 g/dL (2.2-4.2); Glucose 528 mg/dL (74-106); Potassium 5.7 mmol/L (3.5-5.1); Protein, Total 7.1 g/dL (6.4-8.2); Sodium Level 131 mmol/L (136-145)
[2021-02-13 06:25] LABS: Lactic Acid 5.6 mmol/L (0.4-1.9)
[2021-02-13 06:42] LABS: BNP,B-Type NATRIURETIC PEPTIDE 809.1 pg/mL (0-100)
[2021-02-13] MEDS: Insulin Lispro 10 UNIT in Syringe 0 ML 6 UNIT IV (06:44)
[2021-02-13] MEDS: Heparin Injection (Vial) 5,000 UNIT/ML VIAL 9500 UNIT IV (06:46)
[2021-02-13] MEDS: HEPARIN/D5w 25,000 UNITS 25,000 UNITS/250 ML IV.SOLN. 16 UNITS IV (06:50)
--- NOTE | 2021-02-13 07:28 | HP.PCM_ITS ---
History of Present Illness Date of Admission: 02/13/21 Chief Complaint: shortness of breath The patient is a 60 year old M with an extensive past medical history as outlined. He was admitted through the ED on 02/13/2021 with a complaint of shortness of breath and general feeling of unwellness. Patient received his second Covid shot 2 days prior to this admission. He states afterwards he started feeling unwell and short of breath. He thought symptoms would improve but they actually got worse. He admitted to fever and chills and a cough which was productive. He denied any chest pain or palpitations, dizziness, nausea vomiting or diarrhea. He has a history of sleep apnea and wears CPAP at night and also had a pacemaker and defibrillator in place account of her heart block from a year ago. When EMS arrived at his house, he was noted to be saturating at 70% on room air so he was placed on a nonrebreather mask. EMS reported that he went into respiratory arrest briefly though he had a pulse subsequently resuscitated. 2D echo done in November 2019 showed EF of 40 to 45%. At that time, he had presented with chest pain was found to have third-degree heart block. He had PCI with angioplasty and also had a pacemaker and defibrillator inserted. Vitals in the ED were essentially stable though at time of review, he was on BiPAP at 80% oxygen. Labs done showed sodium of 131 with potassium of 5.7 initially was trended up to 6.3. Creatinine was 3.6. Lactic acid was 2.5 and glucose was 553. Troponin was initially around 4 but trended up to 26.4 and BNP was 809.1. EKG showed no acute ST changes. Chest x-ray showed mild cardiac enlargement and diffuse patchy airspace disease compatible with CHF and pulmonary edema with no evidence of consolidation or effusion. He was admitted and managed for acute hypoxic respiratory failure due to acute on chronic heart failure with reduced ejection fraction, hyperkalemia and GEORGE on CKD as well as hyperglycemia and lactic acidosis. He was initially started on IV fluids in the ED. Patient was admitted to the ICU. He was started on IV Lasix. Cardiology and pulmonology as well as nephrology were consulted. He was started on IV vancomycin and cefepime account of severe sepsis as WBC was elevated and he was tachypneic and also had elevated white cell count so he met criteria for severe sepsis. Was also managed for hyperglycemia and started on IV insulin. Past Medical History Past Medical History (Chronic Problems): Chronic Problems (Last Reviewed 08/20/20 @ 13:41 by Johnna GRAY, PA) CAD (coronary artery disease) (Chronic) Atherosclerotic heart disease of telida coronary artery without angina pectoris (Chronic) H/O coronary artery bypass surgery (Chronic 03/05/10) CABG x 3 THOMAS-LAD, SVG-D1, SVG-LCx 03/05/2010 History of coronary artery stent placement (Chronic 08/21/17) [id number]-[id number]-[id number] LAD 01/24/2002; PCI-PAYAL-Mid RCA 02/01/2005; PCI- PAYAL of mid/distal and proximal RCA 08/21/17 History of coronary angioplasty (Chronic 11/29/19) PCI-Angiosculpt Balloon Onkynqnltgm-[id number]-bkdgd Thrombosis-Distal RCA 11/29/2019 Heart block AV complete (Chronic) intermittent CHB Presence of cardiac pacemaker (Chronic 11/28/19) Chronic systolic (congestive) heart failure (Chronic) Essential (primary) hypertension (Chronic) HLD (hyperlipidemia) (Chronic) 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) Left carotid stenosis (Chronic) Medical History: Medical History (Last Reviewed 08/20/20 @ 13:41 by Johnna GRAY, PA) Atherosclerotic heart disease of telida coronary artery without angina pectoris (Chronic) I25.10 NSTEMI (non-ST elevated myocardial infarction) (Resolved) Onset Date: 11/25/19 I21.4 Heart block AV complete (Chronic) I44.2 intermittent CHB Presence of cardiac pacemaker (Chronic) Onset Date: 11/28/19 Z95.0 Chronic systolic (congestive) heart failure (Chronic) I50.22 Essential (primary) hypertension (Chronic) I10 HLD (hyperlipidemia) (Chronic) E78.5 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) E11.22, N18.4 Left carotid stenosis (Chronic) I65.22 Diabetes E11.9 Diabetic neuropathy E11.40 Obesity (BMI 30.0-34.9) E66.9 Obstructive sleep apnea G47.33 Syncope R55 Type II diabetes mellitus, uncontrolled E11.65 Orthostatic hypotension (Resolved) I95.1 Syncope and collapse (Resolved) R55 Allergies ampicillin Allergy (Verified 02/13/21 05:38) Rash erythromycin base Allergy (Verified 02/13/21 05:38) tears me up Penicillins Allergy (Verified 02/13/21 05:38) Rash Sulfa (Sulfonamide Antibiotics) Allergy (Verified 02/13/21 05:38) Hives atorvastatin [From Lipitor] Adverse Reaction (Severe, Verified 02/13/21 05:38) Muscle aching pravastatin [From Pravachol] Adverse Reaction (Severe, Verified 02/13/21 05:38) Myalgias simvastatin [From Zocor] Adverse Reaction (Severe, Verified 02/13/21 05:38) Muscle aching amlodipine [From Norvasc] Adverse Reaction (Intermediate, Verified 02/13/21 05:38) Hand swelling ezetimibe [From Zetia] Adverse Reaction (Verified 02/13/21 05:38) MYALGIA Mioysxf-Vga-Mik Reductase Inhibitor Adverse Reaction (Verified 02/13/21 05:38) myalgias Patient has tried Lipitor, Pravachol, Zocor, Crestor as well as fenofibrates, Zetia, and Repatha (last 3 are non-statin drugs for hyperlipidemia) Home Medications: Ambulatory Orders Medication Instructions Recorded Albuterol IH (ProAir) [Proair Hfa] 1 - 2 puff INHALATION Q6H PRN PRN 08/16/17 Aspirin [Aspir-Low] 81 mg PO DAILY 08/16/17 Cholecalciferol (Vitamin D3) 5,000 unit PO QODAY 08/16/17 [Vitamin D3] Gabapentin [Neurontin] 100 mg PO BIDCM 08/16/17 Humulin N 50 units SC QHS 08/16/17 Humulin R 24 units SC BREAKFAST 08/16/17 Humulin R 27 units SC LUNCH 08/16/17 Humulin R 30 units SC DINNER 08/16/17 Montelukast [Singulair] 10 mg PO DAILY 08/16/17 sertraline 100 mg tablet 150 mg PO QHS 12/06/17 allopurinol 100 mg tablet 100 mg PO BID 12/11/18 nitroglycerin 0.4 mg sublingual 0.4 mg PO PRN PRN #25 tab 07/23/19 tablet Calcitriol [Rocaltrol] 1 tab PO QODAY 10/20/19 Isosorbide Mononitrate [Isosorbide 30 mg PO BID 11/25/19 Mononitrate ER] Metoprolol Tartrate 50 mg PO BID 11/25/19 NIFEdipine [Procardia Xl] 60 mg PO DAILY #30 tab 12/01/19 ticagrelor 90 mg tablet 90 mg PO BID 02/03/20 cyanocobalamin (vitamin B-12) 2,500 mcg PO QWEEK tab 02/19/20 2,500 mcg sublingual tablet folic acid 800 mcg tablet 0.8 mg PO DAILY 02/19/20 levothyroxine 75 mcg tablet 75 mcg PO DAILY tab 02/19/20 quetiapine 150 mg tablet,extended 150 mg PO QHS 02/19/20 release 24 hr ramipril 10 mg capsule 10 mg PO DAILY cap 02/19/20 diclofenac epolamine 1.3 % 1 patch TOPICAL PRN PRN 08/20/20 transdermal 12 hour patch furosemide 40 mg tablet 20 mg PO DAILY tab 08/20/20 Ticagrelor [Brilinta] 90 mg PO DAILY 02/13/21 Surgical History: Surgical History (Last Reviewed 08/20/20 @ 13:41 by Johnna Brar PA, PA) H/O coronary artery bypass surgery (Chronic) Onset Date: 03/05/10 Z95.1 CABG x 3 THOMAS-LAD, SVG-D1, SVG-LCx 03/05/2010 History of coronary artery stent placement (Chronic) Onset Date: 08/21/17 Z95.5 RWF-KSG-[id number] LAD 01/24/2002; PCI-PAYAL-Mid RCA 02/01/2005; PCI- PAYAL of mid/distal and proximal RCA 08/21/17 History of coronary angioplasty (Chronic) Onset Date: 11/29/19 Z98.61 PCI-Angiosculpt Balloon Drepaemexnp-Ga-gvdrj Thrombosis-Distal RCA 11/29/2019 H/O eye surgery Z98.890 History of left heart catheterization Onset Date: 08/18/17 Z98.890 1995;01/2002; 02/02/2005; 01/2007; 01/2008; 02/2010; 12/02/2010; 08/18/17 Surgical History: adenoidectomy, angioplasty, coronary bypass surgery, tonsillectomy, - - Septoplasty Psychiatric History: Anxiety, Depression Smoking Status: Never smoker - *Family History Maternal Family History: Family History (Last Reviewed 08/20/20 @ 13:41 by Johnna Brar PA, PA) Father CAD (coronary artery disease), Onset Age: 61 Stented coronary artery Mother COPD (chronic obstructive pulmonary disease) Sister Diabetes Hypertension History Items: COPD, Diabetes Paternal Family History: Family History (Last Reviewed 08/20/20 @ 13:41 by Johnna Brar PA, PA) Father CAD (coronary artery disease), Onset Age: 61 Stented coronary artery Mother COPD (chronic obstructive pulmonary disease) Sister Diabetes Hypertension History Items: Heart Disease Review of Systems Constitutional: Reports: Chills, Fever, Malaise, Weakness, Fatigue. Denies: Weight Change Eyes: Denies: Blurred vision HEENT: Denies: Head Aches, Sinus Congestion, Sinus Drainage Cardiovascular: Denies: Chest Pain, Chest Pressure, Edema, Heaviness, Light Headedness, Orthopnea, Palpitations, Paroxysmal Noc. Dyspnea, Syncope Respiratory: Reports: Cough, Shortness of Breath, Shortness of breath at rest, Shortness of breath upon exertion, Sputum production. Denies: Wheezing Gastrointestinal: Denies: Abdominal Pain, Nausea, Vomiting Genitourinary: Denies: Dysuria Musculoskeletal: Denies: Joint Pain, Joint Tenderness Skin: Denies: Rash, Wounds Neurological: Denies: Numbness, Tingling, Focal weakness Psychiatric: Denies: Anxiety, Depression, Homicidal Ideations, Suicidal Ideations Hematologic/ Lymphatic: Denies: Easy Bruising, Easy Bleeding VTE Information - Inpt Only VTE Present on Admission: No VTE Pharm Prophylaxis ordered?: Yes Patient Problems: Active and Suspected Problems (Last Reviewed 08/20/20 @ 13:41 by Johnna Brar PA, PA) Septic shock (Acute) Pneumonia (Acute) CHF (congestive heart failure) (Acute) Atrial fibrillation (Acute) Hyperkalemia (Acute) NSTEMI (non-ST elevated myocardial infarction) (Acute) GEORGE (acute kidney injury) (Acute) Hyperglycemia (Acute) Hypoxemia (Acute) - Physical Exam Vitals/I&O's: Vital Signs Temp Pulse Resp BP Pulse Ox 98.4 F 80 30 H 140/80 H 93 02/13/21 06:54 02/13/21 07:25 02/13/21 07:25 02/13/21 07:25 02/13/21 07:25 Oxygen Flow Rate (L/min) 80 Oxygen Delivery Method Bi-pap Weight: 278 lb 7.101 oz Body Mass Index (BMI) 44.9 General: Alert, Oriented x3, Cooperative, - - obese, looks much older than stated age HEENT: Atraumatic, PERRLA, EOMI, Normocephalic Oral: Dry Mucosa Neck: Supple, No JVD, Negative Carotid Bruits Lungs: - - Has coarse crackles and wheezing as well as rhonchi in all lung blue bilaterally. On BiPAP. Cardiovascular: Regular rate, Regular Rhythm, Normal S1, Normal S2, No murmurs Abdomen: Bowel Sounds Present, Soft, Non Tender, Obese Extremities: Capillary Refill Less than 3 Seconds, - - bilateral 1+ pitting p edal edema Skin: No rashes, No breakdown Musculoskeletal: No Tenderness to Palpation of Joints or Extremities Lymphatic: No Cervical, Supraclavicular, or Inguinal Adenopathy Neurological: Cranial nerves II-XII grossly intact, Neuro grossly intact, Motor Exam 5/5 strength throughout Psych/Mental Status: Normal Affect, Appropriate, Alert and oriented to time, place, person, mood and affect Microbiology Past 72 Hours 02/13/21 05:28 Mucosa - Nose SARS-CoV-2 Antigen (Rapid) - Final Laboratory Results 02/13/21 05:28: WBC 14.6 H, RBC 3.98 L, Hgb 12.4 L, Hct 38.3 L, MCV 96.2 H, MCH 31.2, MCHC 32.4, RDW Std Deviation 48.9 H, RDW Coeff of Margaret 13.8, Plt Count 207, MPV 10.4, Immature Gran % (Auto) 0.400, Neut % (Auto) 86.1 H, Lymph % (Auto) 7.1 L, [place] % (Auto) 6.0, Eos % (Auto) 0.1, Baso % (Auto) 0.3, Absolute Neuts (auto) 12.6 H, Absolute Lymphs (auto) 1.04, Nucleated RBC % 0 02/13/21 05:28: PT 15.1 H, INR 1.3, APTT 26.9 02/13/21 05:28: Sodium 131 L, Potassium 5.7 H, Chloride 100, Carbon Dioxide 19.0 L, Anion Gap 12, BUN 49 H, Creatinine 3.52 H, Estim Creat Clear Calc 20.14, Est GFR (MDRD) Af Amer 23 L, Est GFR (MDRD) Non-Af 19 L, BUN/Creatinine Ratio 13.9, Glucose 528 H*, Calcium 8.3 L, Total Bilirubin 0.60, AST 45 H, ALT 25, Alkaline Phosphatase 115, Troponin I 4.360 H*, Total Protein 7.1, Albumin 3.3, Globulin 3.8, Albumin/Globulin Ratio 0.9 02/13/21 05:28: Lactic Acid 5.6 H* 02/13/21 05:28: B-Natriuretic Peptide 809.1 H 02/13/21 05:42: Specimen Type ART, Sample Site L Radial, pH 7.30 L, Bicarbonate Actual 16.7 L, Total CO2 18, Base Excess -10 L, O2 Saturation 94 L, O2 % 100, ABG pCO2 34.4 L, ABG pO2 77, Tristin Test Positive, O2 Delivery Device BiPAP, Clinical Comments 24/07 Diagnostic Data Echocardiogram 02/13/21 08:53 Interpretation Summary The study was technically difficult. Contrast injection was performed. Moderate segmental systolic dysfunction (see wall motion). The estimated ejection fraction is 30 %. Mild diffuse mitral valve thickening. Mild (1+) mitral valve insufficiency. Trivial tricuspid valve insufficiency. Mild diffuse aortic valve thickening. Mild focal aortic valve calcification. Unable to estimate RV systolic pressure/pulmonary artery pressure due to technically difficult study. Diastolic function is indeterminate. Ordering Physician: Marshall Lowry Referring Physician: FRANCINE OLSEN Performed By: Alpa Sanchez, RDCS, RVT Chest X-Ray 02/13/21 11:00 IMPRESSION: Endotracheal tube in proper position with mildly worsened patchy airspace disease compared to previous exam. Electronically Signed: Luis Concepcion DO at 12:03 EDT , Service support , Current Medications Heparin Sodium (Porcine) (Heparin Injection (Vial) 5,000 Unit/Ml Vial) 0 unit IV UD PRN; Protocol PRN Reason: dose adjustment Sodium Chloride () 1,000 mls @ 150 mls/hr IV .[id number] [facility] Last Admin: 02/13/21 05:40 Dose: 150 mls/hr Documented by: Heparin Sodium/Dextrose () 25,000 units in 250 mls @ 16 mls/hr IV .[id number] [facility]; Protocol Last Admin: 02/13/21 06:50 Dose: 1,600 units/hr, 16 mls/hr Documented by: Assessment/Plan All Active Problems (Last Reviewed 08/20/20 @ 13:41 by Johnna Brar PA, PA) Septic shock (Acute) Pneumonia (Acute) CHF (congestive heart failure) (Acute) Atrial fibrillation (Acute) Hyperkalemia (Acute) NSTEMI (non-ST elevated myocardial infarction) (Acute) GEORGE (acute kidney injury) (Acute) Hyperglycemia (Acute) Hypoxemia (Acute) Dizzy (Acute) NSTEMI (non-ST elevated myocardial infarction) (Resolved 11/25/19) Acute coronary syndrome (Resolved) Angina pectoris (Resolved) Chest pain (Resolved) Orthostatic hypotension (Resolved) Syncope and collapse (Resolved) 60-year-old admitted with a complaint of shortness of breath as well as fever and chills and productive cough. #Acute hypoxic respiratory failure due to acute on chronic HFrEF and pneumonia as well as NSTEMI * admit to ICU. Consult critical care. * Started on IV Lasix drip on account of kidney function. Titrate oxygen to maintain saturation above 90%. * Monitor intake and output. N.p.o. on account of patient currently being on BIPAP * breathing treatments with bronchodilators. * Consult cardiology. Patient started on heparin drip. * 2D echo ordered. Also started on broad-spectrum antibiotics namely IV vancomycin and IV cefepime. * Blood cultures obtained. * #Acute on chronic heart failure with reduced ejection fraction: As above #severe sepsis * W due to pneumonia as he has a productive cough and had fever and chills at home as well. Started on broad-spectrum antibiotics as above. Will DC IV fluids started in ED in light of his severe heart failure * blood cultures sent. Trend lactic acid. * #Non-STEMI * EKG initially showed no acute ST changes. Initial troponin was above 4.3 but subsequently trended up to 26. * Patient started on heparin drip. Cardiology consulted. * On metoprolol and Imdur. * #GEORGE on CKD 3: * Creatinine was around 3.6 with baseline of around 2.7. * He also had hyperkalemia. * Nephrology was emergently consulted. * Patient given Kayexalate and given potassium depleting cocktail. * Will likely need dialysis if he is not diuresing well. * will obtain renal USG if kidney function doesnt improve * #Hyperglycemia * was was in the 500s on admission. At home insulin. Start subcu insulin. If blood sugar remains elevated, will start insulin drip. * #CAD s/p stents: Hold ramipril. Continue Brilinta and nifedipine as well as metoprolol. Also continue statin. #History of heart block s/p pacemaker and defibrillator: Stable DVT prophylaxis: On heparin drip CODE STATUS: Full code * patient and his counseled extensively about different types of CODE STATUS including full code, DNR CCA and DNR CCA. Patient elects to be full code. Total [id number] time 18 minutes. * 16:04pm After admission in the ICU, patient was very tachypneic and required increasing amounts of oxygen so decision was made to intubate patient. He was agreeable to this. After intubation, CODE BLUE was called after patient's pulse was not detectable. He was resuscitated per ACLS protocol and was shocked 3 times and also received several rounds of epinephrine and amiodarone. Patient was in PEA. He subsequently had ROSC was noted to be in V. fib so he was shocked again. and son were present. Patient subsequently went into CODE BLUE again and also had CPR per ACLS protocol. Discussed with nephrology and plan was to insert dialysis catheter for emergent dialysis on account of hyperkalemia. I did call Dr. Funk, surgeon substation engineer, who was in surgery at the time, and left a message that patient needed emergent dialysis catheter placed. decided at this time that patient had stated in the presence of hospitalist and at time of admission that also wanted to be full code, he did not want prolonged CPR if there was little chance of him recovering. Based on this conversation, said she did not want patient to undergo any further CPR, in line with his wishes. therefore switch CODE STATUS to DNR CCA with intubation as patient was intubated at that time. Even 100% oxygen on the ventilator, patient saturation was very poor he was saturating in the 50s and 60s. declined a ny further active intervention and patient at 12:03 PM on 02-13-2021. Cause of is acute cardiopulmonary arrest due to ventricular fibrillation due to acute hypoxic respiratory failure secondary to non-STEMI, acute on chronic heart failure with reduced ejection fraction and severe sepsis probable pneumonia. This note both serves as admission history and physical and summary. Inpatient E&M: 45894 Init Hosp L3 Procedures: 76762 Advncd Care Plan 30 Min
--- NOTE | 2021-02-13 07:32 | ED.DCSUM_ITS ---
History of Present Illness Chief Complaint: Shortness of Breath Informant: Patient, Family, [employer] Manager Onset: Yesterday Narrative: Patient brought in by EMS from home in respiratory distress. Reported increasing dyspnea throughout the day status post second Covid vaccination 2 days ago. Later reported by patient when stabilized no history of Covid infection. History of CHF coronary disease sleep apnea with sleep mask at night. History of pacemaker from heart block last year. EMS reported he was 70% on room air on their arrival he is placed on a nonrebreather, the reported he had a respiratory unresponsive briefly but had a pulse. He was brought in on a nonrebreather. Later additional information reports he is having a productive cough, fevers throughout the day along with myalgias. He has been having vomiting. No diarrhea. No loss of taste or smell. Records were reviewed, November last year had chest pains along with third-degree block, he had heart catheterization by Dr. 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 He is on aspirin and Brilinta. Noted he had an echocardiogram around that same time with an EF of 40 to 45%. Prior similar symptoms: Yes Past Medical History - Allergies and Home Meds Allergies/Adverse Reactions: Allergies ampicillin Allergy (Verified 02/13/21 05:38) Rash erythromycin base Allergy (Verified 02/13/21 05:38) tears me up Penicillins Allergy (Verified 02/13/21 05:38) Rash Sulfa (Sulfonamide Antibiotics) Allergy (Verified 02/13/21 05:38) Hives atorvastatin [From Lipitor] Adverse Reaction (Severe, Verified 02/13/21 05:38) Muscle aching pravastatin [From Pravachol] Adverse Reaction (Severe, Verified 02/13/21 05:38) Myalgias simvastatin [From Zocor] Adverse Reaction (Severe, Verified 02/13/21 05:38) Muscle aching amlodipine [From Norvasc] Adverse Reaction (Intermediate, Verified 02/13/21 05:38) Hand swelling ezetimibe [From Zetia] Adverse Reaction (Verified 02/13/21 05:38) MYALGIA Riauzks-Tkz-Bxd Reductase Inhibitor Adverse Reaction (Verified 02/13/21 05:38) myalgias Patient has tried Lipitor, Pravachol, Zocor, Crestor as well as fenofibrates, Zetia, and Repatha (last 3 are non-statin drugs for hyperlipidemia) Primary Care Physician: Lisa Gates MD [Primary Care Provider] - Past Medical History: - - Coronary disease, CHF, hypertension, hyperlipidemia, third-degree heart block, diabetes, sleep apnea,ckd IV Surgical History: adenoidectomy, angioplasty, coronary bypass surgery, tonsillectomy, - - Septoplasty Smoking Status: Never smoker - Family History Maternal Family History: Family History (Last Reviewed 08/20/20 @ 13:41 by Johnna GRAY, PA) Father CAD (coronary artery disease), Onset Age: 61 Stented coronary artery Mother COPD (chronic obstructive pulmonary disease) Sister Diabetes Hypertension Family History: Reports: COPD, Diabetes Paternal Family History: Family History (Last Reviewed 08/20/20 @ 13:41 by Johnna GRAY, PA) Father CAD (coronary artery disease), Onset Age: 61 Stented coronary artery Mother COPD (chronic obstructive pulmonary disease) Sister Diabetes Hypertension Family History: Reports: Heart Disease Review of Systems General: Reports: Fever. Denies: Chills, Sweats Eyes: Denies: Visual changes - bilaterally, Diplopia ENT: Denies: Rhinorrhea, Sore throat Cardiovascular: Denies: Chest pain, Palpitations Respiratory: Reports: Dyspnea, Cough. Denies: Dyspnea on exertion Gastrointestinal: Reports: Nausea, Vomiting. Denies: Abdominal pain, Diarrhea, Melena, Hematochezia Genitourinary: Denies: Dysuria, Hematuria, Frequency Musculoskeletal: Denies: Back pain, Extremity Pain Skin: Denies: Rash, Wounds Neurological: Denies: Headache, Weakness, Numbness Physical Exam Vital Signs/Narrative: Vital Signs Temp Pulse Resp BP Pulse Ox 02/13/21 07:25 80 30 H 140/80 H 93 02/13/21 07:20 80 27 H 89 02/13/21 06:54 98.4 F 75 20 H 135/73 H 92 02/13/21 05:48 78 28 H 96 02/13/21 05:35 98.1 F 97 02/13/21 05:25 98.1 F 82 26 H 114/87 H 64 Inital Vital Signs reviewed: Yes General: Well nourished, Well developed, - - Somnolent however able to follow commands and arousable. Head: Normocephalic, Atraumatic Eyes: EOMI ENT: Dry mucous membranes Neck: Supple Cardiovascular: Regular rhythm, Irregular Respiratory: Diminished Abdomen: Soft, Nontender, Nondistended, Normal bowel sounds Extremities: Edema, - - 1+ lower extremity edema Neurological: - - Initial somnolence, arousable Diagnostic/Tx/Re-eval Chest X-Ray - ED: 1 View, Read by ED Physician, Read by Radiologist, - - Pulmonary congestion radiology Clinical Impression(s) from Imaging Studies Chest X-Ray 02/13/21 05:28 IMPRESSION: Moderate CHF Electronically Signed: Junior Perez DO at 6:09 EDT Tel , Service support , Abnormal Lab Results 02/13/21 02/13/21 02/13/21 05:28 05:28 05:28 WBC 14.6 H RBC 3.98 L Hgb 12.4 L Hct 38.3 L MCV 96.2 H MCH 31.2 MCHC 32.4 RDW Std Deviation 48.9 H RDW Coeff of Margaret 13.8 Plt Count 207 MPV 10.4 Immature Gran % (Auto) 0.400 Neut % (Auto) 86.1 H Lymph % (Auto) 7.1 L Curry % (Auto) 6.0 Eos % (Auto) 0.1 Baso % (Auto) 0.3 Absolute Neuts (auto) 12.6 H Absolute Lymphs (auto) 1.04 Nucleated RBC % 0 PT 15.1 H INR 1.3 APTT 26.9 Specimen Type Sample Site pH Bicarbonate Actual Total CO2 Base Excess O2 Saturation O2 % ABG pCO2 ABG pO2 Tristin Test O2 Delivery Device Clinical Comments Sodium 131 L Potassium 5.7 H Chloride 100 Carbon Dioxide 19.0 L Anion Gap 12 BUN 49 H Creatinine 3.52 H Estim Creat Clear Calc 20.14 Est GFR (MDRD) Af Amer 23 L Est GFR (MDRD) Non-Af 19 L BUN/Creatinine Ratio 13.9 Glucose 528 H* Lactic Acid Calcium 8.3 L Total Bilirubin 0.60 AST 45 H ALT 25 Alkaline Phosphatase 115 Troponin I 4.360 H* B-Natriuretic Peptide Total Protein 7.1 Albumin 3.3 Globulin 3.8 Albumin/Globulin Ratio 0.9 02/13/21 02/13/21 02/13/21 05:28 05:28 05:42 WBC RBC Hgb Hct MCV MCH MCHC RDW Std Deviation RDW Coeff of Margaret Plt Count MPV Immature Gran % (Auto) Neut % (Auto) Lymph % (Auto) Curry % (Auto) Eos % (Auto) Baso % (Auto) Absolute Neuts (auto) Absolute Lymphs (auto) Nucleated RBC % PT INR APTT Specimen Type ART Sample Site L Radial pH 7.30 L Bicarbonate Actual 16.7 L Total CO2 18 Base Excess -10 L O2 Saturation 94 L O2 % 100 ABG pCO2 34.4 L ABG pO2 77 Tristin Test Positive O2 Delivery Device BiPAP Clinical Comments 24/07 Sodium Potassium Chloride Carbon Dioxide Anion Gap BUN Creatinine Estim Creat Clear Calc Est GFR (MDRD) Af Amer Est GFR (MDRD) Non-Af BUN/Creatinine Ratio Glucose Lactic Acid 5.6 H* Calcium Total Bilirubin AST ALT Alkaline Phosphatase Troponin I B-Natriuretic Peptide 809.1 H Total Protein Albumin Globulin Albumin/Globulin Ratio - Medical Decision Making Patient was hypoxic on arrival, more somnolent, BiPAP was placed, ABG slightly acidotic with hypoxemia. Clinically significant improvement on the BiPAP alert and awake on reevaluation able to give clear history. EKG noted A. fib with interventricular delay, there is concerns for hyper acute T waves anterior leads, there is no ST changes. Secondary to known CKD with EKG changes he was given calcium chloride pending labs. Sepsis work-up was initiated. Chest x-ray per radiology concerning for CHF, clinically reports fever productive sputum therefore will cover for pneumonia. Rocephin doxycycline given due to eryth romycin allergy. Lactic acid returned at 5.6, however likely from respiratory distress initially per EMS who reported he was tachypneic in the 40s. Blood pressures remaining stable. He was given gentle fluids due to his CHF history to avoid overload. Creatinine returned at 3.5 with worsening GEORGE creatinine from previous from 2.4-2.7. Clinically reporting nausea and vomiting, therefore I feel there is a prerenal component therefore diuretics are held. Glucose in the 500s normal gap. Potassium 5.7, he is treated with IV insulin and aerosol treatments that shift the potassium. Troponin returned at 4, multiple rediscussions he denies any chest pains. However with NSTEMI he is covered with heparin drip. Initially spoke with hospitalist, who requested I speak with cardiology who I spoke with Dr. Hayes. Agrees with heparin and current fluid treatment at this time. He recommended repeat echocardiogram while in the hospital. This was relayed to the hospital team. ICU Dr. Lowry also updated. By definition with a lactic acidosis he does meet septic shock without hypotension. - Critical Care Time Critical care time (excluding procedures): 30-74 minutes ED Disposition - Plan for ED Patient: Disposition: Acute Care Hospital [facility] Diagnosis: Septic shock, Pneumonia, CHF (congestive heart failure), Atrial fibrillation, Hyperkalemia, NSTEMI (non-ST elevated myocardial infarction), GEORGE (acute kidney injury), Hyperglycemia, Hypoxemia Referrals: Lisa Gates MD [Primary Care Provider] -
[2021-02-13 07:49] LABS: Bacteria 0 SEEN /hpf (None Seen); Mucous, Urine 0 SEEN /hpf (<or=2+); Squamous Epithelial Cells - UA 0 SEEN /hpf (0-5)
[2021-02-13 07:56] LABS: Color, Urine Yellow (Yellow); Glucose, Dipstick 1000 mg/dl (Normal); Ketone-Dipstick 5 mg/dl (Negative); Leukocyte Esterase-Dipstick Negative /ul (Negative); Nitrite-Dipstick Negative (Negative); Occult Blood-Urine 250 /ul (Negative); Protein-Dipstick 500 mg/dl (Negative); Specific Gravity, Urine 1.015 (1.002-1.030); Urine Bilirubin Dipstick Negative (Negative); Urine Clarity Sl. Cloudy (Clear); Urine Urobilinogen Normal (Normal)
[2021-02-13 08:05] LABS: White Blood Cells 0-5 SEEN /hpf (0-5)
[2021-02-13 08:06] LABS: Amorphous Sediment 1+; Red Blood Cells-Urine 0-5 SEEN /hpf (0-5)
--- NOTE | 2021-02-13 08:48 | PCM.CON.CC ---
Reason for Consult Date of Consultation: 02/13/21 Reason for Consultation: Acute hypoxemic respiratory failure History of Present Illness: The patient is a 60-year-old male, with a history as outlined below, who presented to the emergency department on February 13 with complaints of shortness of breath. The patient just recently noted increasing dyspnea after he received his second dose of his coronavirus vaccination 2 days ago. The patient does have a history of coronary artery disease status post CABG in 2009. Prior echocardiogram revealed an ejection fraction of 40 to 45%. In addition, the patient does have a known history of CKD stage IV. In addition to the aforementioned, the patient does report the presence of a nonproductive cough along with nausea and several episodes of emesis last evening. On presentation to the emergency department, the patient was noted to be afebrile but was tachypneic and hypoxemic requiring a nonrebreather and subsequently BiPAP. Laboratory evaluation revealed an elevated white blood cell count to 15,000. Chemistry profile was notable for a sodium of 131, potassium of 5.7, bicarbonate of 19 and creatinine of 3.52. Glucose was elevated to 528. Lactate was elevated to 5.6. Troponin was increased to 4.3 with a BNP of 809. Arterial blood gas obtained on BiPAP revealed a pH of 7.3 with a corresponding PCO2 of 34 and PO2 of 77. Chest x-ray revealed bilateral airspace opacities concerning for pulmonary edema and potential superimposed pneumonia. The patient's hyperkalemia was treated medically and the patient was continued on BiPAP. Antimicrobials were administered and the patient was admitted to the medical intensive care unit for further management. Shortly after my initial evaluation of the patient in the ICU, his respiratory status continued to decline. The patient was on maximum support from a BiPAP perspective with an FiO2 of 95% with marginal oxygen saturations. In addition, he was progressively tachypneic. I explained to the patient my concern that he would continue to decompensate clinically and recommended that we proceed with intubation. The patient was in agreement. Intubation Indication: Impending Respiratory Failure Consent was obtained from: Patient The patient was placed in the appropriate sniffing position. Preoxygenated sedation via BIPAP was provided for a minimum of 3 minutes. The patient had continuous cardiac as well as pulse oximetry monitoring during the procedure. Procedure sedation was provided by the administration of 4 mg of versed and 20 mg of etomidate. Direct laryngoscopy was then performed using a number 4 MAC blade, which revealed a grade 1 view. A 7.5 mm endotracheal tube was visualized advancing between the cords to the level of 22 cm at the lip. The stylette was then removed and discarded. Tube placement was confirmed by fogging in the tube along with equal and bilateral breath sounds. Colorimetric change was visualized on the CO2 meter. The cuff was then inflated and the tube secured using a commercially available device. A good pulse oximetry waveform was seen on the monitor throughout the procedure. A portable chest x-ray has been ordered to confirm appropriate placement. The patient tolerated the procedure well. UPDATE: Following the patient's intubation, he was stabilized and placed on propofol and fentanyl for sedation. It should be noted that immediately following endotracheal tube placement, the patient had a significant amount of pink frothy secretions. The patient was exceedingly difficult to oxygenate. His ventilator parameters were augmented. In fact, the patient was placed on APRV for short period of time, but did not tolerate that mode of mechanical ventilation. Therefore he was transition back to assist control and his sedation regimen was optimized. Despite 100% FiO2 and high PEEP requirements, the patient remained hypoxemic. Upon attempting to get a confirmatory x-ray of his endotracheal tube placement, the patient lost a pulse and went into PEA cardiac arrest. ELEN MADERA was called and ACLS was initiated. Although return of spontaneous circulation was initially achieved, the patient would only stabilize for a short period of time and would eventually go back into cardiac arrest. His primary rhythm was PEA. However, at one point, he was noted to be in pulseless V. tach, for which he did receive several shocks and amiodarone. The patient's family eventually presented to the bedside. They were updated on his overall prognosis and clinical state. They made a do decision at that time to transition him to DNR CCA without plans to perform any additional ACLS if he once again lost a pulse. A short time later, the patient once again went into cardiac arrest and was pulseless. No ACLS was initiated per family wishes. Time of was declared. Past Medical History Past Medical History (Chronic Problems): Chronic Problems (Last Reviewed 08/20/20 @ 13:41 by Johnna GRAY, PA) CAD (coronary artery disease) (Chronic) Atherosclerotic heart disease of [place] coronary artery without angina pectoris (Chronic) H/O coronary artery bypass surgery (Chronic 03/05/10) CABG x 3 THOMAS-LAD, SVG-D1, SVG-LCx 03/05/2010 History of coronary artery stent placement (Chronic 08/21/17) [id number]-NEH-Clyw LAD 01/24/2002; PCI-PAYAL-Mid RCA 02/01/2005; PCI- PAYAL of mid/distal and proximal RCA 08/21/17 History of coronary angioplasty (Chronic 11/29/19) PCI-Angiosculpt Balloon [id number]-Lb-[id number] Thrombosis-Distal RCA 11/29/2019 Heart block AV complete (Chronic) intermittent CHB Presence of cardiac pacemaker (Chronic 11/28/19) Chronic systolic (congestive) heart failure (Chronic) Essential (primary) hypertension (Chronic) HLD (hyperlipidemia) (Chronic) 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) Left carotid stenosis (Chronic) Medical History: Medical History (Last Reviewed 08/20/20 @ 13:41 by Johnna Brar PA, PA) Atherosclerotic heart disease of [place] coronary artery without angina pectoris (Chronic) I25.10 NSTEMI (non-ST elevated myocardial infarction) (Resolved) Onset Date: 11/25/19 I21.4 Heart block AV complete (Chronic) I44.2 intermittent CHB Presence of cardiac pacemaker (Chronic) Onset Date: 11/28/19 Z95.0 Chronic systolic (congestive) heart failure (Chronic) I50.22 Essential (primary) hypertension (Chronic) I10 HLD (hyperlipidemia) (Chronic) E78.5 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) E11.22, N18.4 Left carotid stenosis (Chronic) I65.22 Diabetes E11.9 Diabetic neuropathy E11.40 Obesity (BMI 30.0-34.9) E66.9 Obstructive sleep apnea G47.33 Syncope R55 Type II diabetes mellitus, uncontrolled E11.65 Orthostatic hypotension (Resolved) I95.1 Syncope and collapse (Resolved) R55 Allergies ampicillin Allergy (Verified 02/13/21 05:38) Rash erythromycin base Allergy (Verified 02/13/21 05:38) tears me up Penicillins Allergy (Verified 02/13/21 05:38) Rash Sulfa (Sulfonamide Antibiotics) Allergy (Verified 02/13/21 05:38) Hives atorvastatin [From Lipitor] Adverse Reaction (Severe, Verified 02/13/21 05:38) Muscle aching pravastatin [From Pravachol] Adverse Reaction (Severe, Verified 02/13/21 05:38) Myalgias simvastatin [From Zocor] Adverse Reaction (Severe, Verified 02/13/21 05:38) Muscle aching amlodipine [From Norvasc] Adverse Reaction (Intermediate, Verified 02/13/21 05:38) Hand swelling ezetimibe [From Zetia] Adverse Reaction (Verified 02/13/21 05:38) MYALGIA Mkivmoy-Bua-Sbp Reductase Inhibitor Adverse Reaction (Verified 02/13/21 05:38) myalgias Patient has tried Lipitor, Pravachol, Zocor, Crestor as well as fenofibrates, Zetia, and Repatha (last 3 are non-statin drugs for hyperlipidemia) Home Medications: Ambulatory Orders Medication Instructions Recorded Albuterol IH (ProAir) [Proair Hfa] 1 - 2 puff INHALATION Q6H PRN PRN 08/16/17 Aspirin [Aspir-Low] 81 mg PO DAILY 08/16/17 Cholecalciferol (Vitamin D3) 5,000 unit PO QODAY 08/16/17 [Vitamin D3] Gabapentin [Neurontin] 100 mg PO BIDCM 08/16/17 Humulin N 50 units SC QHS 08/16/17 Humulin R 24 units SC BREAKFAST 08/16/17 Humulin R 27 units SC LUNCH 08/16/17 Humulin R 30 units SC DINNER 08/16/17 Montelukast [Singulair] 10 mg PO DAILY 08/16/17 sertraline 100 mg tablet 150 mg PO QHS 12/06/17 allopurinol 100 mg tablet 100 mg PO BID 12/11/18 nitroglycerin 0.4 mg sublingual 0.4 mg PO PRN PRN #25 tab 07/23/19 tablet Calcitriol [Rocaltrol] 1 tab PO QODAY 10/20/19 Isosorbide Mononitrate [Isosorbide 30 mg PO BID 11/25/19 Mononitrate ER] Metoprolol Tartrate 50 mg PO BID 11/25/19 NIFEdipine [Procardia Xl] 60 mg PO DAILY #30 tab 12/01/19 ticagrelor 90 mg tablet 90 mg PO BID 02/03/20 cyanocobalamin (vitamin B-12) 2,500 mcg PO QWEEK tab 02/19/20 2,500 mcg sublingual tablet folic acid 800 mcg tablet 0.8 mg PO DAILY 02/19/20 levothyroxine 75 mcg tablet 75 mcg PO DAILY tab 02/19/20 quetiapine 150 mg tablet,extended 150 mg PO QHS 02/19/20 release 24 hr ramipril 10 mg capsule 10 mg PO DAILY cap 02/19/20 diclofenac epolamine 1.3 % 1 patch TOPICAL PRN PRN 08/20/20 transdermal 12 hour patch furosemide 40 mg tablet 20 mg PO DAILY tab 08/20/20 Ticagrelor [Brilinta] 90 mg PO DAILY 02/13/21 Surgical History: Surgical History (Last Reviewed 08/20/20 @ 13:41 by Johnna Brar PA, PA) H/O coronary artery bypass surgery (Chronic) Onset Date: 03/05/10 Z95.1 CABG x 3 THOMAS-LAD, SVG-D1, SVG-LCx 03/05/2010 History of coronary artery stent placement (Chronic) Onset Date: 08/21/17 Z95.5 ICZ-RZG-Qnjo LAD 01/24/2002; PCI-PAYAL-Mid RCA 02/01/2005; PCI- PAYAL of mid/distal and proximal RCA 08/21/17 History of coronary angioplasty (Chronic) Onset Date: 11/29/19 Z98.61 PCI-Angiosculpt Balloon Zgrzefbyeho-Jo-budnc Thrombosis-Distal RCA 11/29/2019 H/O eye surgery Z98.890 History of left heart catheterization Onset Date: 08/18/17 Z98.890 1995;01/2002; 02/02/2005; 01/2007; 01/2008; 02/2010; 12/02/2010; 08/18/17 Surgical History: adenoidectomy, angioplasty, coronary bypass surgery, tonsillectomy, - - Septoplasty Psychiatric History: Anxiety, Depression Smoking Status: Never smoker - *Family History Maternal Family History: Family History (Last Reviewed 08/20/20 @ 13:41 by Johnna GRAY, PA) Father CAD (coronary artery disease), Onset Age: 61 Stented coronary artery Mother COPD (chronic obstructive pulmonary disease) Sister Diabetes Hypertension History Items: COPD, Diabetes Paternal Family History: Family History (Last Reviewed 08/20/20 @ 13:41 by Johnna GRAY, PA) Father CAD (coronary artery disease), Onset Age: 61 Stented coronary artery Mother COPD (chronic obstructive pulmonary disease) Sister Diabetes Hypertension History Items: Heart Disease Review of Systems Constitutional: Denies: Chills, Fever Eyes: Denies: Blurred vision, Double vision HEENT: Denies: Head Aches, Sinus Congestion, Sinus Drainage Cardiovascular: Denies: Chest Pain, Palpitations Respiratory: Reports: Cough, Shortness of Breath. Denies: Sputum production Gastrointestinal: Reports: Nausea, Vomiting Genitourinary: Denies: Dysuria Musculoskeletal: Denies: Joint Pain, Joint Tenderness Skin: Denies: Rash, Wounds Neurological: Denies: Numbness, Tingling, Focal weakness Psychiatric: Denies: Anxiety, Depression, Homicidal Ideations, Suicidal Ideations Hematologic/ Lymphatic: Reports: Anemia Patient Problems: Active and Suspected Problems (Last Reviewed 08/20/20 @ 13:41 by Johnna GRAY, PA) Septic shock (Acute) Pneumonia (Acute) CHF (congestive heart failure) (Acute) Atrial fibrillation (Acute) Hyperkalemia (Acute) NSTEMI (non-ST elevated myocardial infarction) (Acute) GEORGE (acute kidney injury) (Acute) Hyperglycemia (Acute) Hypoxemia (Acute) Objective: The patient's most recent lab work, culture data and imaging studies have all been personally reviewed. Rapid coronavirus antigen testing was negative. Blood and urine cultures are pending. - Physical Exam Vitals/I&O's: Vital Signs Temp Pulse Resp BP Pulse Ox 98.4 F 96 30 H 154/79 H 92 02/13/21 07:45 02/13/21 07:45 02/13/21 07:45 02/13/21 07:45 02/13/21 07:45 Oxygen Flow Rate (L/min) 80 Oxygen Delivery Method Bi-pap Weight: 259 lb 14.8 oz Body Mass Index (BMI) 39.5 Intake and Output for Last 24 Hours 02/11/21 02/12/21 02/13/21 23:59 23:59 23:59 Intake Total 50 / 50 Output Total 1000 / 1000 Balance -950 / -950 General: Alert, Cooperative, - - Currently tolerating BiPAP therapy. HEENT: Atraumatic, PERRLA, Normocephalic Oral: Dry Mucosa Neck: Supple, No Nodes, Trachea Midline Lungs: Diminished, Rales, Rhonchi, Short of Breath, Tachypneic, Using Accessory Muscles Cardiovascular: Regular rate, Regular Rhythm Abdomen: Bowel Sounds Present, Soft, Non Tender, Obese Extremities: No clubbing, No cyanosis, No edema Skin: No breakdown Musculoskeletal: No Tenderness to Palpation of Joints or Extremities Lymphatic: No Cervical, Supraclavicular, or Inguinal Adenopathy Neurological: Cranial nerves II-XII grossly intact, Neuro grossly intact Psych/Mental Status: Normal Affect, Appropriate Labs (Last 48 Hours) 02/13/21 02/13/21 02/13/21 05:28 05:28 05:28 WBC 14.6 H RBC 3.98 L Hgb 12.4 L Hct 38.3 L MCV 96.2 H MCH 31.2 MCHC 32.4 RDW Std Deviation 48.9 H RDW Coeff of Margaret 13.8 Plt Count 207 MPV 10.4 Immature Gran % (Auto) 0.400 Neut % (Auto) 86.1 H Lymph % (Auto) 7.1 L Whitley % (Auto) 6.0 Eos % (Auto) 0.1 Baso % (Auto) 0.3 Absolute Neuts (auto) 12.6 H Absolute Lymphs (auto) 1.04 Nucleated RBC % 0 PT 15.1 H INR 1.3 APTT 26.9 Specimen Type Sample Site pH Bicarbonate Actual Total CO2 Base Excess O2 Saturation O2 % ABG pCO2 ABG pO2 Tristin Test O2 Delivery Device Clinical Comments Sodium 131 L Potassium 5.7 H Chloride 100 Carbon Dioxide 19.0 L Anion Gap 12 BUN 49 H Creatinine 3.52 H Estim Creat Clear Calc 20.14 Est GFR (MDRD) Af Amer 23 L Est GFR (MDRD) Non-Af 19 L BUN/Creatinine Ratio 13.9 Glucose 528 H* Lactic Acid Calcium 8.3 L Total Bilirubin 0.60 AST 45 H ALT 25 Alkaline Phosphatase 115 Troponin I 4.360 H* B-Natriuretic Peptide Total Protein 7.1 Albumin 3.3 Globulin 3.8 Albumin/Globulin Ratio 0.9 Urine Color Urine Clarity Urine pH Ur Specific [place] Urine Protein Urine Glucose (UA) Urine Ketones Urine Occult Blood Urine Nitrite Urine Bilirubin Urine Urobilinogen Ur Leukocyte Esterase Urine RBC Urine WBC Ur Squamous Epith Cells Amorphous Sediment Urine Bacteria Urine Mucus 04/08/2602/13/21 02/13/21 05:28 05:28 05:42 WBC RBC Hgb Hct MCV MCH MCHC RDW Std Deviation RDW Coeff of Margaret Plt Count MPV Immature Gran % (Auto) Neut % (Auto) Lymph % (Auto) Whitley % (Auto) Eos % (Auto) Baso % (Auto) Absolute Neuts (auto) Absolute Lymphs (auto) Nucleated RBC % PT INR APTT Specimen Type ART Sample Site L Radial pH 7.30 L Bicarbonate Actual 16.7 L Total CO2 18 Base Excess -10 L O2 Saturation 94 L O2 % 100 ABG pCO2 34.4 L ABG pO2 77 Tristin Test Positive O2 Delivery Device BiPAP Clinical Comments 24/07 Sodium Potassium Chloride Carbon Dioxide Anion Gap BUN Creatinine Estim Creat Clear Calc Est GFR (MDRD) Af Amer Est GFR (MDRD) Non-Af BUN/Creatinine Ratio Glucose Lactic Acid 5.6 H* Calcium Total Bilirubin AST ALT Alkaline Phosphatase Troponin I B-Natriuretic Peptide 809.1 H Total Protein Albumin Globulin Albumin/Globulin Ratio Urine Color Urine Clarity Urine pH Ur Specific [place] Urine Protein Urine Glucose (UA) Urine Ketones Urine Occult Blood Urine Nitrite Urine Bilirubin Urine Urobilinogen Ur Leukocyte Esterase Urine RBC Urine WBC Ur Squamous Epith Cells Amorphous Sediment Urine Bacteria Urine Mucus 02/13/21 02/13/21 07:45 08:45 WBC RBC Hgb Hct MCV MCH MCHC RDW Std Deviation RDW Coeff of Margaret Plt Count MPV Immature Gran % (Auto) Neut % (Auto) Lymph % (Auto) Whitley % (Auto) Eos % (Auto) Baso % (Auto) Absolute Neuts (auto) Absolute Lymphs (auto) Nucleated RBC % PT INR APTT Specimen Type Sample Site pH Bicarbonate Actual Total CO2 Base Excess O2 Saturation O2 % ABG pCO2 ABG pO2 Tristin Test O2 Delivery Device Clinical Comments Sodium Potassium Chloride Carbon Dioxide Anion Gap BUN Creatinine Estim Creat Clear Calc Est GFR (MDRD) Af Amer Est GFR (MDRD) Non-Af BUN/Creatinine Ratio Glucose Lactic Acid Pending Calcium Total Bilirubin AST ALT Alkaline Phosphatase Troponin I B-Natriuretic Peptide Total Protein Albumin Globulin Albumin/Globulin Ratio Urine Color Yellow Urine Clarity Sl. Cloudy Urine pH 5.0 Ur Specific [place] 1.015 Urine Protein 500 H Urine Glucose (UA) 1000 H Urine Ketones 5 H Urine Occult Blood 250 H Urine Nitrite Negative Urine Bilirubin Negative Urine Urobilinogen Normal Ur Leukocyte Esterase Negative Urine RBC 0-5 SEEN Urine WBC 0-5 SEEN Ur Squamous Epith Cells 0 SEEN Amorphous Sediment 1+ Urine Bacteria 0 SEEN Urine Mucus 0 SEEN Microbiology 02/13/21 05:28 Mucosa - Nose SARS-CoV-2 Antigen (Rapid) - Final Clinical Impression(s) from Imaging Studies Chest X-Ray 02/13/21 05:28 IMPRESSION: Moderate CHF Electronically Signed: Junior DO Chris at 6:09 EDT Tel , Service support , Current Medications Heparin Sodium (Porcine) (Heparin Injection (Vial) 5,000 Unit/Ml Vial) 0 unit IV UD PRN; Protocol PRN Reason: dose adjustment Sodium Chloride () 1,000 mls @ 150 mls/hr IV .Q6H40M [facility] Last Admin: 02/13/21 05:40 Dose: 150 mls/hr Documented by: Heparin Sodium/Dextrose () 25,000 units in 250 mls @ 16 mls/hr IV .[id number] [facility]; Protocol Last Admin: 02/13/21 06:50 Dose: 1,600 units/hr, 16 mls/hr Documented by: Assessment/Plan Active and Suspected Problems (Last Reviewed 08/20/20 @ 13:41 by Johnna Brar PA, PA) Septic shock (Acute) Pneumonia (Acute) CHF (congestive heart failure) (Acute) Atrial fibrillation (Acute) Hyperkalemia (Acute) NSTEMI (non-ST elevated myocardial infarction) (Acute) GEORGE (acute kidney injury) (Acute) Hyperglycemia (Acute) Hypoxemia (Acute) RECOMMENDATIONS: 1. Stop continuous supplemental IV fluids. 2. Give IV Lasix for now. 3. Continue BiPAP therapy and wean FiO2 to maintain oxygen saturations at or above 90%. Low threshold for intubation 4. Continue medical management of hyperkalemia. However, anticipate need for possible dialysis. 5. Start sliding scale insulin coverage. 6. Obtain echocardiogram. 7. Trend troponins. 8. Obtain cardiology and nephrology consultations. 9. Initiate appropriate ICU prophylaxis. IMPRESSIONS: 1. Acute hypoxemic respiratory failure Clinical concern for multifactorial etiology including possible decompensated heart failure and community-acquired pneumonia. The patient does have an elevated BNP and troponin. Although he was initially started on supplemental IV fluids, I would recommend conservative use given his tenuous respiratory status. Instead, I would recommend that we administer IV diuretics. I would also have a low threshold for intubation, as the patient is clinically unstable from a respiratory perspective despite being on maximum support from a noninvasive perspective. It is certainly reasonable to continue antimicrobials for now, while awaiting infectious work-up. 2. Septic shock The patient did meet septic shock by lactate criteria. However, he is hemodynamically stable at the present time. I would recommend against excessive volume resuscitation, given tenuous respiratory status. Continue broad-spectrum antimicrobials, pending infectious work-up. Send repeat lactate. As above, clinical concern for underlying pulmonary infectious etiology. 3. Non-ST segment elevation GA/history of coronary artery disease status post CABG Cardiology has been consulted to evaluate the patient. Continue heparin infusion as ordered. Await echocardiogram. 4. Acute on chronic kidney disease/hyperkalemia/nonanion gap metabolic acidosis Possibly prerenal in etiology. However, the patient does have an elevated BNP and tenuous respiratory status. Therefore, I would recommend an attempt at diuresis in hopes that this may prevent further decompensation in his respiratory status. In addition, we will need to monitor his potassium level closely over concerns for the possible need for dialysis. Accordingly, nephrology consultation will be obtained. 5. History of obstructive sleep apnea Continue nocturnal Pap therapy per home regimen. 6. Obesity/hypertension/hyperlipidemia/hypothyroidism/depression Complicates care, management, recovery and prognosis. Continue home medications as indicated. CODE status: Discussed CODE status at length including difference between FULL code, DNR-CCA and DNR-CC status. Following discussions about the differences in these status, patient requested FULL CODE STATUS. TIME: 90 minutes of critical care time, independent of procedures, was spent addressing the patient's acute hypoxemic respiratory failure, septic shock, non-ST segment elevation GA, acute on chronic kidney disease, hyperkalemia, review of all data and collaboration with the care team. ([id number]) Procedures: 03153 Critial Care Addl 30 Min 9xxxx: [id number] Critical care first hour
--- NOTE | 2021-02-13 08:53 | ECHOCS_ITS ---
Reason For Study: DYSPNEA Procedure This was a 2D Doppler, Color Flow transthoracic echocardiogram. The study was technically difficult. Contrast injection was performed. Patient was scanned in sitting position during reflux assessment. Exam performed portable in ICU/CCU. Left Ventricle Normal LV size. Moderate segmental systolic dysfunction (see wall motion). The estimated ejection fraction is 30 %. Diastolic function is indeterminate. Anterio-Basal: Hypokinetic. Lateral-Basal: Hypokinetic. Posterior-Basal: Akinetic. Infero-Basal: Akinetic. Basal inferoseptal: Hypokinetic. Mid-Anterior : Hypokinetic. Mid-Lateral : Hypokinetic. Mid-Posterior: Hypokinetic. Mid-Inferior: Hypokinetic. Anterior [place] : Hypokinetic. Lateral [place] : Akinetic. Right Ventricle Normal RV size. Normal systolic function. Atria Normal left atrium. Normal right atrium. No doppler evidence for ASD. Mitral Valve There is no mitral annular calcification. Mild diffuse mitral valve thickening. Mild (1+) mitral valve insufficiency. Tricuspid Valve Normal tricuspid valve. Trivial tricuspid valve insufficiency. Unable to estimate RV systolic pressure/pulmonary artery pressure due to technically difficult study. Aortic Valve Trisinus/trileaflet aortic valve. Mild diffuse aortic valve thickening. Mild focal aortic valve calcification. Pulmonic Valve The pulmonic valve is not well visualized. Great Vessels Normal sized aortic root. Pericardium/Pleural No pericardial effusion. Medication Diluted definity 5.0ml given slow IV push to enhance endocardial definition. MMode/2D Measurements & Calculations LVIDd: 5.5 cm IVSd: 1.1 cm Ao root diam: 3.3 cm LVIDs: 4.6 cm LVPWd: 1.1 cm FS: 15.3 % LAV(MOD-bp): 69.9 ml LVAd ap4: 45.2 cm2 SV(MOD-sp4): 57.1 ml LAV(MOD-bp) Indexed: 30.6 ml/m2 EDV(MOD-sp4): 172.7 ml LAV(MOD-sp2): 91.0 ml EDV(sp4-el): 176.5 ml LAV(MOD-sp4): 42.2 ml LVAs ap4: 35.3 cm2 ESV(MOD-sp4): 115.5 ml ESV(sp4-el): 119.9 ml EF(MOD-sp4): 33.1 % EF(sp4-el): 32.1 % SV(sp4-el): 56.7 ml LA A4 area: 15.7 cm2 LA dimension(2D): 4.6 cm RA A4 area: 15.9 cm2 Time Measurements MV dec time: 0.14 sec Doppler Measurements & Calculations MV E max chay: 92.3 cm/sec Lat Peak E' Chay: 4.9 cm/sec Med Peak E' Chay: 2.7 cm/sec MV A max chay: 74.5 cm/sec E/E' lat: 18.8 E/E' med: 34.1 MV E/A: 1.2 Ao V2 max: 108.2 cm/sec LV V1 max: 63.6 cm/sec PA V2 max: 101.9 cm/sec Ao max P.7 mmHg LV V1 max P.6 mmHg ECHO/Echo Complete W/ Contrast Interpretation Summary The study was technically difficult. Contrast injection was performed. Moderate segmental systolic dysfunction (see wall motion). The estimated ejection fraction is 30 %. Mild diffuse mitral valve thickening. Mild (1+) mitral valve insufficiency. Trivial tricuspid valve insufficiency. Mild diffuse aortic valve thickening. Mild focal aortic valve calcification. Unable to estimate RV systolic pressure/pulmonary artery pressure due to techni manpreet difficult study. Diastolic function is indeterminate. Ordering Physician: Marshlal Lowry Referring Physician: FRANCINE LOSEN Performed By: Alpa Sanchez, JOHN, RVT
[2021-02-13 09:31] LABS: Lactic Acid 2.5 mmol/L (0.4-1.9)
[2021-02-13 09:32] LABS: Anion Gap 7 (5-15); BUN 53 mg/dL (7-18); BUN/Creat Ratio 14.7 RATIO (10-20); Calcium,Total 8.9 mg/dL (8.5-10.1); Chloride 101 mmol/L (98-107); EST Glomerular Filtration Rate 18 mL/min (>60); Est Glom Filt Rate - Afr Amer 22 mL/min (>60); Estimated Creatinine Clearance 21.11 ml/min; Glucose 553 mg/dL (74-106); Potassium 6.3 mmol/L (3.5-5.1); Sodium Level 131 mmol/L (136-145)
[2021-02-13 09:36] LABS: Reflex Lactate? Y
--- NOTE | 2021-02-13 10:42 | NURSING ---
Dr Lowry at Head of Bed for intubation. Echocardiogram was just finished. 1044- 4mg IV versed given 1044- 20mg Etomidate IV given 1045- #7.5 ETT, 22cm lip, (+) color change, B/L breath sounds. Prop @ 10, Fent @ 50. 1048- prop increased to 20 & fent increased to [address] Lowry ordered. 1049- 121/69, 46%, hr 74, DR Lowry remains at head of bed as well as respiratory. 1050- jackson inserted 1052- 100 succ IV given 1053- 76/59, HR 71 & paced, 49% AC 14, tv 450, fio2 100%, PEEP 15 1054- fent increased to [address] Lowry order 1054- 63/49, 58%, hr 65 & paced, 97.6 core temp, dr lowry remains at bedside 1057-0.5mg Phenylephrine IV given, 40mg Lasix IV 1058- radiology here for cxr 1059- hr 68 & paced,
[2021-02-13] MEDS: Midazolam 5 MG/ML Syringe 4 MG IV (10:44)
[2021-02-13] MEDS: Etomidate 20 MG/10 ML Vial IV (10:44)
[2021-02-13] MEDS: Propofol 10MG/Ml 1,000 MG/100 ML Bottle 7.1 MG CONT INF (10:45)
[2021-02-13] MEDS: Furosemide 40 MG/4 ML Vial IV (10:57)
[2021-02-13] MEDS: Phenylephrine 1 MG/10 ML SYRINGE 0.5 MG IV (10:57)
--- NOTE | 2021-02-13 11:00 | RAD_ITS ---
STUDY: X-RAY CHEST REASON FOR EXAM: Male, 60 years old. ET TUBE/OG TUBE PLACEMENT TECHNIQUE: Single AP portable view of the chest. COMPARISON: 02/13/2021 5:40 AM FINDINGS: Endotracheal tube overlies the mid trachea 5 cm from the claudia. Left pacer place with leads overlying the right atrium and right ventricle. Diffuse patchy airspace disease throughout the lung parenchyma mildly worsened compared to previous exam. There is no demonstrated pleural abnormality. Normal size heart. Normal mediastinum and gio. Normal visualized pulmonary arteries. Normal visualized aortic arch and descending thoracic aorta. Normal visualized thoracic spine. Normal visualized ribs, clavicles, and shoulders. There is no demonstrated abnormality of the visualized soft tissue structures of the upper abdomen. RAD/Chest 1 View (Portable) IMPRESSION: Endotracheal tube in proper position with mildly worsened patchy airspace disease compared to previous exam. Electronically Signed: Luis Concepcion DO at 12:03 EDT , Service support ,
--- NOTE | 2021-02-13 11:20 | EKG12_ITS ---
Test Reason : CODE Blood Pressure : / mmHG Vent. Rate : 118 BPM Atrial Rate : 118 BPM P-R Int : 000 ms QRS Dur : 172 ms QT Int : 416 ms P-R-T Axes : 000 -74 101 degrees QTc Int : 583 ms Electronic Ventricular Pacemaker Confirmed by YESSY KATHLEEN, GIANNI ([id number]), technical writer and editor DANNY MCCONNELL ([id number]) on 02/18/2021 11:30:08 AM Referred By: Eric KRISHNAMURTHY Confirmed By:GIANNI KRISHNAMURTHY MD
[2021-02-13] MEDS: Amiodarone 360 MG in Dextrose 5% Viaflo Bag 192.8 ML 33.3 MG CONT INF (11:30)
--- NOTE | 2021-02-13 12:03 | NURSING ---
Dr Lowry at bedside. Pt without respirations or pulse. Family present. Time of 1203.
--- NOTE | 2021-02-13 12:06 | CASEMGMT ---
SW offered support to and son, SW remains available for any supportive needs. NOAM Foss
[2021-02-13 12:14] LABS: M R Staph aureus DNA By PCR Negative (Negative); Probe Check PASS; Specimen Processing Control PASS
[2021-02-13 12:15] LABS: Allen Test Negative; Base Excess -14 mmol/L (-2 to +2); Bicarbonate 17.9 mmol/L (22-26); Blood Gas Specimen Type ART; FI02 100; Mode AC; O2 Delivery Device Adult Vent; PEEP 20; PO2 42 mmHG (75-100); RR 14; SITE L Radial; SO2 51 % (95-99); Total Carbon Dioxide 20 mmol/L; Vt 500; pCO2 76.2 mmHg (35-45); pH 6.98 (7.35-7.45)
[2021-02-13 12:52] LABS: Reflex Lactate? Y
--- NOTE | 2021-02-13 13:00 | CON.PCM_ITS ---
Problem List (1) NSTEMI (non-ST elevated myocardial infarction) Status: Acute (2) CHF (congestive heart failure) Status: Acute (3) CAD (coronary artery disease) Status: Chronic Qualifiers: Coronary Disease-Associated Artery/Lesion type: bypass graft [place] vs. transplanted heart: [place] heart (4) History of coronary artery stent placement Status: Chronic Comment: [id number] LAD 01/24/2002; PCI-PAYAL-Mid RCA 02/01/2005; PCI- PAYAL of mid/distal and proximal RCA 08/21/17 (5) H/O coronary artery bypass surgery Status: Chronic Comment: CABG x 3 THOMAS-LAD, SVG-D1, SVG-LCx 03/05/2010 (6) Atrial fibrillation Status: Acute (7) Heart block AV complete Status: Chronic Comment: intermittent CHB (8) Presence of cardiac pacemaker Status: Chronic (9) HLD (hyperlipidemia) Status: Chronic Qualifiers: Hyperlipidemia type: pure hypercholesterolemia Qualified Code(s): E78.00 - Pure hypercholesterolemia, unspecified (10) Essential (primary) hypertension Status: Chronic (11) GEORGE (acute kidney injury) Status: Acute (12) Hyperkalemia Status: Acute (13) Pneumonia Status: Acute Reason for Consult Date of Consultation: 02/13/21 History of Present Illness: The patient is a 60 year oldjcu-ljou-jub white male with a history of underlying CAD, PCI, CABG, atrial fibrillation, AV block, status post permanent pacemaker placement, hyperlipidemia, and hypertension, who was referred for evaluation of a non-ST segment elevation OK, CHF, acute renal insufficiency, hyperkalemia, and pneumonia. To the patient and the [facility] emergency department staff the patient apparently recently received his COVID-19 vaccination #2. He subsequently was noted to complain of fevers, a cough, myalgias, and nausea/emesis. He had progressive shortness of breath/dyspnea. He was brought to the emergency department for further evaluation. There were concerns that he had an acute respiratory distress of event. He was evaluated with cardiac enzymes which were considered abnormal. An ECG was obtained which suggested underlying atrial fibrillation with a ventricular paced rhythm. A chest x-ray was obtained with suggested concerns of a combination of CHF and pos sible pneumonia. The patient was noted to also have marked elevation of his creatinine level and associated hyperkalemia. He was being evaluated in the emergency department and treated for combination of cardiopulmonary and metabolic related issues. He was placed in the ICU for further evaluation and care. In the ICU he was on a CPAP device. At the time of the vascular consultation he denied any ongoing chest discomfort. He stated his main concern at that time was his shortness of breath and dyspnea. He denied any reports of near syncope or syncope. He was continuing to be monitored. He had a follow-up troponin I level which had increased. He underwent evaluation with a transthoracic echocardiogram (noted below). Following his transthoracic echocardiogram, based upon his respi ratory status, he subsequently underwent mechanical intubation/ventilation by Dr. Lowry of the ICU staff. [] Past Medical History Allergies/Adverse Reactions: Allergies ampicillin Allergy (Verified 02/13/21 05:38) Rash erythromycin base Allergy (Verified 02/13/21 05:38) tears me up Penicillins Allergy (Verified 02/13/21 05:38) Rash Sulfa (Sulfonamide Antibiotics) Allergy (Verified 02/13/21 05:38) Hives atorvastatin [From Lipitor] Adverse Reaction (Severe, Verified 02/13/21 05:38) Muscle aching pravastatin [From Pravachol] Adverse Reaction (Severe, Verified 02/13/21 05:38) Myalgias simvastatin [From Zocor] Adverse Reaction (Severe, Verified 02/13/21 05:38) Muscle aching amlodipine [From Norvasc] Adverse Reaction (Intermediate, Verified 02/13/21 05:38) Hand swelling ezetimibe [From Zetia] Adverse Reaction (Verified 02/13/21 05:38) MYALGIA Wmvtinp-Qyt-Btx Reductase Inhibitor Adverse Reaction (Verified 02/13/21 05:38) myalgias Patient has tried Lipitor, Pravachol, Zocor, Crestor as well as fenofibrates, Zetia, and Repatha (last 3 are non-statin drugs for hyperlipidemia) Home Medications: Ambulatory Orders Medication Instructions Recorded Albuterol IH (ProAir) [Proair Hfa] 1 - 2 puff INHALATION Q6H PRN PRN 08/16/17 Aspirin [Aspir-Low] 81 mg PO DAILY 08/16/17 Cholecalciferol (Vitamin D3) 5,000 unit PO QODAY 08/16/17 [Vitamin D3] Gabapentin [Neurontin] 100 mg PO BIDCM 08/16/17 Humulin N 50 units SC QHS 08/16/17 Humulin R 24 units SC BREAKFAST 08/16/17 Humulin R 27 units SC LUNCH 08/16/17 Humulin R 30 units SC DINNER 08/16/17 Montelukast [Singulair] 10 mg PO DAILY 08/16/17 sertraline 100 mg tablet 150 mg PO QHS 12/06/17 allopurinol 100 mg tablet 100 mg PO BID 12/11/18 nitroglycerin 0.4 mg sublingual 0.4 mg PO PRN PRN #25 tab 07/23/19 tablet Calcitriol [Rocaltrol] 1 tab PO QODAY 10/20/19 Isosorbide Mononitrate [Isosorbide 30 mg PO BID 11/25/19 Mononitrate ER] Metoprolol Tartrate 50 mg PO BID 11/25/19 NIFEdipine [Procardia Xl] 60 mg PO DAILY #30 tab 12/01/19 ticagrelor 90 mg tablet 90 mg PO BID 02/03/20 cyanocobalamin (vitamin B-12) 2,500 mcg PO QWEEK tab 02/19/20 2,500 mcg sublingual tablet folic acid 800 mcg tablet 0.8 mg PO DAILY 02/19/20 levothyroxine 75 mcg tablet 75 mcg PO DAILY tab 02/19/20 quetiapine 150 mg tablet,extended 150 mg PO QHS 02/19/20 release 24 hr ramipril 10 mg capsule 10 mg PO DAILY cap 02/19/20 diclofenac epolamine 1.3 % 1 patch TOPICAL PRN PRN 08/20/20 transdermal 12 hour patch furosemide 40 mg tablet 20 mg PO DAILY tab 08/20/20 Ticagrelor [Brilinta] 90 mg PO DAILY 02/13/21 Past Medical History (Chronic Problems): Chronic Problems (Last Reviewed 08/20/20 @ 13:41 by Johnna Brar PA, PA) CAD (coronary artery disease) (Chronic) Atherosclerotic heart disease of [place] coronary artery without angina pectoris (Chronic) H/O coronary artery bypass surgery (Chronic 03/05/10) CABG x 3 THOMAS-LAD, SVG-D1, SVG-LCx 03/05/2010 History of coronary artery stent placement (Chronic 08/21/17) [id number] LAD 01/24/2002; PCI-PAYAL-Mid RCA 02/01/2005; PCI- PAYAL of mid/distal and proximal RCA 08/21/17 History of coronary angioplasty (Chronic 11/29/19) PCI-Angiosculpt Balloon [id number] Thrombosis-Distal RCA 11/29/2019 Heart block AV complete (Chronic) intermittent CHB Presence of cardiac pacemaker (Chronic 11/28/19) Chronic systolic (congestive) heart failure (Chronic) Essential (primary) hypertension (Chronic) HLD (hyperlipidemia) (Chronic) 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) Left carotid stenosis (Chronic) Surgical History: adenoidectomy, angioplasty, coronary bypass surgery, tonsillectomy, - - Septoplasty Psychiatric History: Anxiety, Depression - *Family History Maternal Family History: Family History (Last Reviewed 08/20/20 @ 13:41 by Johnna GRAY, PA) Father CAD (coronary artery disease), Onset Age: 61 Stented coronary artery Mother COPD (chronic obstructive pulmonary disease) Sister Diabetes Hypertension History Items: COPD, Diabetes Paternal Family History: Family History (Last Reviewed 08/20/20 @ 13:41 by Johnna GRAY, PA) Father CAD (coronary artery disease), Onset Age: 61 Stented coronary artery Mother COPD (chronic obstructive pulmonary disease) Sister Diabetes Hypertension History Items: Heart Disease Smoking Status: Never smoker Review of Systems - Review of Systems General: Reports: Fever. Denies: Fatigue, Night Sweats Cardiovascular: Reports: Shortness of Breath, Shortness of Breath at Rest, Shortness of Breath with Exertion, Orthopnea, PND. Denies: Chest Discomfort, Peripheral Edema, Palpitations, Lightheadedness, Dizziness, Near Syncope, Syncope Respiratory: Reports: Cough, Shortness of Breath. Denies: Sputum Production, Hemoptysis Gastrointestinal: Reports: Nausea, Emesis. Denies: Hematemesis, Hematochezia, Melena Genitourinary: Denies: Dysuria, Hematuria Muscoloskeletal: Reports: Myalgias Skin: Denies: Rash Subjectve: This is a 60-year-old white male who was semirecumbent wearing a CPAP device in the ICU. Objective: Vital Signs Temp Pulse Resp BP Pulse Ox 98.4 F 96 30 H 154/79 H 92 02/13/21 07:45 02/13/21 07:45 02/13/21 07:45 02/13/21 07:45 02/13/21 07:45 Oxygen Flow Rate (L/min) 80 Oxygen Delivery Method Bi-pap Weight: 259 lb 14.8 oz Body Mass Index (BMI) 39.5 Intake and Output for Last 24 Hours 02/11/21 02/12/21 02/13/21 23:59 23:59 23:59 Intake Total 50 / 50 Output Total 1000 / 1000 Balance -950 / -950 General: Awake, Alert, Oriented x 3, Cooperative, In Acute Distress, Obese HEENT: Atraumatic, Normocephalic, PERRL, EOMI, Sclera Non Icteric Neck: Supple, Good ROM Lungs: Rales - Mike Bases Cardiovascular: Regular Rhythm, Normal S1, Normal S2 Abdomen: Bowel Sounds Present, Soft Extremities: Mild RLE Edema, Mild LLE Edema Neurological: No Focal Motor or Sensory Deficit Psych/Mental Status: Anxious 02/13/21 05:28: WBC 14.6 H, RBC 3.98 L, Hgb 12.4 L, Hct 38.3 L, MCV 96.2 H, MCH 31.2, MCHC 32.4, Plt Count 207, MPV 10.4, Immature Gran % (Auto) 0.400, Neut % (Auto) 86.1 H, Lymph % (Auto) 7.1 L, [place] % (Auto) 6.0, Eos % (Auto) 0.1, Baso % (Auto) 0.3, Absolute Neuts (auto) 12.6 H, Nucleated RBC % 0 02/13/21 05:28: PT 15.1 H, INR 1.3, APTT 26.9 02/13/21 05:28: Sodium 131 L, Potassium 5.7 H, Chloride 100, Carbon Dioxide 19.0 L, Anion Gap 12, BUN 49 H, Creatinine 3.52 H, Est GFR (MDRD) Af Amer 23 L, Est GFR (MDRD) Non-Af 19 L, BUN/Creatinine Ratio 13.9, Glucose 528 H*, Calcium 8.3 L , Total Bilirubin 0.60, Troponin I 4.360 H* 02/13/21 05:28: Lactic Acid 5.6 H* 02/13/21 05:28: B-Natriuretic Peptide 809.1 H 02/13/21 05:42: pH 7.30 L, Bicarbonate Actual 16.7 L, Base Excess -10 L, O2 Saturation 94 L, ABG pCO2 34.4 L, ABG pO2 77, Tristin Test Positive 02/13/21 07:45: Urine Color Yellow, Urine Clarity Sl. Cloudy, Urine pH 5.0, Ur Specific [place] 1.015, Urine Protein 500 H, Urine Glucose (UA) 1000 H, Urine Ketones 5 H, Urine Occult Blood 250 H, Urine Nitrite Negative, Urine Bilirubin Negative, Urine Urobilinogen Normal, Ur Leukocyte Esterase Negative, Urine RBC 0-5 SEEN, Urine WBC 0-5 SEEN 02/13/21 08:45: Lactic Acid 2.5 H* 02/13/21 09:00: Sodium 131 L, Potassium 6.3 H*, Chloride 101, Carbon Dioxide 23.0, Anion Gap 7, BUN 53 H, Creatinine 3.60 H, Est GFR (MDRD) Af Amer 22 L, Est GFR (MDRD) Non-Af 18 L, BUN/Creatinine Ratio 14.7, Glucose 553 H*, Calcium 8.9 02/13/21 09:00: Troponin I 26.400 H* 02/13/21 11:58: pH 6.98 L*, Bicarbonate Actual 17.9 L, Base Excess -14 L, O2 Saturation 51 L, ABG pCO2 76.2 H*, ABG pO2 42 L, Tristin Test Negative Rhythm: Electronic ventricular paced rhythm EKG: As noted above ECHO: 11-26-2019 Interpretation Summary The estimated ejection fraction is 40-45 %. There is evidence of diastolic dysfunction. Trivial tricuspid valve insufficiency. Hypokinesis of the posterior and inferior wall ECHO: 02/13/2021 Interpretation Summary The study was technically difficult. Contrast injection was performed. Moderate segmental systolic dysfunction (see wall motion). The estimated ejection fraction is 30 %. Mild diffuse mitral valve thickening. Mild (1+) mitral valve insufficiency. Trivial tricuspid valve insufficiency. Mild diffuse aortic valve thickening. Mild focal aortic valve calcification. Unable to estimate RV systolic pressure/pulmonary artery pressure due to technically difficult study. Diastolic function is indeterminate. Stress Test Report: 08-05-2019 Oncologic myocardial perfusion stress test. 59-year-old man with a history of coronary artery disease status post coronary artery bypass surgery. Medications: Humulin, metoprolol, Altace, furosemide, metolazone, Procardia, iso sorbide. Stress protocol: Resting EKG demonstrates normal sinus rhythm with a rate of 73 bpm normal intervals are noted poor R wave progression is noted suggestive of a previous anterior infarct. Resting blood pressures 158/90 mmHg. 0.4 mg of regadenoson was infused per usual protocol followed by rapid intravenous saline flush injection. The maximum heart rate attained was 80 bpm which was 49% of maximum predicted heart rate the maximum workload was 1 metabolic equivalent. At rest there were no ST or T wave changes noted suggest ischemia at peak infusion nonspecific ST-T wave changes were noted. No clinical angina was noted. The resting blood pressures 158/90 with a final blood pressure 140/80 mmHg. Myocardial perfusion protocol. 15.0 mCi of technetium 99m sestamibi was injected at rest. 0.4 mg of regadenoson was infused per usual protocol. Peak infusion 45.0 mCi of technetium 99m sestamibi was injected stress images were obtained stress and rest images are reconstructed and compared in the short axis vertical long horizontal long axis. Gated images were also obtained Perfusion SPECT analysis: Review of the stress images demonstrate a normal cardiac silhouette size. There is a medium-sized defect noted in the lateral wall on the stress images which appears to be totally reversible on the resting images suggestive of lateral ischemia and a medium size zone. The rest of the ma appear to be fairly well perfused. Gated SPECT analysis: The gated ejection fraction is noted to be 41%. Conclusion: Abnormal pharmacologic myocardial perfusion stress test with evidence of lateral ischemia. Borderline ejection fraction. Cardiac Cath: 11-29-2019 CONCLUSIONS Patient with known severe renal dysfunction and non-ST elevation myocardial infarction. Present cardiac catheterization demonstrates restenosis in the right coronary artery. The previous saphenous vein grafts were noted to be occluded and therefore not reimaged and the THOMAS was not reimaged for dye conservation RECOMMENDATIONS Referred for immediate PCI DESCRIPTION OF PROCEDURE The patient arrived to the procedure lab. The risks and benefits of the procedure as well as a full description of our services here and current unavailability of surgical backup were fully explained to the patient and/or their significant other prior to the catheterization. The Timeout was completed, verifying the correct patient and procedure. The patient's procedural site was prepped and draped in the usual fashion. Local anesthetic was given subcutaneously to right radial region with Lidocaine 2%. Using a modified Seldinger technique, arterial access was obtained via the right radial artery, a 6Fr sheath was inserted. Right Coronary Artery selective angiography was then performed in multiple views using a 5 Fr. 4.0 [place] catheter. Left Coronary Artery selective angiography was performed in multiple views using a 5 Fr. 4.0 [place] catheter. CORONARY ANGIOGRAPHY DOMINANCE: Right Dominant LEFT HEART ASSESSMENT Left Ventricular Ejection Fraction: by Echo 45 % Inferior Mid Hypokinesis - Moderate LEFT MAIN: 70 % Stenosis LEFT ANTERIOR DESCENDING ARTERY: PROX LAD: Subtotal occlusion with patent diagonal CIRCUMFLEX ARTERY: OSTIAL CIRC: is occluded RIGHT CORONARY ARTERY: Previously placed stent has an instent 80 % restenosis Patient has proximal mid and distal stents placed previously. The proximal and mid right coronary artery appears to have mild to moderate in-stent stenosis but the mid to distal area has a high-grade 80% stenosis noted prior to the bifurcation of the posterior lateral vessel and posterior descending artery. The distal vessels have mild luminal irregularities GRAFTS: Saphenous Vein graft to the CIRC is totally occluded THOMAS graft to the Mid LAD previously known patent in 2016 PCI: 11-29-2019 CONCLUSIONS Successful PTCA to the ISR of dRCA stent. CT Surgery: 03-05-2010: [facility] THOMAS to the LAD SVG to the diagonal branch VG to the LCx CXR: Preliminary evaluation: Increased pulmonary vascularity/infiltrates compatible with a combination of CHF with an underlying pneumonia not being able to be excluded superimposed upon post open heart surgery changes and post PPM changes: Please see official report Assessment/Plan 1. Non-ST segment elevation OK The patient has findings compatible with a non-ST segment elevation [place]. The patient will need to be monitored with follow-up cardiac enzymes. The patient has undergone further evaluation with a transthoracic echocardiogram. The patient will need continued medical therapy as tolerated with a combination of antiplatelets, anticoagulants, possibly nitrates, beta-blockers, afterload reducing agents, lipid-lowering agents, etc.-all taken into consideration with his underlying renal insufficiency and his metabolic status. The patient will need to be considered for further evaluation with diagnostic cardiac catheterization. Hopefully this can be performed after he has had stabilization of his respiratory status and his renal status and his metabolic status/hyperkalemia. 2. CHF The patient does have CHF which appears to be systolic mediated. It appears this is acute on chronic. At the moment the patient will continue medical management as best as possible with diuretic therapy. However based upon his volume status and his marked elevation of his creatinine level as well as his metabolic status with his hyperkalemia he has been recommended for nephrology consultation for consideration for urgent/emergent dialysis therapy. 3. CAD status post PCI status post CABG The patient has undergone extensive cardiovascular evaluation in the past leading to both PCI and CABG. At the moment he appears to be demonstrating evidence of an acute coronary syndrome and acute on chronic systolic mediated CHF. He will need to continue to be monitored and continue medical therapy. He should be considered for further evaluation with diagnostic cardiac catheterization. Again, hopefully this can be performed once he is stabilized from his respiratory status and his other medical conditions. 4. Atrial fibrillation He has a history of underlying atrial fibrillation. His rhythm will be monitored. He will continue medical therapy as deemed appropriate. 5. AV block He has a history of AV block and is status post permanent pacemaker placement. He will need to continue to be followed. 6. Permanent pacemaker He does have a permanent pacemaker. It has been functioning appropriately per his previous permanent pacemaker reports. 7. Hyperlipidemia He will continue risk factor modification and medical management. 8. Hypertension His blood pressure will be followed. His medicines will be adjusted accordingly taking into consideration his renal insufficiency. 9. Acute renal insufficiency According to the [facility] emergency department there was concerns that he had acute renal insufficiency secondary to combination of his nausea/emesis and possible dehydration. He was initially thought to be volume depleted and was receiving IV fluids. Status post arrival in the ICU on subsequent reevaluation there were concerns that he was in acute on chronic systolic mediated CHF and that his renal insufficiency was related to his underlying acute cardiopulmonary disease process. Thus his IV fluids were discontinued. He initiated medical therapy with IV diuretics. Also a consultation was placed to nephrology to assist in his ongoing evaluation and care. 10. Hyperkalemia His potassium level was noted to be elevated. It was thought this was secondary to his acute renal insufficiency. He was being evaluated and cared for such by the ICU staff. 11. Pneumonia There was concern that he may have had an underlying pneumonitis secondary to his fever and associated symptoms. Thus he was also being evaluated for this possibility by the [facility] emergency department staff and the ICU staff. Comment: Status post the patient's cardiovascular consultation and subsequent ICU evaluation leading to mechanical intubation/ventilation the patient was noted to have an acute cardiopulmonary arrest. He underwent the BLS/ACLS protocol. He regained a pulse. He was continuing medical therapy. However, he subsequently was noted to have a repeat cardiopulmonary arrest. He underwent repeat BLS/ACLS protocol. He regained a pulse. He was continuing medical therapy. During this time his case was discussed with the [facility] medical staff as well as his spouse and son who were present. His spouse stated that the patient did not want to proceed, in this scenario, with continued life preserving activities/interventions, etc. Thus, she stated that if he were to have a repeat cardiopulmonary arrest then he would be considered a DNR and would not undergo repeat resuscitative measures. The patient was subsequently noted to again experience an acute cardiopulmonary arrest. Thus, per his spouse's directions, he did not receive additional resuscitative measures and he subsequently . This note was generated using a voice recognition system and there may be incorrect words, spelling or punctuation that were not noted when reviewing the office note prior to saving.
[2021-02-13] MEDS: 0.9% Saline Lock 10 ML Syringe IV ×2 (15:38→16:11)
== END 2021-02-13 12:03 | DRG 871 ==
LOC: ED 05:35 → ICU 07:48
PROVIDERS: Internal Medicine Critical Care Medicine; Admitting Provider Student in an Organized Health Care Education/Training Program; Emergency Provider Emergency Medicine; PCP Internal Medicine; Visit Provider Student in an Organized Health Care Education/Training Program
DX: A41.9 Sepsis, unspecified organism (principal); R65.21 Severe sepsis with septic shock; I50.23 Acute on chronic systolic (congestive) heart failure; I21.4 Non-ST elevation (NSTEMI) myocardial infarction; J18.9 Pneumonia, unspecified organism; J96.01 Acute respiratory failure with hypoxia; N17.9 Acute kidney failure, unspecified; I44.2 Atrioventricular block, complete; Z68.41 Body mass index [BMI] 40.0-44.9, adult; I13.0 Hypertensive heart and chronic kidney disease with heart failure and stage 1 through stage 4 chronic kidney disease, or unspecified chronic kidney disease; N18.4 Chronic kidney disease, stage 4 (severe); I46.9 Cardiac arrest, cause unspecified; I49.01 Ventricular fibrillation; E11.22 Type 2 diabetes mellitus with diabetic chronic kidney disease; E11.65 Type 2 diabetes mellitus with hyperglycemia; E87.5 Hyperkalemia; I25.10 Atherosclerotic heart disease of native coronary artery without angina pectoris; Z79.4 Long term (current) use of insulin; Z95.5 Presence of coronary angioplasty implant and graft; Z66 Do not resuscitate; E78.5 Hyperlipidemia, unspecified; Z95.1 Presence of aortocoronary bypass graft; G47.33 Obstructive sleep apnea (adult) (pediatric); E03.9 Hypothyroidism, unspecified; F32.9 Major depressive disorder, single episode, unspecified; I48.91 Unspecified atrial fibrillation; E66.9 Obesity, unspecified; Z79.02 Long term (current) use of antithrombotics/antiplatelets; Z79.82 Long term (current) use of aspirin; Z88.1 Allergy status to other antibiotic agents; Z82.5 Family history of asthma and other chronic lower respiratory diseases; Z83.3 Family history of diabetes mellitus; Z82.49 Family history of ischemic heart disease and other diseases of the circulatory system; Z79.890 Hormone replacement therapy; Z95.810 Presence of automatic (implantable) cardiac defibrillator; E11.40 Type 2 diabetes mellitus with diabetic neuropathy, unspecified
CPT/HCPCS: 31500; 31720; 36600; 71045; 80048; 80053; 81001; 82803; 83605; 83880; 84484; 85025; 85610; 85730; 87040; 87070; 87086; 87205; 87426; 87641; 92950; 93005; 93306; 94002; 94640; 99251; 99285; J7030; Q9957; A4216; C8929; G0463; J0696; J1940; J3010